=== PATIENT | male | born 1950 | race Two or more races ===

== ENCOUNTER 2020-08-06 19:21 | Inpatient (IN) | payer MEDICARE, OTHER ==
[~2020-08-06] VITALS: Ht 172.7 cm; Wt 81.6 kg
[2020-08-06] MEDS ORDERED: Acetaminophen 500mg (ES) tab ORAL ONE (19:30)
[2020-08-06 20:00] VITALS: BP 170/86
--- NOTE | 2020-08-06 20:14 | Emergency Room Report ---
History of Present Illness General Chief Complaint: Fever Source: Patient Present Illness HPI Disclaimer: Please note that this report is being documented using [employer] technology. This can lead to erroneous entry secondary to incorrect interpretation by the dictating instrument. HPI: 69-year-old male history of ESRD on hemodialysis TRS, CAD status post CABG 2019, hypertension, hyperlipidemia and diabetes presents for evaluation of fever and cough. Symptoms present 1 week. Feeling fatigue, myalgias, nonproductive cough. Developed a fever several days ago. Has not been to dialysis because he was feeling badly and did not want to get other sick. No recent COVID-19 test. Was seen at urgent care found to be febrile and transferred to ER. Denies chest pain, palpitations, shortness of breath just reports persistent cough. Denies URI symptoms. Reports intermittent nausea and vomiting but denies abdominal pain or dysuria. Continues to make urine. PMH: Hypertension, hyperlipidemia, ESRD, CAD, diabetes PSH: AV fistula, CABG Allergies: Reviewed Social Hx: Denied smoking Allergies: Coded Allergies: No Known Allergies (Unverified , 08/06/20) COVID-19 Screening Contact w/high risk pt: Yes Experienced COVID-19 symptoms?: Yes COVID-19 Testing performed TOWN MANAGER: No - unk COVID-19 Screening: Negative COVID-19 Nursing Documentation-PMH Hx Diabetes: Yes - DM2 Review of Systems All Other Systems: negative except mentioned in HPI Physical Exam Vital Signs Date Time Temp Pulse Resp B/P (MAP) Pulse Ox O2 Delivery O2 Flow Rate FiO2 08/06/20 19:15 101.3 70 18 144/68 (93) 97 Room Air General: Awake and alert, no acute distress, febrile HEENT: NC/AT. EOMI. Cardiovascular: Regular rate and rhythm. Palpable fistula left upper extremity Resp: Normal work of breathing. No cough, wheezing or crackles appreciated Abdomen: Abdomen is soft, nondistended. Nontender Skin: I surgical scars clean dry and intact MSK: Normal tone and bulk. Moving all extremities. No obvious deformity. Neuro: Awake and alert. Mentating appropriately. Medical Decision Making Diagnostic Impression: Primary Impression: Fever Additional Impressions: Elevated troponin ESRD (end stage renal disease) on dialysis Pancreatitis ER Course Is a 69-year-old male history of ESRD presents for evaluation of fever. Missed dialysis for the last 3 sessions. He arrives febrile but vital signs otherwise within normal limits. EKG shows anterior Q waves consistent with prior CAD but no signs of acute ischemia. Potassium returned within normal limits. Troponin elevated 0.090. Peptide elevated greater than 10,000. Vascular congestion but no effusion noted on chest x-ray no obvious consolidation. Lipase elevated nearly 700. Patient's labs may be secondary to his ESRD is creatinine is significantly elevated but there are no prior for comparison and therefore will admit the patient for trending of troponin ACS rule out given the patient's multiple risk factors including three-vessel CABG last year. admitted to Dr. Lamont falcon per his health plan Laboratory Tests Test 08/06/20 20:00 White Blood Count 6.3 K/UL (4.8-10.8) Red Blood Count 4.18 M/UL (4.70-6.10) L Hemoglobin 12.3 G/DL (14.2-18.0) L Hematocrit 36.1 % (42.0-52.0) L Mean Corpuscular Volume 86 FL (80-99) Mean Corpuscular Hemoglobin 29.5 PG (27.0-31.0) Mean Corpuscular Hemoglobin Concent 34.1 G/DL (32.0-36.0) Red Cell Distribution Width 16.9 % (11.6-14.8) H Platelet Count 136 K/UL (150-450) L Mean Platelet Volume 8.4 FL (6.5-10.1) Neutrophils (%) (Auto) 80.9 % (45.0-75.0) H Lymphocytes (%) (Auto) 11.5 % (20.0-45.0) L Monocytes (%) (Auto) 6.6 % (1.0-10.0) Eosinophils (%) (Auto) 0.6 % (0.0-3.0) Basophils (%) (Auto) 0.4 % (0.0-2.0) Prothrombin Time 11.3 SEC (9.30-11.50) Prothrombin Time INR 1.0 (0.9-1.1) Activated Partial Thromboplast Time 28 SEC (23-33) D-Dimer 0.47 mg/L FEU (0.00-0.49) Urine Color Pale yellow Urine Appearance Slightly cloudy Urine pH 7 (4.5-8.0) Urine Specific [place] 1.010 (1.005-1.035) Urine Protein 4+ (NEGATIVE) H Urine Glucose (UA) 4+ (NEGATIVE) H Urine Ketones Negative (NEGATIVE) Urine Blood 4+ (NEGATIVE) H Urine Nitrite Negative (NEGATIVE) Urine Bilirubin Negative (NEGATIVE) Urine Urobilinogen Normal MG/DL (0.0-1.0) Urine Leukocyte Esterase Negative (NEGATIVE) Urine RBC 30-40 /HPF (0 - 0) H Urine WBC 0-2 /HPF (0 - 0) Urine Squamous Epithelial Cells Occasional /LPF Urine Bacteria Few /HPF (NONE) Sodium Level 134 MMOL/L (136-145) L Potassium Level 4.8 MMOL/L (3.5-5.1) Chloride Level 99 MMOL/L (98-107) Carbon Dioxide Level 25 MMOL/L (21-32) Anion Gap 10 mmol/L (5-15) Blood Urea Nitrogen 68 mg/dL (7-18) H Creatinine 8.2 MG/DL (0.55-1.30) H Estimated Glomerular Filtration Rate 6.6 mL/min (>60) Glucose Level 257 MG/DL (74-106) H Lactic Acid Level 0.90 mmol/L (0.4-2.0) Calcium Level 7.9 MG/DL (8.5-10.1) L Phosphorus Level 3.4 MG/DL (2.5-4.9) Magnesium Level 2.2 MG/DL (1.8-2.4) Ferritin 1143 NG/ML (8-388) H Total Bilirubin 0.4 MG/DL (0.2-1.0) Aspartate Amino Transferase (AST) 26 U/L (15-37) Alanine Aminotransferase (ALT) 43 U/L (12-78) Alkaline Phosphatase 108 U/L (46-116) Lactate Dehydrogenase 230 U/L (81-234) Total Creatine Kinase 83 U/L (26-308) Creatine Kinase MB 3.3 NG/ML (0.0-3.6) Creatine Kinase MB Relative Index 3.9 Troponin I 0.090 ng/mL (0.000-0.056) C-Reactive Protein, Quantitative 2.9 mg/dL (0.00-0.90) H Pro-B-Type Natriuretic Peptide 35911 pg/mL (0-125) H Total Protein 7.1 G/DL (6.4-8.2) Albumin 3.1 G/DL (3.4-5.0) L Globulin 4.0 g/dL Albumin/Globulin Ratio 0.8 (1.0-2.7) L Lipase 697 U/L (73-393) H EKG Diagnostic Results Troponin ordered: Yes When was troponin ordered?: Aug 06, 2020 EKG Time: 20:34 Rate: normal Rhythm: NSR ST Segments: no acute changes Other Impression Sinus rhythm, normal axis, normal intervals, QTC 461 ms, no hyperacute T waves, no obvious ST segment changes. Anterior Q waves Rhythm Strip Diag. Results Rhythm Strip Time: 20:34 EP Interpretation: yes Rate: 70s Rhythm: NSR, no PVC's, no ectopy Chest X-Ray Diagnostic Results Chest X-Ray Diagnostic Results : Chest X-Ray Ordered: Yes # of Views/Limited/Complete: 1 View Indication: Other - Fever EP Interpretation: Yes Interpretation: no consolidation, no effusion, no pneumothorax, other - Vascular prominences Impression: No acute disease Electronically Signed by: Electronically signed by Dr. Anil Salomon MD Last Vital Signs Date Time Temp Pulse Resp B/P (MAP) Pulse Ox O2 Delivery O2 Flow Rate FiO2 08/06/20 19:15 101.3 70 18 144/68 (93) 97 Room Air Disposition: ADMITTED INPATIENT Condition: Serious Anil Salomon MD Aug 06, 2020 20:14
[2020-08-06 20:32] VITALS: BP 156/60
[2020-08-06 20:53] LABS: BASOPHILS % (AUTO) 0.4 % (0.0-2.0); EOSINOPHILS % (AUTO) 0.6 % (0.0-3.0); HEMATOCRIT 36.1 % (42.0-52.0); HEMOGLOBIN 12.3 G/DL (14.2-18.0); LYMPHOCYTES % (AUTO) 11.5 % (20.0-45.0); MEAN CORPUSCULAR VOLUME 86 FL (80-99); MONOCYTES % (AUTO) 6.6 % (1.0-10.0); NEUTROPHILS % (AUTO) 80.9 % (45.0-75.0); PLATELET COUNT 136 K/UL (150-450); RED BLOOD COUNT 4.18 M/UL (4.70-6.10); RED CELL DISTRIBUTION WIDTH 16.9 % (11.6-14.8); WHITE BLOOD COUNT 6.3 K/UL (4.8-10.8)
[2020-08-06 21:07] LABS: APPEARANCE,URINE SLIGHTLY CLOUDY; BILIRUBIN, URINE NEGATIVE (NEGATIVE); COLOR,URINE PALE YELLOW; GLUCOSE, URINE (UA) 4+ (NEGATIVE); KETONES,URINE NEGATIVE (NEGATIVE); LEUKOCYTE ESTERASE ,URINE NEGATIVE (NEGATIVE); NITRITE,URINE NEGATIVE (NEGATIVE); PH,URINE 7 (4.5-8.0); PROTEIN,URINE 4+ (NEGATIVE); UROBILINOGEN,URINE NORMAL MG/DL (0.0-1.0)
[2020-08-06 21:13] LABS: CALCIUM 7.9 MG/DL (8.5-10.1); CREATININE 8.2 MG/DL (0.55-1.30); POTASSIUM 4.8 MMOL/L (3.5-5.1)
--- NOTE | 2020-08-06 21:21 | Diagnostic Imaging Report ---
EXAM: XR Chest, 1 View CLINICAL HISTORY: PAIN TECHNIQUE: Frontal view of the chest. COMPARISON: No relevant prior studies available. FINDINGS: Lungs: Low lung volumes with bronchovascular crowding. No consolidation, pleural effusion, or pneumothorax. Pleural space: See above. Heart: Cardiomegaly. Mediastinum: Unremarkable. Bones/joints: Sternotomy with mediastinal operative findings. Other findings: Radiopaque linear structure superimposed over the left neck of uncertain significance, correlate with patient presentation and history. IMPRESSION: 1. Radiopaque linear structure superimposed over the left neck of uncertain significance, correlate with patient presentation and history. 2. Low lung volumes with bronchovascular crowding. 3. Cardiomegaly. 4. Otherwise no acute cardiopulmonary disease. 5. If there is continued concern, consider frontal and lateral chest radiographs or CT.
[2020-08-06 21:29] LABS: ALBUMIN 3.1 G/DL (3.4-5.0); ALBUMIN/GLOBULIN RATIO 0.8 (1.0-2.7); BILIRUBIN,TOTAL 0.4 MG/DL (0.2-1.0); CKMB 3.3 NG/ML (0.0-3.6); PHOSPHORUS 3.4 MG/DL (2.5-4.9)
[2020-08-06 21:35] VITALS: BP 125/76
[2020-08-06] MEDS ORDERED: Albuterol 90mcg Inhaler 8gm INH PRN (22:45)
[2020-08-06] MEDS ORDERED: Ipratropium Bromide Inhaler INH PRN (22:45)
[2020-08-06] MEDS ORDERED: Bumetanide 2.5mg/10ml Inj IVP ONE (22:45)
[2020-08-06] MEDS ORDERED: Lidocaine HCl 2% Jelly 6ml Tube TOPIC ONE (23:21)
[2020-08-07] VITALS (13 sets, daily range): BP systolic 127–152; BP diastolic 52–89
[2020-08-07 04:20] LABS: BASOPHILS % (AUTO) 0.5 % (0.0-2.0); HEMATOCRIT 34.8 % (42.0-52.0); HEMOGLOBIN 11.9 G/DL (14.2-18.0); LYMPHOCYTES % (AUTO) 18.9 % (20.0-45.0); MEAN CORPUSCULAR VOLUME 87 FL (80-99); MONOCYTES % (AUTO) 8.5 % (1.0-10.0); NEUTROPHILS % (AUTO) 71.2 % (45.0-75.0); PLATELET COUNT 115 K/UL (150-450); RED BLOOD COUNT 4.01 M/UL (4.70-6.10); RED CELL DISTRIBUTION WIDTH 16.8 % (11.6-14.8); WHITE BLOOD COUNT 5.4 K/UL (4.8-10.8)
[2020-08-07 04:33] LABS: CALCIUM 7.5 MG/DL (8.5-10.1); CREATININE 8.3 MG/DL (0.55-1.30); POTASSIUM 4.4 MMOL/L (3.5-5.1)
[2020-08-07] MEDS: GlipiZIDE 5mg tab ORAL SCH ×2 (06:11→18:52)
[2020-08-07] MEDS: NovoLOG Insulin Flexpen SUBQ SCH ×4 (08:06→21:00)
[2020-08-07] MEDS: dexAMETHasone 10mg/ml Inj IV SCH (09:15)
[2020-08-07] MEDS: Enoxaparin 30mg Inj SUBQ SCH (09:16)
[2020-08-07] MEDS: Sertraline 50mg tab ORAL SCH (09:19)
[2020-08-07] MEDS: Amiodarone 200mg tab ORAL SCH (09:19)
--- NOTE | 2020-08-07 11:43 | Consultation ---
History of Present Illness General Date patient seen: Aug 07, 2020 Time patient seen: 11:39 Chief Complaint: Fever Referring physician: PCP Reason for Consultation: COVID+ Present Illness HPI 69yo M with ESRD on HD who p/w fever and fatigue, COVID+, for which ID is consulted. Pt reports he has been feeling poorly, so much so that he was unable to go to HD last week so is overdue for HD. Had fevers/chills, fatigue. No pain. Breathing stable. Makes urine, no dysuria. Here has Tmax 101.3, satting 98% on RA. No allergies to abx PMH: ESRD on HD CAD s/p CABG 2018 HTN HLD DM2 LUE AVF Allergies: Coded Allergies: No Known Allergies (Unverified , 08/06/20) Patient History Healthcare decision maker Resuscitation status Advanced Directive on File Review of Systems ROS Narrative 10-point ROS neg except as noted in HPI Physical Exam Physical Exam Narrative Gen: NAD HEENT: NCAT Pulm: BL chest rise on RA Abd: Soft, NTND Ext: No c/c/e. LUE AVF Neuro: Awake, interactive Last 24 Hour Vital Signs Date Time Temp Pulse Resp B/P (MAP) Pulse Ox O2 Delivery O2 Flow Rate FiO2 08/07/20 10:54 98.4 85 16 152/89 100 Room Air 08/07/20 09:17 79 145/86 08/07/20 09:00 98.9 79 18 145/86 99 Room Air 08/07/20 06:59 99.0 82 20 151/81 100 Room Air 08/07/20 05:52 97.5 81 20 138/76 97 Room Air 08/07/20 04:15 97.3 76 20 142/73 100 Room Air 08/07/20 02:23 98.7 62 16 131/72 100 Room Air 08/07/20 01:14 99.0 61 16 127/78 98 Room Air 08/07/20 00:16 99.0 64 16 133/81 97 Room Air 08/06/20 21:35 99.4 69 18 125/76 100 Room Air 08/06/20 20:56 100.8 08/06/20 20:32 156/60 08/06/20 20:00 101.3 76 18 170/86 100 Room Air 08/06/20 20:00 76 18 08/06/20 19:15 101.3 70 18 144/68 (93) 97 Room Air Laboratory Tests Test 08/06/20 20:00 08/06/20 23:22 08/07/20 04:14 08/07/20 07:31 White Blood Count 6.3 K/UL (4.8-10.8) 5.4 K/UL (4.8-10.8) Red Blood Count 4.18 M/UL (4.70-6.10) L 4.01 M/UL (4.70-6.10) L Hemoglobin 12.3 G/DL (14.2-18.0) L 11.9 G/DL (14.2-18.0) L Hematocrit 36.1 % (42.0-52.0) L 34.8 % (42.0-52.0) L Mean Corpuscular Volume 86 FL (80-99) 87 FL (80-99) Mean Corpuscular Hemoglobin 29.5 PG (27.0-31.0) 29.7 PG (27.0-31.0) Mean Corpuscular Hemoglobin Concent 34.1 G/DL (32.0-36.0) 34.2 G/DL (32.0-36.0) Red Cell Distribution Width 16.9 % (11.6-14.8) H 16.8 % (11.6-14.8) H Platelet Count 136 K/UL (150-450) L 115 K/UL (150-450) L Mean Platelet Volume 8.4 FL (6.5-10.1) 7.9 FL (6.5-10.1) Neutrophils (%) (Auto) 80.9 % (45.0-75.0) H 71.2 % (45.0-75.0) Lymphocytes (%) (Auto) 11.5 % (20.0-45.0) L 18.9 % (20.0-45.0) L Monocytes (%) (Auto) 6.6 % (1.0-10.0) 8.5 % (1.0-10.0) Eosinophils (%) (Auto) 0.6 % (0.0-3.0) 1.0 % (0.0-3.0) Basophils (%) (Auto) 0.4 % (0.0-2.0) 0.5 % (0.0-2.0) Prothrombin Time 11.3 SEC (9.30-11.50) Prothromb Time International Ratio 1.0 (0.9-1.1) Activated Partial Thromboplast Time 28 SEC (23-33) D-Dimer 0.47 mg/L FEU (0.00-0.49) Urine Color Pale yellow Urine Appearance Slightly cloudy Urine pH 7 (4.5-8.0) Urine Specific [place] 1.010 (1.005-1.035) Urine Protein 4+ (NEGATIVE) H Urine Glucose (UA) 4+ (NEGATIVE) H Urine Ketones Negative (NEGATIVE) Urine Blood 4+ (NEGATIVE) H Urine Nitrite Negative (NEGATIVE) Urine Bilirubin Negative (NEGATIVE) Urine Urobilinogen Normal MG/DL (0.0-1.0) Urine Leukocyte Esterase Negative (NEGATIVE) Urine RBC 30-40 /HPF (0 - 0) H Urine WBC 0-2 /HPF (0 - 0) Urine Squamous Epithelial Cells Occasional /LPF Urine Bacteria Few /HPF (NONE) Sodium Level 134 MMOL/L (136-145) L 137 MMOL/L (136-145) Potassium Level 4.8 MMOL/L (3.5-5.1) 4.4 MMOL/L (3.5-5.1) Chloride Level 99 MMOL/L (98-107) 102 MMOL/L (98-107) Carbon Dioxide Level 25 MMOL/L (21-32) 22 MMOL/L (21-32) Anion Gap 10 mmol/L (5-15) 13 mmol/L (5-15) Blood Urea Nitrogen 68 mg/dL (7-18) H 75 mg/dL (7-18) H Creatinine 8.2 MG/DL (0.55-1.30) H 8.3 MG/DL (0.55-1.30) H Estimat Glomerular Filtration Rate 6.6 mL/min (>60) 6.5 mL/min (>60) Glucose Level 257 MG/DL (74-106) H 166 MG/DL (74-106) H Lactic Acid Level 0.90 mmol/L (0.4-2.0) Calcium Level 7.9 MG/DL (8.5-10.1) L 7.5 MG/DL (8.5-10.1) L Phosphorus Level 3.4 MG/DL (2.5-4.9) Magnesium Level 2.2 MG/DL (1.8-2.4) Ferritin 1143 NG/ML (8-388) H Total Bilirubin 0.4 MG/DL (0.2-1.0) Aspartate Amino Transf (AST/SGOT) 26 U/L (15-37) Alanine Aminotransferase (ALT/SGPT) 43 U/L (12-78) Alkaline Phosphatase 108 U/L (46-116) Lactate Dehydrogenase 230 U/L (81-234) Total Creatine Kinase 83 U/L (26-308) Creatine Kinase MB 3.3 NG/ML (0.0-3.6) Creatine Kinase MB Relative Index 3.9 Troponin I 0.090 ng/mL (0.000-0.056) 0.098 ng/mL (0.000-0.056) C-Reactive Protein, Quantitative 2.9 mg/dL (0.00-0.90) H 3.1 mg/dL (0.00-0.90) H Pro-B-Type Natriuretic Peptide 71912 pg/mL (0-125) H Total Protein 7.1 G/DL (6.4-8.2) Albumin 3.1 G/DL (3.4-5.0) L Globulin 4.0 g/dL Albumin/Globulin Ratio 0.8 (1.0-2.7) L Lipase 697 U/L (73-393) H 942 U/L (73-393) H Arterial Blood pH 7.484 (7.350-7.450) Arterial Blood Partial Pressure CO2 24.2 mmHg (35.0-45.0) *L Arterial Blood Partial Pressure O2 142.7 mmHg (75.0-100.0) H Arterial Blood HCO3 17.8 mmol/L (22.0-26.0) *L Arterial Blood Oxygen Saturation 97.2 % (95-100) Arterial Blood Base Excess -4.3 (-2-2) L Alireza Test Positive Erythrocyte Sedimentation Rate 46 MM/HR (0-20) H Hemoglobin A1c 12.5 % (4.3-6.0) H Interleukin 6 (IL-6) Pending POC Whole Blood Glucose 192 MG/DL (74-106) H Microbiology Date/Time Source Procedure Growth Status 08/07/20 07:00 Rectum Received 08/06/20 20:00 Nasopharynx SARS-CoV-2 RdRp Gene Assay - Final Complete Height (Feet): 5 Height (Inches): 8.00 Weight (Pounds): 180 Medications Current Medications Medications (Trade) Dose Ordered Sig/Miri Route PRN Reason Start Time Stop Time Status Last Admin Dose Admin Albuterol Sulfate (Proventil MDI) 2 puff Q4H PRN INH Shortness of Breath 08/06/20 22:45 11/04/20 22:44 Amiodarone HCl (Cordarone) 200 mg DAILY ORAL 08/07/20 09:00 11/05/20 08:59 08/07/20 09:19 Atorvastatin Calcium (Lipitor) 80 mg BEDTIME ORAL 08/07/20 21:00 11/05/20 20:59 Clopidogrel Bisulfate (Plavix) 75 mg DAILY ORAL 08/07/20 09:00 09/06/20 08:59 08/07/20 09:17 Dexamethasone Sodium Phosphate (Decadron 10mg/ ml Inj) 6 mg DAILY IV 08/07/20 09:00 08/16/20 08:59 08/07/20 09:15 Dextrose (Dextrose 50%) 25 ml Q30M PRN IV Hypoglycemia 08/06/20 22:45 11/04/20 22:44 Dextrose (Dextrose 50%) 50 ml Q30M PRN IV Hypoglycemia 08/06/20 22:45 11/04/20 22:44 Enoxaparin Sodium (Lovenox) 30 mg DAILY SUBQ 08/07/20 09:00 11/05/20 08:59 08/07/20 09:16 Glipizide (Glucotrol) 5 mg BIAC ORAL 08/07/20 06:30 09/06/20 06:29 08/07/20 06:11 Hydralazine HCl (Apresoline) 10 mg Q4H PRN IV SBP >160 08/06/20 22:45 11/04/20 22:44 Insulin Aspart (NovoLOG) BEFORE MEALS AND HS SUBQ 08/07/20 06:30 11/05/20 06:29 08/07/20 08:06 Ipratropium [place] (Atrovent Inh) 2 puffs Q4H PRN INH SOB wheezing 08/06/20 22:45 09/05/20 22:44 Metoprolol Tartrate (Lopressor) 25 mg Q12HR ORAL 08/07/20 09:00 11/05/20 08:59 08/07/20 09:17 Sertraline HCl (Zoloft) 25 mg DAILY ORAL 08/07/20 09:00 09/06/20 08:59 08/07/20 09:19 Assessment/Plan Assessment/Plan: 69yo M with: COVID pneumonia Febrile to 101.3 Normal WBC Lymphopenia 08/06 BCx p COVID rapid test positive UA neg CXR: No acute process Elevated lipase, no abd pain PMH: ESRD on HD CAD s/p CABG 2018 HTN HLD DM2 LUE AVF Plan: Cont dexamethasone 6mg daily #1 for now, if remains on RA will stop Cont to monitor off abx given normal WBC and COVID+ which is not treated with abx Not candidate for RDV given ESRD on HD This institution does not have access to convalescent plasma, and as pt doing well on RA unlikely to benefit from it at this point Monitor CBC/CMP Monitor resp status Monitor temp curve, hemodynamics D/w RN Thank you for this consult. [facility] will continue to follow. Luiza Barton M.D. Aug 07, 2020 11:43
--- NOTE | 2020-08-07 13:22 | General Progress Note ---
Subjective ROS Limited/Unobtainable: Yes Allergies: Coded Allergies: No Known Allergies (Unverified , 08/06/20) Objective Last 24 Hour Vital Signs Date Time Temp Pulse Resp B/P (MAP) Pulse Ox O2 Delivery O2 Flow Rate FiO2 08/07/20 10:54 98.4 85 16 152/89 100 Room Air 08/07/20 09:17 79 145/86 08/07/20 09:00 98.9 79 18 145/86 99 Room Air 08/07/20 06:59 99.0 82 20 151/81 100 Room Air 08/07/20 05:52 97.5 81 20 138/76 97 Room Air 08/07/20 04:15 97.3 76 20 142/73 100 Room Air 08/07/20 02:23 98.7 62 16 131/72 100 Room Air 08/07/20 01:14 99.0 61 16 127/78 98 Room Air 08/07/20 00:16 99.0 64 16 133/81 97 Room Air 08/06/20 21:35 99.4 69 18 125/76 100 Room Air 08/06/20 20:56 100.8 08/06/20 20:32 156/60 08/06/20 20:00 101.3 76 18 170/86 100 Room Air 08/06/20 20:00 76 18 08/06/20 19:15 101.3 70 18 144/68 (93) 97 Room Air Laboratory Tests 08/06/20 20:00: White Blood Count 6.3, Red Blood Count 4.18L, Hemoglobin 12.3L, Hematocrit 36.1L , Mean Corpuscular Volume 86, Mean Corpuscular Hemoglobin 29.5, Mean Corpuscular Hemoglobin Concent 34.1, Red Cell Distribution Width 16.9H, Platelet Count 136L, Mean Platelet Volume 8.4, Neutrophils (%) (Auto) 80.9H, Lymphocytes (%) (Auto) 11.5L, Monocytes (%) (Auto) 6.6, Eosinophils (%) (Auto) 0.6, Basophils (%) (Auto) 0.4, Prothrombin Time 11.3, Prothromb Time International Ratio 1.0, Activated Partial Thromboplast Time 28, D-Dimer 0.47, Urine Color Pale yellow, Urine Appearance Slightly cloudy, Urine pH 7, Urine Specific [place] 1.010, Urine Protein 4+H, Urine Glucose (UA) 4+H, Urine Ketones Negative, Urine Blood 4+H, Urine Nitrite Negative, Urine Bilirubin Negative, Urine Urobilinogen Normal, Urine Leukocyte Esterase Negative, Urine RBC 30-40H, Urine WBC 0-2, Urine Squamous Epithelial Cells Occasional, Urine Bacteria Few, Sodium Level 134L, Potassium Level 4.8, Chloride Level 99, Carbon Dioxide Level 25, Anion Gap 10, Blood Urea Nitrogen 68H, Creatinine 8.2H, Estimat Glomerular Filtration Rate 6.6, Glucose Level 257H, Lactic Acid Level 0.90, Calcium Level 7.9L, Phosphorus Level 3.4, Magnesium Level 2.2, Ferritin 1143H, Total Bilirubin 0.4, Aspartate Amino Transf (AST/SGOT) 26, Alanine Aminotransferase (ALT/SGPT) 43, Alkaline Phosphatase 108, Lactate Dehydrogenase 230, Total Creatine Kinase 83, Creatine Kinase MB 3.3, Creatine Kinase MB Relative Index 3.9, Troponin I 0.090H, C-[place] ctive Protein, Quantitative 2.9H, Pro-B-Type Natriuretic Peptide 38859Z, Total Protein 7.1, Albumin 3.1L, Globulin 4.0, Albumin/Globulin Ratio 0.8L, Lipase 697H 08/06/20 23:22: Arterial Blood pH 7.484H, Arterial Blood Partial Pressure CO2 24.2*L, Arterial B lood Partial Pressure O2 142.7H, Arterial Blood HCO3 17.8*L, Arterial Blood Oxygen Saturation 97.2, Arterial Blood Base Excess -4.3L, Alireza Test Positive 08/07/20 04:14: White Blood Count 5.4, Red Blood Count 4.01L, Hemoglobin 11.9L, Hematocrit 34.8L , Mean Corpuscular Volume 87, Mean Corpuscular Hemoglobin 29.7, Mean Corpuscular Hemoglobin Concent 34.2, Red Cell Distribution Width 16.8H, Platelet Count 115L, Mean Platelet Volume 7.9, Neutrophils (%) (Auto) 71.2, Lymphocytes (%) (Auto) 18.9L, Monocytes (%) (Auto) 8.5, Eosinophils (%) (Auto) 1.0, Basophils (%) (Au to) 0.5, Sodium Level 137, Potassium Level 4.4, Chloride Level 102, Carbon Dioxide Level 22, Anion Gap 13, Blood Urea Nitrogen 75H, Creatinine 8.3H, Estimat Glomerular Filtration Rate 6.5, Glucose Level 166H, Calcium Level 7.5L, Troponin I 0.098H, C-Reactive Protein, Quantitative 3.1H, Lipase 942H, Erythrocyte Sedimentation Rate 46H, Hemoglobin A1c 12.5H, Interleukin 6 (IL-6) [Pending] 08/07/20 07:31: POC Whole Blood Glucose 192H 08/07/20 11:34: POC Whole Blood Glucose [Pending] Height (Feet): 5 Height (Inches): 8.00 Weight (Pounds): 180 General Appearance: no apparent distress EENT: normal ENT inspection Neck: supple Cardiovascular: tachycardia Respiratory/Chest: decreased breath sounds Abdomen: hypoactive bowel sounds Extremities: non-tender Assessment/Plan Assessment/Plan: COVID anemia anisha failure CAD/PR DM elevated lipase check amylase and lipase lipid panel fu ID, Renal and cardiology abd us if needed anemia work up Rd Cruz MD Aug 07, 2020 13:22
--- NOTE | 2020-08-07 13:57 | Consultation ---
Consult Note Consult Note Patient seen in the ER, discussed with RN I am asked to evaluate for dialysis management HPI: 69-year-old male history of ESRD on hemodialysis TRS, CAD status post CABG 2019, hypertension, hyperlipidemia and diabetes presents for evaluation of fever and cough. Symptoms present 1 week. Feeling fatigue, myalgias, nonproductive cough. Developed a fever several days ago. Has not been to dialysis because he was feeling badly and did not want to get other sick. No recent COVID-19 test. Was seen at urgent care found to be febrile and transferred to ER. Denies chest pain, palpitations, shortness of breath just reports persistent cough. Denies URI symptoms. Reports intermittent nausea and vomiting but denies abdominal pain or dysuria. Continues to make urine. 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 - unk COVID-19 Screening: Negative COVID-19 Hx Diabetes: Yes - DM2 Vital Signs Date Time Temp Pulse Resp B/P (MAP) Pulse Ox O2 Delivery O2 Flow Rate FiO2 08/06/20 19:15 101.3 70 18 144/68 (93) 97 Room Air General Appearance: WD/WN, no apparent distress, alert Lines, tubes and drains: peripheral HEENT: normocephalic, atraumatic, anicteric, mucous membranes moist, PERRL Neck: non-tender, supple Respiratory/Chest: chest wall non-tender, lungs clear - with moderate air exchange , no respiratory distress, no accessory muscle use Cardiovascular/Chest: normal peripheral pulses, normal rate, regular rhythm, other - + 1-2 edema BLE Abdomen: normal bowel sounds, non tender, soft Extremities: normal range of motion, non-tender, no calf tenderness, normal ca pillary refill, other - LUE + bruit/thrill Skin Exam: warm/dry Neurologic: no motor/sensory deficits, alert, oriented x 3, responsive Musculoskeletal: normal muscle bulk . Assessment/Plan End-stage renal disease on hemodialysis COVID-19 pneumonia Coronary artery disease, [place] Diabetes mellitus Anemia Elevated lipase Plan: Monitor renal parameters Hemodialysis as soon as the patient arrives to medical floor Monitor lipase, renal parameters, hemoglobin and hematocrit Per orders Jon Crews MD Aug 07, 2020 13:57
--- NOTE | 2020-08-07 17:04 | History and Physical ---
Luis APark LEGAL RECOVERY SPECIALIST 08/07/20 1704: History of Present Illness General Date patient seen: Aug 07, 2020 Time patient seen: 15:30 Reason for Hospitalization: Fever, COVID PNA Present Illness HPI 69 years old male with PMH of diabetes mellitus, end-stage renal disease, on hemodialysis, hypertension, hyperlipidemia, coronary artery disease, status post CABG, presented due to fever and cough. Symptoms present for 1 week. Patient felt fatigued and reported nonproductive cough. He also reported myalgia. Patient missed dialysis for one week since he did not feel good. He denied recent Covid testing. Patient was seen in urgent care, was febrile and was sent to ER for further management. He denied chest pain, palpitations, shortness of breath, just reported persistent dry cough and fatigue. Upon evaluation in ED he was febrile 101.3, pulse oximetry was stable on room air. Rapid COVID-19 was positive. BUN 68, creatinine 8.2, consistent with known history of end-stage renal disease. Glucose 257. Sodium 134. Lactic acid 0.9. Ferritin 1143, CRP 2.9, LDH 230 and D-dimer 0.47. Urinalysis revealed +4 protein , +4 glucose , no evidence of UTI. Chest x-ray revealed low lung volumes with bronchovascular crowding. Cardiomegaly. Otherwise no acute cardiopulmonary disease. Troponin 0.09 ,EKG revealed sinus rhythm, no acute ischemic changes , proBNP 80072. Allergies: Coded Allergies: No Known Allergies (Unverified , 08/06/20) COVID-19 Screening Contact w/high risk pt: Yes Experienced COVID-19 symptoms?: Yes Coronavirus symptoms experienc: Fever (T>100.4F or >38C) Medication History Unable to Obtain Active Prescriptions or Reported Meds Patient History Healthcare decision maker Resuscitation status Advanced Directive on File Review of Systems Constitutional: Reports: fever, weakness, other - fatigue Eye: Reports: no symptoms ENT: Reports: no symptoms Respiratory: Reports: cough - dry persistent cough Cardiovascular: Reports: other - CAD, OR, HTN, s/p CABG Gastrointestinal: Reports: no symptoms Genitourinary: Reports: other - on HD, missed 1 week, still producing urine Musculoskeletal: Reports: other - myalgia Skin: Reports: no symptoms Psychiatric: Reports: no symptoms Neurological: Reports: no symptoms Endocrine: Reports: other - DM Hematologic/Lymphatic: Reports: anemia Physical Exam General Appearance: WD/WN, no apparent distress, alert Lines, tubes and drains: peripheral HEENT: normocephalic, atraumatic, anicteric, mucous membranes moist, PERRL Neck: non-tender, supple Respiratory/Chest: chest wall non-tender, lungs clear - with moderate air exchange , no respiratory distress, no accessory muscle use Cardiovascular/Chest: normal peripheral pulses, normal rate, regular rhythm, other - + 1-2 edema BLE Abdomen: normal bowel sounds, non tender, soft Extremities: normal range of motion, non-tender, no calf tenderness, normal capillary refill, other - LUE + bruit/thrill Skin Exam: warm/dry Neurologic: no motor/sensory deficits, alert, oriented x 3, responsive Musculoskeletal: normal muscle bulk Last 24 Hour Vital Signs Date Time Temp Pulse Resp B/P (MAP) Pulse Ox O2 Delivery O2 Flow Rate FiO2 08/07/20 15:00 98.2 68 19 145/67 96 Room Air 08/07/20 13:00 98.7 68 19 152/52 95 Room Air 08/07/20 10:54 98.4 85 16 152/89 100 Room Air 08/07/20 09:17 79 145/86 08/07/20 09:00 98.9 79 18 145/86 99 Room Air 08/07/20 06:59 99.0 82 20 151/81 100 Room Air 08/07/20 05:52 97.5 81 20 138/76 97 Room Air 08/07/20 04:15 97.3 76 20 142/73 100 Room Air 08/07/20 02:23 98.7 62 16 131/72 100 Room Air 08/07/20 01:14 99.0 61 16 127/78 98 Room Air 08/07/20 00:16 99.0 64 16 133/81 97 Room Air 08/06/20 21:35 99.4 69 18 125/76 100 Room Air 08/06/20 20:56 100.8 08/06/20 20:32 156/60 08/06/20 20:00 101.3 76 18 170/86 100 Room Air 08/06/20 20:00 76 18 08/06/20 19:15 101.3 70 18 144/68 (93) 97 Room Air Laboratory Tests Test 08/06/20 20:00 08/06/20 23:22 08/07/20 04:14 08/07/20 07:31 White Blood Count 6.3 K/UL (4.8-10.8) 5.4 K/UL (4.8-10.8) Red Blood Count 4.18 M/UL (4.70-6.10) L 4.01 M/UL (4.70-6.10) L Hemoglobin 12.3 G/DL (14.2-18.0) L 11.9 G/DL (14.2-18.0) L Hematocrit 36.1 % (42.0-52.0) L 34.8 % (42.0-52.0) L Mean Corpuscular Volume 86 FL (80-99) 87 FL (80-99) Mean Corpuscular Hemoglobin 29.5 PG (27.0-31.0) 29.7 PG (27.0-31.0) Mean Corpuscular Hemoglobin Concent 34.1 G/DL (32.0-36.0) 34.2 G/DL (32.0-36.0) Red Cell Distribution Width 16.9 % (11.6-14.8) H 16.8 % (11.6-14.8) H Platelet Count 136 K/UL (150-450) L 115 K/UL (150-450) L Mean Platelet Volume 8.4 FL (6.5-10.1) 7.9 FL (6.5-10.1) Neutrophils (%) (Auto) 80.9 % (45.0-75.0) H 71.2 % (45.0-75.0) Lymphocytes (%) (Auto) 11.5 % (20.0-45.0) L 18.9 % (20.0-45.0) L Monocytes (%) (Auto) 6.6 % (1.0-10.0) 8.5 % (1.0-10.0) Eosinophils (%) (Auto) 0.6 % (0.0-3.0) 1.0 % (0.0-3.0) Basophils (%) (Auto) 0.4 % (0.0-2.0) 0.5 % (0.0-2.0) Prothrombin Time 11.3 SEC (9.30-11.50) Prothromb Time International Ratio 1.0 (0.9-1.1) Activated Partial Thromboplast Time 28 SEC (23-33) D-Dimer 0.47 mg/L FEU (0.00-0.49) Urine Color Pale yellow Urine Appearance Slightly cloudy Urine pH 7 (4.5-8.0) Urine Specific [place] 1.010 (1.005-1.035) Urine Protein 4+ (NEGATIVE) H Urine Glucose (UA) 4+ (NEGATIVE) H Urine Ketones Negative (NEGATIVE) Urine Blood 4+ (NEGATIVE) H Urine Nitrite Negative (NEGATIVE) Urine Bilirubin Negative (NEGATIVE) Urine Urobilinogen Normal MG/DL (0.0-1.0) Urine Leukocyte Esterase Negative (NEGATIVE) Urine RBC 30-40 /HPF (0 - 0) H Urine WBC 0-2 /HPF (0 - 0) Urine Squamous Epithelial Cells Occasional /LPF Urine Bacteria Few /HPF (NONE) Sodium Level 134 MMOL/L (136-145) L 137 MMOL/L (136-145) Potassium Level 4.8 MMOL/L (3.5-5.1) 4.4 MMOL/L (3.5-5.1) Chloride Level 99 MMOL/L (98-107) 102 MMOL/L (98-107) Carbon Dioxide Level 25 MMOL/L (21-32) 22 MMOL/L (21-32) Anion Gap 10 mmol/L (5-15) 13 mmol/L (5-15) Blood Urea Nitrogen 68 mg/dL (7-18) H 75 mg/dL (7-18) H Creatinine 8.2 MG/DL (0.55-1.30) H 8.3 MG/DL (0.55-1.30) H Estimat Glomerular Filtration Rate 6.6 mL/min (>60) 6.5 mL/min (>60) Glucose Level 257 MG/DL (74-106) H 166 MG/DL (74-106) H Lactic Acid Level 0.90 mmol/L (0.4-2.0) Calcium Level 7.9 MG/DL (8.5-10.1) L 7.5 MG/DL (8.5-10.1) L Phosphorus Level 3.4 MG/DL (2.5-4.9) Magnesium Level 2.2 MG/DL (1.8-2.4) Ferritin 1143 NG/ML (8-388) H Total Bilirubin 0.4 MG/DL (0.2-1.0) Aspartate Amino Transf (AST/SGOT) 26 U/L (15-37) Alanine Aminotransferase (ALT/SGPT) 43 U/L (12-78) Alkaline Phosphatase 108 U/L (46-116) Lactate Dehydrogenase 230 U/L (81-234) Total Creatine Kinase 83 U/L (26-308) Creatine Kinase MB 3.3 NG/ML (0.0-3.6) Creatine Kinase MB Relative Index 3.9 Troponin I 0.090 ng/mL (0.000-0.056) 0.098 ng/mL (0.000-0.056) C-Reactive Protein, Quantitative 2.9 mg/dL (0.00-0.90) H 3.1 mg/dL (0.00-0.90) H Pro-B-Type Natriuretic Peptide 87761 pg/mL (0-125) H Total Protein 7.1 G/DL (6.4-8.2) Albumin 3.1 G/DL (3.4-5.0) L Globulin 4.0 g/dL Albumin/Globulin Ratio 0.8 (1.0-2.7) L Lipase 697 U/L (73-393) H 942 U/L (73-393) H Arterial Blood pH 7.484 (7.350-7.450) Arterial Blood Partial Pressure CO2 24.2 mmHg (35.0-45.0) *L Arterial Blood Partial Pressure O2 142.7 mmHg (75.0-100.0) H Arterial Blood HCO3 17.8 mmol/L (22.0-26.0) *L Arterial Blood Oxygen Saturation 97.2 % (95-100) Arterial Blood Base Excess -4.3 (-2-2) L Alireza Test Positive Erythrocyte Sedimentation Rate 46 MM/HR (0-20) H Hemoglobin A1c 12.5 % (4.3-6.0) H Interleukin 6 (IL-6) Pending POC Whole Blood Glucose 192 MG/DL (74-106) H Test 08/07/20 11:34 POC Whole Blood Glucose Pending Microbiology Date/Time Source Procedure Growth Status 08/07/20 07:00 Rectum Received 08/06/20 20:00 Nasopharynx SARS-CoV-2 RdRp Gene Assay - Final Complete Height (Feet): 5 Height (Inches): 8.00 Weight (Pounds): 180 Medications Current Medications Medications (Trade) Dose Ordered Sig/Miri Route PRN Reason Start Time Stop Time Status Last Admin Dose Admin Albuterol Sulfate (Proventil MDI) 2 puff Q4H PRN INH Shortness of Breath 08/06/20 22:45 11/04/20 22:44 Amiodarone HCl (Cordarone) 200 mg DAILY ORAL 08/07/20 09:00 11/05/20 08:59 08/07/20 09:19 Atorvastatin Calcium (Lipitor) 80 mg BEDTIME ORAL 08/07/20 21:00 11/05/20 20:59 Clopidogrel Bisulfate (Plavix) 75 mg DAILY ORAL 08/07/20 09:00 09/06/20 08:59 08/07/20 09:17 Dexamethasone Sodium Phosphate (Decadron 10mg/ ml Inj) 6 mg DAILY IV 08/07/20 09:00 08/16/20 08:59 08/07/20 09:15 Dextrose (Dextrose 50%) 25 ml Q30M PRN IV Hypoglycemia 08/06/20 22:45 11/04/20 22:44 Dextrose (Dextrose 50%) 50 ml Q30M PRN IV Hypoglycemia 08/06/20 22:45 11/04/20 22:44 Enoxaparin Sodium (Lovenox) 30 mg DAILY SUBQ 08/07/20 09:00 11/05/20 08:59 08/07/20 09:16 Glipizide (Glucotrol) 5 mg BIAC ORAL 08/07/20 06:30 09/06/20 06:29 08/07/20 06:11 Hydralazine HCl (Apresoline) 10 mg Q4H PRN IV SBP >160 08/06/20 22:45 11/04/20 22:44 Insulin Aspart (NovoLOG) BEFORE MEALS AND HS SUBQ 08/07/20 06:30 11/05/20 06:29 08/07/20 08:06 Ipratropium [place] (Atrovent Inh) 2 puffs Q4H PRN INH SOB wheezing 08/06/20 22:45 1/27/21 22:44 Metoprolol Tartrate (Lopressor) 25 mg Q12HR ORAL 08/07/20 09:00 11/05/20 08:59 08/07/20 09:17 Sertraline HCl (Zoloft) 25 mg DAILY ORAL 08/07/20 09:00 09/06/20 08:59 08/07/20 09:19 Assessment/Plan Assessment/Plan: ASSESSMENT COVID-19 Elevated troponin, likely troponin leak ESRD, on HD ( missed dialysis for 1 week ) Coronary artery disease with history of OR and CABG DM OOC - [id number] HTN Elevated lipase Anemia PLAN OF CARE isolation started on Dexamethasone Day 1 no Remdesivivr, given ESRD a/coagulation PPX dose with Lovenox O2 titrate to keep sat > 92% Albuterol MDI prn fup with imaging fup with inflammatory markers a/tussive prn ID eval appreciated HD as per nephro recs monitor volumes and renal parameters., unable to do HD while in ED, since ED not equipped with connections needed for HD on [facility] for now continue a/PLT therapy woth p+Plavix and beta blockage elevated troponin x 2 with minimal elevation, same range, likely troponin leak, ECG non-ischemic, no c/o CP BS management with Glipizide and SSI, HgA1c- 12.5 clearly not at goal will need more aggressive treatment of BS while on steroids anemia w/up monitor HH with goal to keep Hgb >7 GI eval appreciated lipase trending up, but no c/o abd pain supprotive care case discussed and evaluated by supervising physician Gavino Doll MD 08/07/202: History of Present Illness General Reason for Hospitalization: Fever, COVID PNA Present Illness Allergies: Coded Allergies: No Known Allergies (Unverified , 08/06/20) Medication History Unable to Obtain Active Prescriptions or Reported Meds Assessment/Plan Assessment/Plan: Patient case d/w LEGAL RECOVERY SPECIALIST and I agree with the assessment and plan. COVID-19 ESRD on HD, missed HD -monitor on room air -no covid directed therapies for now -trend inflammatory markers -HD per renal -DVT ppx [place] Gunn NP Aug 07, 2020 17:04 Gavino Doll MD Aug 07, 2020 21:52
[2020-08-07] MEDS ORDERED: Atorvastatin 80mg tab ORAL SCH (21:00)
--- NOTE | 2020-08-07 21:36 | Consultation ---
History of Present Illness General Chief Complaint: Fever Referring physician: Dr. Becerra Reason for Consultation: COVID+ Present Illness HPI 69 yo male admitted through the ER c/o fever and cough x 1 week, COVID-19 positive rapid nasal swab with fever to 101. PMHx CAD s/p CABG and MN, HTN, HPLD, DMII, ESRD on HD with missed dialysis sessions this week. Troponin 0.09, CXR shows decreased lung volume, BNP severely elevated. Denies chest pain. We are asked to see the pt for ACS rule out, management of HF and other cardiac issues. Allergies: Coded Allergies: No Known Allergies (Unverified , 08/06/20) Patient History Limited by: medical condition History Provided By: Patient, Medical Record Healthcare decision maker Resuscitation status Advanced Directive on File Review of Systems Constitutional: Reports: fever, weakness Eye: Reports: no symptoms Respiratory: Reports: cough, shortness of breath Cardiovascular: Reports: no symptoms All Other Systems: negative except mentioned in HPI Physical Exam General Appearance: no apparent distress HEENT: normocephalic, PERRL Neck: supple, normal inspection Respiratory/Chest: no respiratory distress, no accessory muscle use Cardiovascular/Chest: regular rhythm, tachycardia Abdomen: soft Extremities: trace edema Neurologic: jumpbasting armhole baster II-XII grossly normal Last 24 Hour Vital Signs Date Time Temp Pulse Resp B/P (MAP) Pulse Ox O2 Delivery O2 Flow Rate FiO2 08/07/20 19:14 98.9 71 20 148/77 99 Room Air 08/07/20 17:00 97.9 76 20 129/74 100 Room Air 08/07/20 15:00 98.2 68 19 145/67 96 Room Air 08/07/20 13:00 98.7 68 19 152/52 95 Room Air 08/07/20 10:54 98.4 85 16 152/89 100 Room Air 08/07/20 09:17 79 145/86 08/07/20 09:00 98.9 79 18 145/86 99 Room Air 08/07/20 06:59 99.0 82 20 151/81 100 Room Air 08/07/20 05:52 97.5 81 20 138/76 97 Room Air 08/07/20 04:15 97.3 76 20 142/73 100 Room Air 08/07/20 02:23 98.7 62 16 131/72 100 Room Air 08/07/20 01:14 99.0 61 16 127/78 98 Room Air 08/07/20 00:16 99.0 64 16 133/81 97 Room Air 08/06/20 21:35 99.4 69 18 125/76 100 Room Air Laboratory Tests Test 08/06/20 23:22 08/07/20 04:14 08/07/20 07:31 08/07/20 11:34 Arterial Blood pH 7.484 (7.350-7.450) Arterial Blood Partial Pressure CO2 24.2 mmHg (35.0-45.0) *L Arterial Blood Partial Pressure O2 142.7 mmHg (75.0-100.0) H Arterial Blood HCO3 17.8 mmol/L (22.0-26.0) *L Arterial Blood Oxygen Saturation 97.2 % (95-100) Arterial Blood Base Excess -4.3 (-2-2) L Alireza Test Positive White Blood Count 5.4 K/UL (4.8-10.8) Red Blood Count 4.01 M/UL (4.70-6.10) L Hemoglobin 11.9 G/DL (14.2-18.0) L Hematocrit 34.8 % (42.0-52.0) L Mean Corpuscular Volume 87 FL (80-99) Mean Corpuscular Hemoglobin 29.7 PG (27.0-31.0) Mean Corpuscular Hemoglobin Concent 34.2 G/DL (32.0-36.0) Red Cell Distribution Width 16.8 % (11.6-14.8) H Platelet Count 115 K/UL (150-450) L Mean Platelet Volume 7.9 FL (6.5-10.1) Neutrophils (%) (Auto) 71.2 % (45.0-75.0) Lymphocytes (%) (Auto) 18.9 % (20.0-45.0) L Monocytes (%) (Auto) 8.5 % (1.0-10.0) Eosinophils (%) (Auto) 1.0 % (0.0-3.0) Basophils (%) (Auto) 0.5 % (0.0-2.0) Erythrocyte Sedimentation Rate 46 MM/HR (0-20) H Sodium Level 137 MMOL/L (136-145) Potassium Level 4.4 MMOL/L (3.5-5.1) Chloride Level 102 MMOL/L (98-107) Carbon Dioxide Level 22 MMOL/L (21-32) Anion Gap 13 mmol/L (5-15) Blood Urea Nitrogen 75 mg/dL (7-18) H Creatinine 8.3 MG/DL (0.55-1.30) H Estimat Glomerular Filtration Rate 6.5 mL/min (>60) Glucose Level 166 MG/DL (74-106) H Hemoglobin A1c 12.5 % (4.3-6.0) H Calcium Level 7.5 MG/DL (8.5-10.1) L Troponin I 0.098 ng/mL (0.000-0.056) C-Reactive Protein, Quantitative 3.1 mg/dL (0.00-0.90) H Lipase 942 U/L (73-393) H Interleukin 6 (IL-6) Pending POC Whole Blood Glucose 192 MG/DL (74-106) H Pending Test 08/07/20 18:50 POC Whole Blood Glucose 125 MG/DL (74-106) H Microbiology Date/Time Source Procedure Growth Status 08/07/20 07:00 Rectum Received Height (Feet): 5 Height (Inches): 8.00 Weight (Pounds): 180 Medications Current Medications Medications (Trade) Dose Ordered Sig/Miri Route PRN Reason Start Time Stop Time Status Last Admin Dose Admin Albuterol Sulfate (Proventil MDI) 2 puff Q4H PRN INH Shortness of Breath 08/06/20 22:45 11/04/20 22:44 Amiodarone HCl (Cordarone) 200 mg DAILY ORAL 08/07/20 09:00 11/05/20 08:59 08/07/20 09:19 Atorvastatin Calcium (Lipitor) 80 mg BEDTIME ORAL 08/07/20 21:00 11/05/20 20:59 Clopidogrel Bisulfate (Plavix) 75 mg DAILY ORAL 08/07/20 09:00 09/06/20 08:59 08/07/20 09:17 Dexamethasone Sodium Phosphate (Decadron 10mg/ ml Inj) 6 mg DAILY IV 08/07/20 09:00 08/16/20 08:59 08/07/20 09:15 Dextrose (Dextrose 50%) 25 ml Q30M PRN IV Hypoglycemia 08/06/20 22:45 11/04/20 22:44 Dextrose (Dextrose 50%) 50 ml Q30M PRN IV Hypoglycemia 08/06/20 22:45 11/04/20 22:44 Enoxaparin Sodium (Lovenox) 30 mg DAILY SUBQ 08/07/20 09:00 11/05/20 08:59 08/07/20 09:16 Glipizide (Glucotrol) 5 mg BIAC ORAL 08/07/20 06:30 09/06/20 06:29 08/07/20 18:52 Guaifenesin/ Dextromethorphan (Robitussin DM Syrup) 10 ml Q4H PRN ORAL For Cough 08/07/20 17:30 11/05/20 17:29 Hydralazine HCl (Apresoline) 10 mg Q4H PRN IV SBP >160 08/06/20 22:45 11/04/20 22:44 Insulin Aspart (NovoLOG) BEFORE MEALS AND HS SUBQ 08/07/20 06:30 11/05/20 06:29 08/07/20 08:06 Ipratropium [place] (Atrovent Inh) 2 puffs Q4H PRN INH SOB wheezing 08/06/20 22:45 09/05/20 22:44 Metoprolol Tartrate (Lopressor) 25 mg Q12HR ORAL 08/07/20 09:00 11/05/20 08:59 08/07/20 09:17 Sertraline HCl (Zoloft) 25 mg DAILY ORAL 08/07/20 09:00 09/06/20 08:59 08/07/20 09:19 Assessment/Plan Assessment/Plan: 1. COVID-19 viral PNA 2. CHF acute on chronic with severely elevated BNP Echo pending CXR shows decreased volume 3. CAD s/p CABG and MN 4. Troponin leak 0.09 denies chest pain trend troponin 5. ESRD on HD 6. HTN 7. HPLD 8. DMII Echo pending to assess LV function, will trend troponin. HD will be done, rec microfiltration to help alleviate fluid overload. SBP and HR improved today, hemodynamically stable. Further recs to follow. Radha Collins PA-C Aug 07, 2020 21:36
[2020-08-08] VITALS: BP 126/69
[2020-08-08 04:00] VITALS: BP 138/59
[2020-08-08] MEDS: GlipiZIDE 5mg tab ORAL SCH ×2 (05:32→16:27)
[2020-08-08] MEDS: NovoLOG Insulin Flexpen SUBQ SCH ×4 (05:33→21:06)
--- NOTE | 2020-08-08 07:04 | General Progress Note ---
Subjective ROS Limited/Unobtainable: Yes Allergies: Coded Allergies: No Known Allergies (Unverified , 08/06/20) Objective Last 24 Hour Vital Signs Date Time Temp Pulse Resp B/P (MAP) Pulse Ox O2 Delivery O2 Flow Rate FiO2 08/08/20 04:00 97.8 81 18 138/59 (85) 100 08/08/20 03:03 83 08/08/20 00:05 82 08/08/20 00:00 96.4 80 18 126/69 (88) 98 08/07/20 22:11 74 08/07/20 21:54 97.6 75 18 149/72 (97) 98 08/07/20 21:48 Room Air 08/07/20 21:20 98.9 69 20 140/78 100 Room Air 08/07/20 21:00 75 149/72 08/07/20 19:14 98.9 71 20 148/77 99 Room Air 08/07/20 17:00 97.9 76 20 129/74 100 Room Air 08/07/20 15:00 98.2 68 19 145/67 96 Room Air 08/07/20 13:00 98.7 68 19 152/52 95 Room Air 08/07/20 10:54 98.4 85 16 152/89 100 Room Air 08/07/20 09:17 79 145/86 08/07/20 09:00 98.9 79 18 145/86 99 Room Air Intake and Output 08/07/20 08/08/20 19:00 07:00 Output Total 2125 ml Balance -2125 ml Output Urine Total 125 ml Hemodialysis UF 2000 ml # Voids 2 # Bowel Movements 1 Laboratory Tests 08/07/20 07:31: POC Whole Blood Glucose 192H 08/07/20 11:34: POC Whole Blood Glucose [Pending] 08/07/20 18:50: POC Whole Blood Glucose 125H 08/07/20 21:30: Troponin I 0.124H 08/07/20 21:35: POC Whole Blood Glucose [Pending] 08/08/20 04:52: POC Whole Blood Glucose [Pending] Height (Feet): 5 Height (Inches): 8.00 Weight (Pounds): 180 General Appearance: no apparent distress EENT: normal ENT inspection Neck: normal alignment Cardiovascular: normal rate Respiratory/Chest: decreased breath sounds Abdomen: normal bowel sounds, non tender, soft Extremities: non-tender Assessment/Plan Assessment/Plan: COVID anemia anisha failure CAD/[place] DM elevated lipase elevated trop check amylase and lipase lipid panel fu ID, Renal and cardiology abd us if needed anemia work up Rd Cruz MD Aug 08, 2020 07:04
[2020-08-08 07:39] LABS: BASOPHILS % (AUTO) 0.2 % (0.0-2.0); HEMATOCRIT 34.9 % (42.0-52.0); HEMOGLOBIN 11.4 G/DL (14.2-18.0); LYMPHOCYTES % (AUTO) 10.4 % (20.0-45.0); MEAN CORPUSCULAR VOLUME 89 FL (80-99); MONOCYTES % (AUTO) 6.3 % (1.0-10.0); NEUTROPHILS % (AUTO) 83.1 % (45.0-75.0); PLATELET COUNT 121 K/UL (150-450); RED CELL DISTRIBUTION WIDTH 16.8 % (11.6-14.8); WHITE BLOOD COUNT 4.8 K/UL (4.8-10.8)
[2020-08-08 08:00] VITALS: BP 161/61
[2020-08-08 08:24] LABS: ALANINE AMINOTRANSFERASE 49 U/L (12-78); ALBUMIN 2.9 G/DL (3.4-5.0); ALBUMIN/GLOBULIN RATIO 0.7 (1.0-2.7); ALKALINE PHOSPHATASE 92 U/L (46-116); ANION GAP 11 mmol/L (5-15); ASPARTATE AMINO TRANSFERASE 43 U/L (15-37); BILIRUBIN,TOTAL 0.5 MG/DL (0.2-1.0); BLOOD UREA NITROGEN 50 mg/dL (7-18); CALCIUM 8.1 MG/DL (8.5-10.1); CARBON DIOXIDE 30 MMOL/L (21-32); CHLORIDE 97 MMOL/L (98-107); CHOLESTEROL 116 MG/DL (< 200); CREATININE 6.5 MG/DL (0.55-1.30); HDL CHOLESTEROL 30 MG/DL (40-60); POTASSIUM 3.3 MMOL/L (3.5-5.1); SODIUM 137 MMOL/L (136-145); TRIGLYCERIDES 162 MG/DL (30-150)
[2020-08-08 08:26] LABS: % IRON SATURATION 16 % (15-50); IRON 24 ug/dL (50-175); TOTAL IRON BINDING CAPACITY 152 ug/dL (250-450)
[2020-08-08 08:37] LABS: PHOSPHORUS 4.3 MG/DL (2.5-4.9)
--- NOTE | 2020-08-08 08:40 | Infectious Diseases Prog Note ---
Assessment/Plan 69yo M with: COVID pneumonia Febrile to 101.3 Normal WBC Lymphopenia 08/06 BCx p COVID rapid test positive UA neg CXR: No acute process Elevated lipase, no abd pain PMH: ESRD on HD CAD s/p CABG 2018 HTN HLD DM2 LUE AVF Plan: Stop dexamethasone 6mg daily #2 given doing well on RA Cont to monitor off abx given normal WBC and COVID+ which is not treated with abx Not candidate for RDV given ESRD on HD This institution does not have access to convalescent plasma, and as pt doing well on RA unlikely to benefit from it at this point Monitor CBC/CMP Monitor resp status Monitor temp curve, hemodynamics D/w RN Thank you for this consult. [facility] will continue to follow. Subjective Allergies: Coded Allergies: No Known Allergies (Unverified , 08/06/20) AF Remains on RA WBC 4.8 NAD Breathing is fine he says Objective Last 24 Hour Vital Signs Date Time Temp Pulse Resp B/P (MAP) Pulse Ox O2 Delivery O2 Flow Rate FiO2 08/08/20 04:00 97.8 81 18 138/59 (85) 100 08/08/20 03:03 83 08/08/20 00:05 82 08/08/20 00:00 96.4 80 18 126/69 (88) 98 08/07/20 22:11 74 08/07/20 21:54 97.6 75 18 149/72 (97) 98 08/07/20 21:48 Room Air 08/07/20 21:20 98.9 69 20 140/78 100 Room Air 08/07/20 21:00 75 149/72 08/07/20 19:14 98.9 71 20 148/77 99 Room Air 08/07/20 17:00 97.9 76 20 129/74 100 Room Air 08/07/20 15:00 98.2 68 19 145/67 96 Room Air 08/07/20 13:00 98.7 68 19 152/52 95 Room Air 08/07/20 10:54 98.4 85 16 152/89 100 Room Air 08/07/20 09:17 79 145/86 08/07/20 09:00 98.9 79 18 145/86 99 Room Air Height (Feet): 5 Height (Inches): 8.00 Weight (Pounds): 180 Gen: NAD HEENT: NCAT Pulm: BL chest rise Abd: Non-distended Ext: No c/c/e Skin: No visible rashes Neuro: Awake Microbiology Date/Time Source Procedure Growth Status 08/07/20 07:00 Rectum Received 08/06/20 20:00 Nasopharynx SARS-CoV-2 RdRp Gene Assay - Final Complete Laboratory Tests Test 08/07/20 11:34 08/07/20 18:50 08/07/20 21:30 08/07/20 21:35 POC Whole Blood Glucose Pending 125 MG/DL (74-106) H Pending Troponin I 0.124 ng/mL (0.000-0.056) Test 08/08/20 04:52 08/08/20 05:59 POC Whole Blood Glucose Pending White Blood Count 4.8 K/UL (4.8-10.8) Red Blood Count 3.90 M/UL (4.70-6.10) L Hemoglobin 11.4 G/DL (14.2-18.0) L Hematocrit 34.9 % (42.0-52.0) L Mean Corpuscular Volume 89 FL (80-99) Mean Corpuscular Hemoglobin 29.1 PG (27.0-31.0) Mean Corpuscular Hemoglobin Concent 32.5 G/DL (32.0-36.0) Red Cell Distribution Width 16.8 % (11.6-14.8) H Platelet Count 121 K/UL (150-450) L Mean Platelet Volume 7.7 FL (6.5-10.1) Neutrophils (%) (Auto) 83.1 % (45.0-75.0) H Lymphocytes (%) (Auto) 10.4 % (20.0-45.0) L Monocytes (%) (Auto) 6.3 % (1.0-10.0) Eosinophils (%) (Auto) 0.0 % (0.0-3.0) Basophils (%) (Auto) 0.2 % (0.0-2.0) Sodium Level 137 MMOL/L (136-145) Potassium Level 3.3 MMOL/L (3.5-5.1) L Chloride Level 97 MMOL/L (98-107) L Carbon Dioxide Level 30 MMOL/L (21-32) Anion Gap 11 mmol/L (5-15) Blood Urea Nitrogen 50 mg/dL (7-18) H Creatinine 6.5 MG/DL (0.55-1.30) H Estimat Glomerular Filtration Rate 8.6 mL/min (>60) Glucose Level 190 MG/DL (74-106) H Uric Acid Pending Calcium Level 8.1 MG/DL (8.5-10.1) L Phosphorus Level Pending Magnesium Level Pending Iron Level Pending Unsaturated Iron Binding Pending Ferritin Pending Total Bilirubin 0.5 MG/DL (0.2-1.0) Gamma Glutamyl Transpeptidase Pending Aspartate Amino Transf (AST/SGOT) 43 U/L (15-37) H Alanine Aminotransferase (ALT/SGPT) 49 U/L (12-78) Alkaline Phosphatase 92 U/L (46-116) C-Reactive Protein, Quantitative Pending Pro-B-Type Natriuretic Peptide Pending Total Protein 6.8 G/DL (6.4-8.2) Albumin 2.9 G/DL (3.4-5.0) L Globulin 3.9 g/dL Albumin/Globulin Ratio 0.7 (1.0-2.7) L Triglycerides Level 162 MG/DL (30-150) H Cholesterol Level 116 MG/DL (< 200) LDL Cholesterol 55 mg/dL (<100) HDL Cholesterol 30 MG/DL (40-60) L Cholesterol/HDL Ratio 3.9 (3.3-4.4) Amylase Level Pending Lipase Pending CA 19-9 Antigen Pending Vitamin B12 Level Pending Folate Pending Thyroid Stimulating Hormone (TSH) Pending Hepatitis B Surface Antigen Pending Current Medications Medications (Trade) Dose Ordered Sig/Miri Route PRN Reason Start Time Stop Time Status Last Admin Dose Admin Albuterol Sulfate (Proventil MDI) 2 puff Q4H PRN INH Shortness of Breath 08/06/20 22:45 11/04/20 22:44 Amiodarone HCl (Cordarone) 200 mg DAILY ORAL 08/07/20 09:00 11/05/20 08:59 08/07/20 09:19 Atorvastatin Calcium (Lipitor) 80 mg BEDTIME ORAL 08/08/20 21:00 11/06/20 20:59 Bumetanide (Bumex) 1 mg DAILY IVP 08/08/20 09:00 09/07/20 08:59 Clopidogrel Bisulfate (Plavix) 75 mg DAILY ORAL 08/07/20 09:00 09/06/20 08:59 08/07/20 09:17 Dexamethasone Sodium Phosphate (Decadron 10mg/ ml Inj) 6 mg DAILY IV 08/07/20 09:00 08/16/20 08:59 08/07/20 09:15 Dextrose (Dextrose 50%) 25 ml Q30M PRN IV Hypoglycemia 08/06/20 22:45 11/04/20 22:44 Dextrose (Dextrose 50%) 50 ml Q30M PRN IV Hypoglycemia 08/06/20 22:45 11/04/20 22:44 Enoxaparin Sodium (Lovenox) 30 mg DAILY SUBQ 08/07/20 09:00 11/05/20 08:59 08/07/20 09:16 Glipizide (Glucotrol) 5 mg BIAC ORAL 08/07/20 06:30 09/06/20 06:29 08/08/20 05:32 Guaifenesin/ Dextromethorphan (Robitussin DM Syrup) 10 ml Q4H PRN ORAL For Cough 08/07/20 17:30 11/05/20 17:29 Hydralazine HCl (Apresoline) 10 mg Q4H PRN IV SBP >160 08/06/20 22:45 11/04/20 22:44 Insulin Aspart (NovoLOG) BEFORE MEALS AND HS SUBQ 08/07/20 06:30 11/05/20 06:29 08/08/20 05:33 Ipratropium [place] (Atrovent Inh) 2 puffs Q4H PRN INH SOB wheezing 08/06/20 22:45 09/05/20 22:44 Isosorbide Mononitrate (Imdur) 30 mg DAILY ORAL 08/08/20 09:00 09/07/20 08:59 Metoprolol Tartrate (Lopressor) 25 mg Q12HR ORAL 08/07/20 09:00 11/05/20 08:59 08/07/20 09:17 Sertraline HCl (Zoloft) 25 mg DAILY ORAL 08/07/20 09:00 09/06/20 08:59 08/07/20 09:19 Luiza Barton M.D. Aug 08, 2020 08:40
[2020-08-08 08:43] LABS: AMYLASE 90 U/L (25-115); FERRITIN 1537 NG/ML (8-388)
[2020-08-08] MEDS: Imdur 30mg tab ORAL SCH (08:47)
[2020-08-08] MEDS: dexAMETHasone 10mg/ml Inj IV SCH (08:47)
[2020-08-08] MEDS: Amiodarone 200mg tab ORAL SCH (08:47)
[2020-08-08] MEDS: Sertraline 50mg tab ORAL SCH (08:47)
[2020-08-08] MEDS: Enoxaparin 30mg Inj SUBQ SCH (08:49)
[2020-08-08] MEDS ORDERED: Bumetanide 2.5mg/10ml Inj IVP SCH (09:00)
--- NOTE | 2020-08-08 10:15 | Cardiology Progress Note ---
Assessment/Plan Status: unchanged Assessment/Plan 1. COVID-19 viral PNA 2. CHF acute on chronic with severely elevated BNP, decompensated Echo pending CXR shows decreased volume 3. CAD s/p CABG and CO 4. Troponin leak 0.09 to 0.1 denies chest pain continue to trend troponin 5. ESRD on HD 6. HTN 7. HPLD 8. DMII Denies chest pain, SBP elevated today, antihypertensives adjusted. Troponin leak 0.1, likely 2/2 CHF exacerbation and demand ischemia, will monitor. Echo pending. Subjective ROS Limited/Unobtainable: No Cardiovascular: Reports: no symptoms Respiratory: Reports: shortness of breath Gastrointestinal/Abdominal: Reports: poor appetite Genitourinary: Reports: no symptoms Subjective Denies chest pain, resting comfortably Objective Last 24 Hour Vital Signs Date Time Temp Pulse Resp B/P (MAP) Pulse Ox O2 Delivery O2 Flow Rate FiO2 08/08/20 09:00 Room Air 08/08/20 08:47 161/61 08/08/20 08:46 93 161/61 08/08/20 08:00 98.7 93 24 161/61 (94) 92 08/08/20 04:00 97.8 81 18 138/59 (85) 100 08/08/20 03:03 83 08/08/20 00:05 82 08/08/20 00:00 96.4 80 18 126/69 (88) 98 08/07/20 22:11 74 08/07/20 21:54 97.6 75 18 149/72 (97) 98 08/07/20 21:48 Room Air 08/07/20 21:20 98.9 69 20 140/78 100 Room Air 08/07/20 21:00 75 149/72 08/07/20 19:14 98.9 71 20 148/77 99 Room Air 08/07/20 17:00 97.9 76 20 129/74 100 Room Air 08/07/20 15:00 98.2 68 19 145/67 96 Room Air 08/07/20 13:00 98.7 68 19 152/52 95 Room Air 08/07/20 10:54 98.4 85 16 152/89 100 Room Air General Appearance: no apparent distress EENT: PERRL/EOMI Neck: supple, no JVD Rhythm: NSR Cardiovascular: normal rate Respiratory/Chest: respiratory distress, decreased breath sounds Abdomen: soft Intake and Output 08/07/20 08/08/20 19:00 07:00 Output Total 2125 ml Balance -2125 ml Output Urine Total 125 ml Hemodialysis UF 2000 ml # Voids 2 # Bowel Movements 1 Laboratory Tests Test 08/07/20 11:34 08/07/20 18:50 08/07/20 21:30 08/07/20 21:35 POC Whole Blood Glucose Pending 125 MG/DL (74-106) H Pending Troponin I 0.124 ng/mL (0.000-0.056) Test 08/08/20 04:52 08/08/20 05:59 POC Whole Blood Glucose Pending White Blood Count 4.8 K/UL (4.8-10.8) Red Blood Count 3.90 M/UL (4.70-6.10) L Hemoglobin 11.4 G/DL (14.2-18.0) L Hematocrit 34.9 % (42.0-52.0) L Mean Corpuscular Volume 89 FL (80-99) Mean Corpuscular Hemoglobin 29.1 PG (27.0-31.0) Mean Corpuscular Hemoglobin Concent 32.5 G/DL (32.0-36.0) Red Cell Distribution Width 16.8 % (11.6-14.8) H Platelet Count 121 K/UL (150-450) L Mean Platelet Volume 7.7 FL (6.5-10.1) Neutrophils (%) (Auto) 83.1 % (45.0-75.0) H Lymphocytes (%) (Auto) 10.4 % (20.0-45.0) L Monocytes (%) (Auto) 6.3 % (1.0-10.0) Eosinophils (%) (Auto) 0.0 % (0.0-3.0) Basophils (%) (Auto) 0.2 % (0.0-2.0) Sodium Level 137 MMOL/L (136-145) Potassium Level 3.3 MMOL/L (3.5-5.1) L Chloride Level 97 MMOL/L (98-107) L Carbon Dioxide Level 30 MMOL/L (21-32) Anion Gap 11 mmol/L (5-15) Blood Urea Nitrogen 50 mg/dL (7-18) H Creatinine 6.5 MG/DL (0.55-1.30) H Estimat Glomerular Filtration Rate 8.6 mL/min (>60) Glucose Level 190 MG/DL (74-106) H Uric Acid 4.8 MG/DL (2.6-7.2) Calcium Level 8.1 MG/DL (8.5-10.1) L Phosphorus Level 4.3 MG/DL (2.5-4.9) Magnesium Level 2.0 MG/DL (1.8-2.4) Iron Level 24 ug/dL (50-175) L Total Iron Binding Capacity 152 ug/dL (250-450) L Percent Iron Saturation 16 % (15-50) Unsaturated Iron Binding 128 ug/dL (112-346) Ferritin 1537 NG/ML (8-388) H Total Bilirubin 0.5 MG/DL (0.2-1.0) Gamma Glutamyl Transpeptidase 46 U/L (5-85) Aspartate Amino Transf (AST/SGOT) 43 U/L (15-37) H Alanine Aminotransferase (ALT/SGPT) 49 U/L (12-78) Alkaline Phosphatase 92 U/L (46-116) C-Reactive Protein, Quantitative 6.5 mg/dL (0.00-0.90) H Pro-B-Type Natriuretic Peptide 23268 pg/mL (0-125) H Total Protein 6.8 G/DL (6.4-8.2) Albumin 2.9 G/DL (3.4-5.0) L Globulin 3.9 g/dL Albumin/Globulin Ratio 0.7 (1.0-2.7) L Triglycerides Level 162 MG/DL (30-150) H Cholesterol Level 116 MG/DL (< 200) LDL Cholesterol 55 mg/dL (<100) HDL Cholesterol 30 MG/DL (40-60) L Cholesterol/HDL Ratio 3.9 (3.3-4.4) Amylase Level 90 U/L (25-115) Lipase 539 U/L (73-393) H CA 19-9 Antigen Pending Vitamin B12 Level 1360 PG/ML (193-986) H Folate 12.3 NG/ML (8.6-58.9) Thyroid Stimulating Hormone (TSH) 0.389 uiU/mL (0.358-3.740) Hepatitis B Surface Antigen Pending Microbiology Date/Time Source Procedure Growth Status 08/07/20 07:00 Rectum Received 08/06/20 20:00 Nasopharynx SARS-CoV-2 RdRp Gene Assay - Final Complete Radha Collins PA-C Aug 08, 2020 10:15
--- NOTE | 2020-08-08 10:34 | Pulmonology Progress Note ---
Subjective ROS Limited/Unobtainable: No Allergies: Coded Allergies: No Known Allergies (Unverified , 08/06/20) Subjective had HD last night on RA no fevers pulse ox stable on RA BP elevated 1 episode of non bloody nonbilious vomiting this am Objective Last 24 Hour Vital Signs Date Time Temp Pulse Resp B/P (MAP) Pulse Ox O2 Delivery O2 Flow Rate FiO2 08/08/20 09:00 Room Air 08/08/20 08:47 161/61 08/08/20 08:46 93 161/61 08/08/20 08:00 98.7 93 24 161/61 (94) 92 08/08/20 08:00 75 08/08/20 04:00 97.8 81 18 138/59 (85) 100 08/08/20 03:03 83 08/08/20 00:05 82 08/08/20 00:00 96.4 80 18 126/69 (88) 98 08/07/20 22:11 74 08/07/20 21:54 97.6 75 18 149/72 (97) 98 08/07/20 21:48 Room Air 08/07/20 21:20 98.9 69 20 140/78 100 Room Air 08/07/20 21:00 75 149/72 08/07/20 19:14 98.9 71 20 148/77 99 Room Air 08/07/20 17:00 97.9 76 20 129/74 100 Room Air 08/07/20 15:00 98.2 68 19 145/67 96 Room Air 08/07/20 13:00 98.7 68 19 152/52 95 Room Air 08/07/20 10:54 98.4 85 16 152/89 100 Room Air Intake and Output 08/07/20 08/08/20 19:00 07:00 Output Total 2125 ml Balance -2125 ml Output Urine Total 125 ml Hemodialysis UF 2000 ml # Voids 2 # Bowel Movements 1 Objective General Appearance: WD/WN, no apparent distress, alert Lines, tubes and drains: peripheral HEENT: normocephalic, atraumatic, anicteric, mucous membranes moist, PERRL Neck: non-tender, supple Respiratory/Chest: chest wall non-tender, lungs clear with moderate air exchange , no respiratory distress, no accessory muscle use Cardiovascular/Chest: normal peripheral pulses, normal rate, regular rhythm, + 1-2 edema BLE Abdomen: normal bowel sounds, non tender, soft Extremities: normal range of motion, non-tender, no calf tenderness, normal capillary refill, LUE AV shunt + bruit/thrill Skin Exam: warm/dry Neurologic: no motor/sensory deficits, alert, oriented x 3, responsive Musculoskeletal: normal muscle bulk Microbiology Date/Time Source Procedure Growth Status 08/07/20 07:00 Rectum Received 08/06/20 20:00 Nasopharynx SARS-CoV-2 RdRp Gene Assay - Final Complete Laboratory Tests 08/07/20 11:34: POC Whole Blood Glucose [Pending] 08/07/20 18:50: POC Whole Blood Glucose 125H 08/07/20 21:30: Troponin I 0.124H 08/07/20 21:35: POC Whole Blood Glucose [Pending] 08/08/20 04:52: POC Whole Blood Glucose [Pending] 08/08/20 05:59: White Blood Count 4.8, Red Blood Count 3.90L, Hemoglobin 11.4L, Hematocrit 34.9L , Mean Corpuscular Volume 89, Mean Corpuscular Hemoglobin 29.1, Mean Corpuscular Hemoglobin Concent 32.5, Red Cell Distribution Width 16.8H, Platelet Count 121L , Mean Platelet Volume 7.7, Neutrophils (%) (Auto) 83.1H, Lymphocytes (%) (Auto) 10.4L, Monocytes (%) (Auto) 6.3, Eosinophils (%) (Auto) 0.0, Basophils (%) (Auto) 0.2, Sodium Level 137, Potassium Level 3.3L, Chloride Level 97L, Carbon Dioxide Level 30, Anion Gap 11, Blood Urea Nitrogen 50H, Creatinine 6.5H, Estimat Glomerular Filtration Rate 8.6, Glucose Level 190H, Uric Acid 4.8, Calcium Level 8.1L, Phosphorus Level 4.3, Magnesium Level 2.0, Iron Level 24L, Total Iron Binding Capacity 152L, Percent Iron Saturation 16, Unsaturated Iron Binding 128, Ferritin 1537H, Total Bilirubin 0.5, Gamma Glutamyl Transpeptidase 46, Aspartate Amino Transf (AST/SGOT) 43H, Alanine Aminotransferase (ALT/SGPT) 49, Alkaline Phosphatase 92, C-Reactive Protein, Quantitative 6.5H, Pro-B-Type Natriuretic Peptide 75787H, Total Protein 6.8, Albumin 2.9L, Globulin 3.9, Albumin/Globulin Ratio 0.7L, Triglycerides Level 162H, Cholesterol Level 116, LDL Cholesterol 55, HDL Cholesterol 30L, Cholesterol/HDL Ratio 3.9, Amylase Level 90, Lipase 539H, CA 19-9 Antigen [Pending], Vitamin B12 Level 1360H, Folate 12.3, Thyroid Stimulating Hormone (TSH) 0.389, Hepatitis B Surface Antigen [Pending] Current Medications Medications (Trade) Dose Ordered Sig/Miri Route PRN Reason Start Time Stop Time Status Last Admin Dose Admin Albuterol Sulfate (Proventil MDI) 2 puff Q4H PRN INH Shortness of Breath 08/06/20 22:45 11/04/20 22:44 Amiodarone HCl (Cordarone) 200 mg DAILY ORAL 08/07/20 09:00 11/05/20 08:59 08/08/20 08:47 Atorvastatin Calcium (Lipitor) 80 mg BEDTIME ORAL 08/08/20 21:00 11/06/20 20:59 Bumetanide (Bumex) 1 mg DAILY IVP 08/08/20 09:00 09/07/20 08:59 08/08/20 08:47 Clopidogrel Bisulfate (Plavix) 75 mg DAILY ORAL 08/07/20 09:00 09/06/20 08:59 08/08/20 08:46 Dexamethasone Sodium Phosphate (Decadron 10mg/ ml Inj) 6 mg DAILY IV 08/07/20 09:00 08/16/20 08:59 08/08/20 08:47 Dextrose (Dextrose 50%) 25 ml Q30M PRN IV Hypoglycemia 08/06/20 22:45 11/04/20 22:44 Dextrose (Dextrose 50%) 50 ml Q30M PRN IV Hypoglycemia 08/06/20 22:45 11/04/20 22:44 Enoxaparin Sodium (Lovenox) 30 mg DAILY SUBQ 08/07/20 09:00 11/05/20 08:59 08/08/20 08:49 Glipizide (Glucotrol) 5 mg BIAC ORAL 08/07/20 06:30 09/06/20 06:29 08/08/20 05:32 Guaifenesin/ Dextromethorphan (Robitussin DM Syrup) 10 ml Q4H PRN ORAL For Cough 08/07/20 17:30 11/05/20 17:29 Hydralazine HCl (Apresoline) 10 mg Q4H PRN IV SBP >160 08/06/20 22:45 11/04/20 22:44 Hydralazine HCl (Apresoline) 50 mg Q8HR ORAL 08/08/20 14:00 11/06/20 13:59 Insulin Aspart (NovoLOG) BEFORE MEALS AND HS SUBQ 08/07/20 06:30 11/05/20 06:29 08/08/20 05:33 Ipratropium [place] (Atrovent Inh) 2 puffs Q4H PRN INH SOB wheezing 08/06/20 22:45 09/05/20 22:44 Isosorbide Mononitrate (Imdur) 30 mg DAILY ORAL 08/08/20 09:00 09/07/20 08:59 08/08/20 08:47 Metoprolol Tartrate (Lopressor) 25 mg Q12HR ORAL 08/07/20 09:00 11/05/20 08:59 08/08/20 08:46 Ondansetron HCl (Zofran) 4 mg Q6H PRN IVP Nausea & Vomiting 08/08/20 10:15 09/07/20 10:14 Sertraline HCl (Zoloft) 25 mg DAILY ORAL 08/07/20 09:00 09/06/20 08:59 08/08/20 08:47 Assessment/Plan Assessment/Plan ASSESSMENT COVID-19 infection CHF acute oin chronic ( due to missed HD) Elevated troponin, likely troponin leak ESRD, on HD ( missed dialysis for 1 week ) Coronary artery disease with history of NM and CABG DM OOC - [id number] HTN Elevated lipase Anemia of chronic diseas4 PLAN OF CARE tele isolation on Dexamethasone Day 2 no Remdesivivr, given ESRD a/coagulation PPX dose with Lovenox O2 titrate to keep sat > 92% pulse ox remains stable on RA Albuterol MDI prn fup with imaging fup with inflammatory markers CRP 6.5 a/tussive prn ID follows HD as per nephro recs, done last night 08/07 feeling better monitor volumes and renal parameters., further HD as per nephro recs continue a/PLT therapy with Plavix and beta blockage elevated troponin x 2 with minimal elevation, same range, likely troponin leak, ECG non-ischemic, no c/o CP cardio recs appreciated BP management with BB and Hydralazine ( added by cardio) ECHO pending BS management with Glipizide and SSI, HgA1c- 12.5 clearly not at goal will need more aggressive treatment of BS while on steroids anemia w/up c/w anemia of chronic diseasem,m ferritin 1537 monitor HH with goal to keep Hgb >7 , remains at baseline consider EPO if dropin Hgb GI follows lipase now trending down, amylase WNL episode of non bloody nonbilious earlier vomiting this am added a/emetic prn no c/o abd pain supportive care case discussed and evaluated by supervising physician Park Gunn NP Aug 08, 2020 10:33
--- NOTE | 2020-08-08 11:42 | Nephrology Progress Note ---
Assessment/Plan Problem List: (1) ESRD (end stage renal disease) on dialysis (2) Elevated troponin (3) Pancreatitis (4) 2019 novel coronavirus disease (COVID-19) (5) Anemia in chronic kidney disease (CKD) (6) DMII (diabetes mellitus, type 2) Assessment End-stage renal disease on hemodialysis COVID-19 pneumonia Coronary artery disease, [place] Diabetes mellitus Anemia Elevated lipase Plan August 08: Patient was dialyzed yesterday. Due for dialysis tomorrow. Blood pressure medication adjusted. Diet changed to renal medium carbs. Continue per consultants. 2D echo pending. Previously: Monitor renal parameters Hemodialysis as soon as the patient arrives to medical floor Monitor lipase, renal parameters, hemoglobin and hematocrit Per orders Subjective ROS Limited/Unobtainable: No Constitutional: Reports: weakness Objective Objective Last 24 Hour Vital Signs Date Time Temp Pulse Resp B/P (MAP) Pulse Ox O2 Delivery O2 Flow Rate FiO2 08/08/20 09:00 Room Air 08/08/20 08:47 161/61 08/08/20 08:46 93 161/61 08/08/20 08:00 98.7 93 24 161/61 (94) 92 08/08/20 08:00 75 08/08/20 04:00 97.8 81 18 138/59 (85) 100 08/08/20 03:03 83 08/08/20 00:05 82 08/08/20 00:00 96.4 80 18 126/69 (88) 98 08/07/20 22:11 74 08/07/20 21:54 97.6 75 18 149/72 (97) 98 08/07/20 21:48 Room Air 08/07/20 21:20 98.9 69 20 140/78 100 Room Air 08/07/20 21:00 75 149/72 08/07/20 19:14 98.9 71 20 148/77 99 Room Air 08/07/20 17:00 97.9 76 20 129/74 100 Room Air 08/07/20 15:00 98.2 68 19 145/67 96 Room Air 08/07/20 13:00 98.7 68 19 152/52 95 Room Air Intake and Output 08/07/20 08/08/20 19:00 07:00 Output Total 2125 ml Balance -2125 ml Output Urine Total 125 ml Hemodialysis UF 2000 ml # Voids 2 # Bowel Movements 1 Current Medications Medications (Trade) Dose Ordered Sig/Miri Route PRN Reason Start Time Stop Time Status Last Admin Dose Admin Albuterol Sulfate (Proventil MDI) 2 puff Q4H PRN INH Shortness of Breath 08/06/20 22:45 11/04/20 22:44 Amiodarone HCl (Cordarone) 200 mg DAILY ORAL 08/07/20 09:00 11/05/20 08:59 08/08/20 08:47 Atorvastatin Calcium (Lipitor) 80 mg BEDTIME ORAL 08/08/20 21:00 11/06/20 20:59 Clopidogrel Bisulfate (Plavix) 75 mg DAILY ORAL 08/07/20 09:00 09/06/20 08:59 08/08/20 08:46 Dextrose (Dextrose 50%) 25 ml Q30M PRN IV Hypoglycemia 08/06/20 22:45 11/04/20 22:44 Dextrose (Dextrose 50%) 50 ml Q30M PRN IV Hypoglycemia 08/06/20 22:45 11/04/20 22:44 Enoxaparin Sodium (Lovenox) 30 mg DAILY SUBQ 08/07/20 09:00 11/05/20 08:59 08/08/20 08:49 Glipizide (Glucotrol) 5 mg BIAC ORAL 08/07/20 06:30 09/06/20 06:29 08/08/20 05:32 Guaifenesin/ Dextromethorphan (Robitussin DM Syrup) 10 ml Q4H PRN ORAL For Cough 08/07/20 17:30 11/05/20 17:29 Hydralazine HCl (Apresoline) 10 mg Q4H PRN IV SBP >160 08/06/20 22:45 11/04/20 22:44 Hydralazine HCl (Apresoline) 50 mg Q8HR ORAL 08/08/20 14:00 11/06/20 13:59 Insulin Aspart (NovoLOG) BEFORE MEALS AND HS SUBQ 08/07/20 06:30 11/05/20 06:29 08/08/20 05:33 Ipratropium [place] (Atrovent Inh) 2 puffs Q4H PRN INH SOB wheezing 08/06/20 22:45 09/05/20 22:44 Isosorbide Mononitrate (Imdur) 30 mg DAILY ORAL 08/08/20 09:00 09/07/20 08:59 08/08/20 08:47 Metoprolol Tartrate (Lopressor) 25 mg Q12HR ORAL 08/07/20 09:00 11/05/20 08:59 08/08/20 08:46 Ondansetron HCl (Zofran) 4 mg Q6H PRN IVP Nausea & Vomiting 08/08/20 10:15 09/07/20 10:14 Pantoprazole (Protonix) 40 mg EVERY 12 HOURS ORAL 08/08/20 21:00 09/07/20 20:59 UNV Sertraline HCl (Zoloft) 25 mg DAILY ORAL 08/07/20 09:00 09/06/20 08:59 08/08/20 08:47 Laboratory Tests 08/07/20 18:50: POC Whole Blood Glucose 125H 08/07/20 21:30: Troponin I 0.124H 08/07/20 21:35: POC Whole Blood Glucose [Pending] 08/08/20 04:52: POC Whole Blood Glucose [Pending] 08/08/20 05:59: White Blood Count 4.8, Red Blood Count 3.90L, Hemoglobin 11.4L, Hematocrit 34.9L , Mean Corpuscular Volume 89, Mean Corpuscular Hemoglobin 29.1, Mean Corpuscular Hemoglobin Concent 32.5, Red Cell Distribution Width 16.8H, Platelet Count 121L , Mean Platelet Volume 7.7, Neutrophils (%) (Auto) 83.1H, Lymphocytes (%) (Auto) 10.4L, Monocytes (%) (Auto) 6.3, Eosinophils (%) (Auto) 0.0, Basophils (%) (Auto) 0.2, Sodium Level 137, Potassium Level 3.3L, Chloride Level 97L, Carbon Dioxide Level 30, Anion Gap 11, Blood Urea Nitrogen 50H, Creatinine 6.5H, Estimat Glomerular Filtration Rate 8.6, Glucose Level 190H, Uric Acid 4.8, Calcium Level 8.1L, Phosphorus Level 4.3, Magnesium Level 2.0, Iron Level 24L, Total Iron Binding Capacity 152L, Percent Iron Saturation 16, Unsaturated Iron Binding 128, Ferritin 1537H, Total Bilirubin 0.5, Gamma Glutamyl Transpeptidase 46, Aspartate Amino Transf (AST/SGOT) 43H, Alanine Aminotransferase (ALT/SGPT) 49, Alkaline Phosphatase 92, C-Reactive Protein, Quantitative 6.5H, Pro-B-Type Natriuretic Peptide 71180G, Total Protein 6.8, Albumin 2.9L, Globulin 3.9, Albumin/Globulin Ratio 0.7L, Triglycerides Level 162H, Cholesterol Level 116, LDL Cholesterol 55, HDL Cholesterol 30L, Cholesterol/HDL Ratio 3.9, Amylase Level 90, Lipase 539H, CA 19-9 Antigen [Pending], Vitamin B12 Level 1360H, Folate 12.3, Thyroid Stimulating Hormone (TSH) 0.389, Hepatitis B Surface Antigen [Pending] Height (Feet): 5 Height (Inches): 8.00 Weight (Pounds): 180 General Appearance: no apparent distress, lethargic Cardiovascular: normal rate Respiratory/Chest: decreased breath sounds Abdomen: distended Jon Crews MD Aug 08, 2020 11:42
[2020-08-08 12:00] VITALS: BP 159/73
[2020-08-08] MEDS: HydrALAZINE 50mg tab ORAL SCH ×2 (13:38→22:12)
[2020-08-08 16:00] VITALS: BP 155/81
--- NOTE | 2020-08-08 18:09 | Consultation ---
History of Present Illness General Date patient seen: Aug 08, 2020 Reason for Hospitalization: Fever Present Illness HPI This is a pleasant 69-year-old male with history of ESRD on hemodialysis, CAD status post CABG 2019, hypertension, hyperlipidemia and diabetes who presents for evaluation of fever and cough for 1 week. states feeling fatigue, myalgias, nonproductive cough. Developed a fever several days ago. Has not been to dialysis because he was feeling badly and did not want to get other sick. No recent COVID-19 test. Was seen at urgent care found to be febrile and transferred to ER. Denies chest pain, palpitations, shortness of breath just reports persistent cough. Denies URI symptoms. Reports intermittent nausea and vomiting but denies abdominal pain or dysuria. Continues to make urine. Admitted for care and management. noted to have pancreatitis with abdominal discomfort. surgery called to evaluate and assist with care. abd discomfort cramping no sharp. intermittent. Allergies: Coded Allergies: No Known Allergies (Unverified , 08/06/20) COVID-19 Screening Contact w/high risk pt: Yes Experienced COVID-19 symptoms?: Yes Coronavirus symptoms experienc: Fatigue Medication History Unable to Obtain Active Prescriptions or Reported Meds Patient History Limited by: medical condition History Provided By: Patient, Medical Record, PMD Healthcare decision maker Resuscitation status Advanced Directive on File Past Medical/Surgical History Past Medical/Surgical History: (1) Pancreatitis (2) Fever (3) Elevated troponin (4) ESRD (end stage renal disease) on dialysis (5) Anemia in chronic kidney disease (CKD) (6) DMII (diabetes mellitus, type 2) (7) 2019 novel coronavirus disease (COVID-19) Review of Systems Review of Symptoms General ROS: no weight loss or fever Psychological ROS: no depression or mood changes, no memory loss Ophthalmic ROS: no visual changes or eye irritation ENT ROS: no nasal congestion, hearing loss, dizziness Allergy and Immunology ROS: no allergic symptoms or urticaria Hematological and Lymphatic ROS: no swollen glands, unusual bleeding or bruising Endocrine ROS: no polyuria, polydipsia, weight changes, temperature intolerance Respiratory ROS: no cough, shortness of breath, or wheezing Cardiovascular ROS: no chest pain or dyspnea on exertion Gastrointestinal ROS: denies abdominal pain, bright red blood in stool. Musculoskeletal ROS: no myalgias or arthralgias Neurological ROS: no TIA or stroke symptoms Dermatological ROS: no new or changing skin lesions, rashes or pruritis Physical Exam Physical Exam General appearance: alert, cooperative, no distress, appears stated age Head: Normocephalic, without obvious abnormality, atraumatic Eyes: conjunctivae/corneas clear. PERRL, EOM's intact. Fundi benign Throat: Lips, mucosa, and tongue normal. Teeth and gums normal Neck: supple, symmetrical, trachea midline, no adenopathy, thyroid: not enlarged, symmetric, no tenderness/mass/nodules, no carotid bruit and no JVD Lungs: clear to auscultation bilaterally Heart: regular rate and rhythm, S1, S2 normal, no murmur, click, rub or gallop Abdomen: soft, non-tender. Bowel sounds normal. No masses, no organomegaly Extremities: extremities normal, atraumatic, no cyanosis or edema Pulses: 2+ and symmetric Skin: Skin color, texture, turgor normal. No rashes or lesions Neurologic: Grossly normal Last 24 Hour Vital Signs Date Time Temp Pulse Resp B/P (MAP) Pulse Ox O2 Delivery O2 Flow Rate FiO2 08/08/20 16:00 96.7 88 23 155/81 (105) 94 08/08/20 16:00 63 08/08/20 13:38 159/73 08/08/20 12:00 69 08/08/20 12:00 98.6 94 23 159/73 (101) 93 08/08/20 09:00 Room Air 08/08/20 08:47 161/61 08/08/20 08:46 93 161/61 08/08/20 08:00 98.7 93 24 161/61 (94) 92 08/08/20 08:00 75 08/08/20 04:00 97.8 81 18 138/59 (85) 100 08/08/20 03:03 83 08/08/20 00:05 82 08/08/20 00:00 96.4 80 18 126/69 (88) 98 08/07/20 22:11 74 08/07/20 21:54 97.6 75 18 149/72 (97) 98 08/07/20 21:48 Room Air 08/07/20 21:20 98.9 69 20 140/78 100 Room Air 08/07/20 21:00 75 149/72 08/07/20 19:14 98.9 71 20 148/77 99 Room Air Intake and Output 08/07/20 08/08/20 19:00 07:00 Output Total 2125 ml Balance -2125 ml Output Urine Total 125 ml Hemodialysis UF 2000 ml # Voids 2 # Bowel Movements 1 Laboratory Tests Test 08/07/20 18:50 08/07/20 21:30 08/07/20 21:35 08/08/20 04:52 POC Whole Blood Glucose 125 MG/DL (74-106) H Pending Pending Troponin I 0.124 ng/mL (0.000-0.056) Test 08/08/20 05:59 White Blood Count 4.8 K/UL (4.8-10.8) Red Blood Count 3.90 M/UL (4.70-6.10) L Hemoglobin 11.4 G/DL (14.2-18.0) L Hematocrit 34.9 % (42.0-52.0) L Mean Corpuscular Volume 89 FL (80-99) Mean Corpuscular Hemoglobin 29.1 PG (27.0-31.0) Mean Corpuscular Hemoglobin Concent 32.5 G/DL (32.0-36.0) Red Cell Distribution Width 16.8 % (11.6-14.8) H Platelet Count 121 K/UL (150-450) L Mean Platelet Volume 7.7 FL (6.5-10.1) Neutrophils (%) (Auto) 83.1 % (45.0-75.0) H Lymphocytes (%) (Auto) 10.4 % (20.0-45.0) L Monocytes (%) (Auto) 6.3 % (1.0-10.0) Eosinophils (%) (Auto) 0.0 % (0.0-3.0) Basophils (%) (Auto) 0.2 % (0.0-2.0) Sodium Level 137 MMOL/L (136-145) Potassium Level 3.3 MMOL/L (3.5-5.1) L Chloride Level 97 MMOL/L (98-107) L Carbon Dioxide Level 30 MMOL/L (21-32) Anion Gap 11 mmol/L (5-15) Blood Urea Nitrogen 50 mg/dL (7-18) H Creatinine 6.5 MG/DL (0.55-1.30) H Estimat Glomerular Filtration Rate 8.6 mL/min (>60) Glucose Level 190 MG/DL (74-106) H Uric Acid 4.8 MG/DL (2.6-7.2) Calcium Level 8.1 MG/DL (8.5-10.1) L Phosphorus Level 4.3 MG/DL (2.5-4.9) Magnesium Level 2.0 MG/DL (1.8-2.4) Iron Level 24 ug/dL (50-175) L Total Iron Binding Capacity 152 ug/dL (250-450) L Percent Iron Saturation 16 % (15-50) Unsaturated Iron Binding 128 ug/dL (112-346) Ferritin 1537 NG/ML (8-388) H Total Bilirubin 0.5 MG/DL (0.2-1.0) Gamma Glutamyl Transpeptidase 46 U/L (5-85) Aspartate Amino Transf (AST/SGOT) 43 U/L (15-37) H Alanine Aminotransferase (ALT/SGPT) 49 U/L (12-78) Alkaline Phosphatase 92 U/L (46-116) C-Reactive Protein, Quantitative 6.5 mg/dL (0.00-0.90) H Pro-B-Type Natriuretic Peptide 38920 pg/mL (0-125) H Total Protein 6.8 G/DL (6.4-8.2) Albumin 2.9 G/DL (3.4-5.0) L Globulin 3.9 g/dL Albumin/Globulin Ratio 0.7 (1.0-2.7) L Triglycerides Level 162 MG/DL (30-150) H Cholesterol Level 116 MG/DL (< 200) LDL Cholesterol 55 mg/dL (<100) HDL Cholesterol 30 MG/DL (40-60) L Cholesterol/HDL Ratio 3.9 (3.3-4.4) Amylase Level 90 U/L (25-115) Lipase 539 U/L (73-393) H CA 19-9 Antigen Pending Vitamin B12 Level 1360 PG/ML (193-986) H Folate 12.3 NG/ML (8.6-58.9) Thyroid Stimulating Hormone (TSH) 0.389 uiU/mL (0.358-3.740) Hepatitis B Surface Antigen Pending Height (Feet): 5 Height (Inches): 8.00 Weight (Pounds): 180 Medications Current Medications Medications (Trade) Dose Ordered Sig/Miri Route PRN Reason Start Time Stop Time Status Last Admin Dose Admin Albuterol Sulfate (Proventil MDI) 2 puff Q4H PRN INH Shortness of Breath 08/06/20 22:45 11/04/20 22:44 Amiodarone HCl (Cordarone) 200 mg DAILY ORAL 08/07/20 09:00 11/05/20 08:59 08/08/20 08:47 Atorvastatin Calcium (Lipitor) 80 mg BEDTIME ORAL 08/08/20 21:00 11/06/20 20:59 Clopidogrel Bisulfate (Plavix) 75 mg DAILY ORAL 08/07/20 09:00 09/06/20 08:59 08/08/20 08:46 Dextrose (Dextrose 50%) 25 ml Q30M PRN IV Hypoglycemia 08/06/20 22:45 11/04/20 22:44 Dextrose (Dextrose 50%) 50 ml Q30M PRN IV Hypoglycemia 08/06/20 22:45 11/04/20 22:44 Enoxaparin Sodium (Lovenox) 30 mg DAILY SUBQ 08/07/20 09:00 11/05/20 08:59 08/08/20 08:49 Glipizide (Glucotrol) 5 mg BIAC ORAL 08/07/20 06:30 09/06/20 06:29 08/08/20 16:27 Guaifenesin/ Dextromethorphan (Robitussin DM Syrup) 10 ml Q4H PRN ORAL For Cough 08/07/20 17:30 11/05/20 17:29 Hydralazine HCl (Apresoline) 10 mg Q4H PRN IV SBP >160 08/06/20 22:45 11/04/20 22:44 Hydralazine HCl (Apresoline) 50 mg Q8HR ORAL 08/08/20 14:00 11/06/20 13:59 08/08/20 13:38 Insulin Aspart (NovoLOG) BEFORE MEALS AND HS SUBQ 08/07/20 06:30 11/05/20 06:29 08/08/20 11:53 Ipratropium [place] (Atrovent Inh) 2 puffs Q4H PRN INH SOB wheezing 08/06/20 22:45 09/05/20 22:44 Isosorbide Mononitrate (Imdur) 30 mg DAILY ORAL 08/08/20 09:00 09/07/20 08:59 08/08/20 08:47 Metoprolol Tartrate (Lopressor) 25 mg Q12HR ORAL 08/07/20 09:00 11/05/20 08:59 08/08/20 08:46 Ondansetron HCl (Zofran) 4 mg Q6H PRN IVP Nausea & Vomiting 08/08/20 10:15 09/07/20 10:14 Pantoprazole (Protonix) 40 mg EVERY 12 HOURS ORAL 08/08/20 21:00 09/07/20 20:59 Sertraline HCl (Zoloft) 25 mg DAILY ORAL 08/07/20 09:00 09/06/20 08:59 08/08/20 08:47 Assessment/Plan Problem List: (1) Pancreatitis Assessment & Plan: febrile covid + lft's wnl lip elevated esr / crp elevated abd exam benign US abd ordered ca pending no acute surgical intervention will follow with exam and recs thank you ICD Codes: K85.90 - Acute pancreatitis without necrosis or infection, unspecified SNOMED: 69176707 (2) Fever ICD Codes: R50.9 - Fever, unspecified SNOMED: 209088412 (3) Elevated troponin ICD Codes: R77.8 - Other specified abnormalities of plasma proteins SNOMED: 336480294, 413521181, 948849466 (4) ESRD (end stage renal disease) on dialysis ICD Codes: N18.6 - End stage renal disease; Z99.2 - Dependence on renal dialysis SNOMED: 585605171, 754705298, 083195692 (5) Anemia in chronic kidney disease (CKD) ICD Codes: N18.9 - Chronic kidney disease, unspecified; D63.1 - Anemia in chronic kidney disease SNOMED: 846234534 (6) DMII (diabetes mellitus, type 2) ICD Codes: E11.9 - Type 2 diabetes mellitus without complications SNOMED: 54233459 (7) 2019 novel coronavirus disease (COVID-19) Assessment & Plan: ++ id input on abx pulm noted Lungs: Low lung volumes with bronchovascular crowding. No consolidation, pleural effusion, or pneumothorax. Pleural space: See above. Heart: Cardiomegaly. Mediastinum: Unremarkable. Bones/joints: Sternotomy with mediastinal operative findings. Other findings: Radiopaque linear structure superimposed over the left neck of uncertain significance, correlate with patient presentation and history. IMPRESSION: 1. Radiopaque linear structure superimposed over the left neck of uncertain significance, correlate with patient presentation and history. 2. Low lung volumes with bronchovascular crowding. 3. Cardiomegaly. 4. Otherwise no acute cardiopulmonary disease. 5. If there is continued concern, consider frontal and lateral chest radiographs or CT. ICD Codes: U07.1 - COVID-19 SNOMED: 499588315 [place] Aug 08, 2020 18:09
[2020-08-08 20:00] VITALS: BP 121/61
[2020-08-08] MEDS: Atorvastatin 80mg tab ORAL SCH (20:57)
[2020-08-09] VITALS: BP 114/55
[2020-08-09 04:00] VITALS: BP 138/71
[2020-08-09 04:56] LABS: BASOPHILS % (AUTO) 0.4 % (0.0-2.0); HEMATOCRIT 34.4 % (42.0-52.0); HEMOGLOBIN 11.5 G/DL (14.2-18.0); LYMPHOCYTES % (AUTO) 8.2 % (20.0-45.0); MEAN CORPUSCULAR VOLUME 89 FL (80-99); NEUTROPHILS % (AUTO) 83.4 % (45.0-75.0); PLATELET COUNT 121 K/UL (150-450); RED BLOOD COUNT 3.84 M/UL (4.70-6.10); RED CELL DISTRIBUTION WIDTH 16.7 % (11.6-14.8)
[2020-08-09 05:14] LABS: CALCIUM 7.8 MG/DL (8.5-10.1); POTASSIUM 3.9 MMOL/L (3.5-5.1)
[2020-08-09 05:19] LABS: ALBUMIN 2.7 G/DL (3.4-5.0); ALBUMIN/GLOBULIN RATIO 0.8 (1.0-2.7); BILIRUBIN,TOTAL 0.5 MG/DL (0.2-1.0)
[2020-08-09 05:35] LABS: AMYLASE 88 U/L (25-115)
[2020-08-09] MEDS: NovoLOG Insulin Flexpen SUBQ SCH ×4 (06:30→21:00)
[2020-08-09] MEDS: HydrALAZINE 50mg tab ORAL SCH ×3 (06:39→22:35)
[2020-08-09] MEDS: GlipiZIDE 5mg tab ORAL SCH ×2 (06:39→16:47)
[2020-08-09 08:00] VITALS: BP 125/66
--- NOTE | 2020-08-09 08:37 | Infectious Diseases Prog Note ---
Assessment/Plan 69yo M with: COVID pneumonia Febrile to 101.3 Normal WBC Lymphopenia 08/06 BCx NTD COVID rapid test positive UA neg CXR: No acute process MRSA nares neg Elevated lipase, no abd pain PMH: ESRD on HD CAD s/p CABG 2019 HTN HLD DM2 LUE AVF Plan: Cont to monitor off abx given normal WBC and COVID+ which is not treated with abx OK to d/c home from ID standpoint given doing well on RA Needs COVID home isolation for 10 days from date of diagnosis, 08/06 - 08/15 08/08 SP Dex #2, stopped given on RA Not candidate for RDV given ESRD on HD This institution does not have access to convalescent plasma, and as pt doing well on RA unlikely to benefit from it at this point Monitor CBC/CMP Monitor resp status Monitor temp curve, hemodynamics D/w RN Thank you for this consult. [facility] will continue to follow. Subjective Allergies: Coded Allergies: No Known Allergies (Unverified , 08/06/20) AF Remains on RA WBC 7.0 NAD Breathing fine Reports if very sick at home Demands to be bathed Objective Last 24 Hour Vital Signs Date Time Temp Pulse Resp B/P (MAP) Pulse Ox O2 Delivery O2 Flow Rate FiO2 08/09/20 06:39 138/71 08/09/20 04:00 53 08/09/20 04:00 97.2 53 20 138/71 (93) 97 08/09/20 00:00 53 08/09/20 00:00 98.1 53 20 114/55 (74) 98 08/08/20 22:12 147/75 08/08/20 21:00 Room Air 08/08/20 20:59 61 147/75 08/08/20 20:00 59 08/08/20 20:00 99.1 91 22 121/61 (81) 94 08/08/20 16:00 96.7 88 23 155/81 (105) 94 08/08/20 16:00 63 08/08/20 13:38 159/73 08/08/20 12:00 69 08/08/20 12:00 98.6 94 23 159/73 (101) 93 08/08/20 09:00 Room Air 08/08/20 08:47 161/61 08/08/20 08:46 93 161/61 Height (Feet): 5 Height (Inches): 8.00 Weight (Pounds): 180 Gen: NAD HEENT: NCAT Pulm: BL chest rise Abd: Non-distended Ext: No c/c/e Skin: No visible rashes Neuro: Awake Microbiology Date/Time Source Procedure Growth Status 08/07/20 07:00 Rectum Received 08/07/20 07:00 Nasal Nares MRSA Culture - Final NO METHICILLIN RESISTANT STAPH AUREUS... Complete 08/06/20 20:00 Nasopharynx SARS-CoV-2 RdRp Gene Assay - Final Complete 08/06/20 20:00 Blood Blood Culture - Preliminary NO GROWTH AFTER 24 HOURS Resulted 08/06/20 19:45 Blood Blood Culture - Preliminary NO GROWTH AFTER 24 HOURS Resulted Laboratory Tests Test 08/09/20 04:16 08/09/20 06:23 White Blood Count 7.0 K/UL (4.8-10.8) Red Blood Count 3.84 M/UL (4.70-6.10) L Hemoglobin 11.5 G/DL (14.2-18.0) L Hematocrit 34.4 % (42.0-52.0) L Mean Corpuscular Volume 89 FL (80-99) Mean Corpuscular Hemoglobin 29.8 PG (27.0-31.0) Mean Corpuscular Hemoglobin Concent 33.4 G/DL (32.0-36.0) Red Cell Distribution Width 16.7 % (11.6-14.8) H Platelet Count 121 K/UL (150-450) L Mean Platelet Volume 8.1 FL (6.5-10.1) Neutrophils (%) (Auto) 83.4 % (45.0-75.0) H Lymphocytes (%) (Auto) 8.2 % (20.0-45.0) L Monocytes (%) (Auto) 8.0 % (1.0-10.0) Eosinophils (%) (Auto) 0.0 % (0.0-3.0) Basophils (%) (Auto) 0.4 % (0.0-2.0) Sodium Level 136 MMOL/L (136-145) Potassium Level 3.9 MMOL/L (3.5-5.1) Chloride Level 99 MMOL/L (98-107) Carbon Dioxide Level 28 MMOL/L (21-32) Anion Gap 9 mmol/L (5-15) Blood Urea Nitrogen 75 mg/dL (7-18) H Creatinine 8.0 MG/DL (0.55-1.30) H Estimat Glomerular Filtration Rate 6.7 mL/min (>60) Glucose Level 125 MG/DL (74-106) H Calcium Level 7.8 MG/DL (8.5-10.1) L Total Bilirubin 0.5 MG/DL (0.2-1.0) Aspartate Amino Transf (AST/SGOT) 34 U/L (15-37) Alanine Aminotransferase (ALT/SGPT) 40 U/L (12-78) Alkaline Phosphatase 79 U/L (46-116) Total Protein 6.3 G/DL (6.4-8.2) L Albumin 2.7 G/DL (3.4-5.0) L Globulin 3.6 g/dL Albumin/Globulin Ratio 0.8 (1.0-2.7) L Amylase Level 88 U/L (25-115) Lipase 439 U/L (73-393) H POC Whole Blood Glucose 112 MG/DL (74-106) H Current Medications Medications (Trade) Dose Ordered Sig/Miri Route PRN Reason Start Time Stop Time Status Last Admin Dose Admin Albuterol Sulfate (Proventil MDI) 2 puff Q4H PRN INH Shortness of Breath 08/06/20 22:45 11/04/20 22:44 Amiodarone HCl (Cordarone) 200 mg DAILY ORAL 08/07/20 09:00 11/05/20 08:59 08/08/20 08:47 Atorvastatin Calcium (Lipitor) 80 mg BEDTIME ORAL 08/08/20 21:00 11/06/20 20:59 08/08/20 20:57 Clopidogrel Bisulfate (Plavix) 75 mg DAILY ORAL 08/07/20 09:00 09/06/20 08:59 08/08/20 08:46 Dextrose (Dextrose 50%) 25 ml Q30M PRN IV Hypoglycemia 08/06/20 22:45 11/04/20 22:44 Dextrose (Dextrose 50%) 50 ml Q30M PRN IV Hypoglycemia 08/06/20 22:45 11/04/20 22:44 Enoxaparin Sodium (Lovenox) 30 mg DAILY SUBQ 08/07/20 09:00 11/05/20 08:59 08/08/20 08:49 Glipizide (Glucotrol) 5 mg BIAC ORAL 08/07/20 06:30 09/06/20 06:29 08/09/20 06:39 Guaifenesin/ Dextromethorphan (Robitussin DM Syrup) 10 ml Q4H PRN ORAL For Cough 08/07/20 17:30 11/05/20 17:29 Hydralazine HCl (Apresoline) 10 mg Q4H PRN IV SBP >160 08/06/20 22:45 11/04/20 22:44 Hydralazine HCl (Apresoline) 50 mg Q8HR ORAL 08/08/20 14:00 11/06/20 13:59 08/09/20 06:39 Insulin Aspart (NovoLOG) BEFORE MEALS AND HS SUBQ 08/07/20 06:30 11/05/20 06:29 08/08/20 21:06 Ipratropium [place] (Atrovent Inh) 2 puffs Q4H PRN INH SOB wheezing 08/06/20 22:45 09/05/20 22:44 Isosorbide Mononitrate (Imdur) 30 mg DAILY ORAL 08/08/20 09:00 09/07/20 08:59 08/08/20 08:47 Metoprolol Tartrate (Lopressor) 25 mg Q12HR ORAL 08/07/20 09:00 11/05/20 08:59 08/08/20 20:59 Ondansetron HCl (Zofran) 4 mg Q6H PRN IVP Nausea & Vomiting 08/08/20 10:15 09/07/20 10:14 Pantoprazole (Protonix) 40 mg EVERY 12 HOURS ORAL 08/08/20 21:00 09/07/20 20:59 08/08/20 20:55 Sertraline HCl (Zoloft) 25 mg DAILY ORAL 08/07/20 09:00 09/06/20 08:59 08/08/20 08:47 Luiza Barton M.D. Aug 09, 2020 08:37
[2020-08-09] MEDS: Sertraline 50mg tab ORAL SCH (08:41)
[2020-08-09] MEDS: Imdur 30mg tab ORAL SCH (08:42)
[2020-08-09] MEDS: Amiodarone 200mg tab ORAL SCH (08:42)
[2020-08-09] MEDS: Enoxaparin 30mg Inj SUBQ SCH (08:49)
--- NOTE | 2020-08-09 09:19 | Cardiology Progress Note ---
Assessment/Plan Assessment/Plan 1. COVID-19 viral PNA 2. CHF acute on chronic with severely elevated BNP, decompensated Echo pending CXR shows decreased volume 3. CAD s/p CABG and [place] 4. Troponin leak 0.09 to 0.1 denies chest pain continue to trend troponin 5. ESRD on HD 6. HTN 7. HPLD 8. DMII Denies chest pain, SBP elevated today, antihypertensives adjusted. Troponin leak 0.1, likely 2/2 CHF exacerbation and demand ischemia, will monitor. Echo pending. Subjective Subjective Denies chest pain, resting comfortably Objective Last 24 Hour Vital Signs Date Time Temp Pulse Resp B/P (MAP) Pulse Ox O2 Delivery O2 Flow Rate FiO2 08/09/20 09:00 55 125/66 08/09/20 08:42 125/66 08/09/20 08:00 97.7 55 18 125/66 (85) 95 08/09/20 06:39 138/71 08/09/20 04:00 53 08/09/20 04:00 97.2 53 20 138/71 (93) 97 08/09/20 00:00 53 08/09/20 00:00 98.1 53 20 114/55 (74) 98 08/08/20 22:12 147/75 08/08/20 21:00 Room Air 08/08/20 20:59 61 147/75 08/08/20 20:00 59 08/08/20 20:00 99.1 91 22 121/61 (81) 94 08/08/20 16:00 96.7 88 23 155/81 (105) 94 08/08/20 16:00 63 08/08/20 13:38 159/73 08/08/20 12:00 69 08/08/20 12:00 98.6 94 23 159/73 (101) 93 Intake and Output 08/08/20 08/09/20 19:00 07:00 Intake Total 210 ml Output Total 125 ml Balance 85 ml Intake Oral 210 ml Output Urine Total 125 ml # Bowel Movements 1 1 Laboratory Tests Test 08/09/20 04:16 08/09/20 06:23 White Blood Count 7.0 K/UL (4.8-10.8) Red Blood Count 3.84 M/UL (4.70-6.10) L Hemoglobin 11.5 G/DL (14.2-18.0) L Hematocrit 34.4 % (42.0-52.0) L Mean Corpuscular Volume 89 FL (80-99) Mean Corpuscular Hemoglobin 29.8 PG (27.0-31.0) Mean Corpuscular Hemoglobin Concent 33.4 G/DL (32.0-36.0) Red Cell Distribution Width 16.7 % (11.6-14.8) H Platelet Count 121 K/UL (150-450) L Mean Platelet Volume 8.1 FL (6.5-10.1) Neutrophils (%) (Auto) 83.4 % (45.0-75.0) H Lymphocytes (%) (Auto) 8.2 % (20.0-45.0) L Monocytes (%) (Auto) 8.0 % (1.0-10.0) Eosinophils (%) (Auto) 0.0 % (0.0-3.0) Basophils (%) (Auto) 0.4 % (0.0-2.0) Sodium Level 136 MMOL/L (136-145) Potassium Level 3.9 MMOL/L (3.5-5.1) Chloride Level 99 MMOL/L (98-107) Carbon Dioxide Level 28 MMOL/L (21-32) Anion Gap 9 mmol/L (5-15) Blood Urea Nitrogen 75 mg/dL (7-18) H Creatinine 8.0 MG/DL (0.55-1.30) H Estimat Glomerular Filtration Rate 6.7 mL/min (>60) Glucose Level 125 MG/DL (74-106) H Calcium Level 7.8 MG/DL (8.5-10.1) L Total Bilirubin 0.5 MG/DL (0.2-1.0) Aspartate Amino Transf (AST/SGOT) 34 U/L (15-37) Alanine Aminotransferase (ALT/SGPT) 40 U/L (12-78) Alkaline Phosphatase 79 U/L (46-116) Total Protein 6.3 G/DL (6.4-8.2) L Albumin 2.7 G/DL (3.4-5.0) L Globulin 3.6 g/dL Albumin/Globulin Ratio 0.8 (1.0-2.7) L Amylase Level 88 U/L (25-115) Lipase 439 U/L (73-393) H POC Whole Blood Glucose 112 MG/DL (74-106) H Microbiology Date/Time Source Procedure Growth Status 08/07/20 07:00 Rectum VRE Culture - Final NO VANCOMYCIN RESISTANT ENTEROCOCCUS ... Complete 08/07/20 07:00 Rectum Received 08/07/20 07:00 Nasal Nares MRSA Culture - Final NO METHICILLIN RESISTANT STAPH AUREUS... Complete 08/06/20 20:00 Nasopharynx SARS-CoV-2 RdRp Gene Assay - Final Complete 08/06/20 20:00 Blood Blood Culture - Preliminary NO GROWTH AFTER 24 HOURS Resulted 08/06/20 19:45 Blood Blood Culture - Preliminary NO GROWTH AFTER 24 HOURS Resulted Radha Collins PA-C Aug 09, 2020 09:19
--- NOTE | 2020-08-09 09:44 | General Progress Note ---
Subjective ROS Limited/Unobtainable: Yes Allergies: Coded Allergies: No Known Allergies (Unverified , 08/06/20) Objective Last 24 Hour Vital Signs Date Time Temp Pulse Resp B/P (MAP) Pulse Ox O2 Delivery O2 Flow Rate FiO2 08/09/20 09:00 55 125/66 08/09/20 08:42 125/66 08/09/20 08:00 97.7 55 18 125/66 (85) 95 08/09/20 06:39 138/71 08/09/20 04:00 53 08/09/20 04:00 97.2 53 20 138/71 (93) 97 08/09/20 00:00 53 08/09/20 00:00 98.1 53 20 114/55 (74) 98 08/08/20 22:12 147/75 08/08/20 21:00 Room Air 08/08/20 20:59 61 147/75 08/08/20 20:00 59 08/08/20 20:00 99.1 91 22 121/61 (81) 94 08/08/20 16:00 96.7 88 23 155/81 (105) 94 08/08/20 16:00 63 08/08/20 13:38 159/73 08/08/20 12:00 69 08/08/20 12:00 98.6 94 23 159/73 (101) 93 Intake and Output 08/08/20 08/09/20 19:00 07:00 Intake Total 210 ml Output Total 125 ml Balance 85 ml Intake Oral 210 ml Output Urine Total 125 ml # Bowel Movements 1 1 Laboratory Tests 08/09/20 04:11: Troponin I [Pending] 08/09/20 04:16: White Blood Count 7.0, Red Blood Count 3.84L, Hemoglobin 11.5L, Hematocrit 34.4L , Mean Corpuscular Volume 89, Mean Corpuscular Hemoglobin 29.8, Mean Corpuscular Hemoglobin Concent 33.4, Red Cell Distribution Width 16.7H, Platelet Count 121L , Mean Platelet Volume 8.1, Neutrophils (%) (Auto) 83.4H, Lymphocytes (%) (Auto) 8.2L, Monocytes (%) (Auto) 8.0, Eosinophils (%) (Auto) 0.0, Basophils (%) (Auto) 0.4, Sodium Level 136, Potassium Level 3.9, Chloride Level 99, Carbon Dioxide Level 28, Anion Gap 9, Blood Urea Nitrogen 75H, Creatinine 8.0H, Estimat Glomerular Filtration Rate 6.7, Glucose Level 125H, Calcium Level 7.8L, Total Bilirubin 0.5, Aspartate Amino Transf (AST/SGOT) 34, Alanine Aminotransferase (ALT/SGPT) 40, Alkaline Phosphatase 79, Total Protein 6.3L, Albumin 2.7L, Globulin 3.6, Albumin/Globulin Ratio 0.8L, Amylase Level 88, Lipase 439H 08/09/20 06:23: POC Whole Blood Glucose 112H Height (Feet): 5 Height (Inches): 8.00 Weight (Pounds): 180 General Appearance: no apparent distress EENT: PERRL/EOMI Neck: supple Cardiovascular: normal rate Respiratory/Chest: decreased breath sounds Abdomen: hypoactive bowel sounds Extremities: non-tender Assessment/Plan Status: unchanged Assessment/Plan: COVID anemia anisha failure CAD/LA DM elevated lipase elevated trop check amylase and lipase>>improving on renal diet fu ID, Renal and cardiology abd us if needed anemia work up Rd Cruz MD Aug 09, 2020 09:44
--- NOTE | 2020-08-09 10:17 | Pulmonology Progress Note ---
Subjective ROS Limited/Unobtainable: Yes Allergies: Coded Allergies: No Known Allergies (Unverified , 08/06/20) Subjective no resp distress pulse ox stable on RA no fevers BP better Objective Last 24 Hour Vital Signs Date Time Temp Pulse Resp B/P (MAP) Pulse Ox O2 Delivery O2 Flow Rate FiO2 08/09/20 09:00 55 125/66 08/09/20 09:00 Room Air 08/09/20 08:42 125/66 08/09/20 08:00 55 08/09/20 08:00 97.7 55 18 125/66 (85) 95 08/09/20 06:39 138/71 08/09/20 04:00 53 08/09/20 04:00 97.2 53 20 138/71 (93) 97 08/09/20 00:00 53 08/09/20 00:00 98.1 53 20 114/55 (74) 98 08/08/20 22:12 147/75 08/08/20 21:00 Room Air 08/08/20 20:59 61 147/75 08/08/20 20:00 59 08/08/20 20:00 99.1 91 22 121/61 (81) 94 08/08/20 16:00 96.7 88 23 155/81 (105) 94 08/08/20 16:00 63 08/08/20 13:38 159/73 08/08/20 12:00 69 08/08/20 12:00 98.6 94 23 159/73 (101) 93 Intake and Output 08/08/20 08/09/20 19:00 07:00 Intake Total 210 ml Output Total 125 ml Balance 85 ml Intake Oral 210 ml Output Urine Total 125 ml # Bowel Movements 1 1 Objective General Appearance: WD/WN, no apparent distress, alert Lines, tubes and drains: peripheral HEENT: normocephalic, atraumatic, anicteric, mucous membranes moist, PERRL Neck: non-tender, supple Respiratory/Chest: chest wall non-tender, lungs clear with moderate air exchange , no respiratory distress, no accessory muscle use Cardiovascular/Chest: normal peripheral pulses, normal rate, regular rhythm, + 1- edema BLE Abdomen: normal bowel sounds, non tender, soft Extremities: normal range of motion, non-tender, no calf tenderness, normal capillary refill, LUE AV shunt + bruit/thrill Skin Exam: warm/dry Neurologic: no motor/sensory deficits, alert, oriented x 3, responsive Musculoskeletal: normal muscle bulk Microbiology Date/Time Source Procedure Growth Status 08/07/20 07:00 Rectum VRE Culture - Final NO VANCOMYCIN RESISTANT ENTEROCOCCUS ... Complete 08/07/20 07:00 Rectum Received 08/07/20 07:00 Nasal Nares MRSA Culture - Final NO METHICILLIN RESISTANT STAPH AUREUS... Complete 08/06/20 20:00 Nasopharynx SARS-CoV-2 RdRp Gene Assay - Final Complete 08/06/20 20:00 Blood Blood Culture - Preliminary NO GROWTH AFTER 24 HOURS Resulted 08/06/20 19:45 Blood Blood Culture - Preliminary NO GROWTH AFTER 24 HOURS Resulted Laboratory Tests 08/09/20 04:11: Troponin I [Pending] 08/09/20 04:16: White Blood Count 7.0, Red Blood Count 3.84L, Hemoglobin 11.5L, Hematocrit 34.4L , Mean Corpuscular Volume 89, Mean Corpuscular Hemoglobin 29.8, Mean Corpuscular Hemoglobin Concent 33.4, Red Cell Distribution Width 16.7H, Platelet Count 121L , Mean Platelet Volume 8.1, Neutrophils (%) (Auto) 83.4H, Lymphocytes (%) (Auto) 8.2L, Monocytes (%) (Auto) 8.0, Eosinophils (%) (Auto) 0.0, Basophils (%) (Auto) 0.4, Sodium Level 136, Potassium Level 3.9, Chloride Level 99, Carbon Dioxide Level 28, Anion Gap 9, Blood Urea Nitrogen 75H, Creatinine 8.0H, Estimat Glomerular Filtration Rate 6.7, Glucose Level 125H, Calcium Level 7.8L, Total Bilirubin 0.5, Aspartate Amino Transf (AST/SGOT) 34, Alanine Aminotransferase (ALT/SGPT) 40, Alkaline Phosphatase 79, Total Protein 6.3L, Albumin 2.7L, Globulin 3.6, Albumin/Globulin Ratio 0.8L, Amylase Level 88, Lipase 439H 08/09/20 06:23: POC Whole Blood Glucose 112H Current Medications Medications (Trade) Dose Ordered Sig/Miri Route PRN Reason Start Time Stop Time Status Last Admin Dose Admin Albuterol Sulfate (Proventil MDI) 2 puff Q4H PRN INH Shortness of Breath 08/06/20 22:45 11/04/20 22:44 Amiodarone HCl (Cordarone) 200 mg DAILY ORAL 08/07/20 09:00 11/05/20 08:59 08/09/20 08:42 Atorvastatin Calcium (Lipitor) 80 mg BEDTIME ORAL 08/08/20 21:00 11/06/20 20:59 08/08/20 20:57 Clopidogrel Bisulfate (Plavix) 75 mg DAILY ORAL 08/07/20 09:00 09/06/20 08:59 08/09/20 08:42 Dextrose (Dextrose 50%) 25 ml Q30M PRN IV Hypoglycemia 08/06/20 22:45 11/04/20 22:44 Dextrose (Dextrose 50%) 50 ml Q30M PRN IV Hypoglycemia 08/06/20 22:45 11/04/20 22:44 Enoxaparin Sodium (Lovenox) 30 mg DAILY SUBQ 08/07/20 09:00 11/05/20 08:59 08/09/20 08:49 Glipizide (Glucotrol) 5 mg BIAC ORAL 08/07/20 06:30 09/06/20 06:29 08/09/20 06:39 Guaifenesin/ Dextromethorphan (Robitussin DM Syrup) 10 ml Q4H PRN ORAL For Cough 08/07/20 17:30 11/05/20 17:29 Hydralazine HCl (Apresoline) 10 mg Q4H PRN IV SBP >160 08/06/20 22:45 11/04/20 22:44 Hydralazine HCl (Apresoline) 50 mg Q8HR ORAL 08/08/20 14:00 11/06/20 13:59 08/09/20 06:39 Insulin Aspart (NovoLOG) BEFORE MEALS AND HS SUBQ 08/07/20 06:30 11/05/20 06:29 08/08/20 21:06 Ipratropium [place] (Atrovent Inh) 2 puffs Q4H PRN INH SOB wheezing 08/06/20 22:45 09/05/20 22:44 Isosorbide Mononitrate (Imdur) 30 mg DAILY ORAL 08/08/20 09:00 09/07/20 08:59 08/09/20 08:42 Metoprolol Tartrate (Lopressor) 25 mg Q12HR ORAL 08/07/20 09:00 11/05/20 08:59 08/08/20 20:59 Ondansetron HCl (Zofran) 4 mg Q6H PRN IVP Nausea & Vomiting 08/08/20 10:15 09/07/20 10:14 Pantoprazole (Protonix) 40 mg EVERY 12 HOURS ORAL 08/08/20 21:00 09/07/20 20:59 08/09/20 08:41 Sertraline HCl (Zoloft) 25 mg DAILY ORAL 08/07/20 09:00 09/06/20 08:59 08/09/20 08:41 Assessment/Plan Assessment/Plan ASSESSMENT COVID-19 infection CHF acute on chronic ( due to missed HD) Elevated troponin, likely troponin leak ESRD, on HD ( missed dialysis for 1 week ) Coronary artery disease with history of HI and CABG DM OOC - VnK1d-40.5 HTN Elevated lipase Anemia of chronic diseas4 PLAN OF CARE tele isolation off Dexamethasone since 08/08 since not hypoxic no Remdesivivr, given ESRD a/coagulation PPX dose with Lovenox O2 titrate to keep sat > 92% pulse ox remains stable on RA Albuterol MDI prn CXR for today pending fup with inflammatory markers CRP 6.5 a/tussive prn ID follows HD as per nephro recs, done last night 08/07 feeling better monitor volumes and renal parameters., further HD as per nephro recs continue a/PLT therapy with Plavix and beta blockage elevated troponin x 3 with minimal elevation, same range, likely troponin leak, ECG non-ischemic, no c/o CP cardio recs appreciated BP management with BB and Hydralazine ( added by cardio) ECHO with pEF 65% BS management with Glipizide and SSI, HgA1c- 12.5 clearly not at goal will need more aggressive treatment of BS while on steroids anemia w/up c/w anemia of chronic disease , ferritin 1537 monitor HH with goal to keep Hgb >7 , remains at baseline consider EPO if drop in Hgb GI follows lipase trending down, amylase WNL a/emetic prn no c/o abd pain supportive care case discussed and evaluated by supervising physician Park Gunn NP Aug 09, 2020 10:17
--- NOTE | 2020-08-09 10:48 | Nephrology Progress Note ---
Assessment/Plan Problem List: (1) ESRD (end stage renal disease) on dialysis (2) Elevated troponin (3) Pancreatitis (4) 2019 novel coronavirus disease (COVID-19) (5) Anemia in chronic kidney disease (CKD) (6) DMII (diabetes mellitus, type 2) Assessment End-stage renal disease on hemodialysis COVID-19 pneumonia Coronary artery disease, [place] Diabetes mellitus Anemia Elevated lipase Plan August 09: Patient due for dialysis today. Labs reviewed. Medication list reviewed. Continue per consultants. August 08: Patient was dialyzed yesterday. Due for dialysis tomorrow. Blood pressure medication adjusted. Diet changed to renal medium carbs. Continue per consultants. 2D echo pending. Previously: Monitor renal parameters Hemodialysis as soon as the patient arrives to medical floor Monitor lipase, renal parameters, hemoglobin and hematocrit Per orders Subjective ROS Limited/Unobtainable: No Constitutional: Reports: malaise Objective Objective Last 24 Hour Vital Signs Date Time Temp Pulse Resp B/P (MAP) Pulse Ox O2 Delivery O2 Flow Rate FiO2 08/09/20 09:00 55 125/66 08/09/20 09:00 Room Air 08/09/20 08:42 125/66 08/09/20 08:00 55 08/09/20 08:00 97.7 55 18 125/66 (85) 95 08/09/20 06:39 138/71 08/09/20 04:00 53 08/09/20 04:00 97.2 53 20 138/71 (93) 97 08/09/20 00:00 53 08/09/20 00:00 98.1 53 20 114/55 (74) 98 08/08/20 22:12 147/75 08/08/20 21:00 Room Air 08/08/20 20:59 61 147/75 08/08/20 20:00 59 08/08/20 20:00 99.1 91 22 121/61 (81) 94 08/08/20 16:00 96.7 88 23 155/81 (105) 94 08/08/20 16:00 63 08/08/20 13:38 159/73 08/08/20 12:00 69 08/08/20 12:00 98.6 94 23 159/73 (101) 93 Intake and Output 08/08/20 08/09/20 19:00 07:00 Intake Total 210 ml Output Total 125 ml Balance 85 ml Intake Oral 210 ml Output Urine Total 125 ml # Bowel Movements 1 1 Current Medications Medications (Trade) Dose Ordered Sig/Miri Route PRN Reason Start Time Stop Time Status Last Admin Dose Admin Albuterol Sulfate (Proventil MDI) 2 puff Q4H PRN INH Shortness of Breath 08/06/20 22:45 11/04/20 22:44 Amiodarone HCl (Cordarone) 200 mg DAILY ORAL 08/07/20 09:00 11/05/20 08:59 08/09/20 08:42 Atorvastatin Calcium (Lipitor) 80 mg BEDTIME ORAL 08/08/20 21:00 11/06/20 20:59 08/08/20 20:57 Clopidogrel Bisulfate (Plavix) 75 mg DAILY ORAL 08/07/20 09:00 09/06/20 08:59 08/09/20 08:42 Dextrose (Dextrose 50%) 25 ml Q30M PRN IV Hypoglycemia 08/06/20 22:45 11/04/20 22:44 Dextrose (Dextrose 50%) 50 ml Q30M PRN IV Hypoglycemia 08/06/20 22:45 11/04/20 22:44 Enoxaparin Sodium (Lovenox) 30 mg DAILY SUBQ 08/07/20 09:00 11/05/20 08:59 08/09/20 08:49 Glipizide (Glucotrol) 5 mg BIAC ORAL 08/07/20 06:30 09/06/20 06:29 08/09/20 06:39 Guaifenesin/ Dextromethorphan (Robitussin DM Syrup) 10 ml Q4H PRN ORAL For Cough 08/07/20 17:30 11/05/20 17:29 Hydralazine HCl (Apresoline) 10 mg Q4H PRN IV SBP >160 08/06/20 22:45 11/04/20 22:44 Hydralazine HCl (Apresoline) 50 mg Q8HR ORAL 08/08/20 14:00 11/06/20 13:59 08/09/20 06:39 Insulin Aspart (NovoLOG) BEFORE MEALS AND HS SUBQ 08/07/20 06:30 11/05/20 06:29 08/08/20 21:06 Ipratropium [place] (Atrovent Inh) 2 puffs Q4H PRN INH SOB wheezing 08/06/20 22:45 09/05/20 22:44 Isosorbide Mononitrate (Imdur) 30 mg DAILY ORAL 08/08/20 09:00 09/07/20 08:59 08/09/20 08:42 Metoprolol Tartrate (Lopressor) 25 mg Q12HR ORAL 08/07/20 09:00 11/05/20 08:59 08/08/20 20:59 Ondansetron HCl (Zofran) 4 mg Q6H PRN IVP Nausea & Vomiting 08/08/20 10:15 09/07/20 10:14 Pantoprazole (Protonix) 40 mg EVERY 12 HOURS ORAL 08/08/20 21:00 09/07/20 20:59 08/09/20 08:41 Sertraline HCl (Zoloft) 25 mg DAILY ORAL 08/07/20 09:00 09/06/20 08:59 08/09/20 08:41 Laboratory Tests 08/09/20 04:11: Troponin I 0.110H 08/09/20 04:16: White Blood Count 7.0, Red Blood Count 3.84L, Hemoglobin 11.5L, Hematocrit 34.4L , Mean Corpuscular Volume 89, Mean Corpuscular Hemoglobin 29.8, Mean Corpuscular Hemoglobin Concent 33.4, Red Cell Distribution Width 16.7H, Platelet Count 121L, Mean Platelet Volume 8.1, Neutrophils (%) (Auto) 83.4H, Lymphocytes (%) (Auto) 8.2L, Monocytes (%) (Auto) 8.0, Eosinophils (%) (Auto) 0.0, Basophils (%) (Auto) 0.4, Sodium Level 136, Potassium Level 3.9, Chloride Level 99, Carbon Dioxide Level 28, Anion Gap 9, Blood Urea Nitrogen 75H, Creatinine 8.0H, Estimat Glomerular Filtration Rate 6.7, Glucose Level 125H, Calcium Level 7.8L, Total Bilirubin 0.5, Aspartate Amino Transf (AST/SGOT) 34, Alanine Aminotransferase (ALT/SGPT) 40, Alkaline Phosphatase 79, Total Protein 6.3L, Albumin 2.7L, Globulin 3.6, Albumin/Globulin Ratio 0.8L, Amylase Level 88, Lipase 439H 08/09/20 06:23: POC Whole Blood Glucose 112H Height (Feet): 5 Height (Inches): 8.00 Weight (Pounds): 180 General Appearance: no apparent distress, lethargic Cardiovascular: bradycardia Respiratory/Chest: decreased breath sounds Abdomen: distended Jno Crews MD Aug 09, 2020 10:48
[2020-08-09 12:00] VITALS: BP 141/72
--- NOTE | 2020-08-09 13:45 | Surgery Progress Note ---
Surgery Progress Note Subjective Symptoms: improved, tolerating diet, passing flatus, BM Additional Comments labs improved Objective Last 24 Hour Vital Signs Date Time Temp Pulse Resp B/P (MAP) Pulse Ox O2 Delivery O2 Flow Rate FiO2 08/09/20 09:00 55 125/66 08/09/20 09:00 Room Air 08/09/20 08:42 125/66 08/09/20 08:00 55 08/09/20 08:00 97.7 55 18 125/66 (85) 95 08/09/20 06:39 138/71 08/09/20 04:00 53 08/09/20 04:00 97.2 53 20 138/71 (93) 97 08/09/20 00:00 53 08/09/20 00:00 98.1 53 20 114/55 (74) 98 08/08/20 22:12 147/75 08/08/20 21:00 Room Air 08/08/20 20:59 61 147/75 08/08/20 20:00 59 08/08/20 20:00 99.1 91 22 121/61 (81) 94 08/08/20 16:00 96.7 88 23 155/81 (105) 94 08/08/20 16:00 63 I&O Intake and Output 08/08/20 08/09/20 19:00 07:00 Intake Total 210 ml Output Total 125 ml Balance 85 ml Intake Oral 210 ml Output Urine Total 125 ml # Bowel Movements 1 1 Dressing: dry Cardiovascular: RSR Respiratory: clear, decreased breath sounds Abdomen: soft, non-tender, present bowel sounds, non-distended Extremities: no edema, no tenderness, no cyanosis Laboratory Tests Test 08/09/20 04:11 08/09/20 04:16 08/09/20 06:23 Troponin I 0.110 ng/mL (0.000-0.056) White Blood Count 7.0 K/UL (4.8-10.8) Red Blood Count 3.84 M/UL (4.70-6.10) L Hemoglobin 11.5 G/DL (14.2-18.0) L Hematocrit 34.4 % (42.0-52.0) L Mean Corpuscular Volume 89 FL (80-99) Mean Corpuscular Hemoglobin 29.8 PG (27.0-31.0) Mean Corpuscular Hemoglobin Concent 33.4 G/DL (32.0-36.0) Red Cell Distribution Width 16.7 % (11.6-14.8) H Platelet Count 121 K/UL (150-450) L Mean Platelet Volume 8.1 FL (6.5-10.1) Neutrophils (%) (Auto) 83.4 % (45.0-75.0) H Lymphocytes (%) (Auto) 8.2 % (20.0-45.0) L Monocytes (%) (Auto) 8.0 % (1.0-10.0) Eosinophils (%) (Auto) 0.0 % (0.0-3.0) Basophils (%) (Auto) 0.4 % (0.0-2.0) Sodium Level 136 MMOL/L (136-145) Potassium Level 3.9 MMOL/L (3.5-5.1) Chloride Level 99 MMOL/L (98-107) Carbon Dioxide Level 28 MMOL/L (21-32) Anion Gap 9 mmol/L (5-15) Blood Urea Nitrogen 75 mg/dL (7-18) H Creatinine 8.0 MG/DL (0.55-1.30) H Estimat Glomerular Filtration Rate 6.7 mL/min (>60) Glucose Level 125 MG/DL (74-106) H Calcium Level 7.8 MG/DL (8.5-10.1) L Total Bilirubin 0.5 MG/DL (0.2-1.0) Aspartate Amino Transf (AST/SGOT) 34 U/L (15-37) Alanine Aminotransferase (ALT/SGPT) 40 U/L (12-78) Alkaline Phosphatase 79 U/L (46-116) Total Protein 6.3 G/DL (6.4-8.2) L Albumin 2.7 G/DL (3.4-5.0) L Globulin 3.6 g/dL Albumin/Globulin Ratio 0.8 (1.0-2.7) L Amylase Level 88 U/L (25-115) Lipase 439 U/L (73-393) H POC Whole Blood Glucose 112 MG/DL (74-106) H Plan Problems: (1) Pancreatitis Assessment & Plan: febrile covid + lft's wnl lip elevated esr / crp elevated abd exam benign US abd ordered ca pending no acute surgical intervention will follow with exam and recs thank you trending down (2) Fever (3) Elevated troponin (4) ESRD (end stage renal disease) on dialysis (5) Anemia in chronic kidney disease (CKD) (6) DMII (diabetes mellitus, type 2) (7) 2019 novel coronavirus disease (COVID-19) Assessment & Plan: ++ id input on abx pulm noted Lungs: Low lung volumes with bronchovascular crowding. No consolidation, pleural effusion, or pneumothorax. Pleural space: See above. Heart: Cardiomegaly. Mediastinum: Unremarkable. Bones/joints: Sternotomy with mediastinal operative findings. Other findings: Radiopaque linear structure superimposed over the left neck of uncertain significance, correlate with patient presentation and history. IMPRESSION: 1. Radiopaque linear structure superimposed over the left neck of uncertain significance, correlate with patient presentation and history. 2. Low lung volumes with bronchovascular crowding. 3. Cardiomegaly. 4. Otherwise no acute cardiopulmonary disease. 5. If there is continued concern, consider frontal and lateral chest radiographs or CT. P[place] Aug 09, 2020 13:44
--- NOTE | 2020-08-09 14:45 | Diagnostic Imaging Report ---
Indication: Cough Technique: One view of the chest Comparison: 08/06/2020 Findings: The heart is borderline enlarged. There is evidence of prior CABG. No definite infiltrates, effusions, or congestion. No significant change Impression: Borderline cardiomegaly. No acute process
[2020-08-09 16:00] VITALS: BP 132/68
[2020-08-09 20:00] VITALS: BP 131/51
[2020-08-09] MEDS: Atorvastatin 80mg tab ORAL SCH (20:29)
[2020-08-10] VITALS (7 sets, daily range): BP systolic 91–123; BP diastolic 49–63
[2020-08-10] MEDS: HydrALAZINE 50mg tab ORAL SCH ×2 (05:37→14:00)
[2020-08-10] MEDS: GlipiZIDE 5mg tab ORAL SCH ×2 (05:46→16:30)
[2020-08-10] MEDS: NovoLOG Insulin Flexpen SUBQ SCH ×4 (05:48→20:39)
[2020-08-10 07:10] LABS: HEMOGLOBIN 10.5 G/DL (14.2-18.0); MEAN CORPUSCULAR VOLUME 92 FL (80-99); PLATELET COUNT 143 K/UL (150-450); RED BLOOD COUNT 3.57 M/UL (4.70-6.10); RED CELL DISTRIBUTION WIDTH 16.3 % (11.6-14.8); WHITE BLOOD COUNT 7.4 K/UL (4.8-10.8)
[2020-08-10 07:58] LABS: PHOSPHORUS 5.4 MG/DL (2.5-4.9)
[2020-08-10 08:33] LABS: ALBUMIN 2.7 G/DL (3.4-5.0); ALBUMIN/GLOBULIN RATIO 0.9 (1.0-2.7); BILIRUBIN,TOTAL 0.4 MG/DL (0.2-1.0); CALCIUM 7.1 MG/DL (8.5-10.1); CREATININE 6.9 MG/DL (0.55-1.30); POTASSIUM 4.2 MMOL/L (3.5-5.1)
--- NOTE | 2020-08-10 08:53 | Infectious Diseases Prog Note ---
Assessment/Plan 69yo M with: COVID pneumonia Febrile to 101.3 Normal WBC Lymphopenia 08/06 BCx NTD COVID rapid test positive UA neg CXR: No acute process MRSA nares neg 08/09 BCx ordered CXR: Borderline cardiomegaly. No acute process Elevated lipase, no abd pain PMH: ESRD on HD CAD s/p CABG 2018 HTN HLD DM2 LUE AVF Plan: Cont to monitor off abx given normal WBC and COVID+ which is not treated with abx OK to d/c home from ID standpoint given doing well on RA Needs COVID home isolation for 10 days from date of diagnosis, 08/06 - 08/15 F/u BCx 08/09 Trend temp curve 08/08 SP Dex #2, stopped given on RA Not candidate for RDV given ESRD on HD This institution does not have access to convalescent plasma, and as pt doing well on RA unlikely to benefit from it at this point Monitor CBC/CMP Monitor resp status Monitor temp curve, hemodynamics D/w RN Thank you for this consult. [facility] will continue to follow. Subjective Allergies: Coded Allergies: No Known Allergies (Unverified , 08/06/20) Tamx 103 Remains on RA satting 94-97% WBC stable at 7 NAD Breathing fine Reports dizziness when getting up to walk today Objective Last 24 Hour Vital Signs Date Time Temp Pulse Resp B/P (MAP) Pulse Ox O2 Delivery O2 Flow Rate FiO2 08/10/20 05:37 107/59 08/10/20 04:00 70 08/10/20 04:00 98.7 68 20 107/59 (75) 97 08/10/20 00:00 69 08/10/20 00:00 99.3 67 20 123/57 (79) 94 08/09/20 22:35 131/51 08/09/20 21:21 93 131/51 08/09/20 21:00 99.1 08/09/20 21:00 Room Air 08/09/20 20:00 102.0 93 20 131/51 (77) 92 08/09/20 20:00 91 08/09/20 18:55 103.0 08/09/20 16:00 97.9 70 18 132/68 (89) 95 08/09/20 16:00 67 08/09/20 12:00 59 08/09/20 12:00 97.5 59 20 141/72 (95) 96 08/09/20 09:00 55 125/66 08/09/20 09:00 Room Air Height (Feet): 5 Height (Inches): 8.00 Weight (Pounds): 180 Gen: NAD HEENT: NCAT Pulm: BL chest rise Abd: Non-distended Ext: No c/c/e Skin: No visible rashes Neuro: Awake Laboratory Tests Test 08/10/20 04:30 08/10/20 05:45 White Blood Count 7.4 K/UL (4.8-10.8) Red Blood Count 3.57 M/UL (4.70-6.10) L Hemoglobin 10.5 G/DL (14.2-18.0) L Hematocrit 33.0 % (42.0-52.0) L Mean Corpuscular Volume 92 FL (80-99) Mean Corpuscular Hemoglobin 29.5 PG (27.0-31.0) Mean Corpuscular Hemoglobin Concent 31.9 G/DL (32.0-36.0) L Red Cell Distribution Width 16.3 % (11.6-14.8) H Platelet Count 143 K/UL (150-450) L Mean Platelet Volume 9.5 FL (6.5-10.1) Neutrophils (%) (Auto) % (45.0-75.0) Lymphocytes (%) (Auto) % (20.0-45.0) Monocytes (%) (Auto) % (1.0-10.0) Eosinophils (%) (Auto) % (0.0-3.0) Basophils (%) (Auto) % (0.0-2.0) Neutrophils % (Manual) Pending Lymphocytes % (Manual) Pending Platelet Estimate Pending Platelet Morphology Pending Sodium Level 137 MMOL/L (136-145) Potassium Level 4.2 MMOL/L (3.5-5.1) Chloride Level 98 MMOL/L (98-107) Carbon Dioxide Level 28 MMOL/L (21-32) Anion Gap 11 mmol/L (5-15) Blood Urea Nitrogen 62 mg/dL (7-18) H Creatinine 6.9 MG/DL (0.55-1.30) H Estimat Glomerular Filtration Rate 8.0 mL/min (>60) Glucose Level 191 MG/DL (74-106) H Calcium Level 7.1 MG/DL (8.5-10.1) L Phosphorus Level 5.4 MG/DL (2.5-4.9) H Magnesium Level 2.3 MG/DL (1.8-2.4) Total Bilirubin 0.4 MG/DL (0.2-1.0) Aspartate Amino Transf (AST/SGOT) 48 U/L (15-37) H Alanine Aminotransferase (ALT/SGPT) 54 U/L (12-78) Alkaline Phosphatase 84 U/L (46-116) C-Reactive Protein, Quantitative 7.4 mg/dL (0.00-0.90) H Total Protein 5.7 G/DL (6.4-8.2) L Albumin 2.7 G/DL (3.4-5.0) L Globulin 3.0 g/dL Albumin/Globulin Ratio 0.9 (1.0-2.7) L Amylase Level 97 U/L (25-115) Lipase 615 U/L (73-393) H POC Whole Blood Glucose 159 MG/DL (74-106) H Current Medications Medications (Trade) Dose Ordered Sig/Miri Route PRN Reason Start Time Stop Time Status Last Admin Dose Admin Acetaminophen (Tylenol) 650 mg Q4H PRN ORAL Temp >100.5 08/09/20 19:00 09/08/20 18:59 08/09/20 20:30 Albuterol Sulfate (Proventil MDI) 2 puff Q4H PRN INH Shortness of Breath 08/06/20 22:45 11/04/20 22:44 Amiodarone HCl (Cordarone) 200 mg DAILY ORAL 08/07/20 09:00 11/05/20 08:59 08/09/20 08:42 Atorvastatin Calcium (Lipitor) 80 mg BEDTIME ORAL 08/08/20 21:00 11/06/20 20:59 08/09/20 20:29 Clopidogrel Bisulfate (Plavix) 75 mg DAILY ORAL 08/07/20 09:00 09/06/20 08:59 08/09/20 08:42 Dextrose (Dextrose 50%) 25 ml Q30M PRN IV Hypoglycemia 08/06/20 22:45 11/04/20 22:44 Dextrose (Dextrose 50%) 50 ml Q30M PRN IV Hypoglycemia 08/06/20 22:45 11/04/20 22:44 Enoxaparin Sodium (Lovenox) 30 mg DAILY SUBQ 08/07/20 09:00 11/05/20 08:59 08/09/20 08:49 Glipizide (Glucotrol) 5 mg BIAC ORAL 08/07/20 06:30 09/06/20 06:29 08/10/20 05:46 Guaifenesin/ Dextromethorphan (Robitussin DM Syrup) 10 ml Q4H PRN ORAL For Cough 08/07/20 17:30 11/05/20 17:29 Hydralazine HCl (Apresoline) 10 mg Q4H PRN IV SBP >160 08/06/20 22:45 11/04/20 22:44 Hydralazine HCl (Apresoline) 50 mg Q8HR ORAL 08/08/20 14:00 11/06/20 13:59 08/09/20 22:35 Insulin Aspart (NovoLOG) BEFORE MEALS AND HS SUBQ 08/07/20 06:30 11/05/20 06:29 08/10/20 05:48 Ipratropium [place] (Atrovent Inh) 2 puffs Q4H PRN INH SOB wheezing 08/06/20 22:45 09/05/20 22:44 Isosorbide Mononitrate (Imdur) 30 mg DAILY ORAL 08/08/20 09:00 09/07/20 08:59 08/09/20 08:42 Metoprolol Tartrate (Lopressor) 25 mg Q12HR ORAL 08/07/20 09:00 11/05/20 08:59 08/09/20 21:21 Ondansetron HCl (Zofran) 4 mg Q6H PRN IVP Nausea & Vomiting 08/08/20 10:15 09/07/20 10:14 08/09/20 20:31 Pantoprazole (Protonix) 40 mg EVERY 12 HOURS ORAL 08/08/20 21:00 09/07/20 20:59 08/09/20 20:29 Sertraline HCl (Zoloft) 25 mg DAILY ORAL 08/07/20 09:00 09/06/20 08:59 08/09/20 08:41 Luiza Barton M.D. Aug 10, 2020 08:53
[2020-08-10] MEDS: Enoxaparin 30mg Inj SUBQ SCH (09:00)
[2020-08-10] MEDS: Amiodarone 200mg tab ORAL SCH (09:24)
[2020-08-10] MEDS: Sertraline 50mg tab ORAL SCH (09:24)
[2020-08-10] MEDS: Imdur 30mg tab ORAL SCH (09:25)
--- NOTE | 2020-08-10 10:52 | Pulmonology Progress Note ---
Subjective ROS Limited/Unobtainable: No Allergies: Coded Allergies: No Known Allergies (Unverified , 08/06/20) Subjective no resp distress pulse ox stable on RA fever last night 103 Objective Last 24 Hour Vital Signs Date Time Temp Pulse Resp B/P (MAP) Pulse Ox O2 Delivery O2 Flow Rate FiO2 08/10/20 09:25 115/50 08/10/20 09:24 85 115/50 08/10/20 08:00 74 08/10/20 08:00 97.9 85 18 115/50 (71) 92 08/10/20 05:37 107/59 08/10/20 04:00 70 08/10/20 04:00 98.7 68 20 107/59 (75) 97 08/10/20 00:00 69 08/10/20 00:00 99.3 67 20 123/57 (79) 94 08/09/20 22:35 131/51 08/09/20 21:21 93 131/51 08/09/20 21:00 99.1 08/09/20 21:00 Room Air 08/09/20 20:00 102.0 93 20 131/51 (77) 92 08/09/20 20:00 91 08/09/20 18:55 103.0 08/09/20 16:00 97.9 70 18 132/68 (89) 95 08/09/20 16:00 67 08/09/20 12:00 59 08/09/20 12:00 97.5 59 20 141/72 (95) 96 Intake and Output 08/09/20 08/10/20 19:00 07:00 Intake Total 240 ml Output Total 1500 ml Balance -1260 ml Intake Oral 240 ml Hemodialysis UF 1500 ml # Voids 1 Objective General Appearance: WD/WN, no apparent distress, alert Lines, tubes and drains: peripheral HEENT: normocephalic, atraumatic, anicteric, mucous membranes moist, PERRL Neck: non-tender, supple Respiratory/Chest: chest wall non-tender, lungs clear with moderate air exchange , no respiratory distress, no accessory muscle use Cardiovascular/Chest: normal peripheral pulses, normal rate, regular rhythm, + 1- edema BLE Abdomen: normal bowel sounds, non tender, soft Extremities: normal range of motion, non-tender, no calf tenderness, normal capillary refill, LUE AV shunt + bruit/thrill Skin Exam: warm/dry Neurologic: no motor/sensory deficits, alert, oriented x 3, responsive Musculoskeletal: normal muscle bulk Laboratory Tests 08/10/20 04:30: White Blood Count 7.4, Red Blood Count 3.57L, Hemoglobin 10.5L, Hematocrit 33.0L , Mean Corpuscular Volume 92, Mean Corpuscular Hemoglobin 29.5, Mean Corpuscular Hemoglobin Concent 31.9L, Red Cell Distribution Width 16.3H, Platelet Count 143L , Mean Platelet Volume 9.5, Neutrophils (%) (Auto) , Lymphocytes (%) (Auto) , Monocytes (%) (Auto) , Eosinophils (%) (Auto) , Basophils (%) (Auto) , Neutrophils % (Manual) [Pending], Lymphocytes % (Manual) [Pending], Platelet Estimate [Pending], Platelet Morphology [Pending], Sodium Level 137, Potassium Level 4.2, Chloride Level 98, Carbon Dioxide Level 28, Anion Gap 11, Blood Urea Nitrogen 62H, Creatinine 6.9H, Estimat Glomerular Filtration Rate 8.0, Glucose Level 191H, Calcium Level 7.1L, Phosphorus Level 5.4H, Magnesium Level 2.3, Total Bilirubin 0.4, Aspartate Amino Transf (AST/SGOT) 48H, Alanine Aminotransferase (ALT/SGPT) 54, Alkaline Phosphatase 84, C-Reactive Protein, Quantitative 7.4H, Total Protein 5.7L, Albumin 2.7L, Globulin 3.0, Albumin/Globulin Ratio 0.9L, Amylase Level 97, Lipase 615H 08/10/20 05:45: POC Whole Blood Glucose 159H Current Medications Medications (Trade) Dose Ordered Sig/Miir Route PRN Reason Start Time Stop Time Status Last Admin Dose Admin Acetaminophen (Tylenol) 650 mg Q4H PRN ORAL Temp >100.5 08/09/20 19:00 09/08/20 18:59 08/09/20 20:30 Albuterol Sulfate (Proventil MDI) 2 puff Q4H PRN INH Shortness of Breath 08/06/20 22:45 11/04/20 22:44 Amiodarone HCl (Cordarone) 200 mg DAILY ORAL 08/07/20 09:00 11/05/20 08:59 08/10/20 09:24 Atorvastatin Calcium (Lipitor) 80 mg BEDTIME ORAL 08/08/20 21:00 11/06/20 20:59 08/09/20 20:29 Clopidogrel Bisulfate (Plavix) 75 mg DAILY ORAL 08/07/20 09:00 09/06/20 08:59 08/10/20 09:24 Dextrose (Dextrose 50%) 25 ml Q30M PRN IV Hypoglycemia 08/06/20 22:45 11/04/20 22:44 Dextrose (Dextrose 50%) 50 ml Q30M PRN IV Hypoglycemia 08/06/20 22:45 11/04/20 22:44 Enoxaparin Sodium (Lovenox) 30 mg DAILY SUBQ 08/07/20 09:00 11/05/20 08:59 08/09/20 08:49 Glipizide (Glucotrol) 5 mg BIAC ORAL 08/07/20 06:30 09/06/20 06:29 08/10/20 05:46 Guaifenesin/ Dextromethorphan (Robitussin DM Syrup) 10 ml Q4H PRN ORAL For Cough 08/07/20 17:30 11/05/20 17:29 Hydralazine HCl (Apresoline) 10 mg Q4H PRN IV SBP >160 08/06/20 22:45 11/04/20 22:44 Hydralazine HCl (Apresoline) 50 mg Q8HR ORAL 08/08/20 14:00 11/06/20 13:59 08/09/20 22:35 Insulin Aspart (NovoLOG) BEFORE MEALS AND HS SUBQ 08/07/20 06:30 11/05/20 06:29 08/10/20 05:48 Ipratropium [place] (Atrovent Inh) 2 puffs Q4H PRN INH SOB wheezing 08/06/20 22:45 09/05/20 22:44 Isosorbide Mononitrate (Imdur) 30 mg DAILY ORAL 08/08/20 09:00 09/07/20 08:59 08/10/20 09:25 Metoprolol Tartrate (Lopressor) 25 mg Q12HR ORAL 08/07/20 09:00 11/05/20 08:59 08/10/20 09:24 Ondansetron HCl (Zofran) 4 mg Q6H PRN IVP Nausea & Vomiting 08/08/20 10:15 09/07/20 10:14 08/09/20 20:31 Pantoprazole (Protonix) 40 mg EVERY 12 HOURS ORAL 08/08/20 21:00 09/07/20 20:59 08/10/20 09:24 Sertraline HCl (Zoloft) 25 mg DAILY ORAL 08/07/20 09:00 09/06/20 08:59 08/10/20 09:24 Assessment/Plan Assessment/Plan ASSESSMENT COVID-19 infection CHF acute on chronic ( due to missed HD) Elevated troponin, likely troponin leak ESRD, on HD ( missed dialysis for 1 week ) Coronary artery disease with history of AR and CABG DM OOC - [id number] HTN Elevated lipase Anemia of chronic diseas4 Fever PLAN OF CARE tele isolation off Dexamethasone since 08/08 since not hypoxic no Remdesivivr, given ESRD a/coagulation PPX dose with Lovenox O2 titrate to keep sat > 92% pulse ox remains stable on RA Albuterol MDI prn CXR 08/09 no acute disease fup with inflammatory markers CRP 7.4 this am a/tussive prn fever 08/09 at night pancx ID recommends to keep off abx likely COVID related, fevers resolved fup with cx HD as per nephro recs, done last night 08/07 feeling better monitor volumes and renal parameters., further HD as per nephro recs continue a/PLT therapy with Plavix and beta blockage elevated troponin x 3 with minimal elevation, same range, likely troponin leak, ECG non-ischemic, no c/o CP cardio recs appreciated BP management with BB and Hydralazine ( added by cardio) ECHO with pEF 65% BS management with Glipizide and SSI, HgA1c- 12.5 clearly not at goal may need more aggressive treatment of BS while on steroids anemia w/up c/w anemia of chronic disease , ferritin 1537 monitor HH with goal to keep Hgb >7 , remains at baseline consider EPO if drop in Hgb GI follows lipase trending down, amylase WNL a/emetic prn no c/o abd pain supportive care case discussed and evaluated by supervising physician Park Gunn NP Aug 10, 2020 10:52 Merrill Becerra MD Aug 10, 2020 19:46
--- NOTE | 2020-08-10 13:07 | Surgery Progress Note ---
Surgery Progress Note Subjective Additional Comments improving no n/v states eating well but still no bm abd discomfort improved lip remains elevated Objective Last 24 Hour Vital Signs Date Time Temp Pulse Resp B/P (MAP) Pulse Ox O2 Delivery O2 Flow Rate FiO2 08/10/20 09:25 115/50 08/10/20 09:24 85 115/50 08/10/20 09:00 Room Air 08/10/20 08:00 74 08/10/20 08:00 97.9 85 18 115/50 (71) 92 08/10/20 05:37 107/59 08/10/20 04:00 70 08/10/20 04:00 98.7 68 20 107/59 (75) 97 08/10/20 00:00 69 08/10/20 00:00 99.3 67 20 123/57 (79) 94 08/09/20 22:35 131/51 08/09/20 21:21 93 131/51 08/09/20 21:00 99.1 08/09/20 21:00 Room Air 08/09/20 20:00 102.0 93 20 131/51 (77) 92 08/09/20 20:00 91 08/09/20 18:55 103.0 08/09/20 16:00 97.9 70 18 132/68 (89) 95 08/09/20 16:00 67 I&O Intake and Output 08/09/20 08/10/20 19:00 07:00 Intake Total 240 ml Output Total 1500 ml Balance -1260 ml Intake Oral 240 ml Hemodialysis UF 1500 ml # Voids 1 Cardiovascular: RSR Respiratory: clear, decreased breath sounds Abdomen: soft, flat, non-tender, present bowel sounds, non-distended Extremities: no edema, no tenderness, no cyanosis Laboratory Tests Test 08/10/20 04:30 08/10/20 05:45 08/10/20 12:58 White Blood Count 7.4 K/UL (4.8-10.8) Red Blood Count 3.57 M/UL (4.70-6.10) L Hemoglobin 10.5 G/DL (14.2-18.0) L Hematocrit 33.0 % (42.0-52.0) L Mean Corpuscular Volume 92 FL (80-99) Mean Corpuscular Hemoglobin 29.5 PG (27.0-31.0) Mean Corpuscular Hemoglobin Concent 31.9 G/DL (32.0-36.0) L Red Cell Distribution Width 16.3 % (11.6-14.8) H Platelet Count 143 K/UL (150-450) L Mean Platelet Volume 9.5 FL (6.5-10.1) Neutrophils (%) (Auto) % (45.0-75.0) Lymphocytes (%) (Auto) % (20.0-45.0) Monocytes (%) (Auto) % (1.0-10.0) Eosinophils (%) (Auto) % (0.0-3.0) Basophils (%) (Auto) % (0.0-2.0) Differential Total Cells Counted 100 Neutrophils % (Manual) 90 % (45-75) H Lymphocytes % (Manual) 6 % (20-45) L Monocytes % (Manual) 4 % (1-10) Eosinophils % (Manual) 0 % (0-3) Basophils % (Manual) 0 % (0-2) Band Neutrophils 0 % (0-8) Platelet Estimate Decreased L Platelet Morphology Normal Anisocytosis 1+ Sodium Level 137 MMOL/L (136-145) Potassium Level 4.2 MMOL/L (3.5-5.1) Chloride Level 98 MMOL/L (98-107) Carbon Dioxide Level 28 MMOL/L (21-32) Anion Gap 11 mmol/L (5-15) Blood Urea Nitrogen 62 mg/dL (7-18) H Creatinine 6.9 MG/DL (0.55-1.30) H Estimat Glomerular Filtration Rate 8.0 mL/min (>60) Glucose Level 191 MG/DL (74-106) H Calcium Level 7.1 MG/DL (8.5-10.1) L Phosphorus Level 5.4 MG/DL (2.5-4.9) H Magnesium Level 2.3 MG/DL (1.8-2.4) Total Bilirubin 0.4 MG/DL (0.2-1.0) Aspartate Amino Transf (AST/SGOT) 48 U/L (15-37) H Alanine Aminotransferase (ALT/SGPT) 54 U/L (12-78) Alkaline Phosphatase 84 U/L (46-116) C-Reactive Protein, Quantitative 7.4 mg/dL (0.00-0.90) H Total Protein 5.7 G/DL (6.4-8.2) L Albumin 2.7 G/DL (3.4-5.0) L Globulin 3.0 g/dL Albumin/Globulin Ratio 0.9 (1.0-2.7) L Amylase Level 97 U/L (25-115) Lipase 615 U/L (73-393) H POC Whole Blood Glucose 159 MG/DL (74-106) H Pending Plan Problems: (1) Pancreatitis Assessment & Plan: febrile covid + lft's wnl lip elevated esr / crp elevated abd exam benign US abd ordered ca pending no acute surgical intervention will follow with exam and recs thank you trending down lip fluctuating clinically without pain tolerating diet monitor (2) Fever (3) Elevated troponin (4) ESRD (end stage renal disease) on dialysis (5) Anemia in chronic kidney disease (CKD) (6) DMII (diabetes mellitus, type 2) (7) 2019 novel coronavirus disease (COVID-19) Assessment & Plan: ++ id input on abx pulm noted Lungs: Low lung volumes with bronchovascular crowding. No consolidation, pleural effusion, or pneumothorax. Pleural space: See above. Heart: Cardiomegaly. Mediastinum: Unremarkable. Bones/joints: Sternotomy with mediastinal operative findings. Other findings: Radiopaque linear structure superimposed over the left neck of uncertain significance, correlate with patient presentation and history. IMPRESSION: 1. Radiopaque linear structure superimposed over the left neck of uncertain significance, correlate with patient presentation and history. 2. Low lung volumes with bronchovascular crowding. 3. Cardiomegaly. 4. Otherwise no acute cardiopulmonary disease. 5. If there is continued concern, consider frontal and lateral chest radiographs or CT. Pacheco [place] Aug 10, 2020 13:07
--- NOTE | 2020-08-10 17:12 | Nephrology Progress Note ---
Assessment/Plan Problem List: (1) ESRD (end stage renal disease) on dialysis (2) Elevated troponin (3) Pancreatitis (4) 2019 novel coronavirus disease (COVID-19) (5) Anemia in chronic kidney disease (CKD) (6) DMII (diabetes mellitus, type 2) Assessment End-stage renal disease on hemodialysis COVID-19 pneumonia Coronary artery disease, [place] Diabetes mellitus Anemia Elevated lipase Plan August 10: Last dialyzed yesterday. Labs reviewed. Due for dialysis tomorrow. Continue per consultants. August 09: Patient due for dialysis today. Labs reviewed. Medication list reviewed. Continue per consultants. August 08: Patient was dialyzed yesterday. Due for dialysis tomorrow. Blood pressure medication adjusted. Diet changed to renal medium carbs. Continue per consultants. 2D echo pending. Previously: Monitor renal parameters Hemodialysis as soon as the patient arrives to medical floor Monitor lipase, renal parameters, hemoglobin and hematocrit Per orders Subjective ROS Limited/Unobtainable: No Constitutional: Reports: malaise, weakness Objective Objective Last 24 Hour Vital Signs Date Time Temp Pulse Resp B/P (MAP) Pulse Ox O2 Delivery O2 Flow Rate FiO2 08/10/20 14:00 104/53 08/10/20 14:00 76 104/53 (70) 08/10/20 12:00 64 08/10/20 12:00 97.2 80 18 112/58 (76) 93 08/10/20 09:25 115/50 08/10/20 09:24 85 115/50 08/10/20 09:00 Room Air 08/10/20 08:00 74 08/10/20 08:00 97.9 85 18 115/50 (71) 92 08/10/20 05:37 107/59 08/10/20 04:00 70 08/10/20 04:00 98.7 68 20 107/59 (75) 97 08/10/20 00:00 69 08/10/20 00:00 99.3 67 20 123/57 (79) 94 08/09/20 22:35 131/51 08/09/20 21:21 93 131/51 08/09/20 21:00 99.1 08/09/20 21:00 Room Air 08/09/20 20:00 102.0 93 20 131/51 (77) 92 08/09/20 20:00 91 08/09/20 18:55 103.0 Intake and Output 08/09/20 08/10/20 19:00 07:00 Intake Total 240 ml Output Total 1500 ml Balance -1260 ml Intake Oral 240 ml Hemodialysis UF 1500 ml # Voids 1 Laboratory Tests 08/10/20 04:30: White Blood Count 7.4, Red Blood Count 3.57L, Hemoglobin 10.5L, Hematocrit 33.0L , Mean Corpuscular Volume 92, Mean Corpuscular Hemoglobin 29.5, Mean Corpuscular Hemoglobin Concent 31.9L, Red Cell Distribution Width 16.3H, Platelet Count 143L , Mean Platelet Volume 9.5, Neutrophils (%) (Auto) , Lymphocytes (%) (Auto) , Monocytes (%) (Auto) , Eosinophils (%) (Auto) , Basophils (%) (Auto) , Differential Total Cells Counted 100, Neutrophils % (Manual) 90H, Lymphocytes % (Manual) 6L, Monocytes % (Manual) 4, Eosinophils % (Manual) 0, Basophils % (Manual) 0, Band Neutrophils 0, Platelet Estimate DecreasedL, Platelet Morphology Normal, Anisocytosis 1+, Sodium Level 137, Potassium Level 4.2, Chloride Level 98, Carbon Dioxide Level 28, Anion Gap 11, Blood Urea Nitrogen 62H, Creatinine 6.9H, Estimat Glomerular Filtration Rate 8.0, Glucose Level 191H , Calcium Level 7.1L, Phosphorus Level 5.4H, Magnesium Level 2.3, Total B ilirubin 0.4, Aspartate Amino Transf (AST/SGOT) 48H, Alanine Aminotransferase (ALT/SGPT) 54, Alkaline Phosphatase 84, C-Reactive Protein, Quantitative 7.4H, Total Protein 5.7L, Albumin 2.7L, Globulin 3.0, Albumin/Globulin Ratio 0.9L, Amylase Level 97, Lipase 615H 08/10/20 05:45: POC Whole Blood Glucose 159H 08/10/20 12:58: POC Whole Blood Glucose [Pending] Height (Feet): 5 Height (Inches): 8.00 Weight (Pounds): 180 General Appearance: no apparent distress Cardiovascular: normal rate Respiratory/Chest: decreased breath sounds Jon Crews MD Aug 10, 2020 17:12
[2020-08-10] MEDS: Docusate 100mg cap ORAL SCH (18:00)
[2020-08-10] MEDS: Atorvastatin 80mg tab ORAL SCH (20:29)
--- NOTE | 2020-08-10 21:10 | General Progress Note ---
Subjective Allergies: Coded Allergies: No Known Allergies (Unverified , 08/06/20) Subjective Above noted breathing comfortably no abdominal complaints Objective Last 24 Hour Vital Signs Date Time Temp Pulse Resp B/P (MAP) Pulse Ox O2 Delivery O2 Flow Rate FiO2 08/10/20 20:39 61 91/49 08/10/20 20:00 98.1 61 18 91/49 (63) 94 08/10/20 16:00 97.0 82 18 115/63 (80) 95 08/10/20 16:00 64 08/10/20 14:00 104/53 08/10/20 14:00 76 104/53 (70) 08/10/20 12:00 64 08/10/20 12:00 97.2 80 18 112/58 (76) 93 08/10/20 09:25 115/50 08/10/20 09:24 85 115/50 08/10/20 09:00 Room Air 08/10/20 08:00 74 08/10/20 08:00 97.9 85 18 115/50 (71) 92 08/10/20 05:37 107/59 08/10/20 04:00 70 08/10/20 04:00 98.7 68 20 107/59 (75) 97 08/10/20 00:00 69 08/10/20 00:00 99.3 67 20 123/57 (79) 94 08/09/20 22:35 131/51 08/09/20 21:21 93 131/51 Intake and Output 08/09/20 08/10/20 19:00 07:00 Intake Total 240 ml Output Total 1500 ml Balance -1260 ml Intake Oral 240 ml Hemodialysis UF 1500 ml # Voids 1 Laboratory Tests 08/10/20 04:30: White Blood Count 7.4, Red Blood Count 3.57L, Hemoglobin 10.5L, Hematocrit 33.0L , Mean Corpuscular Volume 92, Mean Corpuscular Hemoglobin 29.5, Mean Corpuscular Hemoglobin Concent 31.9L, Red Cell Distribution Width 16.3H, Platelet Count 143L , Mean Platelet Volume 9.5, Neutrophils (%) (Auto) , Lymphocytes (%) (Auto) , Monocytes (%) (Auto) , Eosinophils (%) (Auto) , Basophils (%) (Auto) , Differential Total Cells Counted 100, Neutrophils % (Manual) 90H, Lymphocytes % (Manual) 6L, Monocytes % (Manual) 4, Eosinophils % (Manual) 0, Basophils % (Manual) 0, Band Neutrophils 0, Platelet Estimate DecreasedL, Platelet Morphology Normal, Anisocytosis 1+, Sodium Level 137, Potassium Level 4.2, Chloride Level 98, Carbon Dioxide Level 28, Anion Gap 11, Blood Urea Nitrogen 62H, Creatinine 6.9H, Estimat Glomerular Filtration Rate 8.0, Glucose Level 191H , Calcium Level 7.1L, Phosphorus Level 5.4H, Magnesium Level 2.3, Total Bilirubin 0.4, Aspartate Amino Transf (AST/SGOT) 48H, Alanine Aminotransferase (ALT/SGPT) 54, Alkaline Phosphatase 84, C-Reactive Protein, Quantitative 7.4H, Total Protein 5.7L, Albumin 2.7L, Globulin 3.0, Albumin/Globulin Ratio 0.9L, Amylase Level 97, Lipase 615H 08/10/20 05:45: POC Whole Blood Glucose 159H 08/10/20 12:58: POC Whole Blood Glucose [Pending] 08/10/20 18:01: POC Whole Blood Glucose 166H 08/10/20 20:18: POC Whole Blood Glucose [Pending] Height (Feet): 5 Height (Inches): 8.00 Weight (Pounds): 180 Objective WDWN man resting comfortably NCAT CTA RR abd soft ND NT no edema Assessment/Plan Status: unchanged Assessment/Plan: Assessment - COVID infection - Abnormal LFT - Elevated Lipase - ESRD Recommendations - po as tolerated - follow labs and exam - supportive care Joel Johnson MD Aug 10, 2020 21:10
--- NOTE | 2020-08-10 21:11 | Cardiology Progress Note ---
Assessment/Plan Status: stable Assessment/Plan 1. COVID-19 viral PNA 2. CHF acute on chronic with severely elevated BNP, decompensated Echo pending CXR shows decreased volume 3. CAD s/p CABG and IA 4. Troponin leak 0.09 to 0.1 denies chest pain continue to trend troponin 5. ESRD on HD 6. HTN 7. HPLD 8. DMII Denies chest pain. Troponin leak 0.1, likely 2/2 CHF exacerbation and demand ischemia, will monitor. Echo pending. Subjective ROS Limited/Unobtainable: No Cardiovascular: Reports: no symptoms Respiratory: Reports: shortness of breath Gastrointestinal/Abdominal: Reports: poor appetite Genitourinary: Reports: no symptoms Subjective Denies chest pain, resting comfortably Objective Last 24 Hour Vital Signs Date Time Temp Pulse Resp B/P (MAP) Pulse Ox O2 Delivery O2 Flow Rate FiO2 08/10/20 20:39 61 91/49 08/10/20 20:00 98.1 61 18 91/49 (63) 94 08/10/20 16:00 97.0 82 18 115/63 (80) 95 08/10/20 16:00 64 08/10/20 14:00 104/53 08/10/20 14:00 76 104/53 (70) 08/10/20 12:00 64 08/10/20 12:00 97.2 80 18 112/58 (76) 93 08/10/20 09:25 115/50 08/10/20 09:24 85 115/50 08/10/20 09:00 Room Air 08/10/20 08:00 74 08/10/20 08:00 97.9 85 18 115/50 (71) 92 08/10/20 05:37 107/59 08/10/20 04:00 70 08/10/20 04:00 98.7 68 20 107/59 (75) 97 08/10/20 00:00 69 08/10/20 00:00 99.3 67 20 123/57 (79) 94 08/09/20 22:35 131/51 08/09/20 21:21 93 131/51 General Appearance: no apparent distress EENT: PERRL/EOMI Neck: no JVD Rhythm: NSR Cardiovascular: normal rate Respiratory/Chest: no respiratory distress, no accessory muscle use Abdomen: soft Intake and Output 08/09/20 08/10/20 19:00 07:00 Intake Total 240 ml Output Total 1500 ml Balance -1260 ml Intake Oral 240 ml Hemodialysis UF 1500 ml # Voids 1 Laboratory Tests Test 08/10/20 04:30 08/10/20 05:45 08/10/20 12:58 08/10/20 18:01 White Blood Count 7.4 K/UL (4.8-10.8) Red Blood Count 3.57 M/UL (4.70-6.10) L Hemoglobin 10.5 G/DL (14.2-18.0) L Hematocrit 33.0 % (42.0-52.0) L Mean Corpuscular Volume 92 FL (80-99) Mean Corpuscular Hemoglobin 29.5 PG (27.0-31.0) Mean Corpuscular Hemoglobin Concent 31.9 G/DL (32.0-36.0) L Red Cell Distribution Width 16.3 % (11.6-14.8) H Platelet Count 143 K/UL (150-450) L Mean Platelet Volume 9.5 FL (6.5-10.1) Neutrophils (%) (Auto) % (45.0-75.0) Lymphocytes (%) (Auto) % (20.0-45.0) Monocytes (%) (Auto) % (1.0-10.0) Eosinophils (%) (Auto) % (0.0-3.0) Basophils (%) (Auto) % (0.0-2.0) Differential Total Cells Counted 100 Neutrophils % (Manual) 90 % (45-75) H Lymphocytes % (Manual) 6 % (20-45) L Monocytes % (Manual) 4 % (1-10) Eosinophils % (Manual) 0 % (0-3) Basophils % (Manual) 0 % (0-2) Band Neutrophils 0 % (0-8) Platelet Estimate Decreased L Platelet Morphology Normal Anisocytosis 1+ Sodium Level 137 MMOL/L (136-145) Potassium Level 4.2 MMOL/L (3.5-5.1) Chloride Level 98 MMOL/L (98-107) Carbon Dioxide Level 28 MMOL/L (21-32) Anion Gap 11 mmol/L (5-15) Blood Urea Nitrogen 62 mg/dL (7-18) H Creatinine 6.9 MG/DL (0.55-1.30) H Estimat Glomerular Filtration Rate 8.0 mL/min (>60) Glucose Level 191 MG/DL (74-106) H Calcium Level 7.1 MG/DL (8.5-10.1) L Phosphorus Level 5.4 MG/DL (2.5-4.9) H Magnesium Level 2.3 MG/DL (1.8-2.4) Total Bilirubin 0.4 MG/DL (0.2-1.0) Aspartate Amino Transf (AST/SGOT) 48 U/L (15-37) H Alanine Aminotransferase (ALT/SGPT) 54 U/L (12-78) Alkaline Phosphatase 84 U/L (46-116) C-Reactive Protein, Quantitative 7.4 mg/dL (0.00-0.90) H Total Protein 5.7 G/DL (6.4-8.2) L Albumin 2.7 G/DL (3.4-5.0) L Globulin 3.0 g/dL Albumin/Globulin Ratio 0.9 (1.0-2.7) L Amylase Level 97 U/L (25-115) Lipase 615 U/L (73-393) H POC Whole Blood Glucose 159 MG/DL (74-106) H Pending 166 MG/DL (74-106) H Test 08/10/20 20:18 POC Whole Blood Glucose Pending Radha Collins PA-C Aug 10, 2020 21:11
[2020-08-10] MEDS: guaiFENesin /DM 10ml syrup ORAL PRN (21:58)
[2020-08-11] VITALS: BP 122/50
[2020-08-11 04:00] VITALS: BP 135/58
[2020-08-11] MEDS: NovoLOG Insulin Flexpen SUBQ SCH ×4 (05:53→20:43)
[2020-08-11] MEDS: GlipiZIDE 5mg tab ORAL SCH ×2 (05:53→17:29)
[2020-08-11 07:01] LABS: BASOPHILS % (AUTO) 0.6 % (0.0-2.0); EOSINOPHILS % (AUTO) 0.1 % (0.0-3.0); HEMATOCRIT 29.5 % (42.0-52.0); HEMOGLOBIN 9.9 G/DL (14.2-18.0); LYMPHOCYTES % (AUTO) 11.1 % (20.0-45.0); MEAN CORPUSCULAR VOLUME 90 FL (80-99); NEUTROPHILS % (AUTO) 78.2 % (45.0-75.0); PLATELET COUNT 115 K/UL (150-450); RED BLOOD COUNT 3.29 M/UL (4.70-6.10); RED CELL DISTRIBUTION WIDTH 16.3 % (11.6-14.8); WHITE BLOOD COUNT 5.9 K/UL (4.8-10.8)
[2020-08-11 07:30] LABS: ALBUMIN 2.4 G/DL (3.4-5.0); ALBUMIN/GLOBULIN RATIO 0.7 (1.0-2.7); BILIRUBIN,TOTAL 0.5 MG/DL (0.2-1.0); CALCIUM 7.1 MG/DL (8.5-10.1); CREATININE 7.8 MG/DL (0.55-1.30); POTASSIUM 3.3 MMOL/L (3.5-5.1)
[2020-08-11 08:00] VITALS: BP 137/64
[2020-08-11 08:09] LABS: AMYLASE 103 U/L (25-115)
--- NOTE | 2020-08-11 08:49 | Diagnostic Imaging Report ---
EXAM: XR Chest, 1 View CLINICAL HISTORY: F/U TECHNIQUE: Frontal view of the chest. COMPARISON: 08/09/20 FINDINGS: Lungs: There is been slight interval worsening of mild to moderate diffuse right lung infiltrate with unchanged patchy mild left lung infiltrates. Pleural space: Unremarkable. No pneumothorax. Heart: Unremarkable. No cardiomegaly. Mediastinum: Unremarkable. Bones/joints: Unremarkable. IMPRESSION: There is been slight interval worsening of mild to moderate diffuse right lung infiltrate with unchanged patchy mild left lung infiltrates.
[2020-08-11] MEDS: Docusate 100mg cap ORAL SCH ×2 (08:50→17:29)
[2020-08-11] MEDS: Sertraline 50mg tab ORAL SCH (08:50)
[2020-08-11] MEDS: Amiodarone 200mg tab ORAL SCH (08:50)
[2020-08-11] MEDS: Imdur 30mg tab ORAL SCH (08:56)
[2020-08-11] MEDS: Enoxaparin 30mg Inj SUBQ SCH (09:00)
--- NOTE | 2020-08-11 10:03 | Pulmonology Progress Note ---
Subjective ROS Limited/Unobtainable: No Allergies: Coded Allergies: No Known Allergies (Unverified , 08/06/20) Subjective no resp distress pulse ox stable on RA no further fevers denies CP, SOB HD pending for today Objective Last 24 Hour Vital Signs Date Time Temp Pulse Resp B/P (MAP) Pulse Ox O2 Delivery O2 Flow Rate FiO2 08/11/20 08:56 144/64 08/11/20 04:00 97.7 56 20 135/58 (83) 95 08/11/20 04:00 56 08/11/20 00:00 63 08/11/20 00:00 98.1 62 20 122/50 (74) 94 08/10/20 21:00 Room Air 08/10/20 20:39 61 91/49 08/10/20 20:00 98.1 61 18 91/49 (63) 94 08/10/20 20:00 64 08/10/20 16:00 97.0 82 18 115/63 (80) 95 08/10/20 16:00 64 08/10/20 14:00 104/53 08/10/20 14:00 76 104/53 (70) 08/10/20 12:00 64 08/10/20 12:00 97.2 80 18 112/58 (76) 93 Intake and Output 08/10/20 08/11/20 19:00 07:00 Intake Total 360 ml 200 ml Balance 360 ml 200 ml Intake Oral 360 ml 200 ml # Voids 1 Objective General Appearance: WD/WN, no apparent distress, alert Lines, tubes and drains: peripheral HEENT: normocephalic, atraumatic, anicteric, mucous membranes moist, PERRL Neck: non-tender, supple Respiratory/Chest: chest wall non-tender, lungs clear with moderate air exchange , no respiratory distress, no accessory muscle use Cardiovascular/Chest: normal peripheral pulses, normal rate, regular rhythm, + 1- edema BLE Abdomen: normal bowel sounds, non tender, soft Extremities: normal range of motion, non-tender, no calf tenderness, normal capillary refill, LUE AV shunt + bruit/thrill Skin Exam: warm/dry Neurologic: no motor/sensory deficits, alert, oriented x 3, responsive Musculoskeletal: normal muscle bulk Microbiology Date/Time Source Procedure Growth Status 08/09/20 16:30 Blood Blood Culture - Preliminary NO GROWTH AFTER 24 HOURS Resulted Laboratory Tests 08/10/20 12:58: POC Whole Blood Glucose [Pending] 08/10/20 18:01: POC Whole Blood Glucose 166H 08/10/20 20:18: POC Whole Blood Glucose [Pending] 08/11/20 05:43: POC Whole Blood Glucose 72L 08/11/20 05:45: White Blood Count 5.9, Red Blood Count 3.29L, Hemoglobin 9.9L, Hematocrit 29.5L, Mean Corpuscular Volume 90, Mean Corpuscular Hemoglobin 29.9, Mean Corpuscular Hemoglobin Concent 33.4, Red Cell Distribution Width 16.3H, Platelet Count 115L, Mean Platelet Volume 6.7, Neutrophils (%) (Auto) 78.2H, Lymphocytes (%) (Auto) 11.1L, Monocytes (%) (Auto) 10.0, Eosinophils (%) (Auto) 0.1, Basophils (%) (Auto) 0.6, Sodium Level 132L, Potassium Level 3.3L, Chloride Level 95L, Carbon Dioxide Level 26, Anion Gap 11, Blood Urea Nitrogen 69H, Creatinine 7.8H, Estimat Glomerular Filtration Rate 6.9, Glucose Level 71#L, Calcium Level 7.1L, Total Bilirubin 0.5, Aspartate Amino Transf (AST/SGOT) 34, Alanine Aminotransferase (ALT/SGPT) 40, Alkaline Phosphatase 68, C-Reactive Protein, Quantitative 7.8H, Total Protein 6.0L, Albumin 2.4L, Globulin 3.6, Album in/Globulin Ratio 0.7L, Amylase Level 103, Lipase 539H Current Medications Medications (Trade) Dose Ordered Sig/Miri Route PRN Reason Start Time Stop Time Status Last Admin Dose Admin Acetaminophen (Tylenol) 650 mg Q4H PRN ORAL Temp >100.5 08/09/20 19:00 09/08/20 18:59 08/09/20 20:30 Albuterol Sulfate (Proventil MDI) 2 puff Q4H PRN INH Shortness of Breath 08/06/20 22:45 11/04/20 22:44 Amiodarone HCl (Cordarone) 200 mg DAILY ORAL 08/07/20 09:00 11/05/20 08:59 08/11/20 08:50 Atorvastatin Calcium (Lipitor) 80 mg BEDTIME ORAL 08/08/20 21:00 11/06/20 20:59 08/10/20 20:29 Clopidogrel Bisulfate (Plavix) 75 mg DAILY ORAL 08/07/20 09:00 09/06/20 08:59 08/11/20 08:50 Dextrose (Dextrose 50%) 25 ml Q30M PRN IV Hypoglycemia 08/06/20 22:45 11/04/20 22:44 Dextrose (Dextrose 50%) 50 ml Q30M PRN IV Hypoglycemia 08/06/20 22:45 11/04/20 22:44 Docusate Sodium (Colace) 100 mg TWICE A DAY ORAL 08/10/20 18:00 09/09/20 17:59 08/11/20 08:50 Enoxaparin Sodium (Lovenox) 30 mg DAILY SUBQ 08/07/20 09:00 11/05/20 08:59 08/09/20 08:49 Glipizide (Glucotrol) 5 mg BIAC ORAL 08/07/20 06:30 09/06/20 06:29 08/11/20 05:53 Guaifenesin/ Dextromethorphan (Robitussin DM Syrup) 10 ml Q4H PRN ORAL For Cough 08/07/20 17:30 11/05/20 17:29 08/10/20 21:58 Hydralazine HCl (Apresoline) 10 mg Q4H PRN IV SBP >160 08/06/20 22:45 11/04/20 22:44 Insulin Aspart (NovoLOG) BEFORE MEALS AND HS SUBQ 08/07/20 06:30 11/05/20 06:29 08/10/20 20:39 Ipratropium [place] (Atrovent Inh) 2 puffs Q4H PRN INH SOB wheezing 08/06/20 22:45 09/05/20 22:44 Isosorbide Mononitrate (Imdur) 30 mg DAILY ORAL 08/08/20 09:00 09/07/20 08:59 08/11/20 08:56 Metoprolol Tartrate (Lopressor) 25 mg Q12HR ORAL 08/07/20 09:00 11/05/20 08:59 08/10/20 09:24 Ondansetron HCl (Zofran) 4 mg Q6H PRN IVP Nausea & Vomiting 08/08/20 10:15 09/07/20 10:14 08/09/20 20:31 Pantoprazole (Protonix) 40 mg EVERY 12 HOURS ORAL 08/08/20 21:00 09/07/20 20:59 08/11/20 08:50 Sertraline HCl (Zoloft) 25 mg DAILY ORAL 08/07/20 09:00 09/06/20 08:59 08/11/20 08:50 Assessment/Plan Assessment/Plan ASSESSMENT COVID-19 infection CHF acute on chronic ( due to missed HD) Elevated troponin, likely troponin leak ESRD, on HD ( missed dialysis for 1 week ) Coronary artery disease with history of NE and CABG DM OOC - [id number] HTN Elevated lipase Anemia of chronic diseas4 Fever PLAN OF CARE tele isolation Date of sx onset: 1 week on admission Positive test: 08/06 rapid COVID 19 + O2 -on RA HFA Dex-> off Dexamethasone since 08/08 ( s/p 2 days) since not hypoxic REM - -> not a candidate given ESRD DVT PPX: Lovenox D dimer -0.47 Trend CRP-> last 7.8 no abx as per ID recs ; BCX 08/09 NGTD, no further fevers CXR 07/30- no acute disease Monitor volumes and renal function, HD as per nephro Fup with consultants recs FC continue a/PLT therapy with Plavix and beta blockage elevated troponin x 3 with minimal elevation, same range, likely troponin leak, ECG non-ischemic, no c/o CP cardio recs appreciated BP management with BB and Hydralazine ( added by cardio) ECHO with pEF 65% BS management with Glipizide and SSI, HgA1c- 12.5 clearly not at goal may need more aggressive treatment of BS while on steroids anemia w/up c/w anemia of chronic disease , ferritin 1537 monitor HH with goal to keep Hgb >7 , remains at baseline consider EPO if drop in Hgb GI follows lipase trending down, amylase WNL a/emetic prn no c/o abd pain supportive care case discussed and evaluated by supervising physician Park Gunn NP Aug 11, 2020 10:03 Merrill Becerra MD Aug 11, 2020 19:32
[2020-08-11 12:00] VITALS: BP 126/55
[2020-08-11 16:00] VITALS: BP 91/58
--- NOTE | 2020-08-11 16:08 | Surgery Progress Note ---
Surgery Progress Note Subjective Symptoms: improved, pain absent, tolerating diet, passing flatus, BM Objective Last 24 Hour Vital Signs Date Time Temp Pulse Resp B/P (MAP) Pulse Ox O2 Delivery O2 Flow Rate FiO2 08/11/20 12:00 97.7 60 20 126/55 (78) 96 08/11/20 12:00 59 08/11/20 09:00 Room Air 08/11/20 08:56 144/64 08/11/20 08:00 57 08/11/20 08:00 97.2 67 14 137/64 (88) 98 08/11/20 04:00 97.7 56 20 135/58 (83) 95 08/11/20 04:00 56 08/11/20 00:00 63 08/11/20 00:00 98.1 62 20 122/50 (74) 94 08/10/20 21:00 Room Air 08/10/20 20:39 61 91/49 08/10/20 20:00 98.1 61 18 91/49 (63) 94 08/10/20 20:00 64 I&O Intake and Output 08/10/20 08/11/20 19:00 07:00 Intake Total 360 ml 200 ml Balance 360 ml 200 ml Intake Oral 360 ml 200 ml # Voids 1 Dressing: dry Wound: clean Cardiovascular: RSR Respiratory: clear Abdomen: soft, flat, non-tender, present bowel sounds, non-distended Extremities: no tenderness, no cyanosis Laboratory Tests Test 08/10/20 18:01 08/10/20 20:18 08/11/20 05:43 08/11/20 05:45 POC Whole Blood Glucose 166 MG/DL (74-106) H Pending 72 MG/DL (74-106) L White Blood Count 5.9 K/UL (4.8-10.8) Red Blood Count 3.29 M/UL (4.70-6.10) L Hemoglobin 9.9 G/DL (14.2-18.0) L Hematocrit 29.5 % (42.0-52.0) L Mean Corpuscular Volume 90 FL (80-99) Mean Corpuscular Hemoglobin 29.9 PG (27.0-31.0) Mean Corpuscular Hemoglobin Concent 33.4 G/DL (32.0-36.0) Red Cell Distribution Width 16.3 % (11.6-14.8) H Platelet Count 115 K/UL (150-450) L Mean Platelet Volume 6.7 FL (6.5-10.1) Neutrophils (%) (Auto) 78.2 % (45.0-75.0) H Lymphocytes (%) (Auto) 11.1 % (20.0-45.0) L Monocytes (%) (Auto) 10.0 % (1.0-10.0) Eosinophils (%) (Auto) 0.1 % (0.0-3.0) Basophils (%) (Auto) 0.6 % (0.0-2.0) Sodium Level 132 MMOL/L (136-145) L Potassium Level 3.3 MMOL/L (3.5-5.1) L Chloride Level 95 MMOL/L (98-107) L Carbon Dioxide Level 26 MMOL/L (21-32) Anion Gap 11 mmol/L (5-15) Blood Urea Nitrogen 69 mg/dL (7-18) H Creatinine 7.8 MG/DL (0.55-1.30) H Estimat Glomerular Filtration Rate 6.9 mL/min (>60) Glucose Level 71 MG/DL (74-106) #L Calcium Level 7.1 MG/DL (8.5-10.1) L Total Bilirubin 0.5 MG/DL (0.2-1.0) Aspartate Amino Transf (AST/SGOT) 34 U/L (15-37) Alanine Aminotransferase (ALT/SGPT) 40 U/L (12-78) Alkaline Phosphatase 68 U/L (46-116) C-Reactive Protein, Quantitative 7.8 mg/dL (0.00-0.90) H Total Protein 6.0 G/DL (6.4-8.2) L Albumin 2.4 G/DL (3.4-5.0) L Globulin 3.6 g/dL Albumin/Globulin Ratio 0.7 (1.0-2.7) L Amylase Level 103 U/L (25-115) Lipase 539 U/L (73-393) H Plan Problems: (1) Pancreatitis Assessment & Plan: febrile covid + lft's wnl lip elevated esr / crp elevated abd exam benign US abd ordered ca pending no acute surgical intervention will follow with exam and recs thank you trending down lip fluctuating clinically without pain tolerating diet monitor (2) Fever (3) Elevated troponin (4) ESRD (end stage renal disease) on dialysis (5) Anemia in chronic kidney disease (CKD) (6) DMII (diabetes mellitus, type 2) (7) 2019 novel coronavirus disease (COVID-19) Assessment & Plan: ++ id input on abx pulm noted Lungs: Low lung volumes with bronchovascular crowding. No consolidation, pleural effusion, or pneumothorax. Pleural space: See above. Heart: Cardiomegaly. Mediastinum: Unremarkable. Bones/joints: Sternotomy with mediastinal operative findings. Other findings: Radiopaque linear structure superimposed over the left neck of uncertain significance, correlate with patient presentation and history. IMPRESSION: 1. Radiopaque linear structure superimposed over the left neck of uncertain significance, correlate with patient presentation and history. 2. Low lung volumes with bronchovascular crowding. 3. Cardiomegaly. 4. Otherwise no acute cardiopulmonary disease. 5. If there is continued concern, consider frontal and lateral chest radiographs or CT. Pacheco [place] Aug 11, 2020 16:08
--- NOTE | 2020-08-11 16:16 | Nephrology Progress Note ---
Assessment/Plan Problem List: (1) ESRD (end stage renal disease) on dialysis (2) Elevated troponin (3) Pancreatitis (4) 2019 novel coronavirus disease (COVID-19) (5) Anemia in chronic kidney disease (CKD) (6) DMII (diabetes mellitus, type 2) Assessment End-stage renal disease on hemodialysis COVID-19 pneumonia Coronary artery disease, [place] Diabetes mellitus Anemia Elevated lipase Plan August 11: Due for dialysis today. Continue per consultants. Check labs tomorrow. August 10: Last dialyzed yesterday. Labs reviewed. Due for dialysis tomorrow. Continue per consultants. August 09: Patient due for dialysis today. Labs reviewed. Medication list reviewed. Continue per consultants. August 08: Patient was dialyzed yesterday. Due for dialysis tomorrow. Blood pressure medication adjusted. Diet changed to renal medium carbs. Continue per consultants. 2D echo pending. Previously: Monitor renal parameters Hemodialysis as soon as the patient arrives to medical floor Monitor lipase, renal parameters, hemoglobin and hematocrit Per orders Subjective ROS Limited/Unobtainable: No Constitutional: Reports: malaise, weakness Objective Objective Last 24 Hour Vital Signs Date Time Temp Pulse Resp B/P (MAP) Pulse Ox O2 Delivery O2 Flow Rate FiO2 08/11/20 12:00 97.7 60 20 126/55 (78) 96 08/11/20 12:00 59 08/11/20 09:00 Room Air 08/11/20 08:56 144/64 08/11/20 08:00 57 08/11/20 08:00 97.2 67 14 137/64 (88) 98 08/11/20 04:00 97.7 56 20 135/58 (83) 95 08/11/20 04:00 56 08/11/20 00:00 63 08/11/20 00:00 98.1 62 20 122/50 (74) 94 08/10/20 21:00 Room Air 08/10/20 20:39 61 91/49 08/10/20 20:00 98.1 61 18 91/49 (63) 94 08/10/20 20:00 64 Intake and Output 08/10/20 08/11/20 19:00 07:00 Intake Total 360 ml 200 ml Balance 360 ml 200 ml Intake Oral 360 ml 200 ml # Voids 1 Laboratory Tests 1/1/21 18:01: POC Whole Blood Glucose 166H 08/10/20 20:18: POC Whole Blood Glucose [Pending] 08/11/20 05:43: POC Whole Blood Glucose 72L 08/11/20 05:45: White Blood Count 5.9, Red Blood Count 3.29L, Hemoglobin 9.9L, Hematocrit 29.5L, Mean Corpuscular Volume 90, Mean Corpuscular Hemoglobin 29.9, Mean Corpuscular Hemoglobin Concent 33.4, Red Cell Distribution Width 16.3H, Platelet Count 115L, Mean Platelet Volume 6.7, Neutrophils (%) (Auto) 78.2H, Lymphocytes (%) (Auto) 11.1L, Monocytes (%) (Auto) 10.0, Eosinophils (%) (Auto) 0.1, Basophils (%) (Auto) 0.6, Sodium Level 132L, Potassium Level 3.3L, Chloride Level 95L, Carbon Dioxide Level 26, Anion Gap 11, Blood Urea Nitrogen 69H, Creatinine 7.8H, Estimat Glomerular Filtration Rate 6.9, Glucose Level 71#L, Calcium Level 7.1L, Total Bilirubin 0.5, Aspartate Amino Transf (AST/SGOT) 34, Alanine Aminotransferase (ALT/SGPT) 40, Alkaline Phosphatase 68, C-Reactive Protein, Quantitative 7.8H, Total Protein 6.0L, Albumin 2.4L, Globulin 3.6, Albumin/Globulin Ratio 0.7L, Amylase Level 103, Lipase 539H Height (Feet): 5 Height (Inches): 8.00 Weight (Pounds): 180 General Appearance: no apparent distress Cardiovascular: normal rate Respiratory/Chest: decreased breath sounds Objective No change Jon Crews MD Aug 11, 2020 16:16
--- NOTE | 2020-08-11 17:14 | General Progress Note ---
Subjective Allergies: Coded Allergies: No Known Allergies (Unverified , 08/06/20) Subjective Above noted d/w staff nurse icu resource team no abdominal complaints breathing better Objective Last 24 Hour Vital Signs Date Time Temp Pulse Resp B/P (MAP) Pulse Ox O2 Delivery O2 Flow Rate FiO2 08/11/20 16:00 98.7 61 18 91/58 (69) 97 08/11/20 12:00 97.7 60 20 126/55 (78) 96 08/11/20 12:00 59 08/11/20 09:00 Room Air 08/11/20 08:56 144/64 08/11/20 08:00 57 08/11/20 08:00 97.2 67 14 137/64 (88) 98 08/11/20 04:00 97.7 56 20 135/58 (83) 95 08/11/20 04:00 56 08/11/20 00:00 63 08/11/20 00:00 98.1 62 20 122/50 (74) 94 08/10/20 21:00 Room Air 08/10/20 20:39 61 91/49 08/10/20 20:00 98.1 61 18 91/49 (63) 94 08/10/20 20:00 64 Intake and Output 08/10/20 08/11/20 19:00 07:00 Intake Total 360 ml 200 ml Balance 360 ml 200 ml Intake Oral 360 ml 200 ml # Voids 1 Laboratory Tests 08/10/20 18:01: POC Whole Blood Glucose 166H 08/10/20 20:18: POC Whole Blood Glucose [Pending] 08/11/20 05:43: POC Whole Blood Glucose 72L 08/11/20 05:45: White Blood Count 5.9, Red Blood Count 3.29L, Hemoglobin 9.9L, Hematocrit 29.5L, Mean Corpuscular Volume 90, Mean Corpuscular Hemoglobin 29.9, Mean Corpuscular Hemoglobin Concent 33.4, Red Cell Distribution Width 16.3H, Platelet Count 115L, Mean Platelet Volume 6.7, Neutrophils (%) (Auto) 78.2H, Lymphocytes (%) (Auto) 11.1L, Monocytes (%) (Auto) 10.0, Eosinophils (%) (Auto) 0.1, Basophils (%) (Auto) 0.6, Sodium Level 132L, Potassium Level 3.3L, Chloride Level 95L, Carbon Dioxide Level 26, Anion Gap 11, Blood Urea Nitrogen 69H, Creatinine 7.8H, Estimat Glomerular Filtration Rate 6.9, Glucose Level 71#L, Calcium Level 7.1L, Total Bilirubin 0.5, Aspartate Amino Transf (AST/SGOT) 34, Alanine Aminotransferase (ALT/SGPT) 40, Alkaline Phosphatase 68, C-Reactive Protein, Quantitative 7.8H, Total Protein 6.0L, Albumin 2.4L, Globulin 3.6, Albumin/Globulin Ratio 0.7L, Amylase Level 103, Lipase 539H 08/11/20 16:33: POC Whole Blood Glucose 259H Height (Feet): 5 Height (Inches): 8.00 Weight (Pounds): 180 Objective Exam limited due to COVID isolation Assessment/Plan Status: stable Assessment/Plan: Assessment - COVID infection - Abnormal LFT - possibly due to COVID - Elevated Lipase - possibly due to COVID - ESRD - anemia Recommendations - po as tolerated - follow labs and exam - supportive care Joel Johnson MD Aug 11, 2020 17:14
[2020-08-11 20:00] VITALS: BP 125/51
[2020-08-11] MEDS: Atorvastatin 80mg tab ORAL SCH (20:35)
[2020-08-12 04:00] VITALS: BP 120/73
[2020-08-12] MEDS: GlipiZIDE 5mg tab ORAL SCH ×2 (06:30→17:07)
[2020-08-12] MEDS: NovoLOG Insulin Flexpen SUBQ SCH ×4 (06:30→21:00)
[2020-08-12 08:00] VITALS: BP 133/46
[2020-08-12] MEDS: Enoxaparin 30mg Inj SUBQ SCH (08:26)
[2020-08-12] MEDS: Imdur 30mg tab ORAL SCH (08:26)
[2020-08-12] MEDS: Sertraline 50mg tab ORAL SCH (08:26)
[2020-08-12] MEDS: Docusate 100mg cap ORAL SCH ×3 (08:26→17:07)
[2020-08-12] MEDS: Amiodarone 200mg tab ORAL SCH (08:26)
[2020-08-12 08:59] LABS: BASOPHILS % (AUTO) 0.3 % (0.0-2.0); EOSINOPHILS % (AUTO) 0.4 % (0.0-3.0); HEMATOCRIT 36.3 % (42.0-52.0); HEMOGLOBIN 11.8 G/DL (14.2-18.0); LYMPHOCYTES % (AUTO) 7.9 % (20.0-45.0); MEAN CORPUSCULAR VOLUME 91 FL (80-99); MONOCYTES % (AUTO) 7.2 % (1.0-10.0); NEUTROPHILS % (AUTO) 84.2 % (45.0-75.0); PLATELET COUNT 151 K/UL (150-450); RED BLOOD COUNT 4.01 M/UL (4.70-6.10); RED CELL DISTRIBUTION WIDTH 15.9 % (11.6-14.8); WHITE BLOOD COUNT 7.3 K/UL (4.8-10.8)
[2020-08-12 09:20] LABS: ALBUMIN/GLOBULIN RATIO 0.7 (1.0-2.7); BILIRUBIN,TOTAL 0.8 MG/DL (0.2-1.0); CALCIUM 7.6 MG/DL (8.5-10.1); CREATININE 5.8 MG/DL (0.55-1.30); POTASSIUM 3.5 MMOL/L (3.5-5.1)
[2020-08-12] MEDS ORDERED: Docusate 100mg cap ORAL SCH (09:30)
[2020-08-12 09:45] LABS: PHOSPHORUS 3.4 MG/DL (2.5-4.9)
[2020-08-12] MEDS: Miralax 17gm pkt ORAL PRN (09:47)
--- NOTE | 2020-08-12 10:31 | Infectious Diseases Prog Note ---
Assessment/Plan 69yo M with: COVID pneumonia Febrile to 101.3 Normal WBC Lymphopenia 08/06 BCx NTD COVID rapid test positive UA neg CXR: No acute process MRSA nares neg 08/09 BCx NTD CXR: Borderline cardiomegaly. No acute process /2 CXR: There is been slight interval worsening of mild to moderate diffuse right lung infiltrate with unchanged patchy mild left lung infiltrates. Elevated lipase, no abd pain PMH: ESRD on HD CAD s/p CABG 2019 HTN HLD DM2 LUE AVF Plan: Cont to monitor off abx given normal WBC and COVID+ which is not treated with abx OK to d/c home from ID standpoint given doing well on RA Needs COVID home isolation for 10 days from date of diagnosis, 08/06 - 08/15 08/08 SP Dex #2, stopped given on RA Not candidate for RDV given ESRD on HD This institution does not have access to convalescent plasma, and as pt doing well on RA unlikely to benefit from it at this point Monitor CBC/CMP Monitor resp status Monitor temp curve, hemodynamics D/w RN Thank you for this consult. [facility] will continue to follow. Subjective Allergies: Coded Allergies: No Known Allergies (Unverified , 08/06/20) AF Doing well on RA WBC 7s NAD Objective Last 24 Hour Vital Signs Date Time Temp Pulse Resp B/P (MAP) Pulse Ox O2 Delivery O2 Flow Rate FiO2 08/12/20 08:26 133/46 08/12/20 08:26 67 133/46 08/12/20 08:00 97.5 67 18 133/46 (75) 97 08/12/20 04:00 98.3 67 18 120/73 (89) 97 08/11/20 21:00 Room Air 08/11/20 20:48 69 125/51 08/11/20 20:00 98.0 69 16 125/51 (75) 95 08/11/20 16:00 98.7 61 18 91/58 (69) 97 08/11/20 12:00 97.7 60 20 126/55 (78) 96 08/11/20 12:00 59 Height (Feet): 5 Height (Inches): 8.00 Weight (Pounds): 180 Gen: NAD HEENT: NCAT Pulm: BL chest rise Abd: Non-distended Ext: No c/c/e Skin: No visible rashes Neuro: Awake Microbiology Date/Time Source Procedure Growth Status 08/09/20 16:30 Blood Blood Culture - Preliminary NO GROWTH AFTER 48 HOURS Resulted Laboratory Tests Test 08/11/20 16:33 08/11/20 20:38 08/12/20 06:45 POC Whole Blood Glucose 259 MG/DL (74-106) H 178 MG/DL (74-106) H White Blood Count 7.3 K/UL (4.8-10.8) Red Blood Count 4.01 M/UL (4.70-6.10) L Hemoglobin 11.8 G/DL (14.2-18.0) L Hematocrit 36.3 % (42.0-52.0) L Mean Corpuscular Volume 91 FL (80-99) Mean Corpuscular Hemoglobin 29.5 PG (27.0-31.0) Mean Corpuscular Hemoglobin Concent 32.5 G/DL (32.0-36.0) Red Cell Distribution Width 15.9 % (11.6-14.8) H Platelet Count 151 K/UL (150-450) Mean Platelet Volume 7.5 FL (6.5-10.1) Neutrophils (%) (Auto) 84.2 % (45.0-75.0) H Lymphocytes (%) (Auto) 7.9 % (20.0-45.0) L Monocytes (%) (Auto) 7.2 % (1.0-10.0) Eosinophils (%) (Auto) 0.4 % (0.0-3.0) Basophils (%) (Auto) 0.3 % (0.0-2.0) Sodium Level 134 MMOL/L (136-145) L Potassium Level 3.5 MMOL/L (3.5-5.1) Chloride Level 94 MMOL/L (98-107) L Carbon Dioxide Level 32 MMOL/L (21-32) Anion Gap 8 mmol/L (5-15) Blood Urea Nitrogen 40 mg/dL (7-18) H Creatinine 5.8 MG/DL (0.55-1.30) H Estimat Glomerular Filtration Rate 9.8 mL/min (>60) Glucose Level 236 MG/DL (74-106) #H Calcium Level 7.6 MG/DL (8.5-10.1) L Phosphorus Level 3.4 MG/DL (2.5-4.9) Magnesium Level 2.3 MG/DL (1.8-2.4) Total Bilirubin 0.8 MG/DL (0.2-1.0) Aspartate Amino Transf (AST/SGOT) 30 U/L (15-37) Alanine Aminotransferase (ALT/SGPT) 43 U/L (12-78) Alkaline Phosphatase 90 U/L (46-116) C-Reactive Protein, Quantitative 9.7 mg/dL (0.00-0.90) H Pro-B-Type Natriuretic Peptide 4607 pg/mL (0-125) H Total Protein 7.5 G/DL (6.4-8.2) Albumin 3.0 G/DL (3.4-5.0) L Globulin 4.5 g/dL Albumin/Globulin Ratio 0.7 (1.0-2.7) L Current Medications Medications (Trade) Dose Ordered Sig/Miri Route PRN Reason Start Time Stop Time Status Last Admin Dose Admin Acetaminophen (Tylenol) 650 mg Q4H PRN ORAL Mild Pain (Pain Scale 1-3) 08/11/20 22:30 09/10/20 22:29 08/11/20 22:41 Acetaminophen (Tylenol) 650 mg Q4H PRN ORAL Temp >100.5 08/09/20 19:00 09/08/20 18:59 08/09/20 20:30 Albuterol Sulfate (Proventil MDI) 2 puff Q4H PRN INH Shortness of Breath 08/06/20 22:45 11/04/20 22:44 Amiodarone HCl (Cordarone) 200 mg DAILY ORAL 08/07/20 09:00 11/05/20 08:59 08/12/20 08:26 Atorvastatin Calcium (Lipitor) 80 mg BEDTIME ORAL 08/08/20 21:00 11/06/20 20:59 08/11/20 20:35 Clopidogrel Bisulfate (Plavix) 75 mg DAILY ORAL 08/07/20 09:00 09/06/20 08:59 08/12/20 08:26 Dextrose (Dextrose 50%) 25 ml Q30M PRN IV Hypoglycemia 08/06/20 22:45 11/04/20 22:44 Dextrose (Dextrose 50%) 50 ml Q30M PRN IV Hypoglycemia 08/06/20 22:45 11/04/20 22:44 Docusate Sodium (Colace) 100 mg TWICE A DAY ORAL 08/10/20 18:00 09/09/20 17:59 08/12/20 08:26 Enoxaparin Sodium (Lovenox) 30 mg DAILY SUBQ 08/07/20 09:00 11/05/20 08:59 08/09/20 08:49 Glipizide (Glucotrol) 5 mg BIAC ORAL 08/07/20 06:30 09/06/20 06:29 08/11/20 17:29 Guaifenesin/ Dextromethorphan (Robitussin DM Syrup) 10 ml Q4H PRN ORAL For Cough 08/07/20 17:30 11/05/20 17:29 08/10/20 21:58 Insulin Aspart (NovoLOG) BEFORE MEALS AND HS SUBQ 08/07/20 06:30 11/05/20 06:29 08/11/20 20:43 Ipratropium [place] (Atrovent Inh) 2 puffs Q4H PRN INH SOB wheezing 08/06/20 22:45 09/05/20 22:44 Isosorbide Mononitrate (Imdur) 30 mg DAILY ORAL 08/08/20 09:00 09/07/20 08:59 08/12/20 08:26 Metoprolol Tartrate (Lopressor) 25 mg Q12HR ORAL 08/07/20 09:00 11/05/20 08:59 08/12/20 08:26 Ondansetron HCl (Zofran) 4 mg Q6H PRN IVP Nausea & Vomiting 08/08/20 10:15 09/07/20 10:14 08/09/20 20:31 Pantoprazole (Protonix) 40 mg EVERY 12 HOURS ORAL 08/08/20 21:00 09/07/20 20:59 08/12/20 08:26 Polyethylene Glycol (Miralax) 17 gm DAILY PRN ORAL Constipation 08/12/20 09:30 09/11/20 09:29 08/12/20 09:47 Sertraline HCl (Zoloft) 25 mg DAILY ORAL 08/07/20 09:00 09/06/20 08:59 08/12/20 08:26 Luiza Barton M.D. Aug 12, 2020 10:31
[2020-08-12 12:00] VITALS: BP 136/57
--- NOTE | 2020-08-12 12:16 | Pulmonology Progress Note ---
Subjective ROS Limited/Unobtainable: No Allergies: Coded Allergies: No Known Allergies (Unverified , 08/06/20) Subjective no resp distress pulse ox stable on RA no further fevers denies CP, SOB HD 08/11 done reports no BM x few days Objective Last 24 Hour Vital Signs Date Time Temp Pulse Resp B/P (MAP) Pulse Ox O2 Delivery O2 Flow Rate FiO2 08/12/20 09:00 Room Air 08/12/20 08:26 133/46 08/12/20 08:26 67 133/46 08/12/20 08:00 97.5 67 18 133/46 (75) 97 08/12/20 04:00 98.3 67 18 120/73 (89) 97 08/11/20 21:00 Room Air 08/11/20 20:48 69 125/51 08/11/20 20:00 98.0 69 16 125/51 (75) 95 08/11/20 16:00 98.7 61 18 91/58 (69) 97 Intake and Output 08/11/20 08/12/20 19:00 07:00 Intake Total 100 ml Output Total 2000 ml Balance -1900 ml Intake Oral 100 ml Hemodialysis UF 2000 ml Objective General Appearance: WD/WN, no apparent distress, alert Lines, tubes and drains: peripheral HEENT: normocephalic, atraumatic, anicteric, mucous membranes moist, PERRL Neck: non-tender, supple Respiratory/Chest: chest wall non-tender, lungs clear with moderate air exchange , no respiratory distress, no accessory muscle use Cardiovascular/Chest: normal peripheral pulses, normal rate, regular rhythm, + 1- edema BLE Abdomen: normal bowel sounds, non tender, soft Extremities: normal range of motion, non-tender, no calf tenderness, normal capillary refill, LUE AV shunt + bruit/thrill Skin Exam: warm/dry Neurologic: no motor/sensory deficits, alert, oriented x 3, responsive Musculoskeletal: normal muscle bulk Microbiology Date/Time Source Procedure Growth Status 08/09/20 16:30 Blood Blood Culture - Preliminary NO GROWTH AFTER 48 HOURS Resulted Laboratory Tests 08/11/20 16:33: POC Whole Blood Glucose 259H 08/11/20 20:38: POC Whole Blood Glucose 178H 08/12/20 06:45: White Blood Count 7.3, Red Blood Count 4.01L, Hemoglobin 11.8L, Hematocrit 36.3L , Mean Corpuscular Volume 91, Mean Corpuscular Hemoglobin 29.5, Mean Corpuscular Hemoglobin Concent 32.5, Red Cell Distribution Width 15.9H, Platelet Count 151, Mean Platelet Volume 7.5, Neutrophils (%) (Auto) 84.2H, Lymphocytes (%) (Auto) 7.9L, Monocytes (%) (Auto) 7.2, Eosinophils (%) (Auto) 0.4, Basophils (%) (Auto) 0.3, Sodium Level 134L, Potassium Level 3.5, Chloride Level 94L, Carbon Dioxide Level 32, Anion Gap 8, Blood Urea Nitrogen 40H, Creatinine 5.8H, Estimat Glomerular Filtration Rate 9.8, Glucose Level 236#H, Calcium Level 7.6L, Phosphorus Level 3.4, Magnesium Level 2.3, Total Bilirubin 0.8, Aspartate Amino Transf (AST/SGOT) 30, Alanine Aminotransferase (ALT/SGPT) 43, Alkaline Phosphatase 90, C-Reactive Protein, Quantitative 9.7H, Pro-B-Type Natriuretic Peptide 4607H, Total Protein 7.5, Albumin 3.0L, Globulin 4.5, Albumin/Globulin Ratio 0.7L Current Medications Medications (Trade) Dose Ordered Sig/Miri Route PRN Reason Start Time Stop Time Status Last Admin Dose Admin Acetaminophen (Tylenol) 650 mg Q4H PRN ORAL Mild Pain (Pain Scale 1-3) 08/11/20 22:30 09/10/20 22:29 08/11/20 22:41 Acetaminophen (Tylenol) 650 mg Q4H PRN ORAL Temp >100.5 08/09/20 19:00 09/08/20 18:59 08/09/20 20:30 Albuterol Sulfate (Proventil MDI) 2 puff Q4H PRN INH Shortness of Breath 08/06/20 22:45 11/04/20 22:44 Amiodarone HCl (Cordarone) 200 mg DAILY ORAL 08/07/20 09:00 11/05/20 08:59 08/12/20 08:26 Atorvastatin Calcium (Lipitor) 80 mg BEDTIME ORAL 08/08/20 21:00 11/06/20 20:59 08/11/20 20:35 Clopidogrel Bisulfate (Plavix) 75 mg DAILY ORAL 08/07/20 09:00 09/06/20 08:59 08/12/20 08:26 Dextrose (Dextrose 50%) 25 ml Q30M PRN IV Hypoglycemia 08/06/20 22:45 11/04/20 22:44 Dextrose (Dextrose 50%) 50 ml Q30M PRN IV Hypoglycemia 08/06/20 22:45 11/04/20 22:44 Docusate Sodium (Colace) 100 mg TWICE A DAY ORAL 08/10/20 18:00 09/09/20 17:59 08/12/20 08:26 Enoxaparin Sodium (Lovenox) 30 mg DAILY SUBQ 08/07/20 09:00 11/05/20 08:59 08/09/20 08:49 Glipizide (Glucotrol) 5 mg BIAC ORAL 08/07/20 06:30 09/06/20 06:29 08/11/20 17:29 Guaifenesin/ Dextromethorphan (Robitussin DM Syrup) 10 ml Q4H PRN ORAL For Cough 08/07/20 17:30 11/05/20 17:29 08/10/20 21:58 Insulin Aspart (NovoLOG) BEFORE MEALS AND HS SUBQ 08/07/20 06:30 11/05/20 06:29 08/11/20 20:43 Ipratropium [place] (Atrovent Inh) 2 puffs Q4H PRN INH SOB wheezing 08/06/20 22:45 09/05/20 22:44 Isosorbide Mononitrate (Imdur) 30 mg DAILY ORAL 08/08/20 09:00 09/07/20 08:59 08/12/20 08:26 Metoprolol Tartrate (Lopressor) 25 mg Q12HR ORAL 08/07/20 09:00 11/05/20 08:59 08/12/20 08:26 Ondansetron HCl (Zofran) 4 mg Q6H PRN IVP Nausea & Vomiting 08/08/20 10:15 09/07/20 10:14 08/09/20 20:31 Pantoprazole (Protonix) 40 mg EVERY 12 HOURS ORAL 08/08/20 21:00 09/07/20 20:59 08/12/20 08:26 Polyethylene Glycol (Miralax) 17 gm DAILY PRN ORAL Constipation 08/12/20 09:30 09/11/20 09:29 08/12/20 09:47 Sertraline HCl (Zoloft) 25 mg DAILY ORAL 08/07/20 09:00 09/06/20 08:59 08/12/20 08:26 Assessment/Plan Assessment/Plan ASSESSMENT COVID-19 infection CHF acute on chronic ( due to missed HD) Elevated troponin, likely troponin leak ESRD, on HD ( missed dialysis for 1 week ) Coronary artery disease with history of OK and CABG DM OOC - [id number] HTN Elevated lipase Anemia of chronic diseas4 Fever -resolved Constipation PLAN OF CARE tele isolation Date of sx onset: 1 week on admission Positive test: 08/06 rapid COVID 19 + O2 -on RA HFA Dex-> off Dexamethasone since 08/08 ( s/p 2 days) since not hypoxic REM - -> not a candidate given ESRD DVT PPX: Lovenox D dimer -0.47 Trend CRP-> 2.9-> 7.8-> 9.7 no abx as per ID recs ; BCX 08/09 NGTD, no further fevers CXR 07/30- no acute disease CXR 08/11 -slight interval worsening of mild to moderate diffuse right lung infiltrate with unchanged patchy mild left lung infiltrates. Monitor volumes and renal function, HD as per nephro Fup with consultants recs FC continue a/PLT therapy with Plavix and beta blockage elevated troponin x 3 with minimal elevation, same range, likely troponin leak, ECG non-ischemic, no c/o CP cardio recs appreciated BP management with BB and Hydralazine ( added by cardio) ECHO with pEF 65% BS management with Glipizide and SSI, HgA1c- 12.5 clearly not at goal may need more aggressive treatment of BS while on steroids anemia w/up c/w anemia of chronic disease , ferritin 1537 monitor HH with goal to keep Hgb >7 , remains at baseline consider EPO if drop in Hgb GI follows lipase trending down, amylase WNL a/emetic prn no c/o abd pain bowel regimen supportive care case discussed and evaluated by supervising physician Park Gunn NP Aug 12, 2020 12:16 Merrill Becerra MD Aug 12, 2020 20:51
--- NOTE | 2020-08-12 12:21 | Surgery Progress Note ---
Surgery Progress Note Subjective Additional Comments doing well tolerating diet no n/v labs noted micro reviewed Objective Last 24 Hour Vital Signs Date Time Temp Pulse Resp B/P (MAP) Pulse Ox O2 Delivery O2 Flow Rate FiO2 08/12/20 09:00 Room Air 08/12/20 08:26 133/46 08/12/20 08:26 67 133/46 08/12/20 08:00 97.5 67 18 133/46 (75) 97 08/12/20 04:00 98.3 67 18 120/73 (89) 97 08/11/20 21:00 Room Air 08/11/20 20:48 69 125/51 08/11/20 20:00 98.0 69 16 125/51 (75) 95 08/11/20 16:00 98.7 61 18 91/58 (69) 97 I&O Intake and Output 08/11/20 08/12/20 19:00 07:00 Intake Total 100 ml Output Total 2000 ml Balance -1900 ml Intake Oral 100 ml Hemodialysis UF 2000 ml Dressing: saturated Cardiovascular: RSR Respiratory: decreased breath sounds Abdomen: soft, non-tender, present bowel sounds Extremities: no tenderness, no cyanosis Laboratory Tests Test 08/11/20 16:33 08/11/20 20:38 08/12/20 06:45 POC Whole Blood Glucose 259 MG/DL (74-106) H 178 MG/DL (74-106) H White Blood Count 7.3 K/UL (4.8-10.8) Red Blood Count 4.01 M/UL (4.70-6.10) L Hemoglobin 11.8 G/DL (14.2-18.0) L Hematocrit 36.3 % (42.0-52.0) L Mean Corpuscular Volume 91 FL (80-99) Mean Corpuscular Hemoglobin 29.5 PG (27.0-31.0) Mean Corpuscular Hemoglobin Concent 32.5 G/DL (32.0-36.0) Red Cell Distribution Width 15.9 % (11.6-14.8) H Platelet Count 151 K/UL (150-450) Mean Platelet Volume 7.5 FL (6.5-10.1) Neutrophils (%) (Auto) 84.2 % (45.0-75.0) H Lymphocytes (%) (Auto) 7.9 % (20.0-45.0) L Monocytes (%) (Auto) 7.2 % (1.0-10.0) Eosinophils (%) (Auto) 0.4 % (0.0-3.0) Basophils (%) (Auto) 0.3 % (0.0-2.0) Sodium Level 134 MMOL/L (136-145) L Potassium Level 3.5 MMOL/L (3.5-5.1) Chloride Level 94 MMOL/L (98-107) L Carbon Dioxide Level 32 MMOL/L (21-32) Anion Gap 8 mmol/L (5-15) Blood Urea Nitrogen 40 mg/dL (7-18) H Creatinine 5.8 MG/DL (0.55-1.30) H Estimat Glomerular Filtration Rate 9.8 mL/min (>60) Glucose Level 236 MG/DL (74-106) #H Calcium Level 7.6 MG/DL (8.5-10.1) L Phosphorus Level 3.4 MG/DL (2.5-4.9) Magnesium Level 2.3 MG/DL (1.8-2.4) Total Bilirubin 0.8 MG/DL (0.2-1.0) Aspartate Amino Transf (AST/SGOT) 30 U/L (15-37) Alanine Aminotransferase (ALT/SGPT) 43 U/L (12-78) Alkaline Phosphatase 90 U/L (46-116) C-Reactive Protein, Quantitative 9.7 mg/dL (0.00-0.90) H Pro-B-Type Natriuretic Peptide 4607 pg/mL (0-125) H Total Protein 7.5 G/DL (6.4-8.2) Albumin 3.0 G/DL (3.4-5.0) L Globulin 4.5 g/dL Albumin/Globulin Ratio 0.7 (1.0-2.7) L Plan Problems: (1) Pancreatitis Assessment & Plan: febrile covid + lft's wnl lip elevated esr / crp elevated abd exam benign US abd ordered ca pending no acute surgical intervention will follow with exam and recs thank you trending down lip fluctuating clinically without pain tolerating diet monitor (2) Fever (3) Elevated troponin (4) ESRD (end stage renal disease) on dialysis (5) Anemia in chronic kidney disease (CKD) (6) DMII (diabetes mellitus, type 2) (7) 2019 novel coronavirus disease (COVID-19) Assessment & Plan: ++ id input on abx pulm noted Lungs: Low lung volumes with bronchovascular crowding. No consolidation, pleural effusion, or pneumothorax. Pleural space: See above. Heart: Cardiomegaly. Mediastinum: Unremarkable. Bones/joints: Sternotomy with mediastinal operative findings. Other findings: Radiopaque linear structure superimposed over the left neck of uncertain significance, correlate with patient presentation and history. IMPRESSION: 1. Radiopaque linear structure superimposed over the left neck of uncertain significance, correlate with patient presentation and history. 2. Low lung volumes with bronchovascular crowding. 3. Cardiomegaly. 4. Otherwise no acute cardiopulmonary disease. 5. If there is continued concern, consider frontal and lateral chest radiographs or CT. P[place] Aug 12, 2020 12:21
--- NOTE | 2020-08-12 12:31 | Nephrology Progress Note ---
Assessment/Plan Problem List: (1) ESRD (end stage renal disease) on dialysis (2) Elevated troponin (3) Pancreatitis (4) 2019 novel coronavirus disease (COVID-19) (5) Anemia in chronic kidney disease (CKD) (6) DMII (diabetes mellitus, type 2) Assessment End-stage renal disease on hemodialysis COVID-19 pneumonia Coronary artery disease, [place] Diabetes mellitus Anemia Elevated lipase Plan August 12: Dialyzed yesterday. Due for dialysis tomorrow. Medication list reviewed. Labs are reviewed. Continue per consultants. August 11: Due for dialysis today. Continue per consultants. Check labs tomorrow. August 10: Last dialyzed yesterday. Labs reviewed. Due for dialysis tomorrow. Continue per consultants. August 09: Patient due for dialysis today. Labs reviewed. Medication list reviewed. Continue per consultants. August 08: Patient was dialyzed yesterday. Due for dialysis tomorrow. Blood pressure medication adjusted. Diet changed to renal medium carbs. Continue per consultants. 2D echo pending. Previously: Monitor renal parameters Hemodialysis as soon as the patient arrives to medical floor Monitor lipase, renal parameters, hemoglobin and hematocrit Per orders Subjective ROS Limited/Unobtainable: No Constitutional: Reports: malaise, weakness, other - Constipated Objective Objective Last 24 Hour Vital Signs Date Time Temp Pulse Resp B/P (MAP) Pulse Ox O2 Delivery O2 Flow Rate FiO2 08/12/20 09:00 Room Air 08/12/20 08:26 133/46 08/12/20 08:26 67 133/46 08/12/20 08:00 97.5 67 18 133/46 (75) 97 08/12/20 04:00 98.3 67 18 120/73 (89) 97 08/11/20 21:00 Room Air 08/11/20 20:48 69 125/51 08/11/20 20:00 98.0 69 16 125/51 (75) 95 08/11/20 16:00 98.7 61 18 91/58 (69) 97 Intake and Output 08/11/20 08/12/20 19:00 07:00 Intake Total 100 ml Output Total 2000 ml Balance -1900 ml Intake Oral 100 ml Hemodialysis UF 2000 ml Laboratory Tests 08/11/20 16:33: POC Whole Blood Glucose 259H 08/11/20 20:38: POC Whole Blood Glucose 178H 08/12/20 06:45: White Blood Count 7.3, Red Blood Count 4.01L, Hemoglobin 11.8L, Hematocrit 36.3L , Mean Corpuscular Volume 91, Mean Corpuscular Hemoglobin 29.5, Mean Corpuscular Hemoglobin Concent 32.5, Red Cell Distribution Width 15.9H, Platelet Count 151, Mean Platelet Volume 7.5, Neutrophils (%) (Auto) 84.2H, Lymphocytes (%) (Auto) 7.9L, Monocytes (%) (Auto) 7.2, Eosinophils (%) (Auto) 0.4, Basophils (%) (Auto) 0.3, Sodium Level 134L, Potassium Level 3.5, Chloride Level 94L, Carbon Dioxide Level 32, Anion Gap 8, Blood Urea Nitrogen 40H, Creatinine 5.8H, Estimat Glomerular Filtration Rate 9.8, Glucose Level 236#H, Calcium Level 7.6L, Phosphorus Level 3.4, Magnesium Level 2.3, Total Bilirubin 0.8, Aspartate Amino Transf (AST/SGOT) 30, Alanine Aminotransferase (ALT/SGPT) 43, Alkaline Phosphatase 90, C-Reactive Protein, Quantitative 9.7H, Pro-B-Type Natriuretic Peptide 4607H, Total Protein 7.5, Albumin 3.0L, Globulin 4.5, Albumin/Globulin Ratio 0.7L Height (Feet): 5 Height (Inches): 8.00 Weight (Pounds): 180 General Appearance: no apparent distress Cardiovascular: normal rate Respiratory/Chest: decreased breath sounds Abdomen: soft Objective No change Jon Crews MD Aug 12, 2020 12:31
[2020-08-12 16:00] VITALS: BP 130/79
[2020-08-12] MEDS: guaiFENesin /DM 10ml syrup ORAL PRN (19:56)
[2020-08-12] MEDS: Atorvastatin 80mg tab ORAL SCH (19:57)
[2020-08-12 20:00] VITALS: BP 118/51
--- NOTE | 2020-08-12 20:12 | General Progress Note ---
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 no abdominal complaints wants to drink Coke Objective Last 24 Hour Vital Signs Date Time Temp Pulse Resp B/P (MAP) Pulse Ox O2 Delivery O2 Flow Rate FiO2 08/12/20 19:57 67 118/51 08/12/20 16:00 98.3 67 19 130/79 (96) 98 08/12/20 12:00 97.7 69 18 136/57 (83) 97 08/12/20 09:00 Room Air 08/12/20 08:26 133/46 08/12/20 08:26 67 133/46 08/12/20 08:00 97.5 67 18 133/46 (75) 97 08/12/20 04:00 98.3 67 18 120/73 (89) 97 08/11/20 21:00 Room Air 08/11/20 20:48 69 125/51 Intake and Output 08/11/20 08/12/20 19:00 07:00 Intake Total 100 ml Output Total 2000 ml Balance -1900 ml Intake Oral 100 ml Hemodialysis UF 2000 ml Laboratory Tests 08/11/20 20:38: POC Whole Blood Glucose 178H 08/12/20 06:45: White Blood Count 7.3, Red Blood Count 4.01L, Hemoglobin 11.8L, Hematocrit 36.3L , Mean Corpuscular Volume 91, Mean Corpuscular Hemoglobin 29.5, Mean Corpuscular Hemoglobin Concent 32.5, Red Cell Distribution Width 15.9H, Platelet Count 151, Mean Platelet Volume 7.5, Neutrophils (%) (Auto) 84.2H, Lymphocytes (%) (Auto) 7.9L, Monocytes (%) (Auto) 7.2, Eosinophils (%) (Auto) 0.4, Basophils (%) (Auto) 0.3, Sodium Level 134L, Potassium Level 3.5, Chloride Level 94L, Carbon Dioxide Level 32, Anion Gap 8, Blood Urea Nitrogen 40H, Creatinine 5.8H, Estimat Glomerular Filtration Rate 9.8, Glucose Level 236#H, Calcium Level 7.6L, Phosphorus Level 3.4, Magnesium Level 2.3, Total Bilirubin 0.8, Aspartate Amino Transf (AST/SGOT) 30, Alanine Aminotransferase (ALT/SGPT) 43, Alkaline Phosphatase 90, C-Reactive Protein, Quantitative 9.7H, Pro-B-Type Natriuretic Peptide 4607H, Total Protein 7.5, Albumin 3.0L, Globulin 4.5, Albumin/Globulin Ratio 0.7L 08/12/20 12:27: POC Whole Blood Glucose [Pending] 08/12/20 17:41: POC Whole Blood Glucose [Pending] 08/12/20 20:00: POC Whole Blood Glucose 105 Height (Feet): 5 Height (Inches): 8.00 Weight (Pounds): 180 Objective Exam limited due to COVID isolation Assessment/Plan Status: stable Assessment/Plan: Assessment - COVID infection - Abnormal LFT - possibly due to COVID - Elevated Lipase - possibly due to COVID - ESRD - anemia Recommendations - po as tolerated - follow labs and exam - supportive care Joel Johnson MD Aug 12, 2020 20:12
[2020-08-13] MEDS: NovoLOG Insulin Flexpen SUBQ SCH ×4 (06:30→20:47)
[2020-08-13] MEDS: GlipiZIDE 5mg tab ORAL SCH ×2 (06:30→16:36)
[2020-08-13 07:25] LABS: HEMATOCRIT 33.4 % (42.0-52.0); MEAN CORPUSCULAR VOLUME 90 FL (80-99); PLATELET COUNT 153 K/UL (150-450); RED BLOOD COUNT 3.69 M/UL (4.70-6.10); RED CELL DISTRIBUTION WIDTH 15.6 % (11.6-14.8); WHITE BLOOD COUNT 12.8 K/UL (4.8-10.8)
[2020-08-13 07:58] LABS: CALCIUM 7.4 MG/DL (8.5-10.1); CREATININE 6.6 MG/DL (0.55-1.30); POTASSIUM 3.6 MMOL/L (3.5-5.1)
[2020-08-13 08:00] VITALS: BP 124/76
[2020-08-13] MEDS: Imdur 30mg tab ORAL SCH (08:45)
[2020-08-13] MEDS: Amiodarone 200mg tab ORAL SCH (08:45)
[2020-08-13] MEDS: Docusate 100mg cap ORAL SCH ×3 (08:46→17:28)
[2020-08-13] MEDS: Sertraline 50mg tab ORAL SCH (08:46)
[2020-08-13] MEDS: Enoxaparin 30mg Inj SUBQ SCH (08:47)
[2020-08-13 08:52] LABS: ALANINE AMINOTRANSFERASE 32 U/L (12-78); ALBUMIN 2.7 G/DL (3.4-5.0); ALKALINE PHOSPHATASE 87 U/L (46-116); ASPARTATE AMINO TRANSFERASE 22 U/L (15-37); BILIRUBIN,DIRECT 0.2 MG/DL (0.0-0.3); BILIRUBIN,TOTAL 0.8 MG/DL (0.2-1.0); PHOSPHORUS 3.1 MG/DL (2.5-4.9)
--- NOTE | 2020-08-13 09:19 | Infectious Diseases Prog Note ---
Assessment/Plan 69yo M with: COVID pneumonia Febrile to 101.3 Normal WBC Lymphopenia 08/06 BCx NTD COVID rapid test positive UA neg CXR: No acute process MRSA nares neg 08/09 BCx NTD CXR: Borderline cardiomegaly. No acute process 1/2 CXR: There is been slight interval worsening of mild to moderate diffuse right lung infiltrate with unchanged patchy mild left lung infiltrates. Elevated lipase, no abd pain PMH: ESRD on HD CAD s/p CABG 2019 HTN HLD DM2 LUE AVF Plan: Cont to monitor off abx OK to d/c home from ID standpoint given doing well on RA Needs COVID home isolation for 10 days from date of diagnosis, 08/06 - 08/15 Trend WBC if remains in house 08/08 SP Dex #2, stopped given on RA Not candidate for RDV given ESRD on HD This institution does not have access to convalescent plasma, and as pt doing well on RA unlikely to benefit from it at this point Monitor CBC/CMP Monitor resp status Monitor temp curve, hemodynamics D/w RN Thank you for this consult. [facility] will continue to follow. Subjective Allergies: Coded Allergies: No Known Allergies (Unverified , 08/06/20) AF Doing well on RA WBC up to 12 NAD Denies any fevers, chills, NVD, abd pain, SOB, cough, issues w/ PIVs Objective Last 24 Hour Vital Signs Date Time Temp Pulse Resp B/P (MAP) Pulse Ox O2 Delivery O2 Flow Rate FiO2 08/13/20 08:46 101 124/96 08/13/20 08:45 124/96 08/12/20 21:00 Room Air 08/12/20 20:00 97.3 67 19 118/51 (73) 98 08/12/20 19:57 67 118/51 08/12/20 16:00 98.3 67 19 130/79 (96) 98 08/12/20 12:00 97.7 69 18 136/57 (83) 97 Height (Feet): 5 Height (Inches): 8.00 Weight (Pounds): 180 Gen: NAD HEENT: NCAT Pulm: BL chest rise Abd: Non-distended Ext: No c/c/e Skin: No visible rashes Neuro: Awake Laboratory Tests Test 08/12/20 12:27 08/12/20 17:41 08/12/20 20:00 08/13/20 05:00 POC Whole Blood Glucose Pending Pending 105 MG/DL (74-106) White Blood Count 12.8 K/UL (4.8-10.8) #H Red Blood Count 3.69 M/UL (4.70-6.10) L Hemoglobin 11.0 G/DL (14.2-18.0) L Hematocrit 33.4 % (42.0-52.0) L Mean Corpuscular Volume 90 FL (80-99) Mean Corpuscular Hemoglobin 29.9 PG (27.0-31.0) Mean Corpuscular Hemoglobin Concent 33.0 G/DL (32.0-36.0) Red Cell Distribution Width 15.6 % (11.6-14.8) H Platelet Count 153 K/UL (150-450) Mean Platelet Volume 7.2 FL (6.5-10.1) Neutrophils (%) (Auto) % (45.0-75.0) Lymphocytes (%) (Auto) % (20.0-45.0) Monocytes (%) (Auto) % (1.0-10.0) Eosinophils (%) (Auto) % (0.0-3.0) Basophils (%) (Auto) % (0.0-2.0) Neutrophils % (Manual) Pending Lymphocytes % (Manual) Pending Platelet Estimate Pending Platelet Morphology Pending Sodium Level 134 MMOL/L (136-145) L Potassium Level 3.6 MMOL/L (3.5-5.1) Chloride Level 95 MMOL/L (98-107) L Carbon Dioxide Level 28 MMOL/L (21-32) Anion Gap 11 mmol/L (5-15) Blood Urea Nitrogen 49 mg/dL (7-18) H Creatinine 6.6 MG/DL (0.55-1.30) H Estimat Glomerular Filtration Rate 8.4 mL/min (>60) Glucose Level 74 MG/DL (74-106) # Calcium Level 7.4 MG/DL (8.5-10.1) L Phosphorus Level 3.1 MG/DL (2.5-4.9) Magnesium Level 2.1 MG/DL (1.8-2.4) Total Bilirubin 0.8 MG/DL (0.2-1.0) Direct Bilirubin 0.2 MG/DL (0.0-0.3) Aspartate Amino Transf (AST/SGOT) 22 U/L (15-37) Alanine Aminotransferase (ALT/SGPT) 32 U/L (12-78) Alkaline Phosphatase 87 U/L (46-116) Total Protein 7.0 G/DL (6.4-8.2) Albumin 2.7 G/DL (3.4-5.0) L Test 08/13/20 06:39 POC Whole Blood Glucose 68 MG/DL (74-106) L Current Medications Medications (Trade) Dose Ordered Sig/Miri Route PRN Reason Start Time Stop Time Status Last Admin Dose Admin Acetaminophen (Tylenol) 650 mg Q4H PRN ORAL Mild Pain (Pain Scale 1-3) 08/11/20 22:30 09/10/20 22:29 08/11/20 22:41 Acetaminophen (Tylenol) 650 mg Q4H PRN ORAL Temp >100.5 08/09/20 19:00 09/08/20 18:59 08/09/20 20:30 Albuterol Sulfate (Proventil MDI) 2 puff Q4H PRN INH Shortness of Breath 08/06/20 22:45 11/04/20 22:44 Amiodarone HCl (Cordarone) 200 mg DAILY ORAL 08/07/20 09:00 11/05/20 08:59 08/13/20 08:45 Atorvastatin Calcium (Lipitor) 80 mg BEDTIME ORAL 08/08/20 21:00 11/06/20 20:59 08/12/20 19:57 Clopidogrel Bisulfate (Plavix) 75 mg DAILY ORAL 08/07/20 09:00 09/06/20 08:59 08/13/20 08:46 Dextrose (Dextrose 50%) 25 ml Q30M PRN IV Hypoglycemia 08/06/20 22:45 11/04/20 22:44 Dextrose (Dextrose 50%) 50 ml Q30M PRN IV Hypoglycemia 08/06/20 22:45 11/04/20 22:44 Docusate Sodium (Colace) 100 mg TID ORAL 08/12/20 13:00 09/09/20 12:59 08/13/20 08:46 Enoxaparin Sodium (Lovenox) 30 mg DAILY SUBQ 08/07/20 09:00 11/05/20 08:59 08/13/20 08:47 Glipizide (Glucotrol) 5 mg BIAC ORAL 08/07/20 06:30 09/06/20 06:29 08/12/20 17:07 Guaifenesin/ Dextromethorphan (Robitussin DM Syrup) 10 ml Q4H PRN ORAL For Cough 08/07/20 17:30 11/05/20 17:29 08/12/20 19:56 Insulin Aspart (NovoLOG) BEFORE MEALS AND HS SUBQ 08/07/20 06:30 11/05/20 06:29 08/12/20 17:43 Ipratropium [place] (Atrovent Inh) 2 puffs Q4H PRN INH SOB wheezing 08/06/20 22:45 09/05/20 22:44 Isosorbide Mononitrate (Imdur) 30 mg DAILY ORAL 08/08/20 09:00 09/07/20 08:59 08/13/20 08:45 Metoprolol Tartrate (Lopressor) 25 mg Q12HR ORAL 08/07/20 09:00 11/05/20 08:59 08/13/20 08:46 Ondansetron HCl (Zofran) 4 mg Q6H PRN IVP Nausea & Vomiting 08/08/20 10:15 09/07/20 10:14 08/09/20 20:31 Pantoprazole (Protonix) 40 mg EVERY 12 HOURS ORAL 08/08/20 21:00 09/07/20 20:59 08/13/20 08:46 Polyethylene Glycol (Miralax) 17 gm DAILY PRN ORAL Constipation 08/12/20 09:30 09/11/20 09:29 08/12/20 09:47 Sertraline HCl (Zoloft) 25 mg DAILY ORAL 08/07/20 09:00 09/06/20 08:59 08/13/20 08:46 Luiza Barton M.D. Aug 13, 2020 09:19
--- NOTE | 2020-08-13 09:48 | Cardiology Progress Note ---
Radha Collins PA-C 08/13/20 0948: Assessment/Plan Assessment/Plan 1. COVID-19 viral PNA 2. CHF acute on chronic with severely elevated BNP, decompensated Echo pending CXR shows decreased volume 3. CAD s/p CABG and [place] 4. Troponin leak 0.09 to 0.1 denies chest pain continue to trend troponin 5. ESRD on HD 6. HTN 7. HPLD 8. DMII Denies chest pain. Troponin leak 0.1, likely 2/2 CHF exacerbation and demand ischemia, will monitor. Echo pending. Subjective Subjective Denies chest pain, resting comfortably Objective Last 24 Hour Vital Signs Date Time Temp Pulse Resp B/P (MAP) Pulse Ox O2 Delivery O2 Flow Rate FiO2 08/13/20 09:00 Room Air 08/13/20 08:46 101 124/96 08/13/20 08:45 124/96 08/13/20 08:00 98.0 89 19 124/76 (92) 97 08/12/20 21:00 Room Air 08/12/20 20:00 97.3 67 19 118/51 (73) 98 08/12/20 19:57 67 118/51 08/12/20 16:00 98.3 67 19 130/79 (96) 98 08/12/20 12:00 97.7 69 18 136/57 (83) 97 Intake and Output 08/12/20 08/13/20 19:00 07:00 # Voids 2 # Bowel Movements 1 Laboratory Tests Test 08/12/20 12:27 08/12/20 17:41 08/12/20 20:00 08/13/20 05:00 POC Whole Blood Glucose Pending Pending 105 MG/DL (74-106) White Blood Count 12.8 K/UL (4.8-10.8) #H Red Blood Count 3.69 M/UL (4.70-6.10) L Hemoglobin 11.0 G/DL (14.2-18.0) L Hematocrit 33.4 % (42.0-52.0) L Mean Corpuscular Volume 90 FL (80-99) Mean Corpuscular Hemoglobin 29.9 PG (27.0-31.0) Mean Corpuscular Hemoglobin Concent 33.0 G/DL (32.0-36.0) Red Cell Distribution Width 15.6 % (11.6-14.8) H Platelet Count 153 K/UL (150-450) Mean Platelet Volume 7.2 FL (6.5-10.1) Neutrophils (%) (Auto) % (45.0-75.0) Lymphocytes (%) (Auto) % (20.0-45.0) Monocytes (%) (Auto) % (1.0-10.0) Eosinophils (%) (Auto) % (0.0-3.0) Basophils (%) (Auto) % (0.0-2.0) Neutrophils % (Manual) Pending Lymphocytes % (Manual) Pending Platelet Estimate Pending Platelet Morphology Pending Sodium Level 134 MMOL/L (136-145) L Potassium Level 3.6 MMOL/L (3.5-5.1) Chloride Level 95 MMOL/L (98-107) L Carbon Dioxide Level 28 MMOL/L (21-32) Anion Gap 11 mmol/L (5-15) Blood Urea Nitrogen 49 mg/dL (7-18) H Creatinine 6.6 MG/DL (0.55-1.30) H Estimat Glomerular Filtration Rate 8.4 mL/min (>60) Glucose Level 74 MG/DL (74-106) # Calcium Level 7.4 MG/DL (8.5-10.1) L Phosphorus Level 3.1 MG/DL (2.5-4.9) Magnesium Level 2.1 MG/DL (1.8-2.4) Total Bilirubin 0.8 MG/DL (0.2-1.0) Direct Bilirubin 0.2 MG/DL (0.0-0.3) Aspartate Amino Transf (AST/SGOT) 22 U/L (15-37) Alanine Aminotransferase (ALT/SGPT) 32 U/L (12-78) Alkaline Phosphatase 87 U/L (46-116) Total Protein 7.0 G/DL (6.4-8.2) Albumin 2.7 G/DL (3.4-5.0) L Test 08/13/20 06:39 POC Whole Blood Glucose 68 MG/DL (74-106) L Merrill Becerra MD 08/13/205: Radha Collins PA-C Aug 13, 2020 09:48 Merrill Becerra MD Aug 13, 2020 21:35
--- NOTE | 2020-08-13 10:23 | Pulmonology Progress Note ---
Subjective ROS Limited/Unobtainable: No Allergies: Coded Allergies: No Known Allergies (Unverified , 08/06/20) Subjective no resp distress pulse ox stable on RA no further fevers; mild leuk this am denies CP, SOB HD 1/2 done had BM Objective Last 24 Hour Vital Signs Date Time Temp Pulse Resp B/P (MAP) Pulse Ox O2 Delivery O2 Flow Rate FiO2 08/13/20 09:00 Room Air 08/13/20 08:46 101 124/96 08/13/20 08:45 124/96 08/13/20 08:00 98.0 89 19 124/76 (92) 97 08/12/20 21:00 Room Air 08/12/20 20:00 97.3 67 19 118/51 (73) 98 08/12/20 19:57 67 118/51 08/12/20 16:00 98.3 67 19 130/79 (96) 98 08/12/20 12:00 97.7 69 18 136/57 (83) 97 Intake and Output 08/12/20 08/13/20 19:00 07:00 # Voids 2 # Bowel Movements 1 Objective General Appearance: WD/WN, no apparent distress, alert Lines, tubes and drains: peripheral HEENT: normocephalic, atraumatic, anicteric, mucous membranes moist, PERRL Neck: non-tender, supple Respiratory/Chest: chest wall non-tender, lungs clear with moderate air exchange , no respiratory distress, no accessory muscle use Cardiovascular/Chest: normal peripheral pulses, normal rate, regular rhythm, + 1- edema BLE Abdomen: normal bowel sounds, non tender, soft Extremities: normal range of motion, non-tender, no calf tenderness, normal capillary refill, LUE AV shunt + bruit/thrill Skin Exam: warm/dry Neurologic: no motor/sensory deficits, alert, oriented x 3, responsive Musculoskeletal: normal muscle bulk Laboratory Tests 08/12/20 12:27: POC Whole Blood Glucose [Pending] 08/12/20 17:41: POC Whole Blood Glucose [Pending] 08/12/20 20:00: POC Whole Blood Glucose 105 08/13/20 05:00: White Blood Count 12.8#H, Red Blood Count 3.69L, Hemoglobin 11.0L, Hematocrit 33.4L, Mean Corpuscular Volume 90, Mean Corpuscular Hemoglobin 29.9, Mean Corpuscular Hemoglobin Concent 33.0, Red Cell Distribution Width 15.6H, Platelet Count 153, Mean Platelet Volume 7.2, Neutrophils (%) (Auto) , Lymphocytes (%) (Auto) , Monocytes (%) (Auto) , Eosinophils (%) (Auto) , Basophils (%) (Auto) , Neutrophils % (Manual) [Pending], Lymphocytes % (Manual) [Pending], Platelet Estimate [Pending], Platelet Morphology [Pending], Sodium Level 134L, Potassium Level 3.6, Chloride Level 95L, Carbon Dioxide Level 28, Anion Gap 11, Blood Urea Nitrogen 49H, Creatinine 6.6H, Estimat Glomerular Filtration Rate 8.4, Glucose Level 74#, Calcium Level 7.4L, Phosphorus Level 3.1, Magnesium Level 2.1, Total Bilirubin 0.8, Direct Bilirubin 0.2, Aspartate Amino Transf (AST/SGOT) 22, Alanine Aminotransferase (ALT/SGPT) 32, Alkaline Phosphatase 87, Total Protein 7.0, Albumin 2.7L 08/13/20 06:39: POC Whole Blood Glucose 68L Current Medications Medications (Trade) Dose Ordered Sig/Miri Route PRN Reason Start Time Stop Time Status Last Admin Dose Admin Acetaminophen (Tylenol) 650 mg Q4H PRN ORAL Mild Pain (Pain Scale 1-3) 08/11/20 22:30 09/10/20 22:29 08/11/20 22:41 Acetaminophen (Tylenol) 650 mg Q4H PRN ORAL Temp >100.5 08/09/20 19:00 09/08/20 18:59 08/09/20 20:30 Albuterol Sulfate (Proventil MDI) 2 puff Q4H PRN INH Shortness of Breath 08/06/20 22:45 11/04/20 22:44 Amiodarone HCl (Cordarone) 200 mg DAILY ORAL 08/07/20 09:00 11/05/20 08:59 08/13/20 08:45 Atorvastatin Calcium (Lipitor) 80 mg BEDTIME ORAL 08/08/20 21:00 11/06/20 20:59 08/12/20 19:57 Clopidogrel Bisulfate (Plavix) 75 mg DAILY ORAL 08/07/20 09:00 09/06/20 08:59 08/13/20 08:46 Dextrose (Dextrose 50%) 25 ml Q30M PRN IV Hypoglycemia 08/06/20 22:45 11/04/20 22:44 Dextrose (Dextrose 50%) 50 ml Q30M PRN IV Hypoglycemia 08/06/20 22:45 11/04/20 22:44 Docusate Sodium (Colace) 100 mg TID ORAL 08/12/20 13:00 09/09/20 12:59 08/13/20 08:46 Enoxaparin Sodium (Lovenox) 30 mg DAILY SUBQ 08/07/20 09:00 11/05/20 08:59 08/13/20 08:47 Glipizide (Glucotrol) 5 mg BIAC ORAL 08/07/20 06:30 09/06/20 06:29 08/12/20 17:07 Guaifenesin/ Dextromethorphan (Robitussin DM Syrup) 10 ml Q4H PRN ORAL For Cough 08/07/20 17:30 11/05/20 17:29 08/12/20 19:56 Insulin Aspart (NovoLOG) BEFORE MEALS AND HS SUBQ 08/07/20 06:30 11/05/20 06:29 08/12/20 17:43 Ipratropium Brant (Atrovent Inh) 2 puffs Q4H PRN INH SOB wheezing 08/06/20 22:45 09/05/20 22:44 Isosorbide Mononitrate (Imdur) 30 mg DAILY ORAL 08/08/20 09:00 09/07/20 08:59 08/13/20 08:45 Metoprolol Tartrate (Lopressor) 25 mg Q12HR ORAL 08/07/20 09:00 11/05/20 08:59 08/13/20 08:46 Ondansetron HCl (Zofran) 4 mg Q6H PRN IVP Nausea & Vomiting 08/08/20 10:15 09/07/20 10:14 08/09/20 20:31 Pantoprazole (Protonix) 40 mg EVERY 12 HOURS ORAL 08/08/20 21:00 09/07/20 20:59 08/13/20 08:46 Polyethylene Glycol (Miralax) 17 gm DAILY PRN ORAL Constipation 08/12/20 09:30 09/11/20 09:29 08/12/20 09:47 Sertraline HCl (Zoloft) 25 mg DAILY ORAL 08/07/20 09:00 09/06/20 08:59 08/13/20 08:46 Assessment/Plan Assessment/Plan ASSESSMENT COVID-19 infection CHF acute on chronic ( due to missed HD) Elevated troponin, likely troponin leak ESRD, on HD ( missed dialysis for 1 week ) Coronary artery disease with history of MT and CABG DM OOC - [id number] HTN Elevated lipase Anemia of chronic diseas4 Fever -resolved Constipation PLAN OF CARE tele isolation Date of sx onset: 1 week on admission Positive test: 08/06 rapid COVID 19 + O2 -on RA HFA Dex-> off Dexamethasone since 08/08 ( s/p 2 days) since not hypoxic REM - -> not a candidate given ESRD DVT PPX: Lovenox D dimer -0.47 Trend CRP-> 2.9-> 7.8-> 9.7 no abx as per ID recs ; BCX 08/09 NGTD, no further fevers CXR 07/30- no acute disease CXR 08/11 -slight interval worsening of mild to moderate diffuse right lung infiltrate with unchanged patchy mild left lung infiltrates. Monitor volumes and renal function, HD as per nephro Fup with consultants recs FC continue a/PLT therapy with Plavix and beta blockage elevated troponin x 3 with minimal elevation, same range, likely troponin leak, ECG non-ischemic, no c/o CP cardio recs appreciated BP management with BB and Hydralazine ( added by cardio) ECHO with pEF 65% BS management with Glipizide and SSI, HgA1c- 12.5 clearly not at goal may need more aggressive treatment of BS while on steroids anemia w/up c/w anemia of chronic disease , ferritin 1537 monitor HH with goal to keep Hgb >7 , remains at baseline consider EPO if drop in Hgb GI follows lipase trending down, amylase WNL a/emetic prn no c/o abd pain bowel regimen supportive care dc plan home , ID cleared for dc; need self isolation till 08/15 fup with OP HD ( HD due tomorrow) - will discuss with nephro case discussed and evaluated by supervising physician Park Gunn NP Aug 13, 2020 10:23 eMrrill Becerra MD Aug 13, 2020 21:35
--- NOTE | 2020-08-13 11:43 | General Progress Note ---
Subjective ROS Limited/Unobtainable: No Allergies: Coded Allergies: No Known Allergies (Unverified , 08/06/20) Objective Last 24 Hour Vital Signs Date Time Temp Pulse Resp B/P (MAP) Pulse Ox O2 Delivery O2 Flow Rate FiO2 08/13/20 09:00 Room Air 08/13/20 08:46 101 124/96 08/13/20 08:45 124/96 08/13/20 08:00 98.0 89 19 124/76 (92) 97 08/12/20 21:00 Room Air 08/12/20 20:00 97.3 67 19 118/51 (73) 98 08/12/20 19:57 67 118/51 08/12/20 16:00 98.3 67 19 130/79 (96) 98 08/12/20 12:00 97.7 69 18 136/57 (83) 97 Intake and Output 08/12/20 08/13/20 19:00 07:00 # Voids 2 # Bowel Movements 1 Laboratory Tests 08/12/20 12:27: POC Whole Blood Glucose [Pending] 08/12/20 17:41: POC Whole Blood Glucose [Pending] 08/12/20 20:00: POC Whole Blood Glucose 105 08/13/20 05:00: White Blood Count 12.8#H, Red Blood Count 3.69L, Hemoglobin 11.0L, Hematocrit 33.4L, Mean Corpuscular Volume 90, Mean Corpuscular Hemoglobin 29.9, Mean Corpuscular Hemoglobin Concent 33.0, Red Cell Distribution Width 15.6H, Platelet Count 153, Mean Platelet Volume 7.2, Neutrophils (%) (Auto) , Lymphocytes (%) (Auto) , Monocytes (%) (Auto) , Eosinophils (%) (Auto) , Basophils (%) (Auto) , Differential Total Cells Counted 100, Neutrophils % (Manual) 89H, Lymphocytes % (Manual) 7L, Monocytes % (Manual) 3, Eosinophils % (Manual) 1, Basophils % (Manual) 0, Band Neutrophils 0, Platelet Estimate Adequate, Platelet Morphology Normal, Anisocytosis 1+, Sodium Level 134L, Potassium Level 3.6, Chloride Level 95L, Carbon Dioxide Level 28, Anion Gap 11, Blood Urea Nitrogen 49H, Creatinine 6.6H, Estimat Glomerular Filtration Rate 8.4, Glucose Level 74#, Calcium Level 7.4L, Phosphorus Level 3.1, Magnesium Level 2.1, Total Bilirubin 0.8, Direct Bilirubin 0.2, Aspartate Amino Transf (AST/SGOT) 22, Alanine Aminotransferase (ALT/SGPT) 32, Alkaline Phosphatase 87, Total Protein 7.0, Albumin 2.7L 08/13/20 06:39: POC Whole Blood Glucose 68L 08/13/20 11:33: POC Whole Blood Glucose 143H Height (Feet): 5 Height (Inches): 8.00 Weight (Pounds): 180 General Appearance: no apparent distress EENT: normal ENT inspection Neck: supple Cardiovascular: normal rate Respiratory/Chest: decreased breath sounds Abdomen: normal bowel sounds, non tender, soft Extremities: non-tender Assessment/Plan Status: stable Assessment/Plan: COVID anemia anisha failure CAD/MD DM elevated lipase elevated trop check amylase and lipase>>improving on renal diet fu ID, Renal and cardiology had BM Rd Cruz MD Aug 13, 2020 11:43
[2020-08-13 12:00] VITALS: BP 129/89
--- NOTE | 2020-08-13 12:38 | Nephrology Progress Note ---
Assessment/Plan Problem List: (1) ESRD (end stage renal disease) on dialysis (2) Elevated troponin (3) Pancreatitis (4) 2019 novel coronavirus disease (COVID-19) (5) Anemia in chronic kidney disease (CKD) (6) DMII (diabetes mellitus, type 2) Assessment End-stage renal disease on hemodialysis COVID-19 pneumonia Coronary artery disease, [place] Diabetes mellitus Anemia Elevated lipase Plan August 13: Due for dialysis today. Labs reviewed. Medication list reviewed. Continue per consultants. August 12: Dialyzed yesterday. Due for dialysis tomorrow. Medication list reviewed. Labs are reviewed. Continue per consultants. August 11: Due for dialysis today. Continue per consultants. Check labs tomorrow. August 10: Last dialyzed yesterday. Labs reviewed. Due for dialysis tomorrow. Continue per consultants. August 09: Patient due for dialysis today. Labs reviewed. Medication list reviewed. Continue per consultants. August 08: Patient was dialyzed yesterday. Due for dialysis tomorrow. Blood pressure medication adjusted. Diet changed to renal medium carbs. Continue per consultants. 2D echo pending. Previously: Monitor renal parameters Hemodialysis as soon as the patient arrives to medical floor Monitor lipase, renal parameters, hemoglobin and hematocrit Per orders Subjective ROS Limited/Unobtainable: No Constitutional: Reports: malaise, weakness Objective Objective Last 24 Hour Vital Signs Date Time Temp Pulse Resp B/P (MAP) Pulse Ox O2 Delivery O2 Flow Rate FiO2 08/13/20 12:00 98.0 90 20 129/89 (102) 98 08/13/20 09:00 Room Air 08/13/20 08:46 101 124/96 08/13/20 08:45 124/96 08/13/20 08:00 98.0 89 19 124/76 (92) 97 08/12/20 21:00 Room Air 08/12/20 20:00 97.3 67 19 118/51 (73) 98 08/12/20 19:57 67 118/51 08/12/20 16:00 98.3 67 19 130/79 (96) 98 Intake and Output 08/12/20 08/13/20 19:00 07:00 # Voids 2 # Bowel Movements 1 Laboratory Tests 08/12/20 17:41: POC Whole Blood Glucose [Pending] 08/12/20 20:00: POC Whole Blood Glucose 105 1/4/21 05:00: White Blood Count 12.8#H, Red Blood Count 3.69L, Hemoglobin 11.0L, Hematocrit 33.4L, Mean Corpuscular Volume 90, Mean Corpuscular Hemoglobin 29.9, Mean Corpuscular Hemoglobin Concent 33.0, Red Cell Distribution Width 15.6H, Platelet Count 153, Mean Platelet Volume 7.2, Neutrophils (%) (Auto) , Lymphocytes (%) (Auto) , Monocytes (%) (Auto) , Eosinophils (%) (Auto) , Basophils (%) (Auto) , Differential Total Cells Counted 100, Neutrophils % (Manual) 89H, Lymphocytes % (Manual) 7L, Monocytes % (Manual) 3, Eosinophils % (Manual) 1, Basophils % (Manual) 0, Band Neutrophils 0, Platelet Estimate Adequate, Platelet Morphology Normal, Anisocytosis 1+, Sodium Level 134L, Potassium Level 3.6, Chloride Level 95L, Carbon Dioxide Level 28, Anion Gap 11, Blood Urea Nitrogen 49H, Creatinine 6.6H, Estimat Glomerular Filtration Rate 8.4, Glucose Level 74#, Calcium Level 7.4L, Phosphorus Level 3.1, Magnesium Level 2.1, Total Bilirubin 0.8, Direct Bilirubin 0.2, Aspartate Amino Transf (AST/SGOT) 22, Alanine Aminotransferase (ALT/SGPT) 32, Alkaline Phosphatase 87, Total Protein 7.0, Albumin 2.7L 08/13/20 06:39: POC Whole Blood Glucose 68L 08/13/20 11:33: POC Whole Blood Glucose 143H Height (Feet): 5 Height (Inches): 8.00 Weight (Pounds): 180 General Appearance: no apparent distress, lethargic Cardiovascular: tachycardia Respiratory/Chest: decreased breath sounds Abdomen: distended Objective No change Jon Crews MD Aug 13, 2020 12:38
--- NOTE | 2020-08-13 14:01 | Surgery Progress Note ---
Surgery Progress Note Subjective Additional Comments no acute events comfortable stable HD planned Objective Last 24 Hour Vital Signs Date Time Temp Pulse Resp B/P (MAP) Pulse Ox O2 Delivery O2 Flow Rate FiO2 08/13/20 12:00 98.0 90 20 129/89 (102) 98 08/13/20 09:00 Room Air 08/13/20 08:46 101 124/96 08/13/20 08:45 124/96 08/13/20 08:00 98.0 89 19 124/76 (92) 97 08/12/20 21:00 Room Air 08/12/20 20:00 97.3 67 19 118/51 (73) 98 08/12/20 19:57 67 118/51 08/12/20 16:00 98.3 67 19 130/79 (96) 98 I&O Intake and Output 08/12/20 08/13/20 19:00 07:00 # Voids 2 # Bowel Movements 1 Dressing: other Wound: other Cardiovascular: RSR Respiratory: decreased breath sounds Abdomen: soft, non-tender, present bowel sounds, non-distended Extremities: no tenderness, no cyanosis, other Laboratory Tests Test 08/12/20 17:41 08/12/20 20:00 08/13/20 05:00 08/13/20 06:39 POC Whole Blood Glucose Pending 105 MG/DL (74-106) 68 MG/DL (74-106) L White Blood Count 12.8 K/UL (4.8-10.8) #H Red Blood Count 3.69 M/UL (4.70-6.10) L Hemoglobin 11.0 G/DL (14.2-18.0) L Hematocrit 33.4 % (42.0-52.0) L Mean Corpuscular Volume 90 FL (80-99) Mean Corpuscular Hemoglobin 29.9 PG (27.0-31.0) Mean Corpuscular Hemoglobin Concent 33.0 G/DL (32.0-36.0) Red Cell Distribution Width 15.6 % (11.6-14.8) H Platelet Count 153 K/UL (150-450) Mean Platelet Volume 7.2 FL (6.5-10.1) Neutrophils (%) (Auto) % (45.0-75.0) Lymphocytes (%) (Auto) % (20.0-45.0) Monocytes (%) (Auto) % (1.0-10.0) Eosinophils (%) (Auto) % (0.0-3.0) Basophils (%) (Auto) % (0.0-2.0) Differential Total Cells Counted 100 Neutrophils % (Manual) 89 % (45-75) H Lymphocytes % (Manual) 7 % (20-45) L Monocytes % (Manual) 3 % (1-10) Eosinophils % (Manual) 1 % (0-3) Basophils % (Manual) 0 % (0-2) Band Neutrophils 0 % (0-8) Platelet Estimate Adequate Platelet Morphology Normal Anisocytosis 1+ Sodium Level 134 MMOL/L (136-145) L Potassium Level 3.6 MMOL/L (3.5-5.1) Chloride Level 95 MMOL/L (98-107) L Carbon Dioxide Level 28 MMOL/L (21-32) Anion Gap 11 mmol/L (5-15) Blood Urea Nitrogen 49 mg/dL (7-18) H Creatinine 6.6 MG/DL (0.55-1.30) H Estimat Glomerular Filtration Rate 8.4 mL/min (>60) Glucose Level 74 MG/DL (74-106) # Calcium Level 7.4 MG/DL (8.5-10.1) L Phosphorus Level 3.1 MG/DL (2.5-4.9) Magnesium Level 2.1 MG/DL (1.8-2.4) Total Bilirubin 0.8 MG/DL (0.2-1.0) Direct Bilirubin 0.2 MG/DL (0.0-0.3) Aspartate Amino Transf (AST/SGOT) 22 U/L (15-37) Alanine Aminotransferase (ALT/SGPT) 32 U/L (12-78) Alkaline Phosphatase 87 U/L (46-116) Total Protein 7.0 G/DL (6.4-8.2) Albumin 2.7 G/DL (3.4-5.0) L Test 08/13/20 11:33 POC Whole Blood Glucose 143 MG/DL (74-106) H Plan Problems: (1) Pancreatitis Assessment & Plan: febrile covid + lft's wnl lip elevated esr / crp elevated abd exam benign US abd ordered ca pending no acute surgical intervention will follow with exam and recs thank you trending down lip fluctuating clinically without pain tolerating diet monitor (2) Fever (3) Elevated troponin (4) ESRD (end stage renal disease) on dialysis (5) Anemia in chronic kidney disease (CKD) (6) DMII (diabetes mellitus, type 2) (7) 2019 novel coronavirus disease (COVID-19) Assessment & Plan: ++ id input on abx pulm noted Lungs: Low lung volumes with bronchovascular crowding. No consolidation, pleural effusion, or pneumothorax. Pleural space: See above. Heart: Cardiomegaly. Mediastinum: Unremarkable. Bones/joints: Sternotomy with mediastinal operative findings. Other findings: Radiopaque linear structure superimposed over the left neck of uncertain significance, correlate with patient presentation and history. IMPRESSION: 1. Radiopaque linear structure superimposed over the left neck of uncertain significance, correlate with patient presentation and history. 2. Low lung volumes with bronchovascular crowding. 3. Cardiomegaly. 4. Otherwise no acute cardiopulmonary disease. 5. If there is continued concern, consider frontal and lateral chest radiographs or CT. Pacheco [place] Aug 13, 2020 14:01
[2020-08-13 16:00] VITALS: BP 136/67
[2020-08-13 20:00] VITALS: BP 110/65
[2020-08-13] MEDS: Atorvastatin 80mg tab ORAL SCH (20:28)
[2020-08-14] VITALS: BP 137/74
[2020-08-14 04:00] VITALS: BP 137/74
[2020-08-14] MEDS: GlipiZIDE 5mg tab ORAL SCH ×2 (06:10→16:51)
[2020-08-14] MEDS: NovoLOG Insulin Flexpen SUBQ SCH ×4 (06:10→21:00)
[2020-08-14 07:27] LABS: HEMATOCRIT 29.9 % (42.0-52.0); HEMOGLOBIN 10.5 G/DL (14.2-18.0); MEAN CORPUSCULAR VOLUME 88 FL (80-99); PLATELET COUNT 168 K/UL (150-450); RED BLOOD COUNT 3.39 M/UL (4.70-6.10); RED CELL DISTRIBUTION WIDTH 17.2 % (11.6-14.8); WHITE BLOOD COUNT 11.9 K/UL (4.8-10.8)
[2020-08-14 07:51] LABS: ALBUMIN 2.5 G/DL (3.4-5.0); ALBUMIN/GLOBULIN RATIO 0.6 (1.0-2.7); CALCIUM 7.6 MG/DL (8.5-10.1); CREATININE 5.4 MG/DL (0.55-1.30); POTASSIUM 3.4 MMOL/L (3.5-5.1)
[2020-08-14 08:00] VITALS: BP 150/68
[2020-08-14 08:04] LABS: BILIRUBIN,TOTAL 0.7 MG/DL (0.2-1.0)
[2020-08-14] MEDS: Enoxaparin 30mg Inj SUBQ SCH (08:46)
[2020-08-14] MEDS: Docusate 100mg cap ORAL SCH ×3 (08:46→16:51)
[2020-08-14] MEDS: Sertraline 50mg tab ORAL SCH (08:47)
[2020-08-14] MEDS: Amiodarone 200mg tab ORAL SCH (08:48)
--- NOTE | 2020-08-14 08:50 | Infectious Diseases Prog Note ---
Assessment/Plan 69yo M with: COVID pneumonia Febrile to 101.3 Normal WBC Lymphopenia 08/06 BCx NTD COVID rapid test positive UA neg CXR: No acute process MRSA nares neg 08/09 BCx NTD CXR: Borderline cardiomegaly. No acute process 1/2 CXR: There is been slight interval worsening of mild to moderate diffuse right lung infiltrate with unchanged patchy mild left lung infiltrates. Elevated lipase, no abd pain PMH: ESRD on HD CAD s/p CABG 2019 HTN HLD DM2 LUE AVF Plan: Cont to monitor off abx OK to d/c home from ID standpoint given doing well on RA Needs COVID home isolation for 10 days from date of diagnosis, 08/06 - 08/15 08/08 SP Dex #2, stopped given on RA Not candidate for RDV given ESRD on HD This institution does not have access to convalescent plasma, and as pt doing well on RA unlikely to benefit from it at this point Monitor CBC/CMP Monitor resp status Monitor temp curve, hemodynamics Thank you for this consult. [facility] will continue to follow. Subjective Allergies: Coded Allergies: No Known Allergies (Unverified , 08/06/20) AF Doing well on RA WBC improving to 11 off abx NAD Objective Last 24 Hour Vital Signs Date Time Temp Pulse Resp B/P (MAP) Pulse Ox O2 Delivery O2 Flow Rate FiO2 08/14/20 04:00 97.4 79 18 137/74 (95) 94 08/14/20 00:00 98.6 74 18 137/74 (95) 94 08/13/20 21:07 Room Air 08/13/20 20:28 74 110/65 08/13/20 20:00 98.7 74 18 110/65 (80) 94 08/13/20 16:00 97.6 80 20 136/67 (90) 98 08/13/20 12:00 98.0 90 20 129/89 (102) 98 08/13/20 09:00 Room Air Height (Feet): 5 Height (Inches): 8.00 Weight (Pounds): 180 Gen: NAD HEENT: NCAT Pulm: BL chest rise Abd: Non-distended Ext: No c/c/e Skin: No visible rashes Neuro: Awake Laboratory Tests Test 08/13/20 11:33 08/13/20 16:11 08/14/20 06:32 POC Whole Blood Glucose 143 MG/DL (74-106) H 178 MG/DL (74-106) H White Blood Count 11.9 K/UL (4.8-10.8) H Red Blood Count 3.39 M/UL (4.70-6.10) L Hemoglobin 10.5 G/DL (14.2-18.0) L Hematocrit 29.9 % (42.0-52.0) L Mean Corpuscular Volume 88 FL (80-99) Mean Corpuscular Hemoglobin 30.8 PG (27.0-31.0) Mean Corpuscular Hemoglobin Concent 34.9 G/DL (32.0-36.0) Red Cell Distribution Width 17.2 % (11.6-14.8) H Platelet Count 168 K/UL (150-450) Mean Platelet Volume 6.7 FL (6.5-10.1) Neutrophils (%) (Auto) % (45.0-75.0) Lymphocytes (%) (Auto) % (20.0-45.0) Monocytes (%) (Auto) % (1.0-10.0) Eosinophils (%) (Auto) % (0.0-3.0) Basophils (%) (Auto) % (0.0-2.0) Neutrophils % (Manual) Pending Lymphocytes % (Manual) Pending Platelet Estimate Pending Platelet Morphology Pending Sodium Level 135 MMOL/L (136-145) L Potassium Level 3.4 MMOL/L (3.5-5.1) L Chloride Level 96 MMOL/L (98-107) L Carbon Dioxide Level 33 MMOL/L (21-32) H Anion Gap 6 mmol/L (5-15) Blood Urea Nitrogen 34 mg/dL (7-18) H Creatinine 5.4 MG/DL (0.55-1.30) H Estimat Glomerular Filtration Rate 10.6 mL/min (>60) Glucose Level 155 MG/DL (74-106) H Calcium Level 7.6 MG/DL (8.5-10.1) L Total Bilirubin 0.7 MG/DL (0.2-1.0) Aspartate Amino Transf (AST/SGOT) 18 U/L (15-37) Alanine Aminotransferase (ALT/SGPT) 25 U/L (12-78) Alkaline Phosphatase 89 U/L (46-116) Total Protein 6.7 G/DL (6.4-8.2) Albumin 2.5 G/DL (3.4-5.0) L Globulin 4.2 g/dL Albumin/Globulin Ratio 0.6 (1.0-2.7) L Amylase Level 74 U/L (25-115) Lipase 399 U/L (73-393) H Current Medications Medications (Trade) Dose Ordered Sig/Miri Route PRN Reason Start Time Stop Time Status Last Admin Dose Admin Acetaminophen (Tylenol) 650 mg Q4H PRN ORAL Mild Pain (Pain Scale 1-3) 08/11/20 22:30 09/10/20 22:29 08/11/20 22:41 Acetaminophen (Tylenol) 650 mg Q4H PRN ORAL Temp >100.5 08/09/20 19:00 09/08/20 18:59 08/09/20 20:30 Albuterol Sulfate (Proventil MDI) 2 puff Q4H PRN INH Shortness of Breath 08/06/20 22:45 11/04/20 22:44 Amiodarone HCl (Cordarone) 200 mg DAILY ORAL 08/07/20 09:00 11/05/20 08:59 08/13/20 08:45 Atorvastatin Calcium (Lipitor) 80 mg BEDTIME ORAL 08/08/20 21:00 11/06/20 20:59 08/13/20 20:28 Clopidogrel Bisulfate (Plavix) 75 mg DAILY ORAL 08/07/20 09:00 09/06/20 08:59 08/13/20 08:46 Dextrose (Dextrose 50%) 25 ml Q30M PRN IV Hypoglycemia 08/06/20 22:45 11/04/20 22:44 Dextrose (Dextrose 50%) 50 ml Q30M PRN IV Hypoglycemia 08/06/20 22:45 11/04/20 22:44 Docusate Sodium (Colace) 100 mg TID ORAL 08/12/20 13:00 09/09/20 12:59 08/13/20 08:46 Enoxaparin Sodium (Lovenox) 30 mg DAILY SUBQ 08/07/20 09:00 11/05/20 08:59 08/13/20 08:47 Glipizide (Glucotrol) 5 mg BIAC ORAL 08/07/20 06:30 09/06/20 06:29 08/13/20 16:36 Guaifenesin/ Dextromethorphan (Robitussin DM Syrup) 10 ml Q4H PRN ORAL For Cough 08/07/20 17:30 11/05/20 17:29 08/12/20 19:56 Insulin Aspart (NovoLOG) BEFORE MEALS AND HS SUBQ 08/07/20 06:30 11/05/20 06:29 08/13/20 20:47 Ipratropium [place] (Atrovent Inh) 2 puffs Q4H PRN INH SOB wheezing 08/06/20 22:45 09/05/20 22:44 Isosorbide Mononitrate (Imdur) 30 mg DAILY ORAL 08/08/20 09:00 09/07/20 08:59 08/13/20 08:45 Metoprolol Tartrate (Lopressor) 25 mg Q12HR ORAL 08/07/20 09:00 11/05/20 08:59 08/13/20 20:28 Ondansetron HCl (Zofran) 4 mg Q6H PRN IVP Nausea & Vomiting 08/08/20 10:15 09/07/20 10:14 08/09/20 20:31 Pantoprazole (Protonix) 40 mg EVERY 12 HOURS ORAL 08/08/20 21:00 09/07/20 20:59 08/13/20 20:28 Polyethylene Glycol (Miralax) 17 gm DAILY PRN ORAL Constipation 08/12/20 09:30 09/11/20 09:29 08/12/20 09:47 Sertraline HCl (Zoloft) 25 mg DAILY ORAL 08/07/20 09:00 09/06/20 08:59 08/13/20 08:46 Luiza Barton M.D. Aug 14, 2020 08:50
[2020-08-14] MEDS: Imdur 30mg tab ORAL SCH (08:56)
--- NOTE | 2020-08-14 09:41 | General Progress Note ---
Subjective ROS Limited/Unobtainable: Yes Allergies: Coded Allergies: No Known Allergies (Unverified , 08/06/20) Objective Last 24 Hour Vital Signs Date Time Temp Pulse Resp B/P (MAP) Pulse Ox O2 Delivery O2 Flow Rate FiO2 08/14/20 08:56 150/68 08/14/20 08:56 72 150/68 08/14/20 08:00 97.0 72 18 150/68 (95) 95 08/14/20 04:00 97.4 79 18 137/74 (95) 94 08/14/20 00:00 98.6 74 18 137/74 (95) 94 08/13/20 21:07 Room Air 08/13/20 20:28 74 110/65 08/13/20 20:00 98.7 74 18 110/65 (80) 94 08/13/20 16:00 97.6 80 20 136/67 (90) 98 08/13/20 12:00 98.0 90 20 129/89 (102) 98 Intake and Output 08/13/20 08/14/20 19:00 07:00 Output Total 2000 ml Balance -2000 ml Hemodialysis UF 2000 ml Laboratory Tests 08/13/20 11:33: POC Whole Blood Glucose 143H 08/13/20 16:11: POC Whole Blood Glucose 178H 08/14/20 06:32: White Blood Count 11.9H, Red Blood Count 3.39L, Hemoglobin 10.5L, Hematocrit 29.9L, Mean Corpuscular Volume 88, Mean Corpuscular Hemoglobin 30.8, Mean Corpuscular Hemoglobin Concent 34.9, Red Cell Distribution Width 17.2H, Platelet Count 168, Mean Platelet Volume 6.7, Neutrophils (%) (Auto) , Lymphocytes (%) (Auto) , Monocytes (%) (Auto) , Eosinophils (%) (Auto) , Basophils (%) (Auto) , Neutrophils % (Manual) [Pending], Lymphocytes % (Manual) [Pending], Platelet Estimate [Pending], Platelet Morphology [Pending], Sodium Level 135L, Potassium Level 3.4L, Chloride Level 96L, Carbon Dioxide Level 33H, Anion Gap 6, Blood Urea Nitrogen 34H, Creatinine 5.4H, Estimat Glomerular Filtration Rate 10.6, Glucose Level 155H, Calcium Level 7.6L, Total Bilirubin 0.7, Aspartate Amino Transf (AST/SGOT) 18, Alanine Aminotransferase (ALT/SGPT) 25, Alkaline Phosphatase 89, Total Protein 6.7, Albumin 2.5L, Globulin 4.2, Albumin/Globulin Ratio 0.6L, Amylase Level 74, Lipase 399H Height (Feet): 5 Height (Inches): 8.00 Weight (Pounds): 180 General Appearance: no apparent distress EENT: normal ENT inspection Neck: supple Cardiovascular: normal rate Respiratory/Chest: decreased breath sounds Abdomen: hypoactive bowel sounds Extremities: non-tender Assessment/Plan Status: stable Assessment/Plan: COVID anemia renal failure CAD/PR DM elevated lipase elevated trop check amylase and lipase>>improving on renal diet on HD fu ID, Renal and cardiology monitor for BM Rd Cruz MD Aug 14, 2020 09:41
--- NOTE | 2020-08-14 09:59 | Pulmonology Progress Note ---
Subjective ROS Limited/Unobtainable: Yes Allergies: Coded Allergies: No Known Allergies (Unverified , 08/06/20) Subjective no resp distress pulse ox stable on RA no further fevers; mild leuk this am denies CP, SOB last HD 08/13 Objective Last 24 Hour Vital Signs Date Time Temp Pulse Resp B/P (MAP) Pulse Ox O2 Delivery O2 Flow Rate FiO2 08/14/20 08:56 150/68 08/14/20 08:56 72 150/68 08/14/20 08:00 97.0 72 18 150/68 (95) 95 08/14/20 04:00 97.4 79 18 137/74 (95) 94 08/14/20 00:00 98.6 74 18 137/74 (95) 94 08/13/20 21:07 Room Air 08/13/20 20:28 74 110/65 08/13/20 20:00 98.7 74 18 110/65 (80) 94 08/13/20 16:00 97.6 80 20 136/67 (90) 98 08/13/20 12:00 98.0 90 20 129/89 (102) 98 Intake and Output 08/13/20 08/14/20 19:00 07:00 Output Total 2000 ml Balance -2000 ml Hemodialysis UF 2000 ml Objective General Appearance: WD/WN, no apparent distress, alert Lines, tubes and drains: peripheral HEENT: normocephalic, atraumatic, anicteric, mucous membranes moist, PERRL Neck: non-tender, supple Respiratory/Chest: chest wall non-tender, lungs clear with moderate air exchange , no respiratory distress, no accessory muscle use Cardiovascular/Chest: normal peripheral pulses, normal rate, regular rhythm, + 1- edema BLE Abdomen: normal bowel sounds, non tender, soft Extremities: normal range of motion, non-tender, no calf tenderness, normal capillary refill, LUE AV shunt + bruit/thrill Skin Exam: warm/dry Neurologic: no motor/sensory deficits, alert, oriented x 3, responsive Musculoskeletal: normal muscle bulk Laboratory Tests 08/13/20 11:33: POC Whole Blood Glucose 143H 08/13/20 16:11: POC Whole Blood Glucose 178H 08/14/20 06:32: White Blood Count 11.9H, Red Blood Count 3.39L, Hemoglobin 10.5L, Hematocrit 29.9L, Mean Corpuscular Volume 88, Mean Corpuscular Hemoglobin 30.8, Mean Corpuscular Hemoglobin Concent 34.9, Red Cell Distribution Width 17.2H, Platelet Count 168, Mean Platelet Volume 6.7, Neutrophils (%) (Auto) , Lymphocytes (%) (Auto) , Monocytes (%) (Auto) , Eosinophils (%) (Auto) , Basophils (%) (Auto) , Neutrophils % (Manual) [Pending], Lymphocytes % (Manual) [Pending], Platelet Estimate [Pending], Platelet Morphology [Pending], Sodium Level 135L, Potassium Level 3.4L, Chloride Level 96L, Carbon Dioxide Level 33H, Anion Gap 6, Blood Urea Nitrogen 34H, Creatinine 5.4H, Estimat Glomerular Filtration Rate 10.6, Glucose Level 155H, Calcium Level 7.6L, Total Bilirubin 0.7, Aspartate Amino Transf (AST/SGOT) 18, Alanine Aminotransferase (ALT/SGPT) 25, Alkaline Phosphatase 89, Total Protein 6.7, Albumin 2.5L, Globulin 4.2, Albumin/Globulin Ratio 0.6L, Amylase Level 74, Lipase 399H Current Medications Medications (Trade) Dose Ordered Sig/Miri Route PRN Reason Start Time Stop Time Status Last Admin Dose Admin Acetaminophen (Tylenol) 650 mg Q4H PRN ORAL Mild Pain (Pain Scale 1-3) 08/11/20 22:30 09/10/20 22:29 08/11/20 22:41 Acetaminophen (Tylenol) 650 mg Q4H PRN ORAL Temp >100.5 08/09/20 19:00 09/08/20 18:59 08/09/20 20:30 Albuterol Sulfate (Proventil MDI) 2 puff Q4H PRN INH Shortness of Breath 08/06/20 22:45 11/04/20 22:44 Amiodarone HCl (Cordarone) 200 mg DAILY ORAL 08/07/20 09:00 11/05/20 08:59 08/14/20 08:48 Atorvastatin Calcium (Lipitor) 80 mg BEDTIME ORAL 08/08/20 21:00 11/06/20 20:59 08/13/20 20:28 Clopidogrel Bisulfate (Plavix) 75 mg DAILY ORAL 08/07/20 09:00 09/06/20 08:59 08/14/20 08:47 Dextrose (Dextrose 50%) 25 ml Q30M PRN IV Hypoglycemia 08/06/20 22:45 11/04/20 22:44 Dextrose (Dextrose 50%) 50 ml Q30M PRN IV Hypoglycemia 08/06/20 22:45 11/04/20 22:44 Docusate Sodium (Colace) 100 mg TID ORAL 08/12/20 13:00 09/09/20 12:59 08/14/20 08:46 Enoxaparin Sodium (Lovenox) 30 mg DAILY SUBQ 08/07/20 09:00 11/05/20 08:59 08/14/20 08:46 Glipizide (Glucotrol) 5 mg BIAC ORAL 08/07/20 06:30 09/06/20 06:29 08/13/20 16:36 Guaifenesin/ Dextromethorphan (Robitussin DM Syrup) 10 ml Q4H PRN ORAL For Cough 08/07/20 17:30 11/05/20 17:29 08/12/20 19:56 Insulin Aspart (NovoLOG) BEFORE MEALS AND HS SUBQ 08/07/20 06:30 11/05/20 06:29 08/13/20 20:47 Ipratropium [place] (Atrovent Inh) 2 puffs Q4H PRN INH SOB wheezing 08/06/20 22:45 09/05/20 22:44 Isosorbide Mononitrate (Imdur) 30 mg DAILY ORAL 08/08/20 09:00 09/07/20 08:59 08/14/20 08:56 Metoprolol Tartrate (Lopressor) 25 mg Q12HR ORAL 08/07/20 09:00 11/05/20 08:59 08/14/20 08:56 Ondansetron HCl (Zofran) 4 mg Q6H PRN IVP Nausea & Vomiting 08/08/20 10:15 09/07/20 10:14 08/09/20 20:31 Pantoprazole (Protonix) 40 mg EVERY 12 HOURS ORAL 08/08/20 21:00 09/07/20 20:59 08/14/20 08:47 Polyethylene Glycol (Miralax) 17 gm DAILY PRN ORAL Constipation 08/12/20 09:30 09/11/20 09:29 08/12/20 09:47 Sertraline HCl (Zoloft) 25 mg DAILY ORAL 08/07/20 09:00 09/06/20 08:59 08/14/20 08:47 Assessment/Plan Assessment/Plan ASSESSMENT COVID-19 infection CHF acute on chronic ( due to missed HD) Elevated troponin, likely troponin leak ESRD, on HD ( missed dialysis for 1 week ) Coronary artery disease with history of NC and CABG DM OOC - EzQ9a-26.5 HTN Elevated lipase Anemia of chronic diseas4 Fever -resolved Constipation PLAN OF CARE MS floor isolation Date of sx onset: 1 week prior to admission Positive test: 08/06 rapid COVID 19 + O2 -on RA HFA Dex-> off Dexamethasone since 08/08 ( s/p 2 days) since not hypoxic REM - -> not a candidate given ESRD DVT PPX: Lovenox D dimer -0.47 Trend CRP-> 2.9-> 7.8-> 9.7 no abx as per ID recs ; BCX 08/09 NGTD, no further fevers CXR 07/30- no acute disease CXR 08/11 -slight interval worsening of mild to moderate diffuse right lung infiltrate with unchanged patchy mild left lung infiltrates. Monitor volumes and renal function, HD as per nephro Fup with consultants recs FC continue a/PLT therapy with Plavix and beta blockage elevated troponin x 3 with minimal elevation, same range, likely troponin leak, ECG non-ischemic, no c/o CP cardio recs appreciated BP management with BB and Hydralazine ( added by cardio) ECHO with pEF 65% BS management with Glipizide and SSI, HgA1c- 12.5 clearly not at goal may need more aggressive treatment of BS while on steroids anemia w/up c/w anemia of chronic disease , ferritin 1537 monitor HH with goal to keep Hgb >7 , remains at baseline consider EPO if drop in Hgb GI follows lipase trending down, amylase WNL a/emetic prn no c/o abd pain bowel regimen supportive care dc plan home , ID cleared for dc; need self isolation till 08/15 fup with OP HD ( last HD 08/13) - will discuss with nephro dc plan case discussed and evaluated by supervising physician Park Gunn NP Aug 14, 2020 09:59
[2020-08-14 12:00] VITALS: BP 100/60
--- NOTE | 2020-08-14 14:59 | Nephrology Progress Note ---
Assessment/Plan Problem List: (1) ESRD (end stage renal disease) on dialysis (2) Elevated troponin (3) Pancreatitis (4) 2019 novel coronavirus disease (COVID-19) (5) Anemia in chronic kidney disease (CKD) (6) DMII (diabetes mellitus, type 2) Assessment End-stage renal disease on hemodialysis COVID-19 pneumonia Coronary artery disease, [place] Diabetes mellitus Anemia Elevated lipase Plan August 14: Dialyzed yesterday. Due for dialysis tomorrow. Labs reviewed. Medication list reviewed. Full code. Continue per consultants. August 13: Due for dialysis today. Labs reviewed. Medication list reviewed. Continue per consultants. August 12: Dialyzed yesterday. Due for dialysis tomorrow. Medication list reviewed. Labs are reviewed. Continue per consultants. August 11: Due for dialysis today. Continue per consultants. Check labs tomorrow. August 10: Last dialyzed yesterday. Labs reviewed. Due for dialysis tomorrow. Continue per consultants. August 09: Patient due for dialysis today. Labs reviewed. Medication list reviewed. Continue per consultants. August 08: Patient was dialyzed yesterday. Due for dialysis tomorrow. Blood pressure medication adjusted. Diet changed to renal medium carbs. Continue per consultants. 2D echo pending. Previously: Monitor renal parameters Hemodialysis as soon as the patient arrives to medical floor Monitor lipase, renal parameters, hemoglobin and hematocrit Per orders Subjective ROS Limited/Unobtainable: No Constitutional: Reports: malaise Objective Objective Last 24 Hour Vital Signs Date Time Temp Pulse Resp B/P (MAP) Pulse Ox O2 Delivery O2 Flow Rate FiO2 08/14/20 12:00 97.0 65 18 100/60 (73) 95 08/14/20 09:00 Room Air 08/14/20 08:56 150/68 08/14/20 08:56 72 150/68 08/14/20 08:00 97.0 72 18 150/68 (95) 95 08/14/20 04:00 97.4 79 18 137/74 (95) 94 08/14/20 00:00 98.6 74 18 137/74 (95) 94 08/13/20 21:07 Room Air 08/13/20 20:28 74 110/65 08/13/20 20:00 98.7 74 18 110/65 (80) 94 08/13/20 16:00 97.6 80 20 136/67 (90) 98 Intake and Output 08/13/20 08/14/20 19:00 07:00 Output Total 2000 ml Balance -2000 ml Hemodialysis UF 2000 ml Laboratory Tests 08/13/20 16:11: POC Whole Blood Glucose 178H 08/14/20 06:32: White Blood Count 11.9H, Red Blood Count 3.39L, Hemoglobin 10.5L, Hematocrit 29.9L, Mean Corpuscular Volume 88, Mean Corpuscular Hemoglobin 30.8, Mean Corpuscular Hemoglobin Concent 34.9, Red Cell Distribution Width 17.2H, Platelet Count 168, Mean Platelet Volume 6.7, Neutrophils (%) (Auto) , Lymphocytes (%) (Auto) , Monocytes (%) (Auto) , Eosinophils (%) (Auto) , Basophils (%) (Auto) , Differential Total Cells Counted 100, Neutrophils % (Manual) 86H, Lymphocytes % (Manual) 7L, Monocytes % (Manual) 6, Eosinophils % (Manual) 1, Basophils % (Manual) 0, Band Neutrophils 0, Platelet Estimate Adequate, Platelet Morphology Normal, Anisocytosis 1+, Sodium Level 135L, Potassium Level 3.4L, Chloride Level 96L, Carbon Dioxide Level 33H, Anion Gap 6, Blood Urea Nitrogen 34H, Creatinine 5.4H, Estimat Glomerular Filtration Rate 10.6, Glucose Level 155H, Calcium Level 7.6L, Total Bilirubin 0.7, Aspartate Amino Transf (AST/SGOT) 18, Alanine Aminotransferase (ALT/SGPT) 25, Alkaline Phosphatase 89, Total Protein 6.7, Albumin 2.5L, Globulin 4.2, Albumin/Globulin Ratio 0.6L, Amylase Level 74, Lipase 399H Height (Feet): 5 Height (Inches): 8.00 Weight (Pounds): 180 General Appearance: no apparent distress Cardiovascular: normal rate Respiratory/Chest: decreased breath sounds Abdomen: soft Objective No change Jon Crews MD Aug 14, 2020 14:59
--- NOTE | 2020-08-14 15:11 | Surgery Progress Note ---
Surgery Progress Note Subjective Additional Comments improved no n/v comfortable wants diet coke Objective Last 24 Hour Vital Signs Date Time Temp Pulse Resp B/P (MAP) Pulse Ox O2 Delivery O2 Flow Rate FiO2 08/14/20 12:00 97.0 65 18 100/60 (73) 95 08/14/20 09:00 Room Air 08/14/20 08:56 150/68 08/14/20 08:56 72 150/68 08/14/20 08:00 97.0 72 18 150/68 (95) 95 08/14/20 04:00 97.4 79 18 137/74 (95) 94 08/14/20 00:00 98.6 74 18 137/74 (95) 94 08/13/20 21:07 Room Air 08/13/20 20:28 74 110/65 08/13/20 20:00 98.7 74 18 110/65 (80) 94 08/13/20 16:00 97.6 80 20 136/67 (90) 98 I&O Intake and Output 08/13/20 08/14/20 19:00 07:00 Output Total 2000 ml Balance -2000 ml Hemodialysis UF 2000 ml Cardiovascular: RSR Respiratory: decreased breath sounds Abdomen: soft, non-tender, present bowel sounds, non-distended Extremities: no tenderness, no cyanosis Laboratory Tests Test 08/13/20 16:11 08/14/20 06:32 POC Whole Blood Glucose 178 MG/DL (74-106) H White Blood Count 11.9 K/UL (4.8-10.8) H Red Blood Count 3.39 M/UL (4.70-6.10) L Hemoglobin 10.5 G/DL (14.2-18.0) L Hematocrit 29.9 % (42.0-52.0) L Mean Corpuscular Volume 88 FL (80-99) Mean Corpuscular Hemoglobin 30.8 PG (27.0-31.0) Mean Corpuscular Hemoglobin Concent 34.9 G/DL (32.0-36.0) Red Cell Distribution Width 17.2 % (11.6-14.8) H Platelet Count 168 K/UL (150-450) Mean Platelet Volume 6.7 FL (6.5-10.1) Neutrophils (%) (Auto) % (45.0-75.0) Lymphocytes (%) (Auto) % (20.0-45.0) Monocytes (%) (Auto) % (1.0-10.0) Eosinophils (%) (Auto) % (0.0-3.0) Basophils (%) (Auto) % (0.0-2.0) Differential Total Cells Counted 100 Neutrophils % (Manual) 86 % (45-75) H Lymphocytes % (Manual) 7 % (20-45) L Monocytes % (Manual) 6 % (1-10) Eosinophils % (Manual) 1 % (0-3) Basophils % (Manual) 0 % (0-2) Band Neutrophils 0 % (0-8) Platelet Estimate Adequate Platelet Morphology Normal Anisocytosis 1+ Sodium Level 135 MMOL/L (136-145) L Potassium Level 3.4 MMOL/L (3.5-5.1) L Chloride Level 96 MMOL/L (98-107) L Carbon Dioxide Level 33 MMOL/L (21-32) H Anion Gap 6 mmol/L (5-15) Blood Urea Nitrogen 34 mg/dL (7-18) H Creatinine 5.4 MG/DL (0.55-1.30) H Estimat Glomerular Filtration Rate 10.6 mL/min (>60) Glucose Level 155 MG/DL (74-106) H Calcium Level 7.6 MG/DL (8.5-10.1) L Total Bilirubin 0.7 MG/DL (0.2-1.0) Aspartate Amino Transf (AST/SGOT) 18 U/L (15-37) Alanine Aminotransferase (ALT/SGPT) 25 U/L (12-78) Alkaline Phosphatase 89 U/L (46-116) Total Protein 6.7 G/DL (6.4-8.2) Albumin 2.5 G/DL (3.4-5.0) L Globulin 4.2 g/dL Albumin/Globulin Ratio 0.6 (1.0-2.7) L Amylase Level 74 U/L (25-115) Lipase 399 U/L (73-393) H Plan Problems: (1) Pancreatitis Assessment & Plan: febrile covid + lft's wnl lip elevated esr / crp elevated abd exam benign US abd ordered ca pending no acute surgical intervention will follow with exam and recs thank you trending down lip fluctuating clinically without pain tolerating diet monitor (2) Fever (3) Elevated troponin (4) ESRD (end stage renal disease) on dialysis (5) Anemia in chronic kidney disease (CKD) (6) DMII (diabetes mellitus, type 2) (7) 2019 novel coronavirus disease (COVID-19) Assessment & Plan: ++ id input on abx pulm noted Lungs: Low lung volumes with bronchovascular crowding. No consolidation, pleural effusion, or pneumothorax. Pleural space: See above. Heart: Cardiomegaly. Mediastinum: Unremarkable. Bones/joints: Sternotomy with mediastinal operative findings. Other findings: Radiopaque linear structure superimposed over the left neck of uncertain significance, correlate with patient presentation and history. IMPRESSION: 1. Radiopaque linear structure superimposed over the left neck of uncertain significance, correlate with patient presentation and history. 2. Low lung volumes with bronchovascular crowding. 3. Cardiomegaly. 4. Otherwise no acute cardiopulmonary disease. 5. If there is continued concern, consider frontal and lateral chest radiographs or CT. P[place] Aug 14, 2020 15:11
[2020-08-14 16:00] VITALS: BP 116/50
--- NOTE | 2020-08-14 16:00 | Cardiology Progress Note ---
Assessment/Plan Status: stable Assessment/Plan 1. COVID-19 viral PNA 2. CHF acute on chronic diastolic HF with elevated BNP, improved Echo EF 65% CXR negative for fluid overload 3. CAD s/p CABG and FL 4. Troponin leak 0.09 to 0.1 denies chest pain 5. ESRD on HD 6. HTN 7. HPLD 8. DMII Denies chest pain. Troponin leak 0.1, likely 2/2 CHF exacerbation and demand ischemia, will monitor. Echo shows well preserved LV function. Subjective Subjective WBCs still elevated, breathing easily on room air Objective Last 24 Hour Vital Signs Date Time Temp Pulse Resp B/P (MAP) Pulse Ox O2 Delivery O2 Flow Rate FiO2 08/14/20 12:00 97.0 65 18 100/60 (73) 95 08/14/20 09:00 Room Air 08/14/20 08:56 150/68 08/14/20 08:56 72 150/68 08/14/20 08:00 97.0 72 18 150/68 (95) 95 08/14/20 04:00 97.4 79 18 137/74 (95) 94 08/14/20 00:00 98.6 74 18 137/74 (95) 94 08/13/20 21:07 Room Air 08/13/20 20:28 74 110/65 08/13/20 20:00 98.7 74 18 110/65 (80) 94 Intake and Output 08/13/20 08/14/20 19:00 07:00 Output Total 2000 ml Balance -2000 ml Hemodialysis UF 2000 ml Laboratory Tests Test 08/13/20 16:11 08/14/20 06:32 POC Whole Blood Glucose 178 MG/DL (74-106) H White Blood Count 11.9 K/UL (4.8-10.8) H Red Blood Count 3.39 M/UL (4.70-6.10) L Hemoglobin 10.5 G/DL (14.2-18.0) L Hematocrit 29.9 % (42.0-52.0) L Mean Corpuscular Volume 88 FL (80-99) Mean Corpuscular Hemoglobin 30.8 PG (27.0-31.0) Mean Corpuscular Hemoglobin Concent 34.9 G/DL (32.0-36.0) Red Cell Distribution Width 17.2 % (11.6-14.8) H Platelet Count 168 K/UL (150-450) Mean Platelet Volume 6.7 FL (6.5-10.1) Neutrophils (%) (Auto) % (45.0-75.0) Lymphocytes (%) (Auto) % (20.0-45.0) Monocytes (%) (Auto) % (1.0-10.0) Eosinophils (%) (Auto) % (0.0-3.0) Basophils (%) (Auto) % (0.0-2.0) Differential Total Cells Counted 100 Neutrophils % (Manual) 86 % (45-75) H Lymphocytes % (Manual) 7 % (20-45) L Monocytes % (Manual) 6 % (1-10) Eosinophils % (Manual) 1 % (0-3) Basophils % (Manual) 0 % (0-2) Band Neutrophils 0 % (0-8) Platelet Estimate Adequate Platelet Morphology Normal Anisocytosis 1+ Sodium Level 135 MMOL/L (136-145) L Potassium Level 3.4 MMOL/L (3.5-5.1) L Chloride Level 96 MMOL/L (98-107) L Carbon Dioxide Level 33 MMOL/L (21-32) H Anion Gap 6 mmol/L (5-15) Blood Urea Nitrogen 34 mg/dL (7-18) H Creatinine 5.4 MG/DL (0.55-1.30) H Estimat Glomerular Filtration Rate 10.6 mL/min (>60) Glucose Level 155 MG/DL (74-106) H Calcium Level 7.6 MG/DL (8.5-10.1) L Total Bilirubin 0.7 MG/DL (0.2-1.0) Aspartate Amino Transf (AST/SGOT) 18 U/L (15-37) Alanine Aminotransferase (ALT/SGPT) 25 U/L (12-78) Alkaline Phosphatase 89 U/L (46-116) Total Protein 6.7 G/DL (6.4-8.2) Albumin 2.5 G/DL (3.4-5.0) L Globulin 4.2 g/dL Albumin/Globulin Ratio 0.6 (1.0-2.7) L Amylase Level 74 U/L (25-115) Lipase 399 U/L (73-393) H Radha Collins PA-C Aug 14, 2020 16:00
[2020-08-14 20:00] VITALS: BP 139/60
[2020-08-14] MEDS: Atorvastatin 80mg tab ORAL SCH (21:00)
--- NOTE | 2020-08-15 02:15 | Cardiology Report ---
APPROVED REPORT EXAM: Two-dimensional and M-mode echocardiogram with Doppler and color Doppler. INDICATION Congestive Heart Failure M-Mode DIMENSIONS IVSd1.2 (0.7-1.1cm)Left Atrium (MM)4.6 (1.6-4.0cm) LVDd5.3 (3.5-5.6cm)Aortic Root2.7 (2.0-3.7cm) PWd1.0 (0.7-1.1cm)Aortic Cusp Exc.1.5 (1.5-2.0cm) IVSs2.0 cmEPSS0.7 (>1.0cm) LVDs2.9 (2.5-4.0cm) PWs1.8 cm <Conclusion> Normal left ventricular chamber size, systolic function and wall motion. Left ventricular ejection fraction estimated to be 65 %. Mild left ventricular hypertrophy. No evidence of pericardial effusion. Mild left atrial enlargement. Right cardiac chamber sizes are within normal limits. Focal aortic valve sclerosis with adequate cusp excursion. Thickened mitral valve leaflets with normal excursion. Mitral annulus and aortic root calcification. Pulmonic valve not well visualized. Normal tricuspid valve structure. IVC is normal in size with physiological collapse. A color flow and spectral Doppler study was performed and revealed: No aortic regurgitation. Trace mitral regurgitation. Mitral diastolic velocities suggest mild left ventricular diastolic dysfunction (Grade I). Trace tricuspid regurgitation. Tricuspid systolic velocities suggests peak right ventricular systolic pressure of 33 mmHg. No pulmonic regurgitation present.
--- NOTE | 2020-08-15 02:28 | Cardiology Report ---
APPROVED REPORT EKG Measurement Heart [id number] <Conclusion> Normal sinus rhythm Possible Left atrial enlargement Septal infarct, age undetermined ST & T wave abnormality, consider lateral ischemia Abnormal ECG
[2020-08-15] MEDS: GlipiZIDE 5mg tab ORAL SCH ×2 (05:58→17:05)
[2020-08-15] MEDS: NovoLOG Insulin Flexpen SUBQ SCH ×4 (06:12→20:22)
[2020-08-15 07:44] LABS: HEMATOCRIT 27.5 % (42.0-52.0); HEMOGLOBIN 9.4 G/DL (14.2-18.0); MEAN CORPUSCULAR VOLUME 90 FL (80-99); PLATELET COUNT 176 K/UL (150-450); RED BLOOD COUNT 3.06 M/UL (4.70-6.10); RED CELL DISTRIBUTION WIDTH 16.4 % (11.6-14.8); WHITE BLOOD COUNT 10.8 K/UL (4.8-10.8)
[2020-08-15 08:00] VITALS: BP 122/82
[2020-08-15 08:09] LABS: ALBUMIN 2.2 G/DL (3.4-5.0); ALBUMIN/GLOBULIN RATIO 0.5 (1.0-2.7); BILIRUBIN,TOTAL 0.6 MG/DL (0.2-1.0); CALCIUM 7.5 MG/DL (8.5-10.1); CREATININE 6.4 MG/DL (0.55-1.30); POTASSIUM 3.5 MMOL/L (3.5-5.1)
[2020-08-15 08:10] LABS: PHOSPHORUS 3.4 MG/DL (2.5-4.9)
[2020-08-15] MEDS: Docusate 100mg cap ORAL SCH ×3 (08:12→17:05)
[2020-08-15] MEDS: Amiodarone 200mg tab ORAL SCH (08:13)
[2020-08-15] MEDS: Sertraline 50mg tab ORAL SCH (08:13)
[2020-08-15] MEDS: Enoxaparin 30mg Inj SUBQ SCH (08:14)
[2020-08-15] MEDS: Imdur 30mg tab ORAL SCH (08:14)
--- NOTE | 2020-08-15 09:15 | General Progress Note ---
Subjective ROS Limited/Unobtainable: Yes Allergies: Coded Allergies: No Known Allergies (Unverified , 08/06/20) Objective Last 24 Hour Vital Signs Date Time Temp Pulse Resp B/P (MAP) Pulse Ox O2 Delivery O2 Flow Rate FiO2 08/15/20 08:14 122/82 08/15/20 08:00 97.0 65 18 122/82 (95) 99 08/14/20 21:00 70 139/60 08/14/20 21:00 Room Air 08/14/20 20:00 97.8 70 18 139/60 (86) 93 08/14/20 16:00 97.0 61 18 116/50 (72) 94 08/14/20 12:00 97.0 65 18 100/60 (73) 95 Intake and Output 08/14/20 08/15/20 19:00 07:00 Intake Total 360 ml Balance 360 ml Other 360 ml # Voids 2 Laboratory Tests 08/15/20 06:00: White Blood Count 10.8, Red Blood Count 3.06L, Hemoglobin 9.4L, Hematocrit 27.5L , Mean Corpuscular Volume 90, Mean Corpuscular Hemoglobin 30.8, Mean Corpuscular Hemoglobin Concent 34.3, Red Cell Distribution Width 16.4H, Platelet Count 176, Mean Platelet Volume 6.9, Neutrophils (%) (Auto) , Lymphocytes (%) (Auto) , Monocytes (%) (Auto) , Eosinophils (%) (Auto) , Basophils (%) (Auto) , Neutrophils % (Manual) [Pending], Lymphocytes % (Manual) [Pending], Platelet Estimate [Pending], Platelet Morphology [Pending], Sodium Level 134L, Potassium Level 3.5, Chloride Level 97L, Carbon Dioxide Level 33H, Anion Gap 4L, Blood Urea Nitrogen 48H, Creatinine 6.4H, Estimat Glomerular Filtration Rate 8.7, Glucose Level 161H, Calcium Level 7.5L, Phosphorus Level 3.4, Magnesium Level 2.2, Total Bilirubin 0.6, Aspartate Amino Transf (AST/SGOT) 17, Alanine Farley otransferase (ALT/SGPT) 24, Alkaline Phosphatase 91, C-Reactive Protein, Quantitative [Pending], Total Protein 6.3L, Albumin 2.2L, Globulin 4.1, Albumin/Globulin Ratio 0.5L Height (Feet): 5 Height (Inches): 8.00 Weight (Pounds): 180 General Appearance: alert EENT: normal ENT inspection Neck: supple Cardiovascular: normal rate Respiratory/Chest: decreased breath sounds Abdomen: normal bowel sounds, non tender, soft Extremities: non-tender Assessment/Plan Status: stable Assessment/Plan: COVID anemia renal failure CAD/HI DM elevated lipase elevated trop check amylase and lipase>>improving on renal diet on HD fu ID, Renal and cardiology monitor for BM Rd Cruz MD Aug 15, 2020 09:15
--- NOTE | 2020-08-15 10:27 | Nephrology Progress Note ---
Assessment/Plan Problem List: (1) ESRD (end stage renal disease) on dialysis (2) Elevated troponin (3) Pancreatitis (4) 2019 novel coronavirus disease (COVID-19) (5) Anemia in chronic kidney disease (CKD) (6) DMII (diabetes mellitus, type 2) Assessment End-stage renal disease on hemodialysis COVID-19 pneumonia Coronary artery disease, [place] Diabetes mellitus Anemia Elevated lipase Plan August 15: Due for dialysis today. Labs reviewed. Blood pressure stable. Continue per consultants. August 14: Dialyzed yesterday. Due for dialysis tomorrow. Labs reviewed. Medication list reviewed. Full code. Continue per consultants. August 13: Due for dialysis today. Labs reviewed. Medication list reviewed. Continue per consultants. August 12: Dialyzed yesterday. Due for dialysis tomorrow. Medication list reviewed. Labs are reviewed. Continue per consultants. August 11: Due for dialysis today. Continue per consultants. Check labs saji . August 10: Last dialyzed yesterday. Labs reviewed. Due for dialysis tomorrow. Continue per consultants. August 09: Patient due for dialysis today. Labs reviewed. Medication list reviewed. Continue per consultants. August 08: Patient was dialyzed yesterday. Due for dialysis tomorrow. Blood pressure medication adjusted. Diet changed to renal medium carbs. Continue per consultants. 2D echo pending. Previously: Monitor renal parameters Hemodialysis as soon as the patient arrives to medical floor Monitor lipase, renal parameters, hemoglobin and hematocrit Per orders Subjective ROS Limited/Unobtainable: No Constitutional: Reports: malaise, weakness Objective Objective Last 24 Hour Vital Signs Date Time Temp Pulse Resp B/P (MAP) Pulse Ox O2 Delivery O2 Flow Rate FiO2 08/15/20 09:00 Room Air 08/15/20 08:14 122/82 08/15/20 08:00 97.0 65 18 122/82 (95) 99 08/14/20 21:00 70 139/60 08/14/20 21:00 Room Air 08/14/20 20:00 97.8 70 18 139/60 (86) 93 08/14/20 16:00 97.0 61 18 116/50 (72) 94 08/14/20 12:00 97.0 65 18 100/60 (73) 95 Intake and Output 08/14/20 08/15/20 19:00 07:00 Intake Total 360 ml Balance 360 ml Other 360 ml # Voids 2 Current Medications Medications (Trade) Dose Ordered Sig/Miri Route PRN Reason Start Time Stop Time Status Last Admin Dose Admin Acetaminophen (Tylenol) 650 mg Q4H PRN ORAL Mild Pain (Pain Scale 1-3) 08/11/20 22:30 09/10/20 22:29 08/15/20 06:09 Acetaminophen (Tylenol) 650 mg Q4H PRN ORAL Temp >100.5 08/09/20 19:00 09/08/20 18:59 08/09/20 20:30 Albuterol Sulfate (Proventil MDI) 2 puff Q4H PRN INH Shortness of Breath 08/06/20 22:45 11/04/20 22:44 Amiodarone HCl (Cordarone) 200 mg DAILY ORAL 08/07/20 09:00 11/05/20 08:59 08/15/20 08:13 Atorvastatin Calcium (Lipitor) 80 mg BEDTIME ORAL 08/08/20 21:00 11/06/20 20:59 08/13/20 20:28 Clopidogrel Bisulfate (Plavix) 75 mg DAILY ORAL 08/07/20 09:00 09/06/20 08:59 08/15/20 08:12 Dextrose (Dextrose 50%) 25 ml Q30M PRN IV Hypoglycemia 08/06/20 22:45 11/04/20 22:44 Dextrose (Dextrose 50%) 50 ml Q30M PRN IV Hypoglycemia 08/06/20 22:45 11/04/20 22:44 Docusate Sodium (Colace) 100 mg TID ORAL 08/12/20 13:00 09/09/20 12:59 08/15/20 08:12 Enoxaparin Sodium (Lovenox) 30 mg DAILY SUBQ 08/07/20 09:00 11/05/20 08:59 08/14/20 08:46 Glipizide (Glucotrol) 5 mg BIAC ORAL 08/07/20 06:30 09/06/20 06:29 08/15/20 05:58 Guaifenesin/ Dextromethorphan (Robitussin DM Syrup) 10 ml Q4H PRN ORAL For Cough 08/07/20 17:30 11/05/20 17:29 08/12/20 19:56 Insulin Aspart (NovoLOG) BEFORE MEALS AND HS SUBQ 08/07/20 06:30 11/05/20 06:29 08/14/20 16:49 Ipratropium [place] (Atrovent Inh) 2 puffs Q4H PRN INH SOB wheezing 08/06/20 22:45 09/05/20 22:44 Isosorbide Mononitrate (Imdur) 30 mg DAILY ORAL 08/08/20 09:00 09/07/20 08:59 08/15/20 08:14 Metoprolol Tartrate (Lopressor) 25 mg Q12HR ORAL 08/07/20 09:00 11/05/20 08:59 08/14/20 08:56 Ondansetron HCl (Zofran) 4 mg Q6H PRN IVP Nausea & Vomiting 08/08/20 10:15 09/07/20 10:14 08/09/20 20:31 Pantoprazole (Protonix) 40 mg EVERY 12 HOURS ORAL 08/08/20 21:00 09/07/20 20:59 08/15/20 08:13 Polyethylene Glycol (Miralax) 17 gm DAILY PRN ORAL Constipation 08/12/20 09:30 09/11/20 09:29 08/12/20 09:47 Sertraline HCl (Zoloft) 25 mg DAILY ORAL 08/07/20 09:00 09/06/20 08:59 08/15/20 08:13 Laboratory Tests 08/15/20 06:00: White Blood Count 10.8, Red Blood Count 3.06L, Hemoglobin 9.4L, Hematocrit 27.5L , Mean Corpuscular Volume 90, Mean Corpuscular Hemoglobin 30.8, Mean Corpuscular Hemoglobin Concent 34.3, Red Cell Distribution Width 16.4H, Platelet Count 176, Mean Platelet Volume 6.9, Neutrophils (%) (Auto) , Lymphocytes (%) (Auto) , Monocytes (%) (Auto) , Eosinophils (%) (Auto) , Basophils (%) (Auto) , Neutrophils % (Manual) [Pending], Lymphocytes % (Manual) [Pending], Platelet Estimate [Pending], Platelet Morphology [Pending], Sodium Level 134L, Potassium Level 3.5, Chloride Level 97L, Carbon Dioxide Level 33H, Anion Gap 4L, Blood Urea Nitrogen 48H, Creatinine 6.4H, Estimat Glomerular Filtration Rate 8.7, Glucose Level 161H, Calcium Level 7.5L, Phosphorus Level 3.4, Magnesium Level 2.2, Total Bilirubin 0.6, Aspartate Amino Transf (AST/SGOT) 17, Alanine Aminotransferase (ALT/SGPT) 24, Alkaline Phosphatase 91, C-Reactive Protein, Quantitative [Pending], Total Protein 6.3L, Albumin 2.2L, Globulin 4.1, Albumin/Globulin Ratio 0.5L Height (Feet): 5 Height (Inches): 8.00 Weight (Pounds): 180 General Appearance: no apparent distress Cardiovascular: normal rate Respiratory/Chest: decreased breath sounds Abdomen: soft Objective No change Jon Crews MD Aug 15, 2020 10:27
--- NOTE | 2020-08-15 11:37 | Pulmonology Progress Note ---
Subjective ROS Limited/Unobtainable: No Allergies: Coded Allergies: No Known Allergies (Unverified , 08/06/20) Subjective no resp distress pulse ox stable on RA no further fevers; no leukocytosis denies CP, SOB last HD 08/13 , HD plan for today Objective Last 24 Hour Vital Signs Date Time Temp Pulse Resp B/P (MAP) Pulse Ox O2 Delivery O2 Flow Rate FiO2 08/15/20 09:00 Room Air 08/15/20 08:14 122/82 08/15/20 08:00 97.0 65 18 122/82 (95) 99 08/14/20 21:00 70 139/60 08/14/20 21:00 Room Air 08/14/20 20:00 97.8 70 18 139/60 (86) 93 08/14/20 16:00 97.0 61 18 116/50 (72) 94 08/14/20 12:00 97.0 65 18 100/60 (73) 95 Intake and Output 08/14/20 08/15/20 19:00 07:00 Intake Total 360 ml Balance 360 ml Other 360 ml # Voids 2 Objective General Appearance: WD/WN, no apparent distress, alert Lines, tubes and drains: peripheral HEENT: normocephalic, atraumatic, anicteric, mucous membranes moist, PERRL Neck: non-tender, supple Respiratory/Chest: chest wall non-tender, lungs clear with moderate air exchange , no respiratory distress, no accessory muscle use Cardiovascular/Chest: normal peripheral pulses, normal rate, regular rhythm, + 1- edema BLE Abdomen: normal bowel sounds, non tender, soft Extremities: normal range of motion, non-tender, no calf tenderness, normal capillary refill, LUE AV shunt + bruit/thrill Skin Exam: warm/dry Neurologic: no motor/sensory deficits, alert, oriented x 3, responsive Musculoskeletal: normal muscle bulk Laboratory Tests 08/15/20 06:00: White Blood Count 10.8, Red Blood Count 3.06L, Hemoglobin 9.4L, Hematocrit 27.5L , Mean Corpuscular Volume 90, Mean Corpuscular Hemoglobin 30.8, Mean Corpuscular Hemoglobin Concent 34.3, Red Cell Distribution Width 16.4H, Platelet Count 176, Mean Platelet Volume 6.9, Neutrophils (%) (Auto) , Lymphocytes (%) (Auto) , Monocytes (%) (Auto) , Eosinophils (%) (Auto) , Basophils (%) (Auto) , Differential Total Cells Counted 100, Neutrophils % (Manual) 86H, Lymphocytes % (Manual) 8L, Monocytes % (Manual) 4, Eosinophils % (Manual) 2, Basophils % (Manual) 0, Band Neutrophils 0, Platelet Estimate Adequate, Platelet Morphology Normal, Hypochromasia 1+, Anisocytosis 1+, Sodium Level 134L, Potassium Level 3.5, Chloride Level 97L, Carbon Dioxide Level 33H, Anion Gap 4L, Blood Urea Nitrogen 48H, Creatinine 6.4H, Estimat Glomerular Filtration Rate 8.7, Glucose Level 161H, Calcium Level 7.5L, Phosphorus Level 3.4, Magnesium Level 2.2, Total Bilirubin 0.6, Aspartate Amino Transf (AST/SGOT) 17, Alanine Aminotransferase (ALT/SGPT) 24, Alkaline Phosphatase 91, C-Reactive Protein, Quantitative [Pending], Total Protein 6.3L, Albumin 2.2L, Globulin 4.1, Albumin/Globulin Ratio 0.5L Current Medications Medications (Trade) Dose Ordered Sig/Miri Route PRN Reason Start Time Stop Time Status Last Admin Dose Admin Acetaminophen (Tylenol) 650 mg Q4H PRN ORAL Mild Pain (Pain Scale 1-3) 08/11/20 22:30 09/10/20 22:29 08/15/20 06:09 Acetaminophen (Tylenol) 650 mg Q4H PRN ORAL Temp >100.5 08/09/20 19:00 09/08/20 18:59 08/09/20 20:30 Albuterol Sulfate (Proventil MDI) 2 puff Q4H PRN INH Shortness of Breath 08/06/20 22:45 11/04/20 22:44 Amiodarone HCl (Cordarone) 200 mg DAILY ORAL 08/07/20 09:00 11/05/20 08:59 08/15/20 08:13 Atorvastatin Calcium (Lipitor) 80 mg BEDTIME ORAL 08/08/20 21:00 11/06/20 20:59 08/13/20 20:28 Clopidogrel Bisulfate (Plavix) 75 mg DAILY ORAL 08/07/20 09:00 09/06/20 08:59 08/15/20 08:12 Dextrose (Dextrose 50%) 25 ml Q30M PRN IV Hypoglycemia 08/06/20 22:45 11/04/20 22:44 Dextrose (Dextrose 50%) 50 ml Q30M PRN IV Hypoglycemia 08/06/20 22:45 11/04/20 22:44 Docusate Sodium (Colace) 100 mg TID ORAL 08/12/20 13:00 09/09/20 12:59 08/15/20 08:12 Enoxaparin Sodium (Lovenox) 30 mg DAILY SUBQ 08/07/20 09:00 11/05/20 08:59 08/14/20 08:46 Glipizide (Glucotrol) 5 mg BIAC ORAL 08/07/20 06:30 09/06/20 06:29 08/15/20 05:58 Guaifenesin/ Dextromethorphan (Robitussin DM Syrup) 10 ml Q4H PRN ORAL For Cough 08/07/20 17:30 11/05/20 17:29 08/12/20 19:56 Insulin Aspart (NovoLOG) BEFORE MEALS AND HS SUBQ 08/07/20 06:30 11/05/20 06:29 08/14/20 16:49 Ipratropium [place] (Atrovent Inh) 2 puffs Q4H PRN INH SOB wheezing 08/06/20 22:45 09/05/20 22:44 Isosorbide Mononitrate (Imdur) 30 mg DAILY ORAL 08/08/20 09:00 09/07/20 08:59 08/15/20 08:14 Metoprolol Tartrate (Lopressor) 25 mg Q12HR ORAL 08/07/20 09:00 11/05/20 08:59 08/14/20 08:56 Ondansetron HCl (Zofran) 4 mg Q6H PRN IVP Nausea & Vomiting 08/08/20 10:15 09/07/20 10:14 08/09/20 20:31 Pantoprazole (Protonix) 40 mg EVERY 12 HOURS ORAL 08/08/20 21:00 09/07/20 20:59 08/15/20 08:13 Polyethylene Glycol (Miralax) 17 gm DAILY PRN ORAL Constipation 08/12/20 09:30 09/11/20 09:29 08/12/20 09:47 Sertraline HCl (Zoloft) 25 mg DAILY ORAL 08/07/20 09:00 09/06/20 08:59 08/15/20 08:13 Assessment/Plan Assessment/Plan ASSESSMENT COVID-19 infection CHF acute on chronic ( due to missed HD) Elevated troponin, likely troponin leak ESRD, on HD ( missed dialysis for 1 week ) Coronary artery disease with history of MD and CABG DM OOC - [id number] HTN Elevated lipase Anemia of chronic diseas4 Fever -resolved Constipation PLAN OF CARE MS floor isolation Date of sx onset: 1 week prior to admission Positive test: 08/06 rapid COVID 19 + O2 -on RA HFA Dex-> off Dexamethasone since 08/08 ( s/p 2 days) since not hypoxic REM - -> not a candidate given ESRD DVT PPX: Lovenox D dimer -0.47 Trend CRP-> 2.9-> 7.8-> 9.7-pending this am no abx as per ID recs ; BCX 08/09 NGTD, no further fevers CXR 07/30- no acute disease CXR 08/11 -slight interval worsening of mild to moderate diffuse right lung infiltrate with unchanged patchy mild left lung infiltrates. Monitor volumes and renal function, HD as per nephro Fup with consultants recs FC continue a/PLT therapy with Plavix and beta blockage elevated troponin x 3 with minimal elevation, same range, likely troponin leak, ECG non-ischemic, no c/o CP cardio recs appreciated BP management with BB and Hydralazine ( added by cardio) ECHO with pEF 65% BS management with Glipizide and SSI, HgA1c- 12.5 clearly not at goal may need more aggressive treatment of BS while on steroids anemia w/up c/w anemia of chronic disease , ferritin 1537 monitor HH with goal to keep Hgb >7 , remains at baseline consider EPO if drop in Hgb GI follows lipase trending down, amylase WNL a/emetic prn no c/o abd pain bowel regimen supportive care dc plan home , ID cleared for dc; need self isolation till 08/15 fup with OP HD ( last HD 08/13) - will discuss with nephro dc plan to SNF when place secured case discussed and evaluated by supervising physician Park Gunn NP Aug 15, 2020 11:37
[2020-08-15 12:00] VITALS: BP 114/50
--- NOTE | 2020-08-15 12:47 | Surgery Progress Note ---
Surgery Progress Note Subjective Additional Comments Patient seen and examined bedside. No acute events. Resting comfortably. Labs noted. Exam stable. No complaints at this time. Imaging reviewed micro revi ewed afebrile hemodynamic stable Objective Last 24 Hour Vital Signs Date Time Temp Pulse Resp B/P (MAP) Pulse Ox O2 Delivery O2 Flow Rate FiO2 08/15/20 12:00 96.4 57 18 114/50 (71) 98 08/15/20 09:00 Room Air 08/15/20 08:14 122/82 08/15/20 08:00 97.0 65 18 122/82 (95) 99 08/14/20 21:00 70 139/60 08/14/20 21:00 Room Air 08/14/20 20:00 97.8 70 18 139/60 (86) 93 08/14/20 16:00 97.0 61 18 116/50 (72) 94 I&O Intake and Output 08/14/20 08/15/20 19:00 07:00 Intake Total 360 ml Balance 360 ml Other 360 ml # Voids 2 Cardiovascular: RSR Respiratory: clear Abdomen: soft, non-tender, present bowel sounds Extremities: no edema, no tenderness, no cyanosis Laboratory Tests Test 08/15/20 06:00 08/15/20 06:01 08/15/20 11:24 White Blood Count 10.8 K/UL (4.8-10.8) Red Blood Count 3.06 M/UL (4.70-6.10) L Hemoglobin 9.4 G/DL (14.2-18.0) L Hematocrit 27.5 % (42.0-52.0) L Mean Corpuscular Volume 90 FL (80-99) Mean Corpuscular Hemoglobin 30.8 PG (27.0-31.0) Mean Corpuscular Hemoglobin Concent 34.3 G/DL (32.0-36.0) Red Cell Distribution Width 16.4 % (11.6-14.8) H Platelet Count 176 K/UL (150-450) Mean Platelet Volume 6.9 FL (6.5-10.1) Neutrophils (%) (Auto) % (45.0-75.0) Lymphocytes (%) (Auto) % (20.0-45.0) Monocytes (%) (Auto) % (1.0-10.0) Eosinophils (%) (Auto) % (0.0-3.0) Basophils (%) (Auto) % (0.0-2.0) Differential Total Cells Counted 100 Neutrophils % (Manual) 86 % (45-75) H Lymphocytes % (Manual) 8 % (20-45) L Monocytes % (Manual) 4 % (1-10) Eosinophils % (Manual) 2 % (0-3) Basophils % (Manual) 0 % (0-2) Band Neutrophils 0 % (0-8) Platelet Estimate Adequate Platelet Morphology Normal Hypochromasia 1+ Anisocytosis 1+ Sodium Level 134 MMOL/L (136-145) L Potassium Level 3.5 MMOL/L (3.5-5.1) Chloride Level 97 MMOL/L (98-107) L Carbon Dioxide Level 33 MMOL/L (21-32) H Anion Gap 4 mmol/L (5-15) L Blood Urea Nitrogen 48 mg/dL (7-18) H Creatinine 6.4 MG/DL (0.55-1.30) H Estimat Glomerular Filtration Rate 8.7 mL/min (>60) Glucose Level 161 MG/DL (74-106) H Calcium Level 7.5 MG/DL (8.5-10.1) L Phosphorus Level 3.4 MG/DL (2.5-4.9) Magnesium Level 2.2 MG/DL (1.8-2.4) Total Bilirubin 0.6 MG/DL (0.2-1.0) Aspartate Amino Transf (AST/SGOT) 17 U/L (15-37) Alanine Aminotransferase (ALT/SGPT) 24 U/L (12-78) Alkaline Phosphatase 91 U/L (46-116) C-Reactive Protein, Quantitative Pending Total Protein 6.3 G/DL (6.4-8.2) L Albumin 2.2 G/DL (3.4-5.0) L Globulin 4.1 g/dL Albumin/Globulin Ratio 0.5 (1.0-2.7) L POC Whole Blood Glucose 165 MG/DL (74-106) H 114 MG/DL (74-106) H Plan Problems: (1) Pancreatitis Assessment & Plan: febrile covid + lft's wnl lip elevated esr / crp elevated abd exam benign US abd ordered ca pending no acute surgical intervention will follow with exam and recs thank you trending down lip fluctuating clinically without pain tolerating diet monitor (2) Fever (3) Elevated troponin (4) ESRD (end stage renal disease) on dialysis (5) Anemia in chronic kidney disease (CKD) (6) DMII (diabetes mellitus, type 2) (7) 2019 novel coronavirus disease (COVID-19) Assessment & Plan: ++ id input on abx pulm noted Lungs: Low lung volumes with bronchovascular crowding. No consolidation, pleural effusion, or pneumothorax. Pleural space: See above. Heart: Cardiomegaly. Mediastinum: Unremarkable. Bones/joints: Sternotomy with mediastinal operative findings. Other findings: Radiopaque linear structure superimposed over the left neck of uncertain significance, correlate with patient presentation and history. IMPRESSION: 1. Radiopaque linear structure superimposed over the left neck of uncertain significance, correlate with patient presentation and history. 2. Low lung volumes with bronchovascular crowding. 3. Cardiomegaly. 4. Otherwise no acute cardiopulmonary disease. 5. If there is continued concern, consider frontal and lateral chest radiographs or CT. Pacheco [place] Aug 15, 2020 12:47
[2020-08-15 16:00] VITALS: BP 155/70
[2020-08-15 20:00] VITALS: BP 152/65
[2020-08-15] MEDS: Atorvastatin 80mg tab ORAL SCH (20:21)
[2020-08-16 06:16] LABS: BASOPHILS % (AUTO) 0.5 % (0.0-2.0); EOSINOPHILS % (AUTO) 0.7 % (0.0-3.0); HEMATOCRIT 30.9 % (42.0-52.0); LYMPHOCYTES % (AUTO) 10.7 % (20.0-45.0); MEAN CORPUSCULAR VOLUME 92 FL (80-99); MONOCYTES % (AUTO) 8.4 % (1.0-10.0); NEUTROPHILS % (AUTO) 79.7 % (45.0-75.0); PLATELET COUNT 201 K/UL (150-450); RED BLOOD COUNT 3.37 M/UL (4.70-6.10); RED CELL DISTRIBUTION WIDTH 16.4 % (11.6-14.8); WHITE BLOOD COUNT 9.9 K/UL (4.8-10.8)
[2020-08-16] MEDS: GlipiZIDE 5mg tab ORAL SCH ×2 (06:36→17:30)
[2020-08-16] MEDS: NovoLOG Insulin Flexpen SUBQ SCH ×4 (06:37→21:00)
[2020-08-16 06:42] LABS: PHOSPHORUS 3.9 MG/DL (2.5-4.9)
[2020-08-16 06:47] LABS: ALBUMIN 2.4 G/DL (3.4-5.0); ALBUMIN/GLOBULIN RATIO 0.5 (1.0-2.7); BILIRUBIN,TOTAL 0.6 MG/DL (0.2-1.0); CALCIUM 7.9 MG/DL (8.5-10.1); POTASSIUM 3.9 MMOL/L (3.5-5.1)
[2020-08-16 08:00] VITALS: BP 120/54
--- NOTE | 2020-08-16 08:45 | Cardiology Progress Note ---
Assessment/Plan Status: stable Assessment/Plan 1. COVID-19 viral PNA 2. CHF acute on chronic with elevated BNP, improved Echo EF 65% CXR positive for infiltates 3. CAD s/p CABG and NM 4. Troponin leak 0.09 to 0.1 denies chest pain 5. ESRD on HD 6. HTN 7. HPLD 8. DMII Denies chest pain. Troponin leak 0.1, likely 2/2 CHF exacerbation and demand ischemia, will monitor. Echo shows well preserved LV function, CXR shows increased infiltrative disease. Pt refusing vital signs today. Subjective ROS Limited/Unobtainable: Yes Cardiovascular: Reports: no symptoms Respiratory: Reports: no symptoms Genitourinary: Reports: no symptoms Subjective Denies chest pain, breathing easily on room air Objective Last 24 Hour Vital Signs Date Time Temp Pulse Resp B/P (MAP) Pulse Ox O2 Delivery O2 Flow Rate FiO2 08/15/20 21:00 Room Air 08/15/20 20:20 77 152/65 08/15/20 20:00 99.0 77 19 152/65 (94) 94 08/15/20 16:00 97.0 76 18 155/70 (98) 98 08/15/20 12:00 96.4 57 18 114/50 (71) 98 08/15/20 09:00 Room Air Intake and Output 08/15/20 08/16/20 19:00 07:00 Intake Total 360 ml Output Total 2000 ml Balance -2000 ml 360 ml Other 360 ml Hemodialysis UF 2000 ml Laboratory Tests Test 08/15/20 11:24 08/15/20 20:13 08/15/20 20:15 08/16/20 04:30 POC Whole Blood Glucose 114 MG/DL (74-106) H 324 MG/DL (74-106) H 339 MG/DL (74-106) H White Blood Count 9.9 K/UL (4.8-10.8) Red Blood Count 3.37 M/UL (4.70-6.10) L Hemoglobin 10.0 G/DL (14.2-18.0) L Hematocrit 30.9 % (42.0-52.0) L Mean Corpuscular Volume 92 FL (80-99) Mean Corpuscular Hemoglobin 29.7 PG (27.0-31.0) Mean Corpuscular Hemoglobin Concent 32.3 G/DL (32.0-36.0) Red Cell Distribution Width 16.4 % (11.6-14.8) H Platelet Count 201 K/UL (150-450) Mean Platelet Volume 6.8 FL (6.5-10.1) Neutrophils (%) (Auto) 79.7 % (45.0-75.0) H Lymphocytes (%) (Auto) 10.7 % (20.0-45.0) L Monocytes (%) (Auto) 8.4 % (1.0-10.0) Eosinophils (%) (Auto) 0.7 % (0.0-3.0) Basophils (%) (Auto) 0.5 % (0.0-2.0) Sodium Level 138 MMOL/L (136-145) Potassium Level 3.9 MMOL/L (3.5-5.1) Chloride Level 99 MMOL/L (98-107) Carbon Dioxide Level 36 MMOL/L (21-32) H Anion Gap 3 mmol/L (5-15) L Blood Urea Nitrogen 30 mg/dL (7-18) H Creatinine 5.0 MG/DL (0.55-1.30) H Estimat Glomerular Filtration Rate 11.6 mL/min (>60) Glucose Level 102 MG/DL (74-106) Calcium Level 7.9 MG/DL (8.5-10.1) L Phosphorus Level 3.9 MG/DL (2.5-4.9) Magnesium Level 2.1 MG/DL (1.8-2.4) Total Bilirubin 0.6 MG/DL (0.2-1.0) Aspartate Amino Transf (AST/SGOT) 21 U/L (15-37) Alanine Aminotransferase (ALT/SGPT) 31 U/L (12-78) Alkaline Phosphatase 109 U/L (46-116) C-Reactive Protein, Quantitative Pending Pro-B-Type Natriuretic Peptide 2942 pg/mL (0-125) H Total Protein 6.8 G/DL (6.4-8.2) Albumin 2.4 G/DL (3.4-5.0) L Globulin 4.4 g/dL Albumin/Globulin Ratio 0.5 (1.0-2.7) L Amylase Level 88 U/L (25-115) Lipase 567 U/L (73-393) H Test 1/7/21 06:32 POC Whole Blood Glucose 165 MG/DL (74-106) H Radha Collins PA-C Aug 16, 2020 08:45
--- NOTE | 2020-08-16 09:10 | Infectious Diseases Prog Note ---
Assessment/Plan 69yo M with: COVID pneumonia Febrile to 101.3 Normal WBC Lymphopenia 08/06 BCx NTD COVID rapid test positive UA neg CXR: No acute process MRSA nares neg 08/09 BCx NTD CXR: Borderline cardiomegaly. No acute process 1/2 CXR: There is been slight interval worsening of mild to moderate diffuse right lung infiltrate with unchanged patchy mild left lung infiltrates. Elevated lipase, no abd pain PMH: ESRD on HD CAD s/p CABG 2018 HTN HLD DM2 LUE AVF Plan: Cont to monitor off abx OK to d/c home from ID standpoint given doing well on RA OK to d/c off COVID isolation given pt now >10 days out from date of diagnosis and doing well on RA 08/08 SP Dex #2, stopped given on RA Not candidate for RDV given ESRD on HD This institution does not have access to convalescent plasma, and as pt doing well on RA unlikely to benefit from it at this point Monitor CBC/CMP Monitor resp status Monitor temp curve, hemodynamics Thank you for this consult. [facility] will continue to follow. Subjective Allergies: Coded Allergies: No Known Allergies (Unverified , 08/06/20) AF Doing well on RA WBC improving to 9 NAD Objective Last 24 Hour Vital Signs Date Time Temp Pulse Resp B/P (MAP) Pulse Ox O2 Delivery O2 Flow Rate FiO2 08/15/20 21:00 Room Air 08/15/20 20:20 77 152/65 08/15/20 20:00 99.0 77 19 152/65 (94) 94 08/15/20 16:00 97.0 76 18 155/70 (98) 98 08/15/20 12:00 96.4 57 18 114/50 (71) 98 Height (Feet): 5 Height (Inches): 8.00 Weight (Pounds): 180 Gen: NAD HEENT: NCAT Pulm: BL chest rise Abd: Non-distended Ext: No c/c/e Skin: No visible rashes Neuro: Awake Laboratory Tests Test 08/15/20 11:24 08/15/20 20:13 08/15/20 20:15 08/16/20 04:30 POC Whole Blood Glucose 114 MG/DL (74-106) H 324 MG/DL (74-106) H 339 MG/DL (74-106) H White Blood Count 9.9 K/UL (4.8-10.8) Red Blood Count 3.37 M/UL (4.70-6.10) L Hemoglobin 10.0 G/DL (14.2-18.0) L Hematocrit 30.9 % (42.0-52.0) L Mean Corpuscular Volume 92 FL (80-99) Mean Corpuscular Hemoglobin 29.7 PG (27.0-31.0) Mean Corpuscular Hemoglobin Concent 32.3 G/DL (32.0-36.0) Red Cell Distribution Width 16.4 % (11.6-14.8) H Platelet Count 201 K/UL (150-450) Mean Platelet Volume 6.8 FL (6.5-10.1) Neutrophils (%) (Auto) 79.7 % (45.0-75.0) H Lymphocytes (%) (Auto) 10.7 % (20.0-45.0) L Monocytes (%) (Auto) 8.4 % (1.0-10.0) Eosinophils (%) (Auto) 0.7 % (0.0-3.0) Basophils (%) (Auto) 0.5 % (0.0-2.0) Sodium Level 138 MMOL/L (136-145) Potassium Level 3.9 MMOL/L (3.5-5.1) Chloride Level 99 MMOL/L (98-107) Carbon Dioxide Level 36 MMOL/L (21-32) H Anion Gap 3 mmol/L (5-15) L Blood Urea Nitrogen 30 mg/dL (7-18) H Creatinine 5.0 MG/DL (0.55-1.30) H Estimat Glomerular Filtration Rate 11.6 mL/min (>60) Glucose Level 102 MG/DL (74-106) Calcium Level 7.9 MG/DL (8.5-10.1) L Phosphorus Level 3.9 MG/DL (2.5-4.9) Magnesium Level 2.1 MG/DL (1.8-2.4) Total Bilirubin 0.6 MG/DL (0.2-1.0) Aspartate Amino Transf (AST/SGOT) 21 U/L (15-37) Alanine Aminotransferase (ALT/SGPT) 31 U/L (12-78) Alkaline Phosphatase 109 U/L (46-116) C-Reactive Protein, Quantitative Pending Pro-B-Type Natriuretic Peptide 2942 pg/mL (0-125) H Total Protein 6.8 G/DL (6.4-8.2) Albumin 2.4 G/DL (3.4-5.0) L Globulin 4.4 g/dL Albumin/Globulin Ratio 0.5 (1.0-2.7) L Amylase Level 88 U/L (25-115) Lipase 567 U/L (73-393) H Test 08/16/20 06:32 POC Whole Blood Glucose 165 MG/DL (74-106) H Current Medications Medications (Trade) Dose Ordered Sig/Miri Route PRN Reason Start Time Stop Time Status Last Admin Dose Admin Acetaminophen (Tylenol) 650 mg Q4H PRN ORAL Mild Pain (Pain Scale 1-3) 08/11/20 22:30 09/10/20 22:29 08/15/20 22:07 Acetaminophen (Tylenol) 650 mg Q4H PRN ORAL Temp >100.5 08/09/20 19:00 09/08/20 18:59 08/09/20 20:30 Albuterol Sulfate (Proventil MDI) 2 puff Q4H PRN INH Shortness of Breath 08/06/20 22:45 11/04/20 22:44 Amiodarone HCl (Cordarone) 200 mg DAILY ORAL 08/07/20 09:00 11/05/20 08:59 08/15/20 08:13 Atorvastatin Calcium (Lipitor) 80 mg BEDTIME ORAL 08/08/20 21:00 11/06/20 20:59 08/15/20 20:21 Clopidogrel Bisulfate (Plavix) 75 mg DAILY ORAL 08/07/20 09:00 09/06/20 08:59 08/15/20 08:12 Dextrose (Dextrose 50%) 25 ml Q30M PRN IV Hypoglycemia 08/06/20 22:45 11/04/20 22:44 Dextrose (Dextrose 50%) 50 ml Q30M PRN IV Hypoglycemia 08/06/20 22:45 11/04/20 22:44 Docusate Sodium (Colace) 100 mg TID ORAL 08/12/20 13:00 09/09/20 12:59 08/15/20 17:05 Enoxaparin Sodium (Lovenox) 30 mg DAILY SUBQ 08/07/20 09:00 11/05/20 08:59 08/14/20 08:46 Glipizide (Glucotrol) 5 mg BIAC ORAL 08/07/20 06:30 09/06/20 06:29 08/16/20 06:36 Guaifenesin/ Dextromethorphan (Robitussin DM Syrup) 10 ml Q4H PRN ORAL For Cough 08/07/20 17:30 11/05/20 17:29 08/12/20 19:56 Hydralazine HCl (Apresoline) 25 mg Q6HR ORAL 08/16/20 12:00 11/14/20 11:59 UNV Insulin Aspart (NovoLOG) BEFORE MEALS AND HS SUBQ 08/07/20 06:30 11/05/20 06:29 08/16/20 06:37 Ipratropium [place] (Atrovent Inh) 2 puffs Q4H PRN INH SOB wheezing 08/06/20 22:45 09/05/20 22:44 Isosorbide Mononitrate (Imdur) 30 mg DAILY ORAL 08/08/20 09:00 09/07/20 08:59 08/15/20 08:14 Lidocaine HCl (Xylocaine 1% 30ml) 30 ml ONCE INJ 08/15/20 14:15 08/17/20 23:59 Metoprolol Tartrate (Lopressor) 25 mg Q12HR ORAL 08/07/20 09:00 11/05/20 08:59 08/15/20 20:20 Ondansetron HCl (Zofran) 4 mg Q6H PRN IVP Nausea & Vomiting 08/08/20 10:15 09/07/20 10:14 08/09/20 20:31 Pantoprazole (Protonix) 40 mg EVERY 12 HOURS ORAL 08/08/20 21:00 09/07/20 20:59 08/15/20 20:21 Polyethylene Glycol (Miralax) 17 gm DAILY PRN ORAL Constipation 08/12/20 09:30 09/11/20 09:29 08/12/20 09:47 Sertraline HCl (Zoloft) 25 mg DAILY ORAL 08/07/20 09:00 09/06/20 08:59 08/15/20 08:13 Luiza Barton M.D. Aug 16, 2020 09:10
[2020-08-16] MEDS: Enoxaparin 30mg Inj SUBQ SCH (09:25)
[2020-08-16] MEDS: Docusate 100mg cap ORAL SCH ×3 (09:26→17:30)
[2020-08-16] MEDS: Sertraline 50mg tab ORAL SCH (09:27)
[2020-08-16] MEDS: Amiodarone 200mg tab ORAL SCH (09:27)
[2020-08-16] MEDS: Imdur 30mg tab ORAL SCH (09:27)
--- NOTE | 2020-08-16 10:39 | Pulmonology Progress Note ---
Subjective ROS Limited/Unobtainable: Yes Allergies: Coded Allergies: No Known Allergies (Unverified , 08/06/20) Subjective no resp distress pulse ox stable on RA no further fevers; no leukocytosis denies CP, SOB last HD 08/15 , last CRP significantly elevated, CRP for this am pending Objective Last 24 Hour Vital Signs Date Time Temp Pulse Resp B/P (MAP) Pulse Ox O2 Delivery O2 Flow Rate FiO2 08/16/20 09:27 120/54 08/16/20 09:27 70 120/54 08/15/20 21:00 Room Air 08/15/20 20:20 77 152/65 08/15/20 20:00 99.0 77 19 152/65 (94) 94 08/15/20 16:00 97.0 76 18 155/70 (98) 98 08/15/20 12:00 96.4 57 18 114/50 (71) 98 Intake and Output 08/15/20 08/16/20 19:00 07:00 Intake Total 360 ml Output Total 2000 ml Balance -2000 ml 360 ml Other 360 ml Hemodialysis UF 2000 ml Objective General Appearance: WD/WN, no apparent distress, alert Lines, tubes and drains: peripheral HEENT: normocephalic, atraumatic, anicteric, mucous membranes moist, PERRL Neck: non-tender, supple Respiratory/Chest: chest wall non-tender, lungs clear with moderate air exchange , no respiratory distress, no accessory muscle use Cardiovascular/Chest: normal peripheral pulses, normal rate, regular rhythm, + 1- edema BLE Abdomen: normal bowel sounds, non tender, soft Extremities: normal range of motion, non-tender, no calf tenderness, normal capillary refill, LUE AV shunt + bruit/thrill Skin Exam: warm/dry Neurologic: no motor/sensory deficits, alert, oriented x 3, responsive Musculoskeletal: normal muscle bulk Laboratory Tests 08/15/20 11:24: POC Whole Blood Glucose 114H 08/15/20 20:13: POC Whole Blood Glucose 324H 08/15/20 20:15: POC Whole Blood Glucose 339H 08/16/20 04:30: White Blood Count 9.9, Red Blood Count 3.37L, Hemoglobin 10.0L, Hematocrit 30.9L , Mean Corpuscular Volume 92, Mean Corpuscular Hemoglobin 29.7, Mean Corpuscular Hemoglobin Concent 32.3, Red Cell Distribution Width 16.4H, Platelet Count 201, Mean Platelet Volume 6.8, Neutrophils (%) (Auto) 79.7H, Lymphocytes (%) (Auto) 10.7L, Monocytes (%) (Auto) 8.4, Eosinophils (%) (Auto) 0.7, Basophils (%) (Auto) 0.5, Sodium Level 138, Potassium Level 3.9, Chloride Level 99, Carbon Di oxide Level 36H, Anion Gap 3L, Blood Urea Nitrogen 30H, Creatinine 5.0H, Estimat Glomerular Filtration Rate 11.6, Glucose Level 102, Calcium Level 7.9L, Phosphorus Level 3.9, Magnesium Level 2.1, Total Bilirubin 0.6, Aspartate Amino Transf (AST/SGOT) 21, Alanine Aminotransferase (ALT/SGPT) 31, Alkaline Phosphatase 109, C-Reactive Protein, Quantitative [Pending], Pro-B-Type Natriuretic Peptide 2942H, Total Protein 6.8, Albumin 2.4L, Globulin 4.4, Albumin/Globulin Ratio 0.5L, Amylase Level 88, Lipase 567H 08/16/20 06:32: POC Whole Blood Glucose 165H Current Medications Medications (Trade) Dose Ordered Sig/Miri Route PRN Reason Start Time Stop Time Status Last Admin Dose Admin Acetaminophen (Tylenol) 650 mg Q4H PRN ORAL Mild Pain (Pain Scale 1-3) 08/11/20 22:30 09/10/20 22:29 08/15/20 22:07 Acetaminophen (Tylenol) 650 mg Q4H PRN ORAL Temp >100.5 08/09/20 19:00 09/08/20 18:59 08/09/20 20:30 Albuterol Sulfate (Proventil MDI) 2 puff Q4H PRN INH Shortness of Breath 08/06/20 22:45 11/04/20 22:44 Amiodarone HCl (Cordarone) 200 mg DAILY ORAL 08/07/20 09:00 11/05/20 08:59 08/16/20 09:27 Atorvastatin Calcium (Lipitor) 80 mg BEDTIME ORAL 08/08/20 21:00 11/06/20 20:59 08/15/20 20:21 Clopidogrel Bisulfate (Plavix) 75 mg DAILY ORAL 08/07/20 09:00 09/06/20 08:59 08/16/20 09:25 Dextrose (Dextrose 50%) 25 ml Q30M PRN IV Hypoglycemia 08/06/20 22:45 11/04/20 22:44 Dextrose (Dextrose 50%) 50 ml Q30M PRN IV Hypoglycemia 08/06/20 22:45 11/04/20 22:44 Docusate Sodium (Colace) 100 mg TID ORAL 08/12/20 13:00 09/09/20 12:59 08/16/20 09:26 Enoxaparin Sodium (Lovenox) 30 mg DAILY SUBQ 08/07/20 09:00 11/05/20 08:59 08/16/20 09:25 Glipizide (Glucotrol) 5 mg BIAC ORAL 08/07/20 06:30 09/06/20 06:29 08/16/20 06:36 Guaifenesin/ Dextromethorphan (Robitussin DM Syrup) 10 ml Q4H PRN ORAL For Cough 08/07/20 17:30 11/05/20 17:29 08/12/20 19:56 Hydralazine HCl (Apresoline) 25 mg Q6HR ORAL 08/16/20 12:00 11/14/20 11:59 Insulin Aspart (NovoLOG) BEFORE MEALS AND HS SUBQ 08/07/20 06:30 11/05/20 06:29 08/16/20 06:37 Ipratropium [place] (Atrovent Inh) 2 puffs Q4H PRN INH SOB wheezing 08/06/20 22:45 09/05/20 22:44 Isosorbide Mononitrate (Imdur) 30 mg DAILY ORAL 08/08/20 09:00 09/07/20 08:59 08/16/20 09:27 Lidocaine HCl (Xylocaine 1% 30ml) 30 ml ONCE INJ 08/15/20 14:15 08/17/20 23:59 Metoprolol Tartrate (Lopressor) 25 mg Q12HR ORAL 08/07/20 09:00 11/05/20 08:59 08/16/20 09:27 Ondansetron HCl (Zofran) 4 mg Q6H PRN IVP Nausea & Vomiting 08/08/20 10:15 09/07/20 10:14 08/09/20 20:31 Pantoprazole (Protonix) 40 mg EVERY 12 HOURS ORAL 08/08/20 21:00 09/07/20 20:59 08/16/20 09:25 Polyethylene Glycol (Miralax) 17 gm DAILY PRN ORAL Constipation 08/12/20 09:30 09/11/20 09:29 08/12/20 09:47 Sertraline HCl (Zoloft) 25 mg DAILY ORAL 08/07/20 09:00 09/06/20 08:59 08/16/20 09:27 Assessment/Plan Assessment/Plan ASSESSMENT COVID-19 infection CHF acute on chronic ( due to missed HD) Elevated troponin, likely troponin leak ESRD, on HD ( missed dialysis for 1 week ) Coronary artery disease with history of [place] and CABG DM OOC - [id number] HTN Elevated lipase Anemia of chronic diseas4 Fever -resolved Constipation PLAN OF CARE MS floor isolation Date of sx onset: 1 week prior to admission Positive test: 08/06 rapid COVID 19 + O2 -on RA HFA Dex-> off Dexamethasone since 08/08 ( s/p 2 days) since not hypoxic REM - -> not a candidate given ESRD DVT PPX: Lovenox D dimer -0.47 Trend CRP-> 2.9-> 7.8-> 9.7-184.6-> pending this am no abx as per ID recs ; BCX 08/09 NGTD, no further fevers CXR 07/30- no acute disease CXR 08/11 -slight interval worsening of mild to moderate diffuse right lung infiltrate with unchanged patchy mild left lung infiltrates. Monitor volumes and renal function, HD as per nephro Fup with consultants recs FC continue a/PLT therapy with Plavix and beta blockage elevated troponin x 3 with minimal elevation, same range, likely troponin leak, ECG non-ischemic, no c/o CP cardio recs appreciated BP management with BB and Hydralazine ( added by cardio) ECHO with pEF 65% BS management with Glipizide and SSI, HgA1c- 12.5 clearly not at goal may need more aggressive treatment of BS while on steroids anemia w/up c/w anemia of chronic disease , ferritin 1537 monitor HH with goal to keep Hgb >7 , remains at baseline consider EPO if drop in Hgb GI follows lipase trending down, amylase WNL a/emetic prn no c/o abd pain bowel regimen supportive care dc plan home , ID cleared for dc; need self isolation till 08/15 fup with OP HD ( last HD 08/13) - will discuss with nephro dc plan to SNF when place secured case discussed and evaluated by supervising physician Park Gunn NP Aug 16, 2020 10:39 Merrill Becerra MD Aug 16, 2020 17:31
[2020-08-16 12:00] VITALS: BP 120/52
--- NOTE | 2020-08-16 12:17 | Surgery Progress Note ---
Surgery Progress Note Subjective Symptoms: improved, tolerating diet, passing flatus, BM Additional Comments lip trending down Objective Last 24 Hour Vital Signs Date Time Temp Pulse Resp B/P (MAP) Pulse Ox O2 Delivery O2 Flow Rate FiO2 08/16/20 09:27 120/54 08/16/20 09:27 70 120/54 08/16/20 09:00 Room Air 08/16/20 08:00 97.8 70 19 120/54 (76) 98 08/15/20 21:00 Room Air 08/15/20 20:20 77 152/65 08/15/20 20:00 99.0 77 19 152/65 (94) 94 08/15/20 16:00 97.0 76 18 155/70 (98) 98 I&O Intake and Output 08/15/20 08/16/20 19:00 07:00 Intake Total 360 ml Output Total 2000 ml Balance -2000 ml 360 ml Other 360 ml Hemodialysis UF 2000 ml Cardiovascular: RSR Respiratory: clear, decreased breath sounds Abdomen: soft, non-tender, present bowel sounds, non-distended Extremities: no edema, no tenderness, no cyanosis Laboratory Tests Test 08/15/20 20:13 08/15/20 20:15 08/16/20 04:30 08/16/20 06:32 POC Whole Blood Glucose 324 MG/DL (74-106) H 339 MG/DL (74-106) H 165 MG/DL (74-106) H White Blood Count 9.9 K/UL (4.8-10.8) Red Blood Count 3.37 M/UL (4.70-6.10) L Hemoglobin 10.0 G/DL (14.2-18.0) L Hematocrit 30.9 % (42.0-52.0) L Mean Corpuscular Volume 92 FL (80-99) Mean Corpuscular Hemoglobin 29.7 PG (27.0-31.0) Mean Corpuscular Hemoglobin Concent 32.3 G/DL (32.0-36.0) Red Cell Distribution Width 16.4 % (11.6-14.8) H Platelet Count 201 K/UL (150-450) Mean Platelet Volume 6.8 FL (6.5-10.1) Neutrophils (%) (Auto) 79.7 % (45.0-75.0) H Lymphocytes (%) (Auto) 10.7 % (20.0-45.0) L Monocytes (%) (Auto) 8.4 % (1.0-10.0) Eosinophils (%) (Auto) 0.7 % (0.0-3.0) Basophils (%) (Auto) 0.5 % (0.0-2.0) Sodium Level 138 MMOL/L (136-145) Potassium Level 3.9 MMOL/L (3.5-5.1) Chloride Level 99 MMOL/L (98-107) Carbon Dioxide Level 36 MMOL/L (21-32) H Anion Gap 3 mmol/L (5-15) L Blood Urea Nitrogen 30 mg/dL (7-18) H Creatinine 5.0 MG/DL (0.55-1.30) H Estimat Glomerular Filtration Rate 11.6 mL/min (>60) Glucose Level 102 MG/DL (74-106) Calcium Level 7.9 MG/DL (8.5-10.1) L Phosphorus Level 3.9 MG/DL (2.5-4.9) Magnesium Level 2.1 MG/DL (1.8-2.4) Total Bilirubin 0.6 MG/DL (0.2-1.0) Aspartate Amino Transf (AST/SGOT) 21 U/L (15-37) Alanine Aminotransferase (ALT/SGPT) 31 U/L (12-78) Alkaline Phosphatase 109 U/L (46-116) C-Reactive Protein, Quantitative Pending Pro-B-Type Natriuretic Peptide 2942 pg/mL (0-125) H Total Protein 6.8 G/DL (6.4-8.2) Albumin 2.4 G/DL (3.4-5.0) L Globulin 4.4 g/dL Albumin/Globulin Ratio 0.5 (1.0-2.7) L Amylase Level 88 U/L (25-115) Lipase 567 U/L (73-393) H Plan Problems: (1) Pancreatitis Assessment & Plan: febrile covid + lft's wnl lip elevated esr / crp elevated abd exam benign US abd ordered ca pending no acute surgical intervention will follow with exam and recs thank you trending down lip fluctuating clinically without pain tolerating diet monitor (2) Fever (3) Elevated troponin (4) ESRD (end stage renal disease) on dialysis (5) Anemia in chronic kidney disease (CKD) (6) DMII (diabetes mellitus, type 2) (7) 2019 novel coronavirus disease (COVID-19) Assessment & Plan: ++ id input on abx pulm noted Lungs: Low lung volumes with bronchovascular crowding. No consolidation, pleural effusion, or pneumothorax. Pleural space: See above. Heart: Cardiomegaly. Mediastinum: Unremarkable. Bones/joints: Sternotomy with mediastinal operative findings. Other findings: Radiopaque linear structure superimposed over the left neck of uncertain significance, correlate with patient presentation and history. IMPRESSION: 1. Radiopaque linear structure superimposed over the left neck of uncertain significance, correlate with patient presentation and history. 2. Low lung volumes with bronchovascular crowding. 3. Cardiomegaly. 4. Otherwise no acute cardiopulmonary disease. 5. If there is continued concern, consider frontal and lateral chest radiographs or CT. P[place] Aug 16, 2020 12:17
--- NOTE | 2020-08-16 12:26 | Nephrology Progress Note ---
Assessment/Plan Problem List: (1) ESRD (end stage renal disease) on dialysis (2) Elevated troponin (3) Pancreatitis (4) 2019 novel coronavirus disease (COVID-19) (5) Anemia in chronic kidney disease (CKD) (6) DMII (diabetes mellitus, type 2) Assessment End-stage renal disease on hemodialysis COVID-19 pneumonia Coronary artery disease, [place] Diabetes mellitus Anemia Elevated lipase Plan August 16: Patient dialyzed yesterday. Labs reviewed. Due for dialysis tomorrow. Blood pressure stable. Medication list reviewed. August 15: Due for dialysis today. Labs reviewed. Blood pressure stable. Continue per consultants. August 14: Dialyzed yesterday. Due for dialysis tomorrow. Labs reviewed. Medication list reviewed. Full code. Continue per consultants. August 13: Due for dialysis today. Labs reviewed. Medication list reviewed. Continue per consultants. August 12: Dialyzed yesterday. Due for dialysis tomorrow. Medication list r eviewed. Labs are reviewed. Continue per consultants. August 11: Due for dialysis today. Continue per consultants. Check labs tomorrow. August 10: Last dialyzed yesterday. Labs reviewed. Due for dialysis tomorrow. Continue per consultants. August 09: Patient due for dialysis today. Labs reviewed. Medication list reviewed. Continue per consultants. August 08: Patient was dialyzed yesterday. Due for dialysis tomorrow. Blood pressure medication adjusted. Diet changed to renal medium carbs. Continue per consultants. 2D echo pending. Previously: Monitor renal parameters Hemodialysis as soon as the patient arrives to medical floor Monitor lipase, renal parameters, hemoglobin and hematocrit Per orders Subjective ROS Limited/Unobtainable: No Constitutional: Reports: malaise, weakness Objective Objective Last 24 Hour Vital Signs Date Time Temp Pulse Resp B/P (MAP) Pulse Ox O2 Delivery O2 Flow Rate FiO2 08/16/20 09:27 120/54 08/16/20 09:27 70 120/54 08/16/20 09:00 Room Air 08/16/20 08:00 97.8 70 19 120/54 (76) 98 08/15/20 21:00 Room Air 08/15/20 20:20 77 152/65 08/15/20 20:00 99.0 77 19 152/65 (94) 94 08/15/20 16:00 97.0 76 18 155/70 (98) 98 Intake and Output 08/15/20 08/16/20 19:00 07:00 Intake Total 360 ml Output Total 2000 ml Balance -2000 ml 360 ml Other 360 ml Hemodialysis UF 2000 ml Current Medications Medications (Trade) Dose Ordered Sig/Miri Route PRN Reason Start Time Stop Time Status Last Admin Dose Admin Acetaminophen (Tylenol) 650 mg Q4H PRN ORAL Mild Pain (Pain Scale 1-3) 08/11/20 22:30 09/10/20 22:29 08/15/20 22:07 Acetaminophen (Tylenol) 650 mg Q4H PRN ORAL Temp >100.5 08/09/20 19:00 09/08/20 18:59 08/09/20 20:30 Albuterol Sulfate (Proventil MDI) 2 puff Q4H PRN INH Shortness of Breath 08/06/20 22:45 11/04/20 22:44 Amiodarone HCl (Cordarone) 200 mg DAILY ORAL 08/07/20 09:00 11/05/20 08:59 08/16/20 09:27 Atorvastatin Calcium (Lipitor) 80 mg BEDTIME ORAL 08/08/20 21:00 11/06/20 20:59 08/15/20 20:21 Clopidogrel Bisulfate (Plavix) 75 mg DAILY ORAL 08/07/20 09:00 09/06/20 08:59 08/16/20 09:25 Dextrose (Dextrose 50%) 25 ml Q30M PRN IV Hypoglycemia 08/06/20 22:45 11/04/20 22:44 Dextrose (Dextrose 50%) 50 ml Q30M PRN IV Hypoglycemia 08/06/20 22:45 11/04/20 22:44 Docusate Sodium (Colace) 100 mg TID ORAL 08/12/20 13:00 09/09/20 12:59 08/16/20 09:26 Enoxaparin Sodium (Lovenox) 30 mg DAILY SUBQ 08/07/20 09:00 11/05/20 08:59 08/16/20 09:25 Glipizide (Glucotrol) 5 mg BIAC ORAL 08/07/20 06:30 09/06/20 06:29 08/16/20 06:36 Guaifenesin/ Dextromethorphan (Robitussin DM Syrup) 10 ml Q4H PRN ORAL For Cough 08/07/20 17:30 11/05/20 17:29 08/12/20 19:56 Hydralazine HCl (Apresoline) 25 mg Q6HR ORAL 08/16/20 12:00 11/14/20 11:59 Insulin Aspart (NovoLOG) BEFORE MEALS AND HS SUBQ 08/07/20 06:30 11/05/20 06:29 08/16/20 11:37 Ipratropium [place] (Atrovent Inh) 2 puffs Q4H PRN INH SOB wheezing 08/06/20 22:45 09/05/20 22:44 Isosorbide Mononitrate (Imdur) 30 mg DAILY ORAL 08/08/20 09:00 09/07/20 08:59 08/16/20 09:27 Lidocaine HCl (Xylocaine 1% 30ml) 30 ml ONCE INJ 08/15/20 14:15 08/17/20 23:59 Metoprolol Tartrate (Lopressor) 25 mg Q12HR ORAL 08/07/20 09:00 11/05/20 08:59 08/16/20 09:27 Ondansetron HCl (Zofran) 4 mg Q6H PRN IVP Nausea & Vomiting 08/08/20 10:15 09/07/20 10:14 08/09/20 20:31 Pantoprazole (Protonix) 40 mg EVERY 12 HOURS ORAL 08/08/20 21:00 09/07/20 20:59 08/16/20 09:25 Polyethylene Glycol (Miralax) 17 gm DAILY PRN ORAL Constipation 08/12/20 09:30 09/11/20 09:29 08/12/20 09:47 Sertraline HCl (Zoloft) 25 mg DAILY ORAL 08/07/20 09:00 09/06/20 08:59 08/16/20 09:27 Laboratory Tests 08/15/20 20:13: POC Whole Blood Glucose 324H 08/15/20 20:15: POC Whole Blood Glucose 339H 08/16/20 04:30: White Blood Count 9.9, Red Blood Count 3.37L, Hemoglobin 10.0L, Hematocrit 30.9L , Mean Corpuscular Volume 92, Mean Corpuscular Hemoglobin 29.7, Mean Corpuscular Hemoglobin Concent 32.3, Red Cell Distribution Width 16.4H, Platelet Count 201, Mean Platelet Volume 6.8, Neutrophils (%) (Auto) 79.7H, Lymphocytes (%) (Auto) 10.7L, Monocytes (%) (Auto) 8.4, Eosinophils (%) (Auto) 0.7, Basophils (%) (Auto) 0.5, Sodium Level 138, Potassium Level 3.9, Chloride Level 99, Carbon Dioxide Level 36H, Anion Gap 3L, Blood Urea Nitrogen 30H, Creatinine 5.0H, Estimat Glomerular Filtration Rate 11.6, Glucose Level 102, Calcium Level 7.9L, Phosphorus Level 3.9, Magnesium Level 2.1, Total Bilirubin 0.6, Aspartate Amino Transf (AST/SGOT) 21, Alanine Aminotransferase (ALT/SGPT) 31, Alkaline Phosphatase 109, C-Reactive Protein, Quantitative [Pending], Pro-B-Type Natriuretic Peptide 2942H, Total Protein 6.8, Albumin 2.4L, Globulin 4.4, Albumin/Globulin Ratio 0.5L, Amylase Level 88, Lipase 567H 08/16/20 06:32: POC Whole Blood Glucose 165H Height (Feet): 5 Height (Inches): 8.00 Weight (Pounds): 180 General Appearance: no apparent distress, lethargic Cardiovascular: normal rate Respiratory/Chest: decreased breath sounds Abdomen: soft Objective No change Jon Crews MD Aug 16, 2020 12:26
[2020-08-16] MEDS: HydrALAZINE 25mg tab ORAL SCH ×2 (13:03→17:30)
--- NOTE | 2020-08-16 14:04 | General Progress Note ---
Subjective ROS Limited/Unobtainable: No Allergies: Coded Allergies: No Known Allergies (Unverified , 08/06/20) Objective Last 24 Hour Vital Signs Date Time Temp Pulse Resp B/P (MAP) Pulse Ox O2 Delivery O2 Flow Rate FiO2 08/16/20 13:03 120/52 08/16/20 12:00 96.8 57 20 120/52 (74) 98 08/16/20 09:27 120/54 08/16/20 09:27 70 120/54 08/16/20 09:00 Room Air 08/16/20 08:00 97.8 70 19 120/54 (76) 98 08/15/20 21:00 Room Air 08/15/20 20:20 77 152/65 08/15/20 20:00 99.0 77 19 152/65 (94) 94 08/15/20 16:00 97.0 76 18 155/70 (98) 98 Intake and Output 08/15/20 08/16/20 19:00 07:00 Intake Total 360 ml Output Total 2000 ml Balance -2000 ml 360 ml Other 360 ml Hemodialysis UF 2000 ml Laboratory Tests 08/15/20 20:13: POC Whole Blood Glucose 324H 08/15/20 20:15: POC Whole Blood Glucose 339H 08/16/20 04:30: White Blood Count 9.9, Red Blood Count 3.37L, Hemoglobin 10.0L, Hematocrit 30.9L , Mean Corpuscular Volume 92, Mean Corpuscular Hemoglobin 29.7, Mean Corpuscular Hemoglobin Concent 32.3, Red Cell Distribution Width 16.4H, Platelet Count 201, Mean Platelet Volume 6.8, Neutrophils (%) (Auto) 79.7H, Lymphocytes (%) (Auto) 10.7L, Monocytes (%) (Auto) 8.4, Eosinophils (%) (Auto) 0.7, Basophils (%) (Auto) 0.5, Sodium Level 138, Potassium Level 3.9, Chloride Level 99, Carbon Dioxide Level 36H, Anion Gap 3L, Blood Urea Nitrogen 30H, Creatinine 5.0H, Estimat Glomerular Filtration Rate 11.6, Glucose Level 102, Calcium Level 7.9L, Phosphorus Level 3.9, Magnesium Level 2.1, Total Bilirubin 0.6, Aspartate Amino Transf (AST/SGOT) 21, Alanine Aminotransferase (ALT/SGPT) 31, Alkaline P hosphatase 109, C-Reactive Protein, Quantitative [Pending], Pro-B-Type Natriuretic Peptide 2942H, Total Protein 6.8, Albumin 2.4L, Globulin 4.4, Albumin/Globulin Ratio 0.5L, Amylase Level 88, Lipase 567H 08/16/20 06:32: POC Whole Blood Glucose 165H Height (Feet): 5 Height (Inches): 8.00 Weight (Pounds): 180 General Appearance: no apparent distress EENT: normal ENT inspection Neck: supple Cardiovascular: normal rate Respiratory/Chest: decreased breath sounds Abdomen: normal bowel sounds, non tender, soft Extremities: non-tender Assessment/Plan Status: stable Assessment/Plan: COVID anemia renal failure CAD/NC DM elevated lipase elevated trop check amylase and lipase>>improving on renal diet on HD fu ID, Renal and cardiology monitor for BM Rd Cruz MD Aug 16, 2020 14:04
[2020-08-16] MEDS: Lidocaine 1% Plain 30 ml INJ SCH (14:15)
[2020-08-16 16:00] VITALS: BP 118/66
[2020-08-16 20:00] VITALS: BP 109/43
[2020-08-16] MEDS: Atorvastatin 80mg tab ORAL SCH (21:00)
[2020-08-16 23:47] VITALS: BP 125/55
[2020-08-17 04:00] VITALS: BP 122/56
[2020-08-17] MEDS: HydrALAZINE 25mg tab ORAL SCH ×4 (06:00→17:17)
[2020-08-17] MEDS: NovoLOG Insulin Flexpen SUBQ SCH ×4 (06:11→21:00)
[2020-08-17] MEDS: GlipiZIDE 5mg tab ORAL SCH ×2 (06:11→17:17)
[2020-08-17 06:30] LABS: BASOPHILS % (AUTO) 0.6 % (0.0-2.0); EOSINOPHILS % (AUTO) 0.1 % (0.0-3.0); HEMOGLOBIN 10.3 G/DL (14.2-18.0); LYMPHOCYTES % (AUTO) 9.9 % (20.0-45.0); MEAN CORPUSCULAR VOLUME 90 FL (80-99); MONOCYTES % (AUTO) 7.2 % (1.0-10.0); NEUTROPHILS % (AUTO) 82.2 % (45.0-75.0); PLATELET COUNT 211 K/UL (150-450); RED BLOOD COUNT 3.32 M/UL (4.70-6.10); RED CELL DISTRIBUTION WIDTH 16.9 % (11.6-14.8)
[2020-08-17 06:53] LABS: ALBUMIN 2.4 G/DL (3.4-5.0); ALBUMIN/GLOBULIN RATIO 0.5 (1.0-2.7); BILIRUBIN,TOTAL 0.5 MG/DL (0.2-1.0); CALCIUM 7.5 MG/DL (8.5-10.1); CREATININE 5.7 MG/DL (0.55-1.30); POTASSIUM 3.7 MMOL/L (3.5-5.1)
[2020-08-17] MEDS: Amiodarone 200mg tab ORAL SCH (09:00)
[2020-08-17] MEDS: Imdur 30mg tab ORAL SCH (09:00)
--- NOTE | 2020-08-17 09:50 | Nephrology Progress Note ---
Assessment/Plan Problem List: (1) ESRD (end stage renal disease) on dialysis (2) Elevated troponin (3) Pancreatitis (4) 2019 novel coronavirus disease (COVID-19) (5) Anemia in chronic kidney disease (CKD) (6) DMII (diabetes mellitus, type 2) Assessment End-stage renal disease on hemodialysis COVID-19 pneumonia Coronary artery disease, [place] Diabetes mellitus Anemia Elevated lipase Plan August 17: Due for dialysis today. Labs reviewed. Medication list reviewed. Stable from renal standpoint of view. August 16: Patient dialyzed yesterday. Labs reviewed. Due for dialysis tomorrow. Blood pressure stable. Medication list reviewed. August 15: Due for dialysis today. Labs reviewed. Blood pressure stable. Continue per consultants. August 14: Dialyzed yesterday. Due for dialysis tomorrow. Labs reviewed. Me dication list reviewed. Full code. Continue per consultants. August 13: Due for dialysis today. Labs reviewed. Medication list reviewed. Continue per consultants. August 12: Dialyzed yesterday. Due for dialysis tomorrow. Medication list reviewed. Labs are reviewed. Continue per consultants. August 11: Due for dialysis today. Continue per consultants. Check labs tomorrow. August 10: Last dialyzed yesterday. Labs reviewed. Due for dialysis tomorrow. Continue per consultants. August 09: Patient due for dialysis today. Labs reviewed. Medication list reviewed. Continue per consultants. August 08: Patient was dialyzed yesterday. Due for dialysis tomorrow. Blood pressure medication adjusted. Diet changed to renal medium carbs. Continue per consultants. 2D echo pending. Previously: Monitor renal parameters Hemodialysis as soon as the patient arrives to medical floor Monitor lipase, renal parameters, hemoglobin and hematocrit Per orders Subjective ROS Limited/Unobtainable: No Constitutional: Reports: malaise, weakness Objective Objective Last 24 Hour Vital Signs Date Time Temp Pulse Resp B/P (MAP) Pulse Ox O2 Delivery O2 Flow Rate FiO2 08/17/20 04:00 98.0 70 16 122/56 (78) 96 08/17/20 00:00 125/55 08/16/20 23:47 97.9 70 16 125/55 (78) 97 08/16/20 21:00 64 109/43 08/16/20 21:00 Room Air 08/16/20 20:00 98.2 64 16 109/43 (65) 95 1/7/21 17:30 120/52 08/16/20 16:00 97.7 62 19 118/66 (83) 98 08/16/20 13:03 120/52 08/16/20 12:00 96.8 57 20 120/52 (74) 98 Intake and Output 08/16/20 08/17/20 19:00 07:00 Intake Total 600 ml 360 ml Balance 600 ml 360 ml Intake Oral 600 ml Other 360 ml Current Medications Medications (Trade) Dose Ordered Sig/Miri Route PRN Reason Start Time Stop Time Status Last Admin Dose Admin Acetaminophen (Tylenol) 650 mg Q4H PRN ORAL Mild Pain (Pain Scale 1-3) 08/11/20 22:30 09/10/20 22:29 08/16/20 21:25 Acetaminophen (Tylenol) 650 mg Q4H PRN ORAL Temp >100.5 08/09/20 19:00 09/08/20 18:59 08/09/20 20:30 Albuterol Sulfate (Proventil MDI) 2 puff Q4H PRN INH Shortness of Breath 08/06/20 22:45 11/04/20 22:44 Amiodarone HCl (Cordarone) 200 mg DAILY ORAL 08/07/20 09:00 11/05/20 08:59 08/16/20 09:27 Atorvastatin Calcium (Lipitor) 80 mg BEDTIME ORAL 08/08/20 21:00 11/06/20 20:59 08/15/20 20:21 Clopidogrel Bisulfate (Plavix) 75 mg DAILY ORAL 08/07/20 09:00 09/06/20 08:59 08/16/20 09:25 Dextrose (Dextrose 50%) 25 ml Q30M PRN IV Hypoglycemia 08/06/20 22:45 11/04/20 22:44 Dextrose (Dextrose 50%) 50 ml Q30M PRN IV Hypoglycemia 08/06/20 22:45 11/04/20 22:44 Docusate Sodium (Colace) 100 mg TID ORAL 08/12/20 13:00 09/09/20 12:59 08/16/20 17:30 Enoxaparin Sodium (Lovenox) 30 mg DAILY SUBQ 08/07/20 09:00 11/05/20 08:59 08/16/20 09:25 Glipizide (Glucotrol) 5 mg BIAC ORAL 08/07/20 06:30 09/06/20 06:29 08/16/20 17:30 Guaifenesin/ Dextromethorphan (Robitussin DM Syrup) 10 ml Q4H PRN ORAL For Cough 08/07/20 17:30 11/05/20 17:29 08/12/20 19:56 Hydralazine HCl (Apresoline) 25 mg Q6HR ORAL 08/16/20 12:00 11/14/20 11:59 08/16/20 17:30 Insulin Aspart (NovoLOG) BEFORE MEALS AND HS SUBQ 08/07/20 06:30 11/05/20 06:29 08/16/20 17:34 Ipratropium [place] (Atrovent Inh) 2 puffs Q4H PRN INH SOB wheezing 08/06/20 22:45 09/05/20 22:44 Isosorbide Mononitrate (Imdur) 30 mg DAILY ORAL 08/08/20 09:00 09/07/20 08:59 08/16/20 09:27 Lidocaine HCl (Xylocaine 1% 30ml) 30 ml ONCE INJ 08/15/20 14:15 08/17/20 23:59 Metoprolol Tartrate (Lopressor) 25 mg Q12HR ORAL 08/07/20 09:00 11/05/20 08:59 08/16/20 09:27 Ondansetron HCl (Zofran) 4 mg Q6H PRN IVP Nausea & Vomiting 08/08/20 10:15 09/07/20 10:14 08/09/20 20:31 Pantoprazole (Protonix) 40 mg EVERY 12 HOURS ORAL 08/08/20 21:00 09/07/20 20:59 08/16/20 09:25 Polyethylene Glycol (Miralax) 17 gm DAILY PRN ORAL Constipation 08/12/20 09:30 09/11/20 09:29 08/12/20 09:47 Sertraline HCl (Zoloft) 25 mg DAILY ORAL 08/07/20 09:00 09/06/20 08:59 08/16/20 09:27 Laboratory Tests 08/16/20 11:30: POC Whole Blood Glucose [Pending] 08/16/20 17:33: POC Whole Blood Glucose [Pending] 08/16/20 20:26: POC Whole Blood Glucose 94 08/17/20 05:45: White Blood Count 10.0, Red Blood Count 3.32L, Hemoglobin 10.3L, Hematocrit 30.0L, Mean Corpuscular Volume 90, Mean Corpuscular Hemoglobin 31.1H, Mean Corpuscular Hemoglobin Concent 34.3, Red Cell Distribution Width 16.9H, Platelet Count 211, Mean Platelet Volume 6.0L, Neutrophils (%) (Auto) 82.2H, Lymphocytes (%) (Auto) 9.9L, Monocytes (%) (Auto) 7.2, Eosinophils (%) (Auto) 0.1, Basophils (%) (Auto) 0.6, Sodium Level 133L, Potassium Level 3.7, Chloride Level 93L, Carbon Dioxide Level 33H, Anion Gap 7, Blood Urea Nitrogen 42H, Creatinine 5.7H, Estimat Glomerular Filtration Rate 10.0, Glucose Level 174H, Calcium Level 7.5L, Phosphorus Level 3.3, Total Bilirubin 0.5, Aspartate Amino Transf (AST/SGOT) 22, Alanine Aminotransferase (ALT/SGPT) 26, Alkaline Phosphatase 117H , C-Reactive Protein, Quantitative [Pending], Total Protein 6.9, Albumin 2.4L, Globulin 4.5, Albumin/Globulin Ratio 0.5L, Amylase Level 88, Lipase 473H, Vitamin D 25-Hydroxy [Pending], 25-Hydroxy Vitamin D2 [Pending], 25-Hydroxy Vitamin D3 [Pending] Height (Feet): 5 Height (Inches): 8.00 Weight (Pounds): 180 General Appearance: no apparent distress Cardiovascular: normal rate Respiratory/Chest: decreased breath sounds Abdomen: soft Objective No change Jon Crews MD Aug 17, 2020 09:50
[2020-08-17] MEDS: Miralax 17gm pkt ORAL PRN (10:28)
[2020-08-17] MEDS: Sertraline 50mg tab ORAL SCH (10:28)
[2020-08-17] MEDS: Docusate 100mg cap ORAL SCH ×3 (10:28→17:17)
[2020-08-17] MEDS: Enoxaparin 30mg Inj SUBQ SCH (10:30)
--- NOTE | 2020-08-17 11:32 | Infectious Diseases Prog Note ---
Assessment/Plan 69yo M with: COVID pneumonia Febrile to 101.3 Normal WBC Lymphopenia 08/06 BCx NTD COVID rapid test positive UA neg CXR: No acute process MRSA nares neg 08/09 BCx NTD CXR: Borderline cardiomegaly. No acute process 1/2 CXR: There is been slight interval worsening of mild to moderate diffuse right lung infiltrate with unchanged patchy mild left lung infiltrates. Elevated lipase, no abd pain PMH: ESRD on HD CAD s/p CABG 2018 HTN HLD DM2 LUE AVF Plan: Cont to monitor off abx OK to d/c home from ID standpoint given doing well on RA OK to d/c off COVID isolation given pt now >10 days out from date of diagnosis and doing well on RA 08/08 SP Dex #2, stopped given on RA Not candidate for RDV given ESRD on HD This institution does not have access to convalescent plasma, and as pt doing well on RA unlikely to benefit from it at this point Monitor CBC/CMP Monitor resp status Monitor temp curve, hemodynamics D/w RN Thank you for this consult. [facility] will continue to follow. Subjective Allergies: Coded Allergies: No Known Allergies (Unverified , 08/06/20) AF Doing well on RA WBC 10 Some abd discomfort, no N/V, no diarrhea, no fevers No resp complaints Objective Last 24 Hour Vital Signs Date Time Temp Pulse Resp B/P (MAP) Pulse Ox O2 Delivery O2 Flow Rate FiO2 08/17/20 04:00 98.0 70 16 122/56 (78) 96 08/17/20 00:00 125/55 08/16/20 23:47 97.9 70 16 125/55 (78) 97 08/16/20 21:00 64 109/43 08/16/20 21:00 Room Air 08/16/20 20:00 98.2 64 16 109/43 (65) 95 08/16/20 17:30 120/52 08/16/20 16:00 97.7 62 19 118/66 (83) 98 08/16/20 13:03 120/52 08/16/20 12:00 96.8 57 20 120/52 (74) 98 Height (Feet): 5 Height (Inches): 8.00 Weight (Pounds): 180 Gen: NAD HEENT: NCAT Pulm: BL chest rise Abd: Non-distended Ext: No c/c/e Skin: No visible rashes Neuro: Awake Laboratory Tests Test 08/16/20 11:30 08/16/20 17:33 08/16/20 20:26 08/17/20 05:45 POC Whole Blood Glucose Pending Pending 94 MG/DL (74-106) White Blood Count 10.0 K/UL (4.8-10.8) Red Blood Count 3.32 M/UL (4.70-6.10) L Hemoglobin 10.3 G/DL (14.2-18.0) L Hematocrit 30.0 % (42.0-52.0) L Mean Corpuscular Volume 90 FL (80-99) Mean Corpuscular Hemoglobin 31.1 PG (27.0-31.0) H Mean Corpuscular Hemoglobin Concent 34.3 G/DL (32.0-36.0) Red Cell Distribution Width 16.9 % (11.6-14.8) H Platelet Count 211 K/UL (150-450) Mean Platelet Volume 6.0 FL (6.5-10.1) L Neutrophils (%) (Auto) 82.2 % (45.0-75.0) H Lymphocytes (%) (Auto) 9.9 % (20.0-45.0) L Monocytes (%) (Auto) 7.2 % (1.0-10.0) Eosinophils (%) (Auto) 0.1 % (0.0-3.0) Basophils (%) (Auto) 0.6 % (0.0-2.0) Sodium Level 133 MMOL/L (136-145) L Potassium Level 3.7 MMOL/L (3.5-5.1) Chloride Level 93 MMOL/L (98-107) L Carbon Dioxide Level 33 MMOL/L (21-32) H Anion Gap 7 mmol/L (5-15) Blood Urea Nitrogen 42 mg/dL (7-18) H Creatinine 5.7 MG/DL (0.55-1.30) H Estimat Glomerular Filtration Rate 10.0 mL/min (>60) Glucose Level 174 MG/DL (74-106) H Calcium Level 7.5 MG/DL (8.5-10.1) L Phosphorus Level 3.3 MG/DL (2.5-4.9) Total Bilirubin 0.5 MG/DL (0.2-1.0) Aspartate Amino Transf (AST/SGOT) 22 U/L (15-37) Alanine Aminotransferase (ALT/SGPT) 26 U/L (12-78) Alkaline Phosphatase 117 U/L (46-116) H C-Reactive Protein, Quantitative Pending Total Protein 6.9 G/DL (6.4-8.2) Albumin 2.4 G/DL (3.4-5.0) L Globulin 4.5 g/dL Albumin/Globulin Ratio 0.5 (1.0-2.7) L Amylase Level 88 U/L (25-115) Lipase 473 U/L (73-393) H Vitamin D 25-Hydroxy Pending 25-Hydroxy Vitamin D2 Pending 25-Hydroxy Vitamin D3 Pending Current Medications Medications (Trade) Dose Ordered Sig/Miri Route PRN Reason Start Time Stop Time Status Last Admin Dose Admin Acetaminophen (Tylenol) 650 mg Q4H PRN ORAL Mild Pain (Pain Scale 1-3) 08/11/20 22:30 09/10/20 22:29 08/16/20 21:25 Acetaminophen (Tylenol) 650 mg Q4H PRN ORAL Temp >100.5 08/09/20 19:00 09/08/20 18:59 08/09/20 20:30 Albuterol Sulfate (Proventil MDI) 2 puff Q4H PRN INH Shortness of Breath 08/06/20 22:45 11/04/20 22:44 Amiodarone HCl (Cordarone) 200 mg DAILY ORAL 08/07/20 09:00 11/05/20 08:59 08/16/20 09:27 Atorvastatin Calcium (Lipitor) 80 mg BEDTIME ORAL 08/08/20 21:00 11/06/20 20:59 08/15/20 20:21 Clopidogrel Bisulfate (Plavix) 75 mg DAILY ORAL 08/07/20 09:00 09/06/20 08:59 08/17/20 10:28 Dextrose (Dextrose 50%) 25 ml Q30M PRN IV Hypoglycemia 08/06/20 22:45 11/04/20 22:44 Dextrose (Dextrose 50%) 50 ml Q30M PRN IV Hypoglycemia 08/06/20 22:45 11/04/20 22:44 Docusate Sodium (Colace) 100 mg TID ORAL 08/12/20 13:00 09/09/20 12:59 08/17/20 10:28 Enoxaparin Sodium (Lovenox) 30 mg DAILY SUBQ 08/07/20 09:00 11/05/20 08:59 08/17/20 10:30 Glipizide (Glucotrol) 5 mg BIAC ORAL 08/07/20 06:30 09/06/20 06:29 08/16/20 17:30 Guaifenesin/ Dextromethorphan (Robitussin DM Syrup) 10 ml Q4H PRN ORAL For Cough 08/07/20 17:30 11/05/20 17:29 08/12/20 19:56 Hydralazine HCl (Apresoline) 25 mg Q6HR ORAL 08/16/20 12:00 11/14/20 11:59 08/16/20 17:30 Insulin Aspart (NovoLOG) BEFORE MEALS AND HS SUBQ 08/07/20 06:30 11/05/20 06:29 08/16/20 17:34 Ipratropium [place] (Atrovent Inh) 2 puffs Q4H PRN INH SOB wheezing 08/06/20 22:45 09/05/20 22:44 Isosorbide Mononitrate (Imdur) 30 mg DAILY ORAL 08/08/20 09:00 09/07/20 08:59 08/16/20 09:27 Lidocaine HCl (Xylocaine 1% 30ml) 30 ml ONCE INJ 08/15/20 14:15 08/17/20 23:59 Metoprolol Tartrate (Lopressor) 25 mg Q12HR ORAL 08/07/20 09:00 11/05/20 08:59 08/16/20 09:27 Ondansetron HCl (Zofran) 4 mg Q6H PRN IVP Nausea & Vomiting 08/08/20 10:15 09/07/20 10:14 08/09/20 20:31 Pantoprazole (Protonix) 40 mg EVERY 12 HOURS ORAL 08/08/20 21:00 09/07/20 20:59 08/16/20 09:25 Polyethylene Glycol (Miralax) 17 gm DAILY PRN ORAL Constipation 08/12/20 09:30 09/11/20 09:29 08/17/20 10:28 Sertraline HCl (Zoloft) 25 mg DAILY ORAL 08/07/20 09:00 09/06/20 08:59 08/17/20 10:28 Luiza Barton M.D. Aug 17, 2020 11:32
--- NOTE | 2020-08-17 11:46 | Surgery Progress Note ---
Surgery Progress Note Subjective Additional Comments Patient seen and examined bedside. No acute events. Resting comfortably. Labs reviewed micro reviewed imaging reviewed. Afebrile hemodynamically stable at this time lip trending down Objective Last 24 Hour Vital Signs Date Time Temp Pulse Resp B/P (MAP) Pulse Ox O2 Delivery O2 Flow Rate FiO2 08/17/20 04:00 98.0 70 16 122/56 (78) 96 08/17/20 00:00 125/55 08/16/20 23:47 97.9 70 16 125/55 (78) 97 08/16/20 21:00 64 109/43 08/16/20 21:00 Room Air 08/16/20 20:00 98.2 64 16 109/43 (65) 95 08/16/20 17:30 120/52 08/16/20 16:00 97.7 62 19 118/66 (83) 98 08/16/20 13:03 120/52 08/16/20 12:00 96.8 57 20 120/52 (74) 98 I&O Intake and Output 08/16/20 08/17/20 19:00 07:00 Intake Total 600 ml 360 ml Balance 600 ml 360 ml Intake Oral 600 ml Other 360 ml Cardiovascular: RSR Respiratory: clear Abdomen: soft, non-tender, present bowel sounds, non-distended Extremities: no tenderness, no cyanosis Laboratory Tests Test 08/16/20 17:33 08/16/20 20:26 08/17/20 05:45 POC Whole Blood Glucose Pending 94 MG/DL (74-106) White Blood Count 10.0 K/UL (4.8-10.8) Red Blood Count 3.32 M/UL (4.70-6.10) L Hemoglobin 10.3 G/DL (14.2-18.0) L Hematocrit 30.0 % (42.0-52.0) L Mean Corpuscular Volume 90 FL (80-99) Mean Corpuscular Hemoglobin 31.1 PG (27.0-31.0) H Mean Corpuscular Hemoglobin Concent 34.3 G/DL (32.0-36.0) Red Cell Distribution Width 16.9 % (11.6-14.8) H Platelet Count 211 K/UL (150-450) Mean Platelet Volume 6.0 FL (6.5-10.1) L Neutrophils (%) (Auto) 82.2 % (45.0-75.0) H Lymphocytes (%) (Auto) 9.9 % (20.0-45.0) L Monocytes (%) (Auto) 7.2 % (1.0-10.0) Eosinophils (%) (Auto) 0.1 % (0.0-3.0) Basophils (%) (Auto) 0.6 % (0.0-2.0) Sodium Level 133 MMOL/L (136-145) L Potassium Level 3.7 MMOL/L (3.5-5.1) Chloride Level 93 MMOL/L (98-107) L Carbon Dioxide Level 33 MMOL/L (21-32) H Anion Gap 7 mmol/L (5-15) Blood Urea Nitrogen 42 mg/dL (7-18) H Creatinine 5.7 MG/DL (0.55-1.30) H Estimat Glomerular Filtration Rate 10.0 mL/min (>60) Glucose Level 174 MG/DL (74-106) H Calcium Level 7.5 MG/DL (8.5-10.1) L Phosphorus Level 3.3 MG/DL (2.5-4.9) Total Bilirubin 0.5 MG/DL (0.2-1.0) Aspartate Amino Transf (AST/SGOT) 22 U/L (15-37) Alanine Aminotransferase (ALT/SGPT) 26 U/L (12-78) Alkaline Phosphatase 117 U/L (46-116) H C-Reactive Protein, Quantitative Pending Total Protein 6.9 G/DL (6.4-8.2) Albumin 2.4 G/DL (3.4-5.0) L Globulin 4.5 g/dL Albumin/Globulin Ratio 0.5 (1.0-2.7) L Amylase Level 88 U/L (25-115) Lipase 473 U/L (73-393) H Vitamin D 25-Hydroxy Pending 25-Hydroxy Vitamin D2 Pending 25-Hydroxy Vitamin D3 Pending Plan Problems: (1) Pancreatitis Assessment & Plan: febrile covid + lft's wnl lip elevated esr / crp elevated abd exam benign US abd ordered ca pending no acute surgical intervention will follow with exam and recs thank you trending down lip fluctuating clinically without pain tolerating diet monitor (2) Fever (3) Elevated troponin (4) ESRD (end stage renal disease) on dialysis (5) Anemia in chronic kidney disease (CKD) (6) DMII (diabetes mellitus, type 2) (7) 2019 novel coronavirus disease (COVID-19) Assessment & Plan: ++ id input on abx pulm noted Lungs: Low lung volumes with bronchovascular crowding. No consolidation, pleural effusion, or pneumothorax. Pleural space: See above. Heart: Cardiomegaly. Mediastinum: Unremarkable. Bones/joints: Sternotomy with mediastinal operative findings. Other findings: Radiopaque linear structure superimposed over the left neck of uncertain significance, correlate with patient presentation and history. IMPRESSION: 1. Radiopaque linear structure superimposed over the left neck of uncertain significance, correlate with patient presentation and history. 2. Low lung volumes with bronchovascular crowding. 3. Cardiomegaly. 4. Otherwise no acute cardiopulmonary disease. 5. If there is continued concern, consider frontal and lateral chest radiographs or CT. Pacheco [place] Aug 17, 2020 11:46
--- NOTE | 2020-08-17 11:49 | Cardiology Progress Note ---
Assessment/Plan Assessment/Plan 1. COVID-19 viral PNA 2. CHF acute on chronic with elevated BNP, improved Echo EF 65% CXR positive for infiltates 3. CAD s/p CABG and [place] 4. Troponin leak 0.09 to 0.1 denies chest pain 5. ESRD on HD 6. HTN 7. HPLD 8. DMII Denies chest pain. Troponin leak 0.1, likely 2/2 CHF exacerbation and demand ischemia, will monitor. Echo shows well preserved LV function, CXR shows increased infiltrative disease. Pt refusing vital signs today. Subjective ROS Limited/Unobtainable: No Cardiovascular: Reports: no symptoms Respiratory: Reports: shortness of breath Gastrointestinal/Abdominal: Reports: poor appetite Genitourinary: Reports: no symptoms Subjective Denies chest pain, breathing easily on room air Objective Last 24 Hour Vital Signs Date Time Temp Pulse Resp B/P (MAP) Pulse Ox O2 Delivery O2 Flow Rate FiO2 08/17/20 09:00 Room Air 08/17/20 04:00 98.0 70 16 122/56 (78) 96 08/17/20 00:00 125/55 08/16/20 23:47 97.9 70 16 125/55 (78) 97 08/16/20 21:00 64 109/43 08/16/20 21:00 Room Air 08/16/20 20:00 98.2 64 16 109/43 (65) 95 08/16/20 17:30 120/52 08/16/20 16:00 97.7 62 19 118/66 (83) 98 08/16/20 13:03 120/52 08/16/20 12:00 96.8 57 20 120/52 (74) 98 Intake and Output 08/16/20 08/17/20 19:00 07:00 Intake Total 600 ml 360 ml Balance 600 ml 360 ml Intake Oral 600 ml Other 360 ml Laboratory Tests Test 08/16/20 17:33 08/16/20 20:26 08/17/20 05:45 POC Whole Blood Glucose Pending 94 MG/DL (74-106) White Blood Count 10.0 K/UL (4.8-10.8) Red Blood Count 3.32 M/UL (4.70-6.10) L Hemoglobin 10.3 G/DL (14.2-18.0) L Hematocrit 30.0 % (42.0-52.0) L Mean Corpuscular Volume 90 FL (80-99) Mean Corpuscular Hemoglobin 31.1 PG (27.0-31.0) H Mean Corpuscular Hemoglobin Concent 34.3 G/DL (32.0-36.0) Red Cell Distribution Width 16.9 % (11.6-14.8) H Platelet Count 211 K/UL (150-450) Mean Platelet Volume 6.0 FL (6.5-10.1) L Neutrophils (%) (Auto) 82.2 % (45.0-75.0) H Lymphocytes (%) (Auto) 9.9 % (20.0-45.0) L Monocytes (%) (Auto) 7.2 % (1.0-10.0) Eosinophils (%) (Auto) 0.1 % (0.0-3.0) Basophils (%) (Auto) 0.6 % (0.0-2.0) Sodium Level 133 MMOL/L (136-145) L Potassium Level 3.7 MMOL/L (3.5-5.1) Chloride Level 93 MMOL/L (98-107) L Carbon Dioxide Level 33 MMOL/L (21-32) H Anion Gap 7 mmol/L (5-15) Blood Urea Nitrogen 42 mg/dL (7-18) H Creatinine 5.7 MG/DL (0.55-1.30) H Estimat Glomerular Filtration Rate 10.0 mL/min (>60) Glucose Level 174 MG/DL (74-106) H Calcium Level 7.5 MG/DL (8.5-10.1) L Phosphorus Level 3.3 MG/DL (2.5-4.9) Total Bilirubin 0.5 MG/DL (0.2-1.0) Aspartate Amino Transf (AST/SGOT) 22 U/L (15-37) Alanine Aminotransferase (ALT/SGPT) 26 U/L (12-78) Alkaline Phosphatase 117 U/L (46-116) H C-Reactive Protein, Quantitative Pending Total Protein 6.9 G/DL (6.4-8.2) Albumin 2.4 G/DL (3.4-5.0) L Globulin 4.5 g/dL Albumin/Globulin Ratio 0.5 (1.0-2.7) L Amylase Level 88 U/L (25-115) Lipase 473 U/L (73-393) H Vitamin D 25-Hydroxy Pending 25-Hydroxy Vitamin D2 Pending 25-Hydroxy Vitamin D3 Pending Radha Collins PA-C Aug 17, 2020 11:49
--- NOTE | 2020-08-17 12:41 | General Progress Note ---
Subjective ROS Limited/Unobtainable: Yes Allergies: Coded Allergies: No Known Allergies (Unverified , 08/06/20) Objective Last 24 Hour Vital Signs Date Time Temp Pulse Resp B/P (MAP) Pulse Ox O2 Delivery O2 Flow Rate FiO2 08/17/20 09:00 Room Air 08/17/20 04:00 98.0 70 16 122/56 (78) 96 08/17/20 00:00 125/55 08/16/20 23:47 97.9 70 16 125/55 (78) 97 08/16/20 21:00 64 109/43 08/16/20 21:00 Room Air 08/16/20 20:00 98.2 64 16 109/43 (65) 95 08/16/20 17:30 120/52 08/16/20 16:00 97.7 62 19 118/66 (83) 98 08/16/20 13:03 120/52 Intake and Output 08/16/20 08/17/20 19:00 07:00 Intake Total 600 ml 360 ml Balance 600 ml 360 ml Intake Oral 600 ml Other 360 ml Laboratory Tests 08/16/20 17:33: POC Whole Blood Glucose [Pending] 08/16/20 20:26: POC Whole Blood Glucose 94 08/17/20 05:45: White Blood Count 10.0, Red Blood Count 3.32L, Hemoglobin 10.3L, Hematocrit 30.0L, Mean Corpuscular Volume 90, Mean Corpuscular Hemoglobin 31.1H, Mean Corpuscular Hemoglobin Concent 34.3, Red Cell Distribution Width 16.9H, Platelet Count 211, Mean Platelet Volume 6.0L, Neutrophils (%) (Auto) 82.2H, Lymphocytes (%) (Auto) 9.9L, Monocytes (%) (Auto) 7.2, Eosinophils (%) (Auto) 0.1, Basophils (%) (Auto) 0.6, Sodium Level 133L, Potassium Level 3.7, Chloride Level 93L, Carbon Dioxide Level 33H, Anion Gap 7, Blood Urea Nitrogen 42H, Creatinine 5.7H, Estimat Glomerular Filtration Rate 10.0, Glucose Level 174H, Calcium Level 7.5L, Phosphorus Level 3.3, Total Bilirubin 0.5, Aspartate Amino Transf (AST/SGOT) 22, Alanine Aminotransferase (ALT/SGPT) 26, Alkaline Phosphatase 117H , C-Reactive Protein, Quantitative [Pending], Total Protein 6.9, Albumin 2.4L, Globulin 4.5, Albumin/Globulin Ratio 0.5L, Amylase Level 88, Lipase 473H, Vitamin D 25-Hydroxy [Pending], 25-Hydroxy Vitamin D2 [Pending], 25-Hydroxy Vitamin D3 [Pending] Height (Feet): 5 Height (Inches): 8.00 Weight (Pounds): 180 General Appearance: no apparent distress EENT: normal ENT inspection Neck: supple Cardiovascular: normal rate Respiratory/Chest: decreased breath sounds Abdomen: normal bowel sounds, non tender, soft Extremities: non-tender Assessment/Plan Status: stable Assessment/Plan: COVID anemia renal failure CAD/NH DM elevated lipase elevated trop check amylase and lipase>>improving on renal diet on HD fu ID, Renal and cardiology monitor for BM Rd Cruz MD Aug 17, 2020 12:41
--- NOTE | 2020-08-17 12:43 | Diagnostic Imaging Report ---
Indication: Abdominal pain Technique: Portable supine views of the abdomen Comparison: None Findings: Nonspecific, not overtly obstructive bowel gas pattern. No evidence to suggest free intraperitoneal air however evaluation is limited in sensitivity given lack of understanding/erect view. No acute osseous abnormality. No radiopaque foreign body. Impression: Nonspecific bowel gas pattern. Consider more sensitive evaluation with CT of the abdomen with oral and IV contrast as clinically indicated.
--- NOTE | 2020-08-17 14:11 | Diagnostic Imaging Report ---
Indication: Shortness of breath Technique: XRAY Chest 1v Comparison: 08/11/2020 Findings: Improved aeration with persistent but decreased interstitial infiltrates in the right midlung. No new focal airspace opacity. No pleural effusion or pneumothorax. Heart size and mediastinal contours are stable. Again is evidence of prior cardiac surgery with median sternotomy and multiple surgical clips suggesting CABG. No acute osseous abnormality. IMPRESSION: Improved aeration with decreasing interstitial infiltrates. Findings may be related to improved pneumonia or improved interstitial edema.
[2020-08-17] MEDS: Lidocaine 1% Plain 30 ml INJ SCH (14:15)
[2020-08-17 16:00] VITALS: BP 139/63
[2020-08-17 20:00] VITALS: BP 145/69
[2020-08-17] MEDS: Atorvastatin 80mg tab ORAL SCH (21:00)
[2020-08-18] VITALS: BP 143/68
[2020-08-18 04:00] VITALS: BP 146/70
[2020-08-18] MEDS: GlipiZIDE 5mg tab ORAL SCH ×2 (06:33→17:35)
[2020-08-18] MEDS: HydrALAZINE 25mg tab ORAL SCH ×3 (06:33→12:37)
[2020-08-18] MEDS: NovoLOG Insulin Flexpen SUBQ SCH ×4 (06:35→21:25)
[2020-08-18 07:53] LABS: BASOPHILS % (AUTO) 0.6 % (0.0-2.0); CALCIUM 7.6 MG/DL (8.5-10.1); CREATININE 4.4 MG/DL (0.55-1.30); HEMATOCRIT 27.3 % (42.0-52.0); HEMOGLOBIN 9.3 G/DL (14.2-18.0); LYMPHOCYTES % (AUTO) 11.8 % (20.0-45.0); MEAN CORPUSCULAR VOLUME 90 FL (80-99); MONOCYTES % (AUTO) 9.3 % (1.0-10.0); NEUTROPHILS % (AUTO) 78.2 % (45.0-75.0); PLATELET COUNT 208 K/UL (150-450); POTASSIUM 3.5 MMOL/L (3.5-5.1); RED BLOOD COUNT 3.05 M/UL (4.70-6.10); RED CELL DISTRIBUTION WIDTH 16.7 % (11.6-14.8); WHITE BLOOD COUNT 9.8 K/UL (4.8-10.8)
--- NOTE | 2020-08-18 07:54 | General Progress Note ---
Subjective ROS Limited/Unobtainable: Yes Allergies: Coded Allergies: No Known Allergies (Unverified , 08/06/20) Objective Last 24 Hour Vital Signs Date Time Temp Pulse Resp B/P (MAP) Pulse Ox O2 Delivery O2 Flow Rate FiO2 08/18/20 06:33 143/68 08/18/20 04:00 97.6 68 20 146/70 (95) 96 08/18/20 00:00 97.3 67 20 143/68 (93) 95 08/18/20 00:00 143/68 08/17/20 21:00 63 145/69 08/17/20 21:00 Room Air 08/17/20 20:00 97.6 63 20 145/69 (94) 95 08/17/20 17:17 139/63 08/17/20 16:00 66 19 139/63 (88) 08/17/20 09:00 Room Air Intake and Output 08/17/20 08/18/20 19:00 07:00 Intake Total 600 ml 750 ml Output Total 2000 ml Balance -1400 ml 750 ml Intake Oral 750 ml Other 600 ml Hemodialysis UF 2000 ml # Voids 2 # Bowel Movements 1 Laboratory Tests 08/17/20 12:19: POC Whole Blood Glucose [Pending] 08/17/20 17:24: POC Whole Blood Glucose [Pending] 08/18/20 06:15: White Blood Count [Pending], Red Blood Count [Pending], Hemoglobin [Pending], Hematocrit [Pending], Mean Corpuscular Volume [Pending], Mean Corpuscular Hemoglobin [Pending], Mean Corpuscular Hemoglobin Concent [Pending], Red Cell Distribution Width [Pending], Platelet Count [Pending], Mean Platelet Volume [Pending], Neutrophils (%) (Auto) [Pending], Lymphocytes (%) (Auto) [Pending], Monocytes (%) (Auto) [Pending], Eosinophils (%) (Auto) [Pending], Basophils (%) (Auto) [Pending], Sodium Level [Pending], Potassium Level [Pending], Chloride Level [Pending], Carbon Dioxide Level [Pending], Blood Urea Nitrogen [Pending], Creatinine [Pending], Estimat Glomerular Filtration Rate [Pending], Glucose Level [Pending], Calcium Level [Pending], Total Bilirubin [Pending], Aspartate Amino Transf (AST/SGOT) [Pending], Alanine Aminotransferase (ALT/SGPT) [Pending], Alkaline Phosphatase [Pending], Total Protein [Pending], Albumin [Pending], Globulin [Pending], Amylase Level [Pending], Lipase [Pending] Height (Feet): 5 Height (Inches): 8.00 Weight (Pounds): 180 General Appearance: alert EENT: normal ENT inspection Neck: supple Cardiovascular: normal rate Respiratory/Chest: decreased breath sounds Abdomen: hypoactive bowel sounds Extremities: non-tender Assessment/Plan Status: stable Assessment/Plan: COVID anemia renal failure CAD/IN DM elevated lipase elevated trop fu amylase and lipase>>improving on renal diet on HD fu ID, Renal and cardiology monitor for BM KUB reviewed pending Rd [place] MD Aug 18, 2020 07:54
[2020-08-18 08:00] VITALS: BP 136/62
[2020-08-18 08:07] LABS: ALBUMIN 2.4 G/DL (3.4-5.0); ALBUMIN/GLOBULIN RATIO 0.7 (1.0-2.7); BILIRUBIN,TOTAL 0.4 MG/DL (0.2-1.0); CALCIUM 7.3 MG/DL (8.5-10.1); CREATININE 4.4 MG/DL (0.55-1.30); POTASSIUM 3.6 MMOL/L (3.5-5.1)
--- NOTE | 2020-08-18 08:07 | Pulmonology Progress Note ---
Subjective ROS Limited/Unobtainable: Yes Allergies: Coded Allergies: No Known Allergies (Unverified , 08/06/20) Subjective no resp distress pulse ox stable on RA no further fevers; no leukocytosis denies CP, SOB c/o abd pain no n/v/diarrhea, tolerates d iet KUB unremarkable CRP significantly elevated Objective Last 24 Hour Vital Signs Date Time Temp Pulse Resp B/P (MAP) Pulse Ox O2 Delivery O2 Flow Rate FiO2 08/18/20 06:33 143/68 08/18/20 04:00 97.6 68 20 146/70 (95) 96 08/18/20 00:00 97.3 67 20 143/68 (93) 95 08/18/20 00:00 143/68 08/17/20 21:00 63 145/69 08/17/20 21:00 Room Air 08/17/20 20:00 97.6 63 20 145/69 (94) 95 08/17/20 17:17 139/63 08/17/20 16:00 66 19 139/63 (88) 08/17/20 09:00 Room Air Intake and Output 08/17/20 08/18/20 19:00 07:00 Intake Total 600 ml 750 ml Output Total 2000 ml Balance -1400 ml 750 ml Intake Oral 750 ml Other 600 ml Hemodialysis UF 2000 ml # Voids 2 # Bowel Movements 1 Objective General Appearance: WD/WN, no apparent distress, alert Lines, tubes and drains: peripheral HEENT: normocephalic, atraumatic, anicteric, mucous membranes moist, PERRL Neck: non-tender, supple Respiratory/Chest: chest wall non-tender, lungs clear with moderate air exchange , no respiratory distress, no accessory muscle use Cardiovascular/Chest: normal peripheral pulses, normal rate, regular rhythm, + 1- edema BLE Abdomen: normal bowel sounds, non tender, soft Extremities: normal range of motion, non-tender, no calf tenderness, normal capillary refill, LUE AV shunt + bruit/thrill Skin Exam: warm/dry Neurologic: no motor/sensory deficits, alert, oriented x 3, responsive Musculoskeletal: normal muscle bulk Laboratory Tests 08/17/20 12:19: POC Whole Blood Glucose [Pending] 08/17/20 17:24: POC Whole Blood Glucose [Pending] 08/18/20 06:15: White Blood Count 9.8, Red Blood Count 3.05L, Hemoglobin 9.3L, Hematocrit 27.3L, Mean Corpuscular Volume 90, Mean Corpuscular Hemoglobin 30.7, Mean Corpuscular Hemoglobin Concent 34.2, Red Cell Distribution Width 16.7H, Platelet Count 208, Mean Platelet Volume 7.2, Neutrophils (%) (Auto) 78.2H, Lymphocytes (%) (Auto) 11.8L, Monocytes (%) (Auto) 9.3, Eosinophils (%) (Auto) 0.0, Basophils (%) (Auto) 0.6, Sodium Level [Pending], Potassium Level [Pending], Chloride Level [Pending], Carbon Dioxide Level [Pending], Anion Gap 6, Blood Urea Nitrogen [Pending], Creatinine [Pending], Estimat Glomerular Filtration Rate [Pending], Glucose Level [Pending], Calcium Level [Pending], Total Bilirubin [Pending], Aspartate Amino Transf (AST/SGOT) [Pending], Alanine Aminotransferase (ALT/SGPT) [Pending], Alkaline Phosphatase [Pending], Total Protein [Pending], Albumin [Pending], Globulin [Pending], Amylase Level [Pending], Lipase [Pending] Current Medications Medications (Trade) Dose Ordered Sig/Miri Route PRN Reason Start Time Stop Time Status Last Admin Dose Admin Acetaminophen (Tylenol) 650 mg Q4H PRN ORAL Mild Pain (Pain Scale 1-3) 08/11/20 22:30 09/10/20 22:29 08/16/20 21:25 Acetaminophen (Tylenol) 650 mg Q4H PRN ORAL Temp >100.5 08/09/20 19:00 09/08/20 18:59 08/09/20 20:30 Albuterol Sulfate (Proventil MDI) 2 puff Q4H PRN INH Shortness of Breath 08/06/20 22:45 11/04/20 22:44 Amiodarone HCl (Cordarone) 200 mg DAILY ORAL 08/07/20 09:00 11/05/20 08:59 08/16/20 09:27 Atorvastatin Calcium (Lipitor) 80 mg BEDTIME ORAL 08/08/20 21:00 11/06/20 20:59 08/15/20 20:21 Clopidogrel Bisulfate (Plavix) 75 mg DAILY ORAL 08/07/20 09:00 09/06/20 08:59 08/17/20 10:28 Dextrose (Dextrose 50%) 25 ml Q30M PRN IV Hypoglycemia 08/06/20 22:45 11/04/20 22:44 Dextrose (Dextrose 50%) 50 ml Q30M PRN IV Hypoglycemia 08/06/20 22:45 11/04/20 22:44 Docusate Sodium (Colace) 100 mg TID ORAL 08/12/20 13:00 09/09/20 12:59 08/17/20 17:17 Enoxaparin Sodium (Lovenox) 30 mg DAILY SUBQ 08/07/20 09:00 11/05/20 08:59 08/17/20 10:30 Glipizide (Glucotrol) 5 mg BIAC ORAL 08/07/20 06:30 09/06/20 06:29 08/18/20 06:33 Guaifenesin/ Dextromethorphan (Robitussin DM Syrup) 10 ml Q4H PRN ORAL For Cough 08/07/20 17:30 11/05/20 17:29 08/12/20 19:56 Hydralazine HCl (Apresoline) 25 mg Q6HR ORAL 08/16/20 12:00 11/14/20 11:59 08/18/20 06:33 Insulin Aspart (NovoLOG) BEFORE MEALS AND HS SUBQ 08/07/20 06:30 11/05/20 06:29 08/18/20 06:35 Ipratropium Xenia (Atrovent Inh) 2 puffs Q4H PRN INH SOB wheezing 08/06/20 22:45 09/05/20 22:44 Isosorbide Mononitrate (Imdur) 30 mg DAILY ORAL 08/08/20 09:00 09/07/20 08:59 08/16/20 09:27 Metoprolol Tartrate (Lopressor) 25 mg Q12HR ORAL 08/07/20 09:00 11/05/20 08:59 08/16/20 09:27 Ondansetron HCl (Zofran) 4 mg Q6H PRN IVP Nausea & Vomiting 08/08/20 10:15 09/07/20 10:14 08/09/20 20:31 Pantoprazole (Protonix) 40 mg EVERY 12 HOURS ORAL 08/08/20 21:00 09/07/20 20:59 08/16/20 09:25 Polyethylene Glycol (Miralax) 17 gm DAILY PRN ORAL Constipation 08/12/20 09:30 09/11/20 09:29 08/17/20 10:28 Sertraline HCl (Zoloft) 25 mg DAILY ORAL 08/07/20 09:00 09/06/20 08:59 08/17/20 10:28 Assessment/Plan Assessment/Plan ASSESSMENT COVID-19 infection CHF acute on chronic ( due to missed HD) Elevated troponin, likely troponin leak ESRD, on HD ( missed dialysis for 1 week ) Coronary artery disease with history of KS and CABG DM OOC - [id number] HTN Elevated lipase Anemia of chronic diseas4 Fever -resolved Constipation PLAN OF CARE MS floor isolation Date of sx onset: 1 week prior to admission Positive test: 08/06 rapid COVID 19 + O2 -on RA HFA Dex-> off Dexamethasone since 08/08 ( s/p 2 days) since not hypoxic REM - -> not a candidate given ESRD DVT PPX: Lovenox D dimer -0.47 Trend CRP-> 2.9-> 7.8-> 9.7-184.6-> 140.2 no abx as per ID recs ; BCX 08/09 NGTD, no further fevers CXR 08/17 -> Improved aeration with decreasing interstitial infiltrates. Monitor volumes and renal function, HD as per nephro Fup with consultants recs FC continue a/PLT therapy with Plavix and beta blockage elevated troponin x 3 with minimal elevation, same range, likely troponin leak, ECG non-ischemic, no c/o CP cardio recs appreciated BP management with BB and Hydralazine ( added by cardio) ECHO with pEF 65% BS management with Glipizide and SSI, HgA1c- 12.5 clearly not at goal may need more aggressive treatment of BS while on steroids anemia w/up c/w anemia of chronic disease , ferritin 1537 monitor HH with goal to keep Hgb >7 , remains at baseline consider EPO if drop in Hgb GI follows lipase trending down, amylase WNL a/emetic prn no n/v/d KUB 08/17 unremarkable abd us pending - as per GI recs bowel regimen supportive care dc plan home , ID cleared for dc; needed self isolation till 08/15 , off fup with OP HD ( last HD 08/13) - will discuss with nephro dc plan to SNF when place secured case discussed and evaluated by supervising physician Park Gunn NP Aug 18, 2020 08:07
--- NOTE | 2020-08-18 09:12 | Diagnostic Imaging Report ---
EXAM: US Abdomen Complete CLINICAL HISTORY: ABD PAIN TECHNIQUE: Real-time ultrasound of the abdomen with image documentation. COMPARISON: No relevant prior studies available. FINDINGS: Liver: The liver is within normal limits, measuring 14.0 cm. Gallbladder: There is no cholelithiasis. The common bile duct measures 6 mm. Pancreas: Poorly visualized, due to overlying bowel gas. Right Kidney: The right kidney measures 11.5 cm. No hydronephrosis or nephrolithiasis. Right midpole cyst measures 2.5 x 2.4 cm Left Kidney: The left kidney measures 10.6 cm. No hydronephrosis or nephrolithiasis. Left lower pole cyst measures 1.0 x 1.1 cm Spleen: The spleen measures 12.2 cm. Abdominal Aorta and IVC: Poorly visualized, due to overlying bowel gas. IMPRESSION: No cholelithiasis or ultrasound evidence of acute cholecystitis. Bilateral renal cysts, no follow-up indicated.
--- NOTE | 2020-08-18 10:42 | Nephrology Progress Note ---
Assessment/Plan Problem List: (1) ESRD (end stage renal disease) on dialysis (2) Elevated troponin (3) Pancreatitis (4) 2019 novel coronavirus disease (COVID-19) (5) Anemia in chronic kidney disease (CKD) (6) DMII (diabetes mellitus, type 2) Assessment End-stage renal disease on hemodialysis COVID-19 pneumonia Coronary artery disease, [place] Diabetes mellitus Anemia Elevated lipase Plan August 18: Patient was dialyzed yesterday. Due for dialysis on Thursday. Labs reviewed. Medication list reviewed. Stable from renal standpoint of view. August 17: Due for dialysis today. Labs reviewed. Medication list reviewed. Stable from renal standpoint of view. August 16: Patient dialyzed yesterday. Labs reviewed. Due for dialysis tomorrow. Blood pressure stable. Medication list reviewed. August 15: Due for dialysis today. Labs reviewed. Blood pressure stable. Continue per consultants. August 14: Dialyzed yesterday. Due for dialysis tomorrow. Labs reviewed. Medication list reviewed. Full code. Continue per consultants. August 13: Due for dialysis today. Labs reviewed. Medication list reviewed. Continue per consultants. August 12: Dialyzed yesterday. Due for dialysis tomorrow. Medication list reviewed. Labs are reviewed. Continue per consultants. August 11: Due for dialysis today. Continue per consultants. Check labs tomorrow. August 10: Last dialyzed yesterday. Labs reviewed. Due for dialysis tomorrow. Continue per consultants. August 09: Patient due for dialysis today. Labs reviewed. Medication list reviewed. Continue per consultants. August 08: Patient was dialyzed yesterday. Due for dialysis tomorrow. Blood pressure medication adjusted. Diet changed to renal medium carbs. Continue per consultants. 2D echo pending. Previously: Monitor renal parameters Hemodialysis as soon as the patient arrives to medical floor Monitor lipase, renal parameters, hemoglobin and hematocrit Per orders Subjective Constitutional: Reports: malaise Objective Objective Last 24 Hour Vital Signs Date Time Temp Pulse Resp B/P (MAP) Pulse Ox O2 Delivery O2 Flow Rate FiO2 08/18/20 08:00 98.2 70 20 136/62 (86) 98 08/18/20 06:33 143/68 08/18/20 04:00 97.6 68 20 146/70 (95) 96 08/18/20 00:00 97.3 67 20 143/68 (93) 95 08/18/20 00:00 143/68 08/17/20 21:00 63 145/69 08/17/20 21:00 Room Air 08/17/20 20:00 97.6 63 20 145/69 (94) 95 08/17/20 17:17 139/63 08/17/20 16:00 66 19 139/63 (88) Intake and Output 08/17/20 08/18/20 19:00 07:00 Intake Total 600 ml 750 ml Output Total 2000 ml Balance -1400 ml 750 ml Intake Oral 750 ml Other 600 ml Hemodialysis UF 2000 ml # Voids 2 # Bowel Movements 1 Current Medications Medications (Trade) Dose Ordered Sig/Miri Route PRN Reason Start Time Stop Time Status Last Admin Dose Admin Acetaminophen (Tylenol) 650 mg Q4H PRN ORAL Mild Pain (Pain Scale 1-3) 08/11/20 22:30 09/10/20 22:29 08/16/20 21:25 Acetaminophen (Tylenol) 650 mg Q4H PRN ORAL Temp >100.5 08/09/20 19:00 09/08/20 18:59 08/09/20 20:30 Albuterol Sulfate (Proventil MDI) 2 puff Q4H PRN INH Shortness of Breath 08/06/20 22:45 11/04/20 22:44 Amiodarone HCl (Cordarone) 200 mg DAILY ORAL 08/07/20 09:00 11/05/20 08:59 08/16/20 09:27 Atorvastatin Calcium (Lipitor) 80 mg BEDTIME ORAL 08/08/20 21:00 11/06/20 20:59 08/15/20 20:21 Clopidogrel Bisulfate (Plavix) 75 mg DAILY ORAL 08/07/20 09:00 09/06/20 08:59 08/17/20 10:28 Dextrose (Dextrose 50%) 25 ml Q30M PRN IV Hypoglycemia 08/06/20 22:45 11/04/20 22:44 Dextrose (Dextrose 50%) 50 ml Q30M PRN IV Hypoglycemia 08/06/20 22:45 11/04/20 22:44 Docusate Sodium (Colace) 100 mg TID ORAL 08/12/20 13:00 09/09/20 12:59 08/17/20 17:17 Enoxaparin Sodium (Lovenox) 30 mg DAILY SUBQ 08/07/20 09:00 11/05/20 08:59 08/17/20 10:30 Glipizide (Glucotrol) 5 mg BIAC ORAL 08/07/20 06:30 09/06/20 06:29 08/18/20 06:33 Guaifenesin/ Dextromethorphan (Robitussin DM Syrup) 10 ml Q4H PRN ORAL For Cough 08/07/20 17:30 11/05/20 17:29 08/12/20 19:56 Hydralazine HCl (Apresoline) 25 mg Q6HR ORAL 08/16/20 12:00 11/14/20 11:59 08/18/20 06:33 Insulin Aspart (NovoLOG) BEFORE MEALS AND HS SUBQ 08/07/20 06:30 11/05/20 06:29 08/18/20 06:35 Ipratropium Murphy (Atrovent Inh) 2 puffs Q4H PRN INH SOB wheezing 08/06/20 22:45 09/05/20 22:44 Isosorbide Mononitrate (Imdur) 30 mg DAILY ORAL 08/08/20 09:00 09/07/20 08:59 08/16/20 09:27 Metoprolol Tartrate (Lopressor) 25 mg Q12HR ORAL 08/07/20 09:00 11/05/20 08:59 08/16/20 09:27 Ondansetron HCl (Zofran) 4 mg Q6H PRN IVP Nausea & Vomiting 08/08/20 10:15 09/07/20 10:14 08/09/20 20:31 Pantoprazole (Protonix) 40 mg EVERY 12 HOURS ORAL 08/08/20 21:00 09/07/20 20:59 08/16/20 09:25 Polyethylene Glycol (Miralax) 17 gm DAILY PRN ORAL Constipation 08/12/20 09:30 09/11/20 09:29 08/17/20 10:28 Sertraline HCl (Zoloft) 25 mg DAILY ORAL 08/07/20 09:00 09/06/20 08:59 08/17/20 10:28 Laboratory Tests 08/17/20 12:19: POC Whole Blood Glucose [Pending] 08/17/20 17:24: POC Whole Blood Glucose [Pending] 08/18/20 06:15: White Blood Count 9.8, Red Blood Count 3.05L, Hemoglobin 9.3L, Hematocrit 27.3L, Mean Corpuscular Volume 90, Mean Corpuscular Hemoglobin 30.7, Mean Corpuscular Hemoglobin Concent 34.2, Red Cell Distribution Width 16.7H, Platelet Count 208, Mean Platelet Volume 7.2, Neutrophils (%) (Auto) 78.2H, Lymphocytes (%) (Auto) 11.8L, Monocytes (%) (Auto) 9.3, Eosinophils (%) (Auto) 0.0, Basophils (%) (Auto) 0.6, Sodium Level 138, Potassium Level 3.6, Chloride Level 97L, Carbon Dioxide Level 33H, Anion Gap 8, Blood Urea Nitrogen 25H, Creatinine 4.4H, Estimat Glomerular Filtration Rate 13.4, Glucose Level 293H, Calcium Level 7.3L, Total Bilirubin 0.4, Aspartate Amino Transf (AST/SGOT) 20, Alanine Aminotransferase (ALT/SGPT) 25, Alkaline Phosphatase 120H, Total Protein 6.0L, Albumin 2.4L, Globulin 3.6, Albumin/Globulin Ratio 0.7L, Amylase Level 69, Lipase 522H Height (Feet): 5 Height (Inches): 8.00 Weight (Pounds): 180 General Appearance: no apparent distress Cardiovascular: normal rate Respiratory/Chest: decreased breath sounds Abdomen: soft Objective No change Jon Crews MD Aug 18, 2020 10:42
--- NOTE | 2020-08-18 11:32 | Surgery Progress Note ---
Surgery Progress Note Subjective Symptoms: improved, pain absent, tolerating diet, passing flatus, BM Objective Last 24 Hour Vital Signs Date Time Temp Pulse Resp B/P (MAP) Pulse Ox O2 Delivery O2 Flow Rate FiO2 08/18/20 08:00 98.2 70 20 136/62 (86) 98 08/18/20 06:33 143/68 08/18/20 04:00 97.6 68 20 146/70 (95) 96 08/18/20 00:00 97.3 67 20 143/68 (93) 95 08/18/20 00:00 143/68 08/17/20 21:00 63 145/69 08/17/20 21:00 Room Air 08/17/20 20:00 97.6 63 20 145/69 (94) 95 08/17/20 17:17 139/63 08/17/20 16:00 66 19 139/63 (88) I&O Intake and Output 08/17/20 08/18/20 19:00 07:00 Intake Total 600 ml 750 ml Output Total 2000 ml Balance -1400 ml 750 ml Intake Oral 750 ml Other 600 ml Hemodialysis UF 2000 ml # Voids 2 # Bowel Movements 1 Cardiovascular: RSR Respiratory: clear Abdomen: soft, flat, non-tender, present bowel sounds, non-distended Extremities: no edema, no tenderness, no cyanosis Laboratory Tests Test 08/17/20 12:19 08/17/20 17:24 08/18/20 06:15 POC Whole Blood Glucose Pending Pending White Blood Count 9.8 K/UL (4.8-10.8) Red Blood Count 3.05 M/UL (4.70-6.10) L Hemoglobin 9.3 G/DL (14.2-18.0) L Hematocrit 27.3 % (42.0-52.0) L Mean Corpuscular Volume 90 FL (80-99) Mean Corpuscular Hemoglobin 30.7 PG (27.0-31.0) Mean Corpuscular Hemoglobin Concent 34.2 G/DL (32.0-36.0) Red Cell Distribution Width 16.7 % (11.6-14.8) H Platelet Count 208 K/UL (150-450) Mean Platelet Volume 7.2 FL (6.5-10.1) Neutrophils (%) (Auto) 78.2 % (45.0-75.0) H Lymphocytes (%) (Auto) 11.8 % (20.0-45.0) L Monocytes (%) (Auto) 9.3 % (1.0-10.0) Eosinophils (%) (Auto) 0.0 % (0.0-3.0) Basophils (%) (Auto) 0.6 % (0.0-2.0) Sodium Level 138 MMOL/L (136-145) Potassium Level 3.6 MMOL/L (3.5-5.1) Chloride Level 97 MMOL/L (98-107) L Carbon Dioxide Level 33 MMOL/L (21-32) H Anion Gap 8 mmol/L (5-15) Blood Urea Nitrogen 25 mg/dL (7-18) H Creatinine 4.4 MG/DL (0.55-1.30) H Estimat Glomerular Filtration Rate 13.4 mL/min (>60) Glucose Level 293 MG/DL (74-106) H Calcium Level 7.3 MG/DL (8.5-10.1) L Total Bilirubin 0.4 MG/DL (0.2-1.0) Aspartate Amino Transf (AST/SGOT) 20 U/L (15-37) Alanine Aminotransferase (ALT/SGPT) 25 U/L (12-78) Alkaline Phosphatase 120 U/L (46-116) H Total Protein 6.0 G/DL (6.4-8.2) L Albumin 2.4 G/DL (3.4-5.0) L Globulin 3.6 g/dL Albumin/Globulin Ratio 0.7 (1.0-2.7) L Amylase Level 69 U/L (25-115) Lipase 522 U/L (73-393) H Plan Problems: (1) Pancreatitis Assessment & Plan: febrile covid + lft's wnl lip elevated esr / crp elevated abd exam benign US abd ordered ca pending no acute surgical intervention will follow with exam and recs thank you trending down lip fluctuating clinically without pain tolerating diet monitor US noted improving Liver: The liver is within normal limits, measuring 14.0 cm. Gallbladder: There is no cholelithiasis. The common bile duct measures 6 mm. Pancreas: Poorly visualized, due to overlying bowel gas. Right Kidney: The right kidney measures 11.5 cm. No hydronephrosis or nephrolithiasis. Right midpole cyst measures 2.5 x 2.4 cm Left Kidney: The left kidney measures 10.6 cm. No hydronephrosis or nephrolithiasis. Left lower pole cyst measures 1.0 x 1.1 cm Spleen: The spleen measures 12.2 cm. Abdominal Aorta and IVC: Poorly visualized, due to overlying bowel gas. IMPRESSION: No cholelithiasis or ultrasound evidence of acute cholecystitis. Bilateral renal cysts, no follow-up indicated. (2) Fever (3) Elevated troponin (4) ESRD (end stage renal disease) on dialysis (5) Anemia in chronic kidney disease (CKD) (6) DMII (diabetes mellitus, type 2) (7) 2019 novel coronavirus disease (COVID-19) Assessment & Plan: ++ id input on abx pulm noted Lungs: Low lung volumes with bronchovascular crowding. No consolidation, pleural effusion, or pneumothorax. Pleural space: See above. Heart: Cardiomegaly. Mediastinum: Unremarkable. Bones/joints: Sternotomy with mediastinal operative findings. Other findings: Radiopaque linear structure superimposed over the left neck of uncertain significance, correlate with patient presentation and history. IMPRESSION: 1. Radiopaque linear structure superimposed over the left neck of uncertain significance, correlate with patient presentation and history. 2. Low lung volumes with bronchovascular crowding. 3. Cardiomegaly. 4. Otherwise no acute cardiopulmonary disease. 5. If there is continued concern, consider frontal and lateral chest radiographs or CT. Pacheco [place] Aug 18, 2020 11:32
[2020-08-18 12:00] VITALS: BP 169/70
[2020-08-18] MEDS: Docusate 100mg cap ORAL SCH ×3 (12:36→17:35)
[2020-08-18] MEDS: Imdur 30mg tab ORAL SCH (12:36)
[2020-08-18] MEDS: Sertraline 50mg tab ORAL SCH (12:37)
[2020-08-18] MEDS: Amiodarone 200mg tab ORAL SCH (12:37)
[2020-08-18] MEDS: Enoxaparin 30mg Inj SUBQ SCH (12:43)
--- NOTE | 2020-08-18 13:48 | Cardiology Progress Note ---
Assessment/Plan Assessment/Plan 1. COVID-19 viral PNA 2. CHF acute on chronic with elevated BNP 2942 Echo EF 65% CXR interval improvement 3. CAD s/p CABG and [place] 4. Troponin leak 0.09 to 0.1 denies chest pain 5. ESRD on HD 6. HTN 7. HPLD 8. DMII Denies chest pain. Troponin leak 0.1, likely 2/2 CHF exacerbation and demand ischemia, will monitor. Echo shows well preserved LV function. Subjective Cardiovascular: Reports: no symptoms Respiratory: Reports: shortness of breath Gastrointestinal/Abdominal: Reports: no symptoms, poor fluid intake Genitourinary: Reports: no symptoms Subjective Denies chest pain, breathing easily on room air Objective Last 24 Hour Vital Signs Date Time Temp Pulse Resp B/P (MAP) Pulse Ox O2 Delivery O2 Flow Rate FiO2 08/18/20 12:37 169/70 08/18/20 12:37 66 169/70 08/18/20 12:36 169/70 08/18/20 12:00 97.8 66 20 169/70 (103) 98 08/18/20 08:00 98.2 70 20 136/62 (86) 98 08/18/20 06:33 143/68 08/18/20 04:00 97.6 68 20 146/70 (95) 96 08/18/20 00:00 97.3 67 20 143/68 (93) 95 08/18/20 00:00 143/68 08/17/20 21:00 63 145/69 08/17/20 21:00 Room Air 08/17/20 20:00 97.6 63 20 145/69 (94) 95 08/17/20 17:17 139/63 08/17/20 16:00 66 19 139/63 (88) General Appearance: no apparent distress EENT: PERRL/EOMI Neck: no JVD Rhythm: NSR Respiratory/Chest: no respiratory distress Intake and Output 08/17/20 08/18/20 19:00 07:00 Intake Total 600 ml 750 ml Output Total 2000 ml Balance -1400 ml 750 ml Intake Oral 750 ml Other 600 ml Hemodialysis UF 2000 ml # Voids 2 # Bowel Movements 1 Laboratory Tests Test 08/17/20 17:24 08/18/20 06:15 08/18/20 12:35 POC Whole Blood Glucose Pending 153 MG/DL (74-106) H White Blood Count 9.8 K/UL (4.8-10.8) Red Blood Count 3.05 M/UL (4.70-6.10) L Hemoglobin 9.3 G/DL (14.2-18.0) L Hematocrit 27.3 % (42.0-52.0) L Mean Corpuscular Volume 90 FL (80-99) Mean Corpuscular Hemoglobin 30.7 PG (27.0-31.0) Mean Corpuscular Hemoglobin Concent 34.2 G/DL (32.0-36.0) Red Cell Distribution Width 16.7 % (11.6-14.8) H Platelet Count 208 K/UL (150-450) Mean Platelet Volume 7.2 FL (6.5-10.1) Neutrophils (%) (Auto) 78.2 % (45.0-75.0) H Lymphocytes (%) (Auto) 11.8 % (20.0-45.0) L Monocytes (%) (Auto) 9.3 % (1.0-10.0) Eosinophils (%) (Auto) 0.0 % (0.0-3.0) Basophils (%) (Auto) 0.6 % (0.0-2.0) Sodium Level 138 MMOL/L (136-145) Potassium Level 3.6 MMOL/L (3.5-5.1) Chloride Level 97 MMOL/L (98-107) L Carbon Dioxide Level 33 MMOL/L (21-32) H Anion Gap 8 mmol/L (5-15) Blood Urea Nitrogen 25 mg/dL (7-18) H Creatinine 4.4 MG/DL (0.55-1.30) H Estimat Glomerular Filtration Rate 13.4 mL/min (>60) Glucose Level 293 MG/DL (74-106) H Calcium Level 7.3 MG/DL (8.5-10.1) L Total Bilirubin 0.4 MG/DL (0.2-1.0) Aspartate Amino Transf (AST/SGOT) 20 U/L (15-37) Alanine Aminotransferase (ALT/SGPT) 25 U/L (12-78) Alkaline Phosphatase 120 U/L (46-116) H Total Protein 6.0 G/DL (6.4-8.2) L Albumin 2.4 G/DL (3.4-5.0) L Globulin 3.6 g/dL Albumin/Globulin Ratio 0.7 (1.0-2.7) L Amylase Level 69 U/L (25-115) Lipase 522 U/L (73-393) H Radha Collins PA-C Aug 18, 2020 13:48
[2020-08-18] MEDS: HydrALAZINE 50mg tab ORAL SCH ×2 (14:00→22:00)
[2020-08-18 16:00] VITALS: BP 147/64
[2020-08-18 20:00] VITALS: BP 127/54
[2020-08-18] MEDS: Atorvastatin 80mg tab ORAL SCH (21:16)
[2020-08-18] MEDS: Zolpidem 5mg tab ORAL PRN (21:26)
[2020-08-19] MEDS: NovoLOG Insulin Flexpen SUBQ SCH ×4 (06:30→20:20)
--- NOTE | 2020-08-19 06:53 | General Progress Note ---
Subjective ROS Limited/Unobtainable: No Allergies: Coded Allergies: No Known Allergies (Unverified , 08/06/20) Objective Last 24 Hour Vital Signs Date Time Temp Pulse Resp B/P (MAP) Pulse Ox O2 Delivery O2 Flow Rate FiO2 08/18/20 21:17 67 149/66 08/18/20 21:00 Room Air 08/18/20 20:00 98.1 62 16 127/54 (78) 96 08/18/20 16:00 97.8 63 20 147/64 (91) 97 08/18/20 14:00 169/70 08/18/20 12:37 169/70 08/18/20 12:37 66 169/70 08/18/20 12:36 169/70 08/18/20 12:00 97.8 66 20 169/70 (103) 98 08/18/20 09:00 Room Air 08/18/20 08:00 98.2 70 20 136/62 (86) 98 Intake and Output 08/18/20 08/19/20 19:00 07:00 Intake Total 1000 ml 360 ml Balance 1000 ml 360 ml Intake Oral 1000 ml Other 360 ml # Voids 22 2 Laboratory Tests 08/18/20 12:35: POC Whole Blood Glucose 153H 08/18/20 17:43: POC Whole Blood Glucose 147H Height (Feet): 5 Height (Inches): 8.00 Weight (Pounds): 180 General Appearance: no apparent distress EENT: normal ENT inspection Neck: supple Cardiovascular: normal rate Respiratory/Chest: decreased breath sounds Abdomen: normal bowel sounds, non tender, soft Extremities: non-tender Assessment/Plan Status: stable Assessment/Plan: COVID anemia renal failure CAD/TN DM elevated lipase elevated trop fu amylase and lipase>>improving on renal diet on HD fu ID, Renal and cardiology monitor for BM KUB reviewed abd us reviewed Rd Cruz MD Aug 19, 2020 06:53
[2020-08-19] MEDS: HydrALAZINE 50mg tab ORAL SCH ×3 (07:07→21:34)
[2020-08-19] MEDS: GlipiZIDE 5mg tab ORAL SCH ×2 (07:08→17:15)
--- NOTE | 2020-08-19 08:47 | Pulmonology Progress Note ---
Subjective ROS Limited/Unobtainable: No Allergies: Coded Allergies: No Known Allergies (Unverified , 08/06/20) Subjective no resp distress pulse ox stable on RA denies CP, SOB no abd pain tolerates diet Objective Last 24 Hour Vital Signs Date Time Temp Pulse Resp B/P (MAP) Pulse Ox O2 Delivery O2 Flow Rate FiO2 08/19/20 07:07 129/75 08/18/20 21:17 67 149/66 08/18/20 21:00 Room Air 08/18/20 20:00 98.1 62 16 127/54 (78) 96 08/18/20 16:00 97.8 63 20 147/64 (91) 97 08/18/20 14:00 169/70 08/18/20 12:37 169/70 08/18/20 12:37 66 169/70 08/18/20 12:36 169/70 08/18/20 12:00 97.8 66 20 169/70 (103) 98 08/18/20 09:00 Room Air Intake and Output 08/18/20 08/19/20 19:00 07:00 Intake Total 1000 ml 360 ml Balance 1000 ml 360 ml Intake Oral 1000 ml Other 360 ml # Voids 22 2 Objective General Appearance: WD/WN, no apparent distress, alert Lines, tubes and drains: peripheral HEENT: normocephalic, atraumatic, anicteric, mucous membranes moist, PERRL Neck: non-tender, supple Respiratory/Chest: chest wall non-tender, lungs clear with moderate air exchange , no respiratory distress, no accessory muscle use Cardiovascular/Chest: normal peripheral pulses, normal rate, regular rhythm, + 1- edema BLE Abdomen: normal bowel sounds, non tender, soft Extremities: normal range of motion, non-tender, no calf tenderness, normal capillary refill, LUE AV shunt + bruit/thrill Skin Exam: warm/dry Neurologic: no motor/sensory deficits, alert, oriented x 3, responsive Musculoskeletal: normal muscle bulk Laboratory Tests 08/18/20 12:35: POC Whole Blood Glucose 153H 08/18/20 17:43: POC Whole Blood Glucose 147H 08/19/20 07:01: POC Whole Blood Glucose [Pending] Current Medications Medications (Trade) Dose Ordered Sig/Miri Route PRN Reason Start Time Stop Time Status Last Admin Dose Admin Acetaminophen (Tylenol) 650 mg Q4H PRN ORAL Mild Pain (Pain Scale 1-3) 08/11/20 22:30 09/10/20 22:29 08/16/20 21:25 Acetaminophen (Tylenol) 650 mg Q4H PRN ORAL Temp >100.5 08/09/20 19:00 09/08/20 18:59 08/09/20 20:30 Albuterol Sulfate (Proventil MDI) 2 puff Q4H PRN INH Shortness of Breath 08/06/20 22:45 11/04/20 22:44 Amiodarone HCl (Cordarone) 200 mg DAILY ORAL 08/07/20 09:00 11/05/20 08:59 08/18/20 12:37 Atorvastatin Calcium (Lipitor) 80 mg BEDTIME ORAL 08/08/20 21:00 11/06/20 20:59 08/18/20 21:16 Clopidogrel Bisulfate (Plavix) 75 mg DAILY ORAL 08/07/20 09:00 09/06/20 08:59 08/18/20 12:36 Dextrose (Dextrose 50%) 25 ml Q30M PRN IV Hypoglycemia 08/06/20 22:45 11/04/20 22:44 Dextrose (Dextrose 50%) 50 ml Q30M PRN IV Hypoglycemia 08/06/20 22:45 11/04/20 22:44 Docusate Sodium (Colace) 100 mg TID ORAL 08/12/20 13:00 09/09/20 12:59 08/18/20 17:35 Enoxaparin Sodium (Lovenox) 30 mg DAILY SUBQ 08/07/20 09:00 11/05/20 08:59 08/18/20 12:43 Glipizide (Glucotrol) 5 mg BIAC ORAL 08/07/20 06:30 09/06/20 06:29 08/19/20 07:08 Guaifenesin/ Dextromethorphan (Robitussin DM Syrup) 10 ml Q4H PRN ORAL For Cough 08/07/20 17:30 11/05/20 17:29 08/12/20 19:56 Hydralazine HCl (Apresoline) 50 mg Q8HR ORAL 08/18/20 14:00 11/14/20 11:59 08/19/20 07:07 Insulin Aspart (NovoLOG) BEFORE MEALS AND HS SUBQ 08/07/20 06:30 11/05/20 06:29 08/18/20 21:25 Ipratropium Tabiona (Atrovent Inh) 2 puffs Q4H PRN INH SOB wheezing 08/06/20 22:45 09/05/20 22:44 Isosorbide Mononitrate (Imdur) 30 mg DAILY ORAL 08/08/20 09:00 09/07/20 08:59 08/18/20 12:36 Metoprolol Tartrate (Lopressor) 25 mg Q12HR ORAL 08/07/20 09:00 11/05/20 08:59 08/18/20 21:17 Ondansetron HCl (Zofran) 4 mg Q6H PRN IVP Nausea & Vomiting 08/08/20 10:15 09/07/20 10:14 08/09/20 20:31 Pantoprazole (Protonix) 40 mg EVERY 12 HOURS ORAL 08/08/20 21:00 09/07/20 20:59 08/18/20 21:16 Polyethylene Glycol (Miralax) 17 gm DAILY PRN ORAL Constipation 08/12/20 09:30 09/11/20 09:29 08/17/20 10:28 Sertraline HCl (Zoloft) 25 mg DAILY ORAL 08/07/20 09:00 09/06/20 08:59 08/18/20 12:37 Zolpidem Tartrate (Ambien) 5 mg HSPRN PRN ORAL Insomnia 08/18/20 21:00 08/25/20 20:59 08/18/20 21:26 Assessment/Plan Assessment/Plan ASSESSMENT COVID-19 infection CHF acute on chronic ( due to missed HD) Elevated troponin, likely troponin leak ESRD, on HD ( missed dialysis for 1 week ) 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 Monitor volumes and renal function, HD as per nephro Fup with consultants recs FC continue a/PLT therapy with Plavix and beta blockage elevated troponin x 3 with minimal elevation, same range, likely troponin leak, ECG non-ischemic, no c/o CP cardio recs appreciated BP management with BB and Hydralazine ( added by cardio) ECHO with pEF 65% BS management with Glipizide and SSI, HgA1c- 12.5 clearly not at goal may need more aggressive treatment of BS while on steroids anemia w/up c/w anemia of chronic disease , ferritin 1537 monitor HH with goal to keep Hgb >7 , remains at baseline consider EPO if drop in Hgb GI follows lipase trending down, amylase WNL a/emetic prn no n/v/d KUB 08/17 unremarkable abd US-> No cholelithiasis or ultrasound evidence of acute cholecystitis. bowel regimen supportive care ID cleared for dc; needed self isolation till 08/15 , off fup with OP HD ( last HD 08/13) - will discuss with nephro dc plan to SNF when place secured case discussed and evaluated by supervising physician Park Gunn NP Aug 19, 2020 08:47
[2020-08-19] MEDS: Enoxaparin 30mg Inj SUBQ SCH (09:00)
[2020-08-19] MEDS: Imdur 30mg tab ORAL SCH (09:00)
[2020-08-19] MEDS: Docusate 100mg cap ORAL SCH ×3 (09:00→17:15)
[2020-08-19] MEDS: Sertraline 50mg tab ORAL SCH (09:00)
[2020-08-19] MEDS: Amiodarone 200mg tab ORAL SCH (09:00)
--- NOTE | 2020-08-19 09:36 | Cardiology Progress Note ---
Assessment/Plan Assessment/Plan 1. COVID-19 viral PNA 2. CHF acute on chronic with elevated BNP 2942 Echo EF 65% CXR interval improvement 3. CAD s/p CABG and [place] 4. Troponin leak 0.09 to 0.1 denies chest pain 5. ESRD on HD 6. HTN 7. HPLD 8. DMII Denies chest pain. Troponin leak 0.1, likely 2/2 CHF exacerbation and demand ischemia, will monitor. Echo shows well preserved LV function. Subjective Subjective Denies chest pain, breathing easily on room air Objective Last 24 Hour Vital Signs Date Time Temp Pulse Resp B/P (MAP) Pulse Ox O2 Delivery O2 Flow Rate FiO2 08/19/20 07:07 129/75 08/18/20 21:17 67 149/66 08/18/20 21:00 Room Air 08/18/20 20:00 98.1 62 16 127/54 (78) 96 08/18/20 16:00 97.8 63 20 147/64 (91) 97 08/18/20 14:00 169/70 08/18/20 12:37 169/70 08/18/20 12:37 66 169/70 08/18/20 12:36 169/70 08/18/20 12:00 97.8 66 20 169/70 (103) 98 Intake and Output 08/18/20 08/19/20 19:00 07:00 Intake Total 1000 ml 360 ml Balance 1000 ml 360 ml Intake Oral 1000 ml Other 360 ml # Voids 22 2 Laboratory Tests Test 08/18/20 12:35 08/18/20 17:43 08/19/20 07:01 POC Whole Blood Glucose 153 MG/DL (74-106) H 147 MG/DL (74-106) H Pending Radha Collins PA-C Aug 19, 2020 09:36
[2020-08-19 09:52] LABS: HEMOGLOBIN 9.4 G/DL (14.2-18.0); MEAN CORPUSCULAR VOLUME 90 FL (80-99); PLATELET COUNT 167 K/UL (150-450); RED BLOOD COUNT 3.22 M/UL (4.70-6.10); RED CELL DISTRIBUTION WIDTH 17.9 % (11.6-14.8); WHITE BLOOD COUNT 11.5 K/UL (4.8-10.8)
[2020-08-19 10:11] LABS: ALBUMIN 2.2 G/DL (3.4-5.0); ALBUMIN/GLOBULIN RATIO 0.6 (1.0-2.7); BILIRUBIN,TOTAL 0.5 MG/DL (0.2-1.0); CALCIUM 7.7 MG/DL (8.5-10.1); CREATININE 5.4 MG/DL (0.55-1.30); POTASSIUM 4.2 MMOL/L (3.5-5.1)
[2020-08-19 10:17] LABS: PHOSPHORUS 3.9 MG/DL (2.5-4.9)
--- NOTE | 2020-08-19 10:57 | Infectious Diseases Prog Note ---
Assessment/Plan 69yo M with: COVID pneumonia Febrile to 101.3 Normal WBC Lymphopenia 08/06 BCx NTD COVID rapid test positive UA neg CXR: No acute process MRSA nares neg 08/09 BCx NTD CXR: Borderline cardiomegaly. No acute process 1/2 CXR: There is been slight interval worsening of mild to moderate diffuse right lung infiltrate with unchanged patchy mild left lung infiltrates. Elevated lipase, no abd pain PMH: ESRD on HD CAD s/p CABG 2018 HTN HLD DM2 LUE AVF Plan: Cont to monitor off abx OK to d/c home from ID standpoint given doing well on RA OK to d/c off COVID isolation given pt now >10 days out from date of diagnosis and doing well on RA 08/08 SP Dex #2, stopped given on RA Not candidate for RDV given ESRD on HD This institution does not have access to convalescent plasma, and as pt doing well on RA unlikely to benefit from it at this point Monitor CBC/CMP Monitor resp status Monitor temp curve, hemodynamics D/w RN Thank you for this consult. [facility] will continue to follow. Subjective Allergies: Coded Allergies: No Known Allergies (Unverified , 08/06/20) AF Doing well on RA WBC 11 Abd discomfort improved, eating lunch Says he's going to rehab tomorrow Objective Last 24 Hour Vital Signs Date Time Temp Pulse Resp B/P (MAP) Pulse Ox O2 Delivery O2 Flow Rate FiO2 08/19/20 07:07 129/75 08/18/20 21:17 67 149/66 08/18/20 21:00 Room Air 08/18/20 20:00 98.1 62 16 127/54 (78) 96 08/18/20 16:00 97.8 63 20 147/64 (91) 97 08/18/20 14:00 169/70 08/18/20 12:37 169/70 08/18/20 12:37 66 169/70 08/18/20 12:36 169/70 08/18/20 12:00 97.8 66 20 169/70 (103) 98 Height (Feet): 5 Height (Inches): 8.00 Weight (Pounds): 180 Gen: NAD HEENT: NCAT Pulm: BL chest rise Abd: Non-distended Ext: No c/c/e Skin: No visible rashes Neuro: Awake Laboratory Tests Test 08/18/20 12:35 08/18/20 17:43 08/19/20 07:01 08/19/20 09:25 POC Whole Blood Glucose 153 MG/DL (74-106) H 147 MG/DL (74-106) H Pending White Blood Count 11.5 K/UL (4.8-10.8) H Red Blood Count 3.22 M/UL (4.70-6.10) L Hemoglobin 9.4 G/DL (14.2-18.0) L Hematocrit 29.0 % (42.0-52.0) L Mean Corpuscular Volume 90 FL (80-99) Mean Corpuscular Hemoglobin 29.3 PG (27.0-31.0) Mean Corpuscular Hemoglobin Concent 32.5 G/DL (32.0-36.0) Red Cell Distribution Width 17.9 % (11.6-14.8) H Platelet Count 167 K/UL (150-450) Mean Platelet Volume 6.5 FL (6.5-10.1) Neutrophils (%) (Auto) % (45.0-75.0) Lymphocytes (%) (Auto) % (20.0-45.0) Monocytes (%) (Auto) % (1.0-10.0) Eosinophils (%) (Auto) % (0.0-3.0) Basophils (%) (Auto) % (0.0-2.0) Differential Total Cells Counted 100 Neutrophils % (Manual) 84 % (45-75) H Lymphocytes % (Manual) 9 % (20-45) L Monocytes % (Manual) 7 % (1-10) Eosinophils % (Manual) 0 % (0-3) Basophils % (Manual) 0 % (0-2) Band Neutrophils 0 % (0-8) Platelet Estimate Adequate Platelet Morphology Normal Anisocytosis 1+ Sodium Level 135 MMOL/L (136-145) L Potassium Level 4.2 MMOL/L (3.5-5.1) Chloride Level 96 MMOL/L (98-107) L Carbon Dioxide Level 30 MMOL/L (21-32) Anion Gap 9 mmol/L (5-15) Blood Urea Nitrogen 38 mg/dL (7-18) H Creatinine 5.4 MG/DL (0.55-1.30) H Estimat Glomerular Filtration Rate 10.6 mL/min (>60) Glucose Level 213 MG/DL (74-106) H Uric Acid 5.1 MG/DL (2.6-7.2) Calcium Level 7.7 MG/DL (8.5-10.1) L Phosphorus Level 3.9 MG/DL (2.5-4.9) Magnesium Level 2.1 MG/DL (1.8-2.4) Total Bilirubin 0.5 MG/DL (0.2-1.0) Aspartate Amino Transf (AST/SGOT) 26 U/L (15-37) Alanine Aminotransferase (ALT/SGPT) 24 U/L (12-78) Alkaline Phosphatase 114 U/L (46-116) C-Reactive Protein, Quantitative Pending Pro-B-Type Natriuretic Peptide 3225 pg/mL (0-125) H Total Protein 6.1 G/DL (6.4-8.2) L Albumin 2.2 G/DL (3.4-5.0) L Globulin 3.9 g/dL Albumin/Globulin Ratio 0.6 (1.0-2.7) L Lipase 302 U/L (73-393) Current Medications Medications (Trade) Dose Ordered Sig/Miri Route PRN Reason Start Time Stop Time Status Last Admin Dose Admin Acetaminophen (Tylenol) 650 mg Q4H PRN ORAL Mild Pain (Pain Scale 1-3) 08/11/20 22:30 09/10/20 22:29 08/16/20 21:25 Acetaminophen (Tylenol) 650 mg Q4H PRN ORAL Temp >100.5 08/09/20 19:00 09/08/20 18:59 08/09/20 20:30 Albuterol Sulfate (Proventil MDI) 2 puff Q4H PRN INH Shortness of Breath 08/06/20 22:45 11/04/20 22:44 Amiodarone HCl (Cordarone) 200 mg DAILY ORAL 08/07/20 09:00 11/05/20 08:59 08/18/20 12:37 Atorvastatin Calcium (Lipitor) 80 mg BEDTIME ORAL 08/08/20 21:00 11/06/20 20:59 08/18/20 21:16 Clopidogrel Bisulfate (Plavix) 75 mg DAILY ORAL 08/07/20 09:00 09/06/20 08:59 08/18/20 12:36 Dextrose (Dextrose 50%) 25 ml Q30M PRN IV Hypoglycemia 08/06/20 22:45 11/04/20 22:44 Dextrose (Dextrose 50%) 50 ml Q30M PRN IV Hypoglycemia 08/06/20 22:45 11/04/20 22:44 Docusate Sodium (Colace) 100 mg TID ORAL 08/12/20 13:00 09/09/20 12:59 08/18/20 17:35 Enoxaparin Sodium (Lovenox) 30 mg DAILY SUBQ 08/07/20 09:00 11/05/20 08:59 08/18/20 12:43 Glipizide (Glucotrol) 5 mg BIAC ORAL 08/07/20 06:30 09/06/20 06:29 08/19/20 07:08 Guaifenesin/ Dextromethorphan (Robitussin DM Syrup) 10 ml Q4H PRN ORAL For Cough 08/07/20 17:30 11/05/20 17:29 08/12/20 19:56 Hydralazine HCl (Apresoline) 50 mg Q8HR ORAL 08/18/20 14:00 11/14/20 11:59 08/19/20 07:07 Insulin Aspart (NovoLOG) BEFORE MEALS AND HS SUBQ 08/07/20 06:30 11/05/20 06:29 08/18/20 21:25 Ipratropium Drain (Atrovent Inh) 2 puffs Q4H PRN INH SOB wheezing 08/06/20 22:45 09/05/20 22:44 Isosorbide Mononitrate (Imdur) 30 mg DAILY ORAL 08/08/20 09:00 09/07/20 08:59 08/18/20 12:36 Metoprolol Tartrate (Lopressor) 25 mg Q12HR ORAL 08/07/20 09:00 11/05/20 08:59 08/18/20 21:17 Ondansetron HCl (Zofran) 4 mg Q6H PRN IVP Nausea & Vomiting 08/08/20 10:15 09/07/20 10:14 08/09/20 20:31 Pantoprazole (Protonix) 40 mg EVERY 12 HOURS ORAL 08/08/20 21:00 09/07/20 20:59 08/18/20 21:16 Polyethylene Glycol (Miralax) 17 gm DAILY PRN ORAL Constipation 08/12/20 09:30 09/11/20 09:29 08/17/20 10:28 Sertraline HCl (Zoloft) 25 mg DAILY ORAL 08/07/20 09:00 09/06/20 08:59 08/18/20 12:37 Zolpidem Tartrate (Ambien) 5 mg HSPRN PRN ORAL Insomnia 08/18/20 21:00 08/25/20 20:59 08/18/20 21:26 Luiza Barton M.D. Aug 19, 2020 10:57
[2020-08-19 12:00] VITALS: BP 140/62
--- NOTE | 2020-08-19 14:02 | Surgery Progress Note ---
Surgery Progress Note Subjective Symptoms: improved, pain absent, tolerating diet, voiding well, passing flatus, BM Objective Last 24 Hour Vital Signs Date Time Temp Pulse Resp B/P (MAP) Pulse Ox O2 Delivery O2 Flow Rate FiO2 08/19/20 12:00 96.9 62 18 140/62 (88) 95 08/19/20 07:07 129/75 08/18/20 21:17 67 149/66 08/18/20 21:00 Room Air 08/18/20 20:00 98.1 62 16 127/54 (78) 96 08/18/20 16:00 97.8 63 20 147/64 (91) 97 I&O Intake and Output 08/18/20 08/19/20 19:00 07:00 Intake Total 1000 ml 360 ml Balance 1000 ml 360 ml Intake Oral 1000 ml Other 360 ml # Voids 22 2 Cardiovascular: RSR Respiratory: clear Abdomen: soft, non-tender, present bowel sounds, non-distended Extremities: no edema, no tenderness, no cyanosis Laboratory Tests Test 08/18/20 17:43 08/19/20 07:01 08/19/20 09:25 08/19/20 11:41 POC Whole Blood Glucose 147 MG/DL (74-106) H Pending 362 MG/DL (74-106) H White Blood Count 11.5 K/UL (4.8-10.8) H Red Blood Count 3.22 M/UL (4.70-6.10) L Hemoglobin 9.4 G/DL (14.2-18.0) L Hematocrit 29.0 % (42.0-52.0) L Mean Corpuscular Volume 90 FL (80-99) Mean Corpuscular Hemoglobin 29.3 PG (27.0-31.0) Mean Corpuscular Hemoglobin Concent 32.5 G/DL (32.0-36.0) Red Cell Distribution Width 17.9 % (11.6-14.8) H Platelet Count 167 K/UL (150-450) Mean Platelet Volume 6.5 FL (6.5-10.1) Neutrophils (%) (Auto) % (45.0-75.0) Lymphocytes (%) (Auto) % (20.0-45.0) Monocytes (%) (Auto) % (1.0-10.0) Eosinophils (%) (Auto) % (0.0-3.0) Basophils (%) (Auto) % (0.0-2.0) Differential Total Cells Counted 100 Neutrophils % (Manual) 84 % (45-75) H Lymphocytes % (Manual) 9 % (20-45) L Monocytes % (Manual) 7 % (1-10) Eosinophils % (Manual) 0 % (0-3) Basophils % (Manual) 0 % (0-2) Band Neutrophils 0 % (0-8) Platelet Estimate Adequate Platelet Morphology Normal Anisocytosis 1+ Sodium Level 135 MMOL/L (136-145) L Potassium Level 4.2 MMOL/L (3.5-5.1) Chloride Level 96 MMOL/L (98-107) L Carbon Dioxide Level 30 MMOL/L (21-32) Anion Gap 9 mmol/L (5-15) Blood Urea Nitrogen 38 mg/dL (7-18) H Creatinine 5.4 MG/DL (0.55-1.30) H Estimat Glomerular Filtration Rate 10.6 mL/min (>60) Glucose Level 213 MG/DL (74-106) H Uric Acid 5.1 MG/DL (2.6-7.2) Calcium Level 7.7 MG/DL (8.5-10.1) L Phosphorus Level 3.9 MG/DL (2.5-4.9) Magnesium Level 2.1 MG/DL (1.8-2.4) Total Bilirubin 0.5 MG/DL (0.2-1.0) Aspartate Amino Transf (AST/SGOT) 26 U/L (15-37) Alanine Aminotransferase (ALT/SGPT) 24 U/L (12-78) Alkaline Phosphatase 114 U/L (46-116) C-Reactive Protein, Quantitative Pending Pro-B-Type Natriuretic Peptide 3225 pg/mL (0-125) H Total Protein 6.1 G/DL (6.4-8.2) L Albumin 2.2 G/DL (3.4-5.0) L Globulin 3.9 g/dL Albumin/Globulin Ratio 0.6 (1.0-2.7) L Lipase 302 U/L (73-393) Plan Problems: (1) Pancreatitis Assessment & Plan: febrile covid + lft's wnl lip elevated esr / crp elevated abd exam benign US abd ordered ca pending no acute surgical intervention will follow with exam and recs thank you trending down lip fluctuating clinically without pain tolerating diet monitor US noted improving Liver: The liver is within normal limits, measuring 14.0 cm. Gallbladder: There is no cholelithiasis. The common bile duct measures 6 mm. Pancreas: Poorly visualized, due to overlying bowel gas. Right Kidney: The right kidney measures 11.5 cm. No hydronephrosis or nephrolithiasis. Right midpole cyst measures 2.5 x 2.4 cm Left Kidney: The left kidney measures 10.6 cm. No hydronephrosis or nephrolithiasis. Left lower pole cyst measures 1.0 x 1.1 cm Spleen: The spleen measures 12.2 cm. Abdominal Aorta and IVC: Poorly visualized, due to overlying bowel gas. IMPRESSION: No cholelithiasis or ultrasound evidence of acute cholecystitis. Bilateral renal cysts, no follow-up indicated. (2) Fever (3) Elevated troponin (4) ESRD (end stage renal disease) on dialysis (5) Anemia in chronic kidney disease (CKD) (6) DMII (diabetes mellitus, type 2) (7) 2019 novel coronavirus disease (COVID-19) Assessment & Plan: ++ id input on abx pulm noted Lungs: Low lung volumes with bronchovascular crowding. No consolidation, pleural effusion, or pneumothorax. Pleural space: See above. Heart: Cardiomegaly. Mediastinum: Unremarkable. Bones/joints: Sternotomy with mediastinal operative findings. Other findings: Radiopaque linear structure superimposed over the left neck of uncertain significance, correlate with patient presentation and history. IMPRESSION: 1. Radiopaque linear structure superimposed over the left neck of uncertain significance, correlate with patient presentation and history. 2. Low lung volumes with bronchovascular crowding. 3. Cardiomegaly. 4. Otherwise no acute cardiopulmonary disease. 5. If there is continued concern, consider frontal and lateral chest radiographs or CT. P[place] Aug 19, 2020 14:02
[2020-08-19 16:00] VITALS: BP 134/64
--- NOTE | 2020-08-19 16:26 | Nephrology Progress Note ---
Assessment/Plan Problem List: (1) ESRD (end stage renal disease) on dialysis (2) Elevated troponin (3) Pancreatitis (4) 2019 novel coronavirus disease (COVID-19) (5) Anemia in chronic kidney disease (CKD) (6) DMII (diabetes mellitus, type 2) Assessment End-stage renal disease on hemodialysis COVID-19 pneumonia Coronary artery disease, MS Diabetes mellitus Anemia Elevated lipase Plan August 19: Due for dialysis tomorrow. Remains stable from renal standpoint of view. August 18: Patient was dialyzed yesterday. Due for dialysis on Thursday. Labs reviewed. Medication list reviewed. Stable from renal standpoint of view. August 17: Due for dialysis today. Labs reviewed. Medication list reviewed. Stable from renal standpoint of view. August 16: Patient dialyzed yesterday. Labs reviewed. Due for dialysis t omorrow. Blood pressure stable. Medication list reviewed. August 15: Due for dialysis today. Labs reviewed. Blood pressure stable. Continue per consultants. August 14: Dialyzed yesterday. Due for dialysis tomorrow. Labs reviewed. Medication list reviewed. Full code. Continue per consultants. August 13: Due for dialysis today. Labs reviewed. Medication list reviewed. Continue per consultants. August 12: Dialyzed yesterday. Due for dialysis tomorrow. Medication list reviewed. Labs are reviewed. Continue per consultants. August 11: Due for dialysis today. Continue per consultants. Check labs tomorrow. August 10: Last dialyzed yesterday. Labs reviewed. Due for dialysis tomorrow. Continue per consultants. August 09: Patient due for dialysis today. Labs reviewed. Medication list reviewed. Continue per consultants. August 08: Patient was dialyzed yesterday. Due for dialysis tomorrow. Blood pressure medication adjusted. Diet changed to renal medium carbs. Continue per consultants. 2D echo pending. Previously: Monitor renal parameters Hemodialysis as soon as the patient arrives to medical floor Monitor lipase, renal parameters, hemoglobin and hematocrit Per orders Subjective ROS Limited/Unobtainable: No Constitutional: Reports: malaise Objective Objective Last 24 Hour Vital Signs Date Time Temp Pulse Resp B/P (MAP) Pulse Ox O2 Delivery O2 Flow Rate FiO2 08/19/20 12:00 96.9 62 18 140/62 (88) 95 08/19/20 09:00 Room Air 08/19/20 07:07 129/75 08/18/20 21:17 67 149/66 08/18/20 21:00 Room Air 08/18/20 20:00 98.1 62 16 127/54 (78) 96 Intake and Output 08/18/20 08/19/20 19:00 07:00 Intake Total 1000 ml 360 ml Balance 1000 ml 360 ml Intake Oral 1000 ml Other 360 ml # Voids 22 2 Laboratory Tests 08/18/20 17:43: POC Whole Blood Glucose 147H 08/19/20 07:01: POC Whole Blood Glucose [Pending] 08/19/20 09:25: White Blood Count 11.5H, Red Blood Count 3.22L, Hemoglobin 9.4L, Hematocrit 29.0L, Mean Corpuscular Volume 90, Mean Corpuscular Hemoglobin 29.3, Mean Corpuscular Hemoglobin Concent 32.5, Red Cell Distribution Width 17.9H, Platelet Count 167, Mean Platelet Volume 6.5, Neutrophils (%) (Auto) , Lymphocytes (%) (Auto) , Monocytes (%) (Auto) , Eosinophils (%) (Auto) , Basophils (%) (Auto) , Differential Total Cells Counted 100, Neutrophils % (Manual) 84H, Lymphocytes % (Manual) 9L, Monocytes % (Manual) 7, Eosinophils % (Manual) 0, Basophils % (Manual) 0, Band Neutrophils 0, Platelet Estimate Adequate, Platelet Morphology Normal, Anisocytosis 1+, Sodium Level 135L, Potassium Level 4.2, Chloride Level 96L, Carbon Dioxide Level 30, Anion Gap 9, Blood Urea Nitrogen 38H, Creatinine 5.4H, Estimat Glomerular Filtration Rate 10.6, Glucose Level 213H, Uric Acid 5.1, Calcium Level 7.7L, Phosphorus Level 3.9, Magnesium Level 2.1, Total Bilirubin 0.5, Aspartate Amino Transf (AST/SGOT) 26, Alanine Aminotransferase (ALT/SGPT) 24, Alkaline Phosphatase 114, C-Reactive Protein, Quantitative [Pendi ng], Pro-B-Type Natriuretic Peptide 3225H, Total Protein 6.1L, Albumin 2.2L, Globulin 3.9, Albumin/Globulin Ratio 0.6L, Lipase 302 08/19/20 11:41: POC Whole Blood Glucose 362H Height (Feet): 5 Height (Inches): 8.00 Weight (Pounds): 180 General Appearance: no apparent distress Cardiovascular: normal rate Respiratory/Chest: decreased breath sounds Abdomen: distended Objective No change Jon Crews MD Aug 19, 2020 16:26
[2020-08-19 20:00] VITALS: BP 125/83
[2020-08-19] MEDS: Atorvastatin 80mg tab ORAL SCH (20:07)
[2020-08-19] MEDS: Zolpidem 5mg tab ORAL PRN (20:08)
[2020-08-20 04:00] VITALS: BP 144/61
[2020-08-20] MEDS: GlipiZIDE 5mg tab ORAL SCH ×2 (06:33→16:44)
[2020-08-20] MEDS: HydrALAZINE 50mg tab ORAL SCH ×3 (06:40→22:00)
[2020-08-20] MEDS: NovoLOG Insulin Flexpen SUBQ SCH ×4 (06:48→22:10)
[2020-08-20 08:00] VITALS: BP 135/60
[2020-08-20] MEDS: Enoxaparin 30mg Inj SUBQ SCH (09:00)
[2020-08-20] MEDS: Sertraline 50mg tab ORAL SCH (09:49)
[2020-08-20] MEDS: Docusate 100mg cap ORAL SCH ×3 (09:49→17:33)
[2020-08-20] MEDS: Amiodarone 200mg tab ORAL SCH (09:50)
[2020-08-20] MEDS: Imdur 30mg tab ORAL SCH (09:51)
--- NOTE | 2020-08-20 10:40 | Pulmonology Progress Note ---
Subjective ROS Limited/Unobtainable: No Allergies: Coded Allergies: No Known Allergies (Unverified , 08/06/20) Subjective no resp distress pulse ox stable on RA denies CP, SOB no abd pain tolerates diet awaiting for disposition Objective Last 24 Hour Vital Signs Date Time Temp Pulse Resp B/P (MAP) Pulse Ox O2 Delivery O2 Flow Rate FiO2 08/20/20 09:51 142/68 08/20/20 08:00 97.7 69 20 135/60 (85) 98 08/20/20 06:40 144/61 08/20/20 04:00 98.1 67 20 144/61 (88) 96 08/19/20 21:00 Room Air 08/19/20 20:00 97.9 62 18 125/83 (97) 95 08/19/20 16:00 97.0 59 18 134/64 (87) 96 08/19/20 12:00 96.9 62 18 140/62 (88) 95 Intake and Output 08/19/20 08/20/20 19:00 07:00 Intake Total 960 ml 360 ml Output Total 300 ml Balance 960 ml 60 ml Intake Oral 960 ml 360 ml Output Urine Total 300 ml # Voids 4 2 Objective General Appearance: WD/WN, no apparent distress, alert Lines, tubes and drains: peripheral HEENT: normocephalic, atraumatic, anicteric, mucous membranes moist, PERRL Neck: non-tender, supple Respiratory/Chest: chest wall non-tender, lungs clear with moderate air exchange , no respiratory distress, no accessory muscle use Cardiovascular/Chest: normal peripheral pulses, normal rate, regular rhythm, + 1- edema BLE Abdomen: normal bowel sounds, non tender, soft Extremities: normal range of motion, non-tender, no calf tenderness, normal capillary refill, LUE AV shunt + bruit/thrill Skin Exam: warm/dry Neurologic: no motor/sensory deficits, alert, oriented x 3, responsive Musculoskeletal: normal muscle bulk Laboratory Tests 08/19/20 11:41: POC Whole Blood Glucose 362H 08/19/20 17:07: POC Whole Blood Glucose 271H 08/19/20 20:12: POC Whole Blood Glucose [Pending] 08/20/20 06:43: POC Whole Blood Glucose [Pending] Current Medications Medications (Trade) Dose Ordered Sig/Miri Route PRN Reason Start Time Stop Time Status Last Admin Dose Admin Acetaminophen (Tylenol) 650 mg Q4H PRN ORAL Mild Pain (Pain Scale 1-3) 08/11/20 22:30 09/10/20 22:29 08/16/20 21:25 Acetaminophen (Tylenol) 650 mg Q4H PRN ORAL Temp >100.5 08/09/20 19:00 09/08/20 18:59 08/09/20 20:30 Albuterol Sulfate (Proventil MDI) 2 puff Q4H PRN INH Shortness of Breath 08/06/20 22:45 11/04/20 22:44 Amiodarone HCl (Cordarone) 200 mg DAILY ORAL 08/07/20 09:00 11/05/20 08:59 08/20/20 09:50 Atorvastatin Calcium (Lipitor) 80 mg BEDTIME ORAL 08/08/20 21:00 11/06/20 20:59 08/19/20 20:07 Clopidogrel Bisulfate (Plavix) 75 mg DAILY ORAL 08/07/20 09:00 09/06/20 08:59 08/18/20 12:36 Dextrose (Dextrose 50%) 25 ml Q30M PRN IV Hypoglycemia 08/06/20 22:45 11/04/20 22:44 Dextrose (Dextrose 50%) 50 ml Q30M PRN IV Hypoglycemia 08/06/20 22:45 11/04/20 22:44 Docusate Sodium (Colace) 100 mg TID ORAL 08/12/20 13:00 09/09/20 12:59 08/20/20 09:49 Enoxaparin Sodium (Lovenox) 30 mg DAILY SUBQ 08/07/20 09:00 11/05/20 08:59 08/18/20 12:43 Glipizide (Glucotrol) 5 mg BIAC ORAL 08/07/20 06:30 09/06/20 06:29 08/20/20 06:33 Guaifenesin/ Dextromethorphan (Robitussin DM Syrup) 10 ml Q4H PRN ORAL For Cough 08/07/20 17:30 11/05/20 17:29 08/12/20 19:56 Hydralazine HCl (Apresoline) 50 mg Q8HR ORAL 08/18/20 14:00 11/14/20 11:59 08/20/20 06:40 Insulin Aspart (NovoLOG) BEFORE MEALS AND HS SUBQ 08/07/20 06:30 11/05/20 06:29 08/20/20 06:48 Ipratropium [place] (Atrovent Inh) 2 puffs Q4H PRN INH SOB wheezing 08/06/20 22:45 09/05/20 22:44 Isosorbide Mononitrate (Imdur) 30 mg DAILY ORAL 08/08/20 09:00 09/07/20 08:59 08/20/20 09:51 Metoprolol Tartrate (Lopressor) 25 mg Q12HR ORAL 08/07/20 09:00 11/05/20 08:59 08/18/20 21:17 Ondansetron HCl (Zofran) 4 mg Q6H PRN IVP Nausea & Vomiting 08/08/20 10:15 09/07/20 10:14 08/09/20 20:31 Pantoprazole (Protonix) 40 mg EVERY 12 HOURS ORAL 08/08/20 21:00 09/07/20 20:59 08/20/20 09:49 Polyethylene Glycol (Miralax) 17 gm DAILY PRN ORAL Constipation 08/12/20 09:30 09/11/20 09:29 08/17/20 10:28 Sertraline HCl (Zoloft) 25 mg DAILY ORAL 08/07/20 09:00 09/06/20 08:59 08/20/20 09:49 Zolpidem Tartrate (Ambien) 5 mg HSPRN PRN ORAL Insomnia 08/18/20 21:00 08/25/20 20:59 08/19/20 20:08 Assessment/Plan Assessment/Plan ASSESSMENT COVID-19 infection CHF acute on chronic ( due to missed HD) Elevated troponin, likely troponin leak ESRD, on HD ( missed dialysis for 1 week ) Coronary artery disease with history of [place] and CABG DM OOC - [id number] HTN Elevated lipase Anemia of chronic diseas4 Fever -resolved Constipation PLAN OF CARE MS floor isolation Date of sx onset: 1 week prior to admission Positive test: 08/06 rapid COVID 19 + O2 -on RA HFA Dex-> off Dexamethasone since 08/08 ( s/p 2 days) since not hypoxic REM - -> not a candidate given ESRD DVT PPX: Lovenox D dimer -0.47 Trend CRP-> 2.9-> 7.8-> 9.7-184.6-> 140.2-> no abx as per ID recs ; BCX 08/09 NGTD, no further fevers CXR 08/17 -> Improved aeration with decreasing interstitial infiltrates. start Levemir 08/20 given persistent hyperglycemia and elevated HgA1c, also on Glipizide, may need to hold later and continue with Levemir and SSI Monitor volumes and renal function, HD as per nephro Fup with consultants recs FC continue a/PLT therapy with Plavix and beta blockage elevated troponin x 3 with minimal elevation, same range, likely troponin leak, ECG non-ischemic, no c/o CP cardio recs appreciated BP management with BB and Hydralazine ( added by cardio) ECHO with pEF 65% BS management with Glipizide and SSI, HgA1c- 12.5 clearly not at goal start Levemir 08/20 anemia w/up c/w anemia of chronic disease , ferritin 1537 monitor HH with goal to keep Hgb >7 , remains at baseline consider EPO if drop in Hgb GI follows lipase trending down, amylase WNL a/emetic prn no n/v/d KUB 08/17 unremarkable abd US-> No cholelithiasis or ultrasound evidence of acute cholecystitis. bowel regimen supportive care ID cleared for dc; needed self isolation till 08/15 , now no need for isolation fup with OP HD ( last HD 08/13) - will discuss with nephro dc plan to SNF when place secured case discussed and evaluated by supervising physician Park Gunn NP Aug 20, 2020 10:40
[2020-08-20 12:00] VITALS: BP 134/58
--- NOTE | 2020-08-20 12:24 | Nephrology Progress Note ---
Assessment/Plan Problem List: (1) ESRD (end stage renal disease) on dialysis (2) Elevated troponin (3) Pancreatitis (4) 2019 novel coronavirus disease (COVID-19) (5) Anemia in chronic kidney disease (CKD) (6) DMII (diabetes mellitus, type 2) Assessment End-stage renal disease on hemodialysis COVID-19 pneumonia Coronary artery disease, [place] Diabetes mellitus Anemia Elevated lipase Plan August 20: Patient due for dialysis today. Medication list reviewed. Stable from renal standpoint of view. August 19: Due for dialysis tomorrow. Remains stable from renal standpoint of view. August 18: Patient was dialyzed yesterday. Due for dialysis on Thursday. Labs reviewed. Medication list reviewed. Stable from renal standpoint of view. August 17: Due for dialysis today. Labs reviewed. Medication list reviewed. Stable from renal standpoint of view. August 16: Patient dialyzed yesterday. Labs reviewed. Due for dialysis tomorrow. Blood pressure stable. Medication list reviewed. August 15: Due for dialysis today. Labs reviewed. Blood pressure stable. Continue per consultants. August 14: Dialyzed yesterday. Due for dialysis tomorrow. Labs reviewed. Medication list reviewed. Full code. Continue per consultants. August 13: Due for dialysis today. Labs reviewed. Medication list reviewed. Continue per consultants. August 12: Dialyzed yesterday. Due for dialysis tomorrow. Medication list reviewed. Labs are reviewed. Continue per consultants. August 11: Due for dialysis today. Continue per consultants. Check labs tomorrow. August 10: Last dialyzed yesterday. Labs reviewed. Due for dialysis tomorrow. Continue per consultants. August 09: Patient due for dialysis today. Labs reviewed. Medication list reviewed. Continue per consultants. August 08: Patient was dialyzed yesterday. Due for dialysis tomorrow. Blood pressure medication adjusted. Diet changed to renal medium carbs. Continue per consultants. 2D echo pending. Previously: Monitor renal parameters Hemodialysis as soon as the patient arrives to medical floor Monitor lipase, renal parameters, hemoglobin and hematocrit Per orders Subjective ROS Limited/Unobtainable: No Constitutional: Reports: malaise Objective Objective Last 24 Hour Vital Signs Date Time Temp Pulse Resp B/P (MAP) Pulse Ox O2 Delivery O2 Flow Rate FiO2 08/20/20 09:51 142/68 08/20/20 09:00 Room Air 08/20/20 08:00 97.7 69 20 135/60 (85) 98 08/20/20 06:40 144/61 08/20/20 04:00 98.1 67 20 144/61 (88) 96 08/19/20 21:00 Room Air 08/19/20 20:00 97.9 62 18 125/83 (97) 95 08/19/20 16:00 97.0 59 18 134/64 (87) 96 Intake and Output 08/19/20 08/20/20 19:00 07:00 Intake Total 960 ml 360 ml Output Total 300 ml Balance 960 ml 60 ml Intake Oral 960 ml 360 ml Output Urine Total 300 ml # Voids 4 2 Laboratory Tests 08/19/20 17:07: POC Whole Blood Glucose 271H 08/19/20 20:12: POC Whole Blood Glucose [Pending] 08/20/20 06:43: POC Whole Blood Glucose [Pending] 08/20/20 11:39: POC Whole Blood Glucose 266H Height (Feet): 5 Height (Inches): 8.00 Weight (Pounds): 180 General Appearance: no apparent distress Cardiovascular: normal rate Respiratory/Chest: decreased breath sounds Abdomen: soft Objective No change Jon Crews MD Aug 20, 2020 12:24
--- NOTE | 2020-08-20 12:35 | Cardiology Progress Note ---
Assessment/Plan Status: stable Assessment/Plan 1. COVID-19 viral PNA 2. CHF acute on chronic with elevated BNP 2942 Echo EF 65% CXR interval improvement 3. CAD s/p CABG and PA 4. Troponin leak 0.09 denies chest pain 5. ESRD on HD 6. HTN 7. HPLD 8. DMII Asking to be discharged or go to rehab. Denies chest pain. Troponin leak 0.1, likely 2/2 CHF exacerbation and demand ischemia. Echo shows well preserved LV function. Subjective ROS Limited/Unobtainable: No Cardiovascular: Reports: no symptoms Gastrointestinal/Abdominal: Reports: abdominal pain, nausea, poor appetite Genitourinary: Reports: no symptoms Subjective C/o belly pain, asking to go to rehab. Denies chest pain, breathing easily on room air Objective Last 24 Hour Vital Signs Date Time Temp Pulse Resp B/P (MAP) Pulse Ox O2 Delivery O2 Flow Rate FiO2 08/20/20 09:51 142/68 08/20/20 09:00 Room Air 08/20/20 08:00 97.7 69 20 135/60 (85) 98 08/20/20 06:40 144/61 08/20/20 04:00 98.1 67 20 144/61 (88) 96 08/19/20 21:00 Room Air 08/19/20 20:00 97.9 62 18 125/83 (97) 95 08/19/20 16:00 97.0 59 18 134/64 (87) 96 General Appearance: no apparent distress EENT: PERRL/EOMI Neck: no JVD Cardiovascular: normal rate Respiratory/Chest: no respiratory distress, no accessory muscle use Abdomen: soft Extremities: trace edema Intake and Output 08/19/20 08/20/20 19:00 07:00 Intake Total 960 ml 360 ml Output Total 300 ml Balance 960 ml 60 ml Intake Oral 960 ml 360 ml Output Urine Total 300 ml # Voids 4 2 Laboratory Tests Test 08/19/20 17:07 08/19/20 20:12 08/20/20 06:43 08/20/20 11:39 POC Whole Blood Glucose 271 MG/DL (74-106) H Pending Pending 266 MG/DL (74-106) H Radha Collins PA-C Aug 20, 2020 12:35
--- NOTE | 2020-08-20 13:03 | General Progress Note ---
Subjective ROS Limited/Unobtainable: No Allergies: Coded Allergies: No Known Allergies (Unverified , 08/06/20) Objective Last 24 Hour Vital Signs Date Time Temp Pulse Resp B/P (MAP) Pulse Ox O2 Delivery O2 Flow Rate FiO2 08/20/20 09:51 142/68 08/20/20 09:00 Room Air 08/20/20 08:00 97.7 69 20 135/60 (85) 98 08/20/20 06:40 144/61 08/20/20 04:00 98.1 67 20 144/61 (88) 96 08/19/20 21:00 Room Air 08/19/20 20:00 97.9 62 18 125/83 (97) 95 08/19/20 16:00 97.0 59 18 134/64 (87) 96 Intake and Output 08/19/20 08/20/20 19:00 07:00 Intake Total 960 ml 360 ml Output Total 300 ml Balance 960 ml 60 ml Intake Oral 960 ml 360 ml Output Urine Total 300 ml # Voids 4 2 Laboratory Tests 08/19/20 17:07: POC Whole Blood Glucose 271H 08/19/20 20:12: POC Whole Blood Glucose [Pending] 08/20/20 06:43: POC Whole Blood Glucose [Pending] 08/20/20 11:39: POC Whole Blood Glucose 266H Height (Feet): 5 Height (Inches): 8.00 Weight (Pounds): 180 General Appearance: no apparent distress EENT: normal ENT inspection Neck: supple Cardiovascular: normal rate Respiratory/Chest: decreased breath sounds Abdomen: normal bowel sounds, non tender, soft Extremities: non-tender Assessment/Plan Status: stable Assessment/Plan: COVID anemia renal failure CAD/[place] DM elevated lipase elevated trop fu amylase and lipase>>improving on renal diet on HD fu ID, Renal and cardiology monitor for BM KUB reviewed abd us reviewed Rd Cruz MD Aug 20, 2020 13:03
[2020-08-20] MEDS: Levemir Flexpen SUBQ SCH (13:29)
[2020-08-20 16:00] VITALS: BP 132/61
--- NOTE | 2020-08-20 19:17 | Surgery Progress Note ---
Surgery Progress Note Subjective Symptoms: improved, pain absent, tolerating diet, passing flatus, BM Objective Last 24 Hour Vital Signs Date Time Temp Pulse Resp B/P (MAP) Pulse Ox O2 Delivery O2 Flow Rate FiO2 08/20/20 16:00 97.1 62 18 132/61 (84) 99 08/20/20 12:00 97.0 64 20 134/58 (83) 100 08/20/20 09:51 142/68 08/20/20 09:00 Room Air 08/20/20 08:00 97.7 69 20 135/60 (85) 98 08/20/20 06:40 144/61 08/20/20 04:00 98.1 67 20 144/61 (88) 96 08/19/20 21:00 Room Air 08/19/20 20:00 97.9 62 18 125/83 (97) 95 I&O Intake and Output 08/19/20 08/20/20 19:00 07:00 Intake Total 960 ml 360 ml Output Total 300 ml Balance 960 ml 60 ml Intake Oral 960 ml 360 ml Output Urine Total 300 ml # Voids 4 2 Dressing: saturated Cardiovascular: RSR Respiratory: clear Abdomen: soft, non-tender, present bowel sounds Extremities: no edema, no tenderness, no cyanosis Laboratory Tests Test 08/19/20 20:12 08/20/20 06:43 08/20/20 11:39 08/20/20 16:42 POC Whole Blood Glucose Pending Pending 266 MG/DL (74-106) H 136 MG/DL (74-106) H Plan Problems: (1) Pancreatitis Assessment & Plan: febrile covid + lft's wnl lip elevated esr / crp elevated abd exam benign US abd ordered ca pending no acute surgical intervention will follow with exam and recs thank you trending down lip fluctuating clinically without pain tolerating diet monitor US noted improving Liver: The liver is within normal limits, measuring 14.0 cm. Gallbladder: There is no cholelithiasis. The common bile duct measures 6 mm. Pancreas: Poorly visualized, due to overlying bowel gas. Right Kidney: The right kidney measures 11.5 cm. No hydronephrosis or nephrolithiasis. Right midpole cyst measures 2.5 x 2.4 cm Left Kidney: The left kidney measures 10.6 cm. No hydronephrosis or nephrolithiasis. Left lower pole cyst measures 1.0 x 1.1 cm Spleen: The spleen measures 12.2 cm. Abdominal Aorta and IVC: Poorly visualized, due to overlying bowel gas. IMPRESSION: No cholelithiasis or ultrasound evidence of acute cholecystitis. Bilateral renal cysts, no follow-up indicated. (2) Fever (3) Elevated troponin (4) ESRD (end stage renal disease) on dialysis (5) Anemia in chronic kidney disease (CKD) (6) DMII (diabetes mellitus, type 2) (7) 2019 novel coronavirus disease (COVID-19) Assessment & Plan: ++ id input on abx pulm noted Lungs: Low lung volumes with bronchovascular crowding. No consolidation, pleural effusion, or pneumothorax. Pleural space: See above. Heart: Cardiomegaly. Mediastinum: Unremarkable. Bones/joints: Sternotomy with mediastinal operative findings. Other findings: Radiopaque linear structure superimposed over the left neck of uncertain significance, correlate with patient presentation and history. IMPRESSION: 1. Radiopaque linear structure superimposed over the left neck of uncertain significance, correlate with patient presentation and history. 2. Low lung volumes with bronchovascular crowding. 3. Cardiomegaly. 4. Otherwise no acute cardiopulmonary disease. 5. If there is continued concern, consider frontal and lateral chest radiographs or CT. Pacheco [place] Aug 20, 2020 19:17
[2020-08-20 20:00] VITALS: BP 118/46
[2020-08-20] MEDS: Atorvastatin 80mg tab ORAL SCH (21:00)
[2020-08-20] MEDS: Zolpidem 5mg tab ORAL PRN (21:50)
[2020-08-21] MEDS: GlipiZIDE 5mg tab ORAL SCH (06:29)
[2020-08-21] MEDS: NovoLOG Insulin Flexpen SUBQ SCH ×2 (06:30→12:08)
[2020-08-21] MEDS: HydrALAZINE 50mg tab ORAL SCH ×2 (06:36→14:00)
[2020-08-21 07:24] LABS: BASOPHILS % (AUTO) 0.8 % (0.0-2.0); EOSINOPHILS % (AUTO) 0.1 % (0.0-3.0); HEMATOCRIT 28.9 % (42.0-52.0); HEMOGLOBIN 9.2 G/DL (14.2-18.0); LYMPHOCYTES % (AUTO) 11.8 % (20.0-45.0); MEAN CORPUSCULAR VOLUME 92 FL (80-99); MONOCYTES % (AUTO) 9.2 % (1.0-10.0); NEUTROPHILS % (AUTO) 78.1 % (45.0-75.0); PLATELET COUNT 171 K/UL (150-450); RED BLOOD COUNT 3.12 M/UL (4.70-6.10); RED CELL DISTRIBUTION WIDTH 15.9 % (11.6-14.8); WHITE BLOOD COUNT 9.3 K/UL (4.8-10.8)
[2020-08-21 08:01] LABS: ALBUMIN 2.4 G/DL (3.4-5.0); ALBUMIN/GLOBULIN RATIO 0.6 (1.0-2.7); BILIRUBIN,TOTAL 0.5 MG/DL (0.2-1.0); CALCIUM 7.3 MG/DL (8.5-10.1); CREATININE 4.6 MG/DL (0.55-1.30); POTASSIUM 4.4 MMOL/L (3.5-5.1)
[2020-08-21 08:04] LABS: PHOSPHORUS 2.9 MG/DL (2.5-4.9)
--- NOTE | 2020-08-21 08:24 | General Progress Note ---
Subjective ROS Limited/Unobtainable: Yes Allergies: Coded Allergies: No Known Allergies (Unverified , 08/06/20) Objective Last 24 Hour Vital Signs Date Time Temp Pulse Resp B/P (MAP) Pulse Ox O2 Delivery O2 Flow Rate FiO2 08/21/20 06:36 153/73 08/20/20 21:00 Room Air 08/20/20 20:00 97.5 67 18 118/46 (70) 98 08/20/20 16:00 97.1 62 18 132/61 (84) 99 08/20/20 12:00 97.0 64 20 134/58 (83) 100 08/20/20 09:51 142/68 08/20/20 09:00 Room Air Intake and Output 08/20/20 08/21/20 19:00 07:00 Intake Total 400 ml Output Total 2000 ml Balance -2000 ml 400 ml Intake Oral 400 ml Hemodialysis UF 2000 ml # Voids 1 Laboratory Tests 08/20/20 11:39: POC Whole Blood Glucose 266H 08/20/20 16:42: POC Whole Blood Glucose 136H 08/20/20 21:59: POC Whole Blood Glucose [Pending] 08/21/20 06:32: POC Whole Blood Glucose [Pending] 08/21/20 06:50: White Blood Count 9.3, Red Blood Count 3.12L, Hemoglobin 9.2L, Hematocrit 28.9L, Mean Corpuscular Volume 92, Mean Corpuscular Hemoglobin 29.4, Mean Corpuscular Hemoglobin Concent 31.8L, Red Cell Distribution Width 15.9H, Platelet Count 171, Mean Platelet Volume 6.3L, Neutrophils (%) (Auto) 78.1H, Lymphocytes (%) (Auto) 11.8L, Monocytes (%) (Auto) 9.2, Eosinophils (%) (Auto) 0.1, Basophils (%) (Auto) 0.8, Sodium Level 140, Potassium Level 4.4, Chloride Level 101, Carbon Dioxide Level 32, Anion Gap 7, Blood Urea Nitrogen 29H, Creatinine 4.6H, Estimat Glomerular Filtration Rate 12.8, Glucose Level 109H, Calcium Level 7.3L, Phosphorus Level 2.9, Magnesium Level 2.1, Total Bilirubin 0.5, Aspartate Amino Transf (AST/SGOT) 24, Alanine Aminotransferase (ALT/SGPT) 26, Alkaline Phosphatase 114, C-Reactive Protein, Quantitative 2.9H, Pro-B-Type Natriuretic Peptide 3438H, Total Protein 6.4, Albumin 2.4L, Globulin 4.0, Albumin/Globulin Ratio 0.6L Height (Feet): 5 Height (Inches): 8.00 Weight (Pounds): 180 General Appearance: no apparent distress EENT: normal ENT inspection Neck: supple Cardiovascular: normal rate Respiratory/Chest: decreased breath sounds Abdomen: normal bowel sounds, non tender, soft Extremities: non-tender Assessment/Plan Status: stable Assessment/Plan: COVID anemia renal failure CAD/[place] DM elevated lipase elevated trop fu amylase and lipase>>improving on renal diet on HD fu ID, Renal and cardiology monitor for BM KUB reviewed abd us reviewed Rd Cruz MD Aug 21, 2020 08:24
--- NOTE | 2020-08-21 09:16 | Cardiology Progress Note ---
Assessment/Plan Assessment/Plan 1. COVID-19 viral PNA 2. CHF acute on chronic with elevated BNP 2942 Echo EF 65% CXR interval improvement 3. CAD s/p CABG and [place] 4. Troponin leak 0.09 denies chest pain 5. ESRD on HD 6. HTN 7. HPLD 8. DMII BNP still elevated, recommend microfiltration during HD. Denies chest pain. Troponin leak 0.1, likely 2/2 CHF exacerbation and demand ischemia. Echo shows well preserved LV function. Subjective Subjective C/o belly pain, asking to go to rehab. Denies chest pain, breathing easily on room air Objective Last 24 Hour Vital Signs Date Time Temp Pulse Resp B/P (MAP) Pulse Ox O2 Delivery O2 Flow Rate FiO2 08/21/20 06:36 153/73 08/20/20 21:00 Room Air 08/20/20 20:00 97.5 67 18 118/46 (70) 98 08/20/20 16:00 97.1 62 18 132/61 (84) 99 08/20/20 12:00 97.0 64 20 134/58 (83) 100 08/20/20 09:51 142/68 Intake and Output 08/20/20 08/21/20 19:00 07:00 Intake Total 400 ml Output Total 2000 ml Balance -2000 ml 400 ml Intake Oral 400 ml Hemodialysis UF 2000 ml # Voids 1 Laboratory Tests Test 08/20/20 11:39 08/20/20 16:42 08/20/20 21:59 08/21/20 06:32 POC Whole Blood Glucose 266 MG/DL (74-106) H 136 MG/DL (74-106) H Pending Pending Test 08/21/20 06:50 White Blood Count 9.3 K/UL (4.8-10.8) Red Blood Count 3.12 M/UL (4.70-6.10) L Hemoglobin 9.2 G/DL (14.2-18.0) L Hematocrit 28.9 % (42.0-52.0) L Mean Corpuscular Volume 92 FL (80-99) Mean Corpuscular Hemoglobin 29.4 PG (27.0-31.0) Mean Corpuscular Hemoglobin Concent 31.8 G/DL (32.0-36.0) L Red Cell Distribution Width 15.9 % (11.6-14.8) H Platelet Count 171 K/UL (150-450) Mean Platelet Volume 6.3 FL (6.5-10.1) L Neutrophils (%) (Auto) 78.1 % (45.0-75.0) H Lymphocytes (%) (Auto) 11.8 % (20.0-45.0) L Monocytes (%) (Auto) 9.2 % (1.0-10.0) Eosinophils (%) (Auto) 0.1 % (0.0-3.0) Basophils (%) (Auto) 0.8 % (0.0-2.0) Sodium Level 140 MMOL/L (136-145) Potassium Level 4.4 MMOL/L (3.5-5.1) Chloride Level 101 MMOL/L (98-107) Carbon Dioxide Level 32 MMOL/L (21-32) Anion Gap 7 mmol/L (5-15) Blood Urea Nitrogen 29 mg/dL (7-18) H Creatinine 4.6 MG/DL (0.55-1.30) H Estimat Glomerular Filtration Rate 12.8 mL/min (>60) Glucose Level 109 MG/DL (74-106) H Calcium Level 7.3 MG/DL (8.5-10.1) L Phosphorus Level 2.9 MG/DL (2.5-4.9) Magnesium Level 2.1 MG/DL (1.8-2.4) Total Bilirubin 0.5 MG/DL (0.2-1.0) Aspartate Amino Transf (AST/SGOT) 24 U/L (15-37) Alanine Aminotransferase (ALT/SGPT) 26 U/L (12-78) Alkaline Phosphatase 114 U/L (46-116) C-Reactive Protein, Quantitative 2.9 mg/dL (0.00-0.90) H Pro-B-Type Natriuretic Peptide 3438 pg/mL (0-125) H Total Protein 6.4 G/DL (6.4-8.2) Albumin 2.4 G/DL (3.4-5.0) L Globulin 4.0 g/dL Albumin/Globulin Ratio 0.6 (1.0-2.7) L Radha Collins PA-C Aug 21, 2020 09:16
[2020-08-21] MEDS ORDERED: GLIPIZIDE5 MG ORAL (09:18)
[2020-08-21] MEDS ORDERED: COLACE100 MG ORAL (09:18)
[2020-08-21] MEDS ORDERED: ZOLOFT50 MG ORAL (09:18)
[2020-08-21] MEDS ORDERED: ISOSORBIDE MONO30 M1 ORAL (09:18)
[2020-08-21] MEDS ORDERED: APRESOLINE50 MG ORAL (09:18)
[2020-08-21] MEDS ORDERED: PACERONE200 MG ORAL (09:18)
[2020-08-21] MEDS ORDERED: MIRALAX119 GM ORAL (09:18)
[2020-08-21] MEDS ORDERED: PLAVIX75 MG ORAL (09:18)
[2020-08-21] MEDS ORDERED: LOVENOX10 MG SUBQ (09:18)
[2020-08-21] MEDS ORDERED: AMBIEN5 MG ORAL (09:18)
[2020-08-21] MEDS ORDERED: NOVOLOG100 UNITS1 SUBQ (09:18)
[2020-08-21] MEDS ORDERED: LOPRESSOR25 M1 ORAL (09:18)
[2020-08-21] MEDS ORDERED: ATROVENT HFA12.9 GM INH (09:18)
[2020-08-21] MEDS ORDERED: LIPITOR80 MG ORAL (09:18)
[2020-08-21] MEDS ORDERED: ACETAMINOPHEN325 M1 ORAL (09:18)
[2020-08-21] MEDS ORDERED: D50w IV (09:18)
[2020-08-21] MEDS ORDERED: PANTOPRAZOLE SO40 MG ORAL (09:18)
[2020-08-21] MEDS: Enoxaparin 30mg Inj SUBQ SCH ×2 (09:41→10:00)
[2020-08-21] MEDS: Sertraline 50mg tab ORAL SCH (09:41)
[2020-08-21] MEDS: Docusate 100mg cap ORAL SCH ×2 (09:42→14:03)
[2020-08-21] MEDS: Amiodarone 200mg tab ORAL SCH (09:42)
[2020-08-21 09:45] VITALS: BP 134/61
[2020-08-21] MEDS: Imdur 30mg tab ORAL SCH (09:53)
[2020-08-21] MEDS: Levemir Flexpen SUBQ SCH (09:55)
--- NOTE | 2020-08-21 10:27 | Pulmonology Progress Note ---
Subjective ROS Limited/Unobtainable: Yes Allergies: Coded Allergies: No Known Allergies (Unverified , 08/06/20) Subjective no resp distress pulse ox stable on RA denies CP, SOB no abd pain tolerates diet awaiting for disposition had HD 08/20 Objective Last 24 Hour Vital Signs Date Time Temp Pulse Resp B/P (MAP) Pulse Ox O2 Delivery O2 Flow Rate FiO2 08/21/20 09:53 134/61 08/21/20 09:53 68 134/61 08/21/20 09:45 97.7 68 18 134/61 (85) 99 08/21/20 06:36 153/73 08/20/20 21:00 Room Air 08/20/20 20:00 97.5 67 18 118/46 (70) 98 08/20/20 16:00 97.1 62 18 132/61 (84) 99 08/20/20 12:00 97.0 64 20 134/58 (83) 100 Intake and Output 08/20/20 08/21/20 19:00 07:00 Intake Total 400 ml Output Total 2000 ml Balance -2000 ml 400 ml Intake Oral 400 ml Hemodialysis UF 2000 ml # Voids 1 Objective General Appearance: WD/WN, no apparent distress, alert Lines, tubes and drains: peripheral HEENT: normocephalic, atraumatic, anicteric, mucous membranes moist, PERRL Neck: non-tender, supple Respiratory/Chest: chest wall non-tender, lungs clear with moderate air exchange , no respiratory distress, no accessory muscle use Cardiovascular/Chest: normal peripheral pulses, normal rate, regular rhythm, + 1- edema BLE Abdomen: normal bowel sounds, non tender, soft Extremities: normal range of motion, non-tender, no calf tenderness, normal capillary refill, LUE AV shunt + bruit/thrill Skin Exam: warm/dry Neurologic: no motor/sensory deficits, alert, oriented x 3, responsive Musculoskeletal: normal muscle bulk Laboratory Tests 08/20/20 11:39: POC Whole Blood Glucose 266H 08/20/20 16:42: POC Whole Blood Glucose 136H 08/20/20 21:59: POC Whole Blood Glucose [Pending] 08/21/20 06:32: POC Whole Blood Glucose [Pending] 08/21/20 06:50: White Blood Count 9.3, Red Blood Count 3.12L, Hemoglobin 9.2L, Hematocrit 28.9L, Mean Corpuscular Volume 92, Mean Corpuscular Hemoglobin 29.4, Mean Corpuscular Hemoglobin Concent 31.8L, Red Cell Distribution Width 15.9H, Platelet Count 171, Mean Platelet Volume 6.3L, Neutrophils (%) (Auto) 78.1H, Lymphocytes (%) (Auto) 11.8L, Monocytes (%) (Auto) 9.2, Eosinophils (%) (Auto) 0.1, Basophils (%) (Auto) 0.8, Sodium Level 140, Potassium Level 4.4, Chloride Level 101, Carbon Dioxide Level 32, Anion Gap 7, Blood Urea Nitrogen 29H, Creatinine 4.6H, Estimat Glomerular Filtration Rate 12.8, Glucose Level 109H, Calcium Level 7.3L, Phosphorus Level 2.9, Magnesium Level 2.1, Total Bilirubin 0.5, Aspartate Amino Transf (AST/SGOT) 24, Alanine Aminotransferase (ALT/SGPT) 26, Alkaline Phosphatase 114, C-Reactive Protein, Quantitative 2.9H, Pro-B-Type Natriuretic Peptide 3438H, Total Protein 6.4, Albumin 2.4L, Globulin 4.0, Albumin/Globulin Ratio 0.6L Current Medications Medications (Trade) Dose Ordered Sig/Miri Route PRN Reason Start Time Stop Time Status Last Admin Dose Admin Acetaminophen (Tylenol) 650 mg Q4H PRN ORAL Mild Pain (Pain Scale 1-3) 08/11/20 22:30 09/10/20 22:29 08/16/20 21:25 Acetaminophen (Tylenol) 650 mg Q4H PRN ORAL Temp >100.5 08/09/20 19:00 09/08/20 18:59 08/09/20 20:30 Albuterol Sulfate (Proventil MDI) 2 puff Q4H PRN INH Shortness of Breath 08/06/20 22:45 11/04/20 22:44 Amiodarone HCl (Cordarone) 200 mg DAILY ORAL 08/07/20 09:00 11/05/20 08:59 08/21/20 09:42 Atorvastatin Calcium (Lipitor) 80 mg BEDTIME ORAL 08/08/20 21:00 11/06/20 20:59 08/19/20 20:07 Clopidogrel Bisulfate (Plavix) 75 mg DAILY ORAL 08/07/20 09:00 09/06/20 08:59 08/21/20 09:42 Dextrose (Dextrose 50%) 25 ml Q30M PRN IV Hypoglycemia 08/06/20 22:45 11/04/20 22:44 Dextrose (Dextrose 50%) 50 ml Q30M PRN IV Hypoglycemia 08/06/20 22:45 11/04/20 22:44 Docusate Sodium (Colace) 100 mg TID ORAL 08/12/20 13:00 09/09/20 12:59 08/21/20 09:42 Enoxaparin Sodium (Lovenox) 30 mg DAILY SUBQ 08/07/20 09:00 11/05/20 08:59 08/18/20 12:43 Glipizide (Glucotrol) 5 mg BIAC ORAL 08/07/20 06:30 09/06/20 06:29 08/21/20 06:29 Guaifenesin/ Dextromethorphan (Robitussin DM Syrup) 10 ml Q4H PRN ORAL For Cough 08/07/20 17:30 11/05/20 17:29 08/12/20 19:56 Hydralazine HCl (Apresoline) 50 mg Q8HR ORAL 08/18/20 14:00 11/14/20 11:59 08/21/20 06:36 Insulin Aspart (NovoLOG) BEFORE MEALS AND HS SUBQ 08/07/20 06:30 11/05/20 06:29 08/20/20 22:10 Insulin Detemir (Levemir) 8 units DAILY SUBQ 08/20/20 12:00 11/18/20 11:59 08/21/20 09:55 Ipratropium Holliday (Atrovent Inh) 2 puffs Q4H PRN INH SOB wheezing 08/06/20 22:45 09/05/20 22:44 Isosorbide Mononitrate (Imdur) 30 mg DAILY ORAL 08/08/20 09:00 09/07/20 08:59 08/21/20 09:53 Metoprolol Tartrate (Lopressor) 25 mg Q12HR ORAL 08/07/20 09:00 11/05/20 08:59 08/21/20 09:53 Ondansetron HCl (Zofran) 4 mg Q6H PRN IVP Nausea & Vomiting 08/08/20 10:15 09/07/20 10:14 08/09/20 20:31 Pantoprazole (Protonix) 40 mg EVERY 12 HOURS ORAL 08/08/20 21:00 09/07/20 20:59 08/21/20 09:41 Polyethylene Glycol (Miralax) 17 gm DAILY PRN ORAL Constipation 08/12/20 09:30 09/11/20 09:29 08/17/20 10:28 Sertraline HCl (Zoloft) 25 mg DAILY ORAL 08/07/20 09:00 09/06/20 08:59 08/21/20 09:41 Zolpidem Tartrate (Ambien) 5 mg HSPRN PRN ORAL Insomnia 08/18/20 21:00 08/25/20 20:59 08/20/20 21:50 Assessment/Plan Assessment/Plan ASSESSMENT COVID-19 infection CHF acute on chronic ( due to missed HD) Elevated troponin, likely troponin leak ESRD, on HD ( missed dialysis for 1 week ) Coronary artery disease with history of ND and CABG DM OOC - [id number] HTN Elevated lipase Anemia of chronic diseas4 Fever -resolved Constipation PLAN OF CARE MS floor isolation Date of sx onset: 1 week prior to admission Positive test: 08/06 rapid COVID 19 + O2 -on RA HFA Dex-> off Dexamethasone since 08/08 ( s/p 2 days) since not hypoxic REM - -> not a candidate given ESRD DVT PPX: Lovenox D dimer -0.47 Trend CRP-> 2.9-> 7.8-> 9.7-184.6-> 140.2-> no abx as per ID recs ; BCX 08/09 NGTD, no further fevers CXR 08/17 -> Improved aeration with decreasing interstitial infiltrates. BS management Monitor volumes and renal function, HD as per nephro Fup with consultants recs FC continue a/PLT therapy with Plavix and beta blockage elevated troponin x 3 with minimal elevation, same range, likely troponin leak, ECG non-ischemic, no c/o CP cardio recs appreciated BP management with BB and Hydralazine ( added by cardio) ECHO with pEF 65% BS management with Glipizide and SSI, HgA1c- 12.5 clearly not at goal start Levemir 08/20, need furtehr optimization of BS as OP anemia w/up c/w anemia of chronic disease , ferritin 1537 monitor HH with goal to keep Hgb >7 , remains at baseline consider EPO if drop in Hgb GI follows lipase trending down, amylase WNL a/emetic prn no n/v/d KUB 08/17 unremarkable abd US-> No cholelithiasis or ultrasound evidence of acute cholecystitis. bowel regimen supportive care ID cleared for dc; needed self isolation till 08/15 , now no need for isolation fup with OP HD ( last HD 08/13) - will discuss with nephro dc to day to [facility] after bed availability CM to arrange OP HD case discussed and evaluated by supervising physician Park Gunn NP Aug 21, 2020 10:27
--- NOTE | 2020-08-21 10:49 | Infectious Diseases Prog Note ---
Assessment/Plan 69yo M with: COVID pneumonia Febrile to 101.3 Normal WBC Lymphopenia 08/06 BCx NTD COVID rapid test positive UA neg CXR: No acute process MRSA nares neg 08/09 BCx NTD CXR: Borderline cardiomegaly. No acute process 1/2 CXR: There is been slight interval worsening of mild to moderate diffuse right lung infiltrate with unchanged patchy mild left lung infiltrates. Elevated lipase, no abd pain PMH: ESRD on HD CAD s/p CABG 2019 HTN HLD DM2 LUE AVF Plan: Cont to monitor off abx OK to d/c from ID standpoint given doing well on RA OK to d/c off COVID isolation given pt now >10 days out from date of diagnosis and doing well on RA 08/08 SP Dex #2, stopped given on RA Not candidate for RDV given ESRD on HD This institution does not have access to convalescent plasma, and as pt doing well on RA unlikely to benefit from it at this point Monitor CBC/CMP Monitor resp status Monitor temp curve, hemodynamics D/w RN Thank you for this consult. [facility] will continue to follow. Subjective Allergies: Coded Allergies: No Known Allergies (Unverified , 08/06/20) AF Doing well on RA WBC 9.3 Going to SNF later today Objective Last 24 Hour Vital Signs Date Time Temp Pulse Resp B/P (MAP) Pulse Ox O2 Delivery O2 Flow Rate FiO2 08/21/20 09:53 134/61 08/21/20 09:53 68 134/61 08/21/20 09:45 97.7 68 18 134/61 (85) 99 08/21/20 09:00 Room Air 08/21/20 06:36 153/73 08/20/20 21:00 Room Air 08/20/20 20:00 97.5 67 18 118/46 (70) 98 08/20/20 16:00 97.1 62 18 132/61 (84) 99 08/20/20 12:00 97.0 64 20 134/58 (83) 100 Height (Feet): 5 Height (Inches): 8.00 Weight (Pounds): 180 Gen: NAD HEENT: NCAT Pulm: BL chest rise Abd: Non-distended Ext: No c/c/e Skin: No visible rashes Neuro: Awake Laboratory Tests Test 08/20/20 11:39 08/20/20 16:42 08/20/20 21:59 08/21/20 06:32 POC Whole Blood Glucose 266 MG/DL (74-106) H 136 MG/DL (74-106) H Pending Pending Test 08/21/20 06:50 White Blood Count 9.3 K/UL (4.8-10.8) Red Blood Count 3.12 M/UL (4.70-6.10) L Hemoglobin 9.2 G/DL (14.2-18.0) L Hematocrit 28.9 % (42.0-52.0) L Mean Corpuscular Volume 92 FL (80-99) Mean Corpuscular Hemoglobin 29.4 PG (27.0-31.0) Mean Corpuscular Hemoglobin Concent 31.8 G/DL (32.0-36.0) L Red Cell Distribution Width 15.9 % (11.6-14.8) H Platelet Count 171 K/UL (150-450) Mean Platelet Volume 6.3 FL (6.5-10.1) L Neutrophils (%) (Auto) 78.1 % (45.0-75.0) H Lymphocytes (%) (Auto) 11.8 % (20.0-45.0) L Monocytes (%) (Auto) 9.2 % (1.0-10.0) Eosinophils (%) (Auto) 0.1 % (0.0-3.0) Basophils (%) (Auto) 0.8 % (0.0-2.0) Sodium Level 140 MMOL/L (136-145) Potassium Level 4.4 MMOL/L (3.5-5.1) Chloride Level 101 MMOL/L (98-107) Carbon Dioxide Level 32 MMOL/L (21-32) Anion Gap 7 mmol/L (5-15) Blood Urea Nitrogen 29 mg/dL (7-18) H Creatinine 4.6 MG/DL (0.55-1.30) H Estimat Glomerular Filtration Rate 12.8 mL/min (>60) Glucose Level 109 MG/DL (74-106) H Calcium Level 7.3 MG/DL (8.5-10.1) L Phosphorus Level 2.9 MG/DL (2.5-4.9) Magnesium Level 2.1 MG/DL (1.8-2.4) Total Bilirubin 0.5 MG/DL (0.2-1.0) Aspartate Amino Transf (AST/SGOT) 24 U/L (15-37) Alanine Aminotransferase (ALT/SGPT) 26 U/L (12-78) Alkaline Phosphatase 114 U/L (46-116) C-Reactive Protein, Quantitative 2.9 mg/dL (0.00-0.90) H Pro-B-Type Natriuretic Peptide 3438 pg/mL (0-125) H Total Protein 6.4 G/DL (6.4-8.2) Albumin 2.4 G/DL (3.4-5.0) L Globulin 4.0 g/dL Albumin/Globulin Ratio 0.6 (1.0-2.7) L Current Medications Medications (Trade) Dose Ordered Sig/Miri Route PRN Reason Start Time Stop Time Status Last Admin Dose Admin Acetaminophen (Tylenol) 650 mg Q4H PRN ORAL Mild Pain (Pain Scale 1-3) 08/11/20 22:30 09/10/20 22:29 08/16/20 21:25 Acetaminophen (Tylenol) 650 mg Q4H PRN ORAL Temp >100.5 08/09/20 19:00 09/08/20 18:59 08/09/20 20:30 Albuterol Sulfate (Proventil MDI) 2 puff Q4H PRN INH Shortness of Breath 08/06/20 22:45 11/04/20 22:44 Amiodarone HCl (Cordarone) 200 mg DAILY ORAL 08/07/20 09:00 11/05/20 08:59 08/21/20 09:42 Atorvastatin Calcium (Lipitor) 80 mg BEDTIME ORAL 08/08/20 21:00 11/06/20 20:59 08/19/20 20:07 Clopidogrel Bisulfate (Plavix) 75 mg DAILY ORAL 08/07/20 09:00 09/06/20 08:59 08/21/20 09:42 Dextrose (Dextrose 50%) 25 ml Q30M PRN IV Hypoglycemia 08/06/20 22:45 11/04/20 22:44 Dextrose (Dextrose 50%) 50 ml Q30M PRN IV Hypoglycemia 08/06/20 22:45 11/04/20 22:44 Docusate Sodium (Colace) 100 mg TID ORAL 08/12/20 13:00 09/09/20 12:59 08/21/20 09:42 Enoxaparin Sodium (Lovenox) 30 mg DAILY SUBQ 08/07/20 09:00 11/05/20 08:59 08/18/20 12:43 Glipizide (Glucotrol) 5 mg BIAC ORAL 08/07/20 06:30 09/06/20 06:29 08/21/20 06:29 Guaifenesin/ Dextromethorphan (Robitussin DM Syrup) 10 ml Q4H PRN ORAL For Cough 08/07/20 17:30 11/05/20 17:29 08/12/20 19:56 Hydralazine HCl (Apresoline) 50 mg Q8HR ORAL 08/18/20 14:00 11/14/20 11:59 08/21/20 06:36 Insulin Aspart (NovoLOG) BEFORE MEALS AND HS SUBQ 08/07/20 06:30 11/05/20 06:29 08/20/20 22:10 Insulin Detemir (Levemir) 8 units DAILY SUBQ 08/20/20 12:00 11/18/20 11:59 08/21/20 09:55 Ipratropium [place] (Atrovent Inh) 2 puffs Q4H PRN INH SOB wheezing 08/06/20 22:45 09/05/20 22:44 Isosorbide Mononitrate (Imdur) 30 mg DAILY ORAL 08/08/20 09:00 09/07/20 08:59 08/21/20 09:53 Metoprolol Tartrate (Lopressor) 25 mg Q12HR ORAL 08/07/20 09:00 11/05/20 08:59 08/21/20 09:53 Ondansetron HCl (Zofran) 4 mg Q6H PRN IVP Nausea & Vomiting 08/08/20 10:15 09/07/20 10:14 08/09/20 20:31 Pantoprazole (Protonix) 40 mg EVERY 12 HOURS ORAL 08/08/20 21:00 09/07/20 20:59 08/21/20 09:41 Polyethylene Glycol (Miralax) 17 gm DAILY PRN ORAL Constipation 08/12/20 09:30 09/11/20 09:29 08/17/20 10:28 Sertraline HCl (Zoloft) 25 mg DAILY ORAL 08/07/20 09:00 09/06/20 08:59 08/21/20 09:41 Zolpidem Tartrate (Ambien) 5 mg HSPRN PRN ORAL Insomnia 08/18/20 21:00 08/25/20 20:59 08/20/20 21:50 Luiza Barton M.D. Aug 21, 2020 10:49
--- NOTE | 2020-08-21 10:51 | Nephrology Progress Note ---
Assessment/Plan Problem List: (1) ESRD (end stage renal disease) on dialysis (2) Elevated troponin (3) Pancreatitis (4) 2019 novel coronavirus disease (COVID-19) (5) Anemia in chronic kidney disease (CKD) (6) DMII (diabetes mellitus, type 2) Assessment End-stage renal disease on hemodialysis COVID-19 pneumonia Coronary artery disease, [place] Diabetes mellitus Anemia Elevated lipase Plan August 21: Patient dialyzed yesterday. Medication list reviewed. Vitamin D level low at 14. Vitamin D supplement ordered. Dialysis tomorrow. August 20: Patient due for dialysis today. Medication list reviewed. Stable from renal standpoint of view. August 19: Due for dialysis tomorrow. Remains stable from renal standpoint of view. August 18: Patient was dialyzed yesterday. Due for dialysis on Thursday. Labs reviewed. Medication list reviewed. Stable from renal standpoint of view. August 17: Due for dialysis today. Labs reviewed. Medication list reviewed. Stable from renal standpoint of view. August 16: Patient dialyzed yesterday. Labs reviewed. Due for dialysis t omorrow. Blood pressure stable. Medication list reviewed. August 15: Due for dialysis today. Labs reviewed. Blood pressure stable. Continue per consultants. August 14: Dialyzed yesterday. Due for dialysis tomorrow. Labs reviewed. Medication list reviewed. Full code. Continue per consultants. August 13: Due for dialysis today. Labs reviewed. Medication list reviewed. Continue per consultants. August 12: Dialyzed yesterday. Due for dialysis tomorrow. Medication list reviewed. Labs are reviewed. Continue per consultants. August 11: Due for dialysis today. Continue per consultants. Check labs tomorrow. August 10: Last dialyzed yesterday. Labs reviewed. Due for dialysis tomorrow. Continue per consultants. August 09: Patient due for dialysis today. Labs reviewed. Medication list reviewed. Continue per consultants. August 08: Patient was dialyzed yesterday. Due for dialysis tomorrow. Blood pressure medication adjusted. Diet changed to renal medium carbs. Continue per consultants. 2D echo pending. Previously: Monitor renal parameters Hemodialysis as soon as the patient arrives to medical floor Monitor lipase, renal parameters, hemoglobin and hematocrit Per orders Subjective ROS Limited/Unobtainable: No Constitutional: Reports: malaise Objective Objective Last 24 Hour Vital Signs Date Time Temp Pulse Resp B/P (MAP) Pulse Ox O2 Delivery O2 Flow Rate FiO2 08/21/20 09:53 134/61 08/21/20 09:53 68 134/61 08/21/20 09:45 97.7 68 18 134/61 (85) 99 08/21/20 09:00 Room Air 08/21/20 06:36 153/73 08/20/20 21:00 Room Air 08/20/20 20:00 97.5 67 18 118/46 (70) 98 08/20/20 16:00 97.1 62 18 132/61 (84) 99 08/20/20 12:00 97.0 64 20 134/58 (83) 100 Intake and Output 08/20/20 08/21/20 19:00 07:00 Intake Total 400 ml Output Total 2000 ml Balance -2000 ml 400 ml Intake Oral 400 ml Hemodialysis UF 2000 ml # Voids 1 Laboratory Tests 08/20/20 11:39: POC Whole Blood Glucose 266H 08/20/20 16:42: POC Whole Blood Glucose 136H 08/20/20 21:59: POC Whole Blood Glucose [Pending] 08/21/20 06:32: POC Whole Blood Glucose [Pending] 08/21/20 06:50: White Blood Count 9.3, Red Blood Count 3.12L, Hemoglobin 9.2L, Hematocrit 28.9L, Mean Corpuscular Volume 92, Mean Corpuscular Hemoglobin 29.4, Mean Corpuscular Hemoglobin Concent 31.8L, Red Cell Distribution Width 15.9H, Platelet Count 171, Mean Platelet Volume 6.3L, Neutrophils (%) (Auto) 78.1H, Lymphocytes (%) (Auto) 11.8L, Monocytes (%) (Auto) 9.2, Eosinophils (%) (Auto) 0.1, Basophils (%) (A uto) 0.8, Sodium Level 140, Potassium Level 4.4, Chloride Level 101, Carbon Dioxide Level 32, Anion Gap 7, Blood Urea Nitrogen 29H, Creatinine 4.6H, Estimat Glomerular Filtration Rate 12.8, Glucose Level 109H, Calcium Level 7.3L, Phosphorus Level 2.9, Magnesium Level 2.1, Total Bilirubin 0.5, Aspartate Amino Transf (AST/SGOT) 24, Alanine Aminotransferase (ALT/SGPT) 26, Alkaline Phosphatase 114, C-Reactive Protein, Quantitative 2.9H, Pro-B-Type Natriuretic Peptide 3438H, Total Protein 6.4, Albumin 2.4L, Globulin 4.0, Albumin/Globulin Ratio 0.6L Height (Feet): 5 Height (Inches): 8.00 Weight (Pounds): 180 General Appearance: no apparent distress Cardiovascular: normal rate Respiratory/Chest: decreased breath sounds Abdomen: soft Objective No change Jon Crews MD Aug 21, 2020 10:51
[2020-08-21 11:45] VITALS: BP 123/58
[2020-08-21 11:49] VITALS: BP 123/58
[2020-08-21] MEDS ORDERED: Vitamin D 50,000 units cap ORAL SCH (12:00)
[2020-08-21 14:00] VITALS: BP 127/67
--- NOTE | 2020-08-21 21:18 | Surgery Progress Note ---
Surgery Progress Note Subjective Additional Comments late entry patient planned for d/c today improved over all no n/v labs improved okay for d/c Objective Last 24 Hour Vital Signs Date Time Temp Pulse Resp B/P (MAP) Pulse Ox O2 Delivery O2 Flow Rate FiO2 08/21/20 14:00 127/67 08/21/20 11:49 98.2 59 21 123/58 (79) 95 08/21/20 11:45 98.2 59 21 123/58 (79) 95 08/21/20 09:53 134/61 08/21/20 09:53 68 134/61 08/21/20 09:45 97.7 68 18 134/61 (85) 99 08/21/20 09:00 Room Air 08/21/20 06:36 153/73 I&O Intake and Output 08/20/20 08/21/20 19:00 07:00 Intake Total 400 ml Output Total 2000 ml Balance -2000 ml 400 ml Intake Oral 400 ml Hemodialysis UF 2000 ml # Voids 1 Cardiovascular: RSR Respiratory: clear, decreased breath sounds Abdomen: soft, non-tender, present bowel sounds Extremities: no edema, no tenderness, no cyanosis Laboratory Tests Test 08/20/20 21:59 08/21/20 06:32 08/21/20 06:50 08/21/20 12:07 POC Whole Blood Glucose Pending Pending 165 MG/DL (74-106) H White Blood Count 9.3 K/UL (4.8-10.8) Red Blood Count 3.12 M/UL (4.70-6.10) L Hemoglobin 9.2 G/DL (14.2-18.0) L Hematocrit 28.9 % (42.0-52.0) L Mean Corpuscular Volume 92 FL (80-99) Mean Corpuscular Hemoglobin 29.4 PG (27.0-31.0) Mean Corpuscular Hemoglobin Concent 31.8 G/DL (32.0-36.0) L Red Cell Distribution Width 15.9 % (11.6-14.8) H Platelet Count 171 K/UL (150-450) Mean Platelet Volume 6.3 FL (6.5-10.1) L Neutrophils (%) (Auto) 78.1 % (45.0-75.0) H Lymphocytes (%) (Auto) 11.8 % (20.0-45.0) L Monocytes (%) (Auto) 9.2 % (1.0-10.0) Eosinophils (%) (Auto) 0.1 % (0.0-3.0) Basophils (%) (Auto) 0.8 % (0.0-2.0) Sodium Level 140 MMOL/L (136-145) Potassium Level 4.4 MMOL/L (3.5-5.1) Chloride Level 101 MMOL/L (98-107) Carbon Dioxide Level 32 MMOL/L (21-32) Anion Gap 7 mmol/L (5-15) Blood Urea Nitrogen 29 mg/dL (7-18) H Creatinine 4.6 MG/DL (0.55-1.30) H Estimat Glomerular Filtration Rate 12.8 mL/min (>60) Glucose Level 109 MG/DL (74-106) H Calcium Level 7.3 MG/DL (8.5-10.1) L Phosphorus Level 2.9 MG/DL (2.5-4.9) Magnesium Level 2.1 MG/DL (1.8-2.4) Total Bilirubin 0.5 MG/DL (0.2-1.0) Aspartate Amino Transf (AST/SGOT) 24 U/L (15-37) Alanine Aminotransferase (ALT/SGPT) 26 U/L (12-78) Alkaline Phosphatase 114 U/L (46-116) C-Reactive Protein, Quantitative 2.9 mg/dL (0.00-0.90) H Pro-B-Type Natriuretic Peptide 3438 pg/mL (0-125) H Total Protein 6.4 G/DL (6.4-8.2) Albumin 2.4 G/DL (3.4-5.0) L Globulin 4.0 g/dL Albumin/Globulin Ratio 0.6 (1.0-2.7) L Plan Problems: (1) Pancreatitis Assessment & Plan: febrile covid + lft's wnl lip elevated esr / crp elevated abd exam benign US abd ordered ca pending no acute surgical intervention will follow with exam and recs thank you trending down lip fluctuating clinically without pain tolerating diet monitor US noted improving Liver: The liver is within normal limits, measuring 14.0 cm. Gallbladder: There is no cholelithiasis. The common bile duct measures 6 mm. Pancreas: Poorly visualized, due to overlying bowel gas. Right Kidney: The right kidney measures 11.5 cm. No hydronephrosis or nephrolithiasis. Right midpole cyst measures 2.5 x 2.4 cm Left Kidney: The left kidney measures 10.6 cm. No hydronephrosis or nephrolithiasis. Left lower pole cyst measures 1.0 x 1.1 cm Spleen: The spleen measures 12.2 cm. Abdominal Aorta and IVC: Poorly visualized, due to overlying bowel gas. IMPRESSION: No cholelithiasis or ultrasound evidence of acute cholecystitis. Bilateral renal cysts, no follow-up indicated. (2) Fever (3) Elevated troponin (4) ESRD (end stage renal disease) on dialysis (5) Anemia in chronic kidney disease (CKD) (6) DMII (diabetes mellitus, type 2) (7) 2019 novel coronavirus disease (COVID-19) Assessment & Plan: ++ id input on abx pulm noted Lungs: Low lung volumes with bronchovascular crowding. No consolidation, pleural effusion, or pneumothorax. Pleural space: See above. Heart: Cardiomegaly. Mediastinum: Unremarkable. Bones/joints: Sternotomy with mediastinal operative findings. Other findings: Radiopaque linear structure superimposed over the left neck of uncertain significance, correlate with patient presentation and history. IMPRESSION: 1. Radiopaque linear structure superimposed over the left neck of uncertain significance, correlate with patient presentation and history. 2. Low lung volumes with bronchovascular crowding. 3. Cardiomegaly. 4. Otherwise no acute cardiopulmonary disease. 5. If there is continued concern, consider frontal and lateral chest radiographs or CT. Pacheco [place] Aug 21, 2020 21:18
[2020-08-22] MEDS ORDERED: Vitamin D 1000 units Tab ORAL SCH (12:00)
--- NOTE | 2020-08-22 14:48 | Discharge Summary ---
Discharge Summary Discharge Summary _ DATE OF ADMISSION: 08/06/2020 DATE OF DISCHARGE: 08/21/2020 DISCHARGED BY: Dr. Doll REASON FOR ADMISSION: 69 years old male with past medical history of diabetes mellitus, end-stage renal disease, on hemodialysis, hypertension, hyperlipidemia, coronary artery disease, status post CABG, presented due to fever and cough Symptoms were presented for 1 week. Patient also reports myalgia. He reported missing hemodialysis for 1 week , since he did not feel good. He denied recent COVID testing. In emergency department patient was febrile, pulse oximetry was stable on room air. Rapid COVID-19 was positive. Chest x-ray revealed cardiomegaly, bronchovascular crowding ,otherwise no acute cardiopulmonary disease. Troponin 0.09, EKG revealed sinus rhythm , no acute ischemic changes, pro BNP 45573. Ferritin 1143, CRP 2.9, LDH 230 and D-dimer 0.47 Patient subsequently admitted for further management. CONSULTANTS: orthopaedic general Dr. Puga GI specialist Dr Cruz ID specialist Dr. Barton director of vocational guidance Dr. Crews surgery Dr. Keene HOSPITAL COURSE: Patient admitted to medical surgical floor to isolation room. Patient started on dexamethasone. No remdesivir given end-stage renal disease. Anticoagulation with Lovenox provided supplement. Supplemental oxygen provided and titrated to keep pulse oximetry above 92% . HFA provided as needed. Patient was followed-up with the inflammatory markers and imaging. After 2 days , dexamethasone was discontinued since patient was not hypoxic. No antibiotic as per ID recommendation. Blood cultures were negative . No further fevers. Follow-up chest x-ray revealed improved aeration with decreased interstitial infiltrates . Volumes and renal function were closely monitored. Hemodialysis provided as per director of vocational guidance recommendation. Antiplatelet therapy with Plavix and beta-blockade continued. Elevated troponin x3 with minimal elevation in the same range , was likely due to troponin leak. EKG was nonischemic. No complaints of chest pain. Blood pressure was managed with beta-gianluca and hydralazine. Echocardiogram revealed preserved ejection fraction 65%. Blood sugar was managed with glipizide and sliding scale of insulin. Hemoglobin A1c 12.5 , not at goal. Diabetic diet and diabetic teaching provided. Patient started on long acting Levemir. Patient will need further optimization of anti-glycemic regimen as outpatient. Anemia work-up was consistent with anemia of chronic disease. Ferritin 1537. Hemoglobin and hematocrit were closely monitored with goal to keep hemoglobin above 7 , remained at baseline. Consider Epogen if drop in hemoglobin occurs. GI specialist followed as patient complained of abdominal pain. Lipase initially elevated, trended down , and amylase within normal limits. Pain management was addressed as needed. Antiemetic provided as needed. KUB was unremarkable. No nausea , vomiting or diarrhea . Abdominal ultrasound revealed no cholelithiasis, no evidence of acute cholecystitis. Bowel regimen instituted. Patient had bowel movementa. Abdominal pain resolved. ID specialist cleared patient from isolation after 08/15. No need for further isolation. Patient was stable for discharge to senior living facility for continuation of care, as he was unable to care of himself at home. Outpatient hemodialysis was arranged. FINAL DIAGNOSES: COVID-19 pneumonia CHF , acute on chronic , due to missed hemodialysis Elevated troponin , likely troponin leak End-stage renal disease , on hemodialysis ( missed dialysis for 1 week) Diabetes mellitus [id number] (hemoglobin A1c 12.5) Hypertension Elevated lipase Anemia of chronic disease Constipation -resolved Fevers -resolved DISCHARGE MEDICATIONS: See Medication Reconciliation list. DISCHARGE INSTRUCTIONS: Patient was discharged to the senior living facility. Follow up with medical doctor at the facility. Park Gunn NP Aug 22, 2020 14:48
== END 2020-08-21 16:00 | DRG 177 ==
LOC: EDBD 19:21 → EMR 19:30 → 2E 22:15 → EDBEDREQ 08-07 17:56 → 4E 08-11 14:14
PROC: 5A1D70Z Performance of Urinary Filtration, Intermittent, Less than 6 Hours Per Day (ICD-10-PCS; principal; 2020-08-07)
DX: U07.1 COVID-19 (principal); N18.6 End stage renal disease; K85.90 Acute pancreatitis without necrosis or infection, unspecified; J12.82 Pneumonia due to coronavirus disease 2019; I50.33 Acute on chronic diastolic (congestive) heart failure; I13.2 Hypertensive heart and chronic kidney disease with heart failure and with stage 5 chronic kidney disease, or end stage renal disease; E11.65 Type 2 diabetes mellitus with hyperglycemia; E11.22 Type 2 diabetes mellitus with diabetic chronic kidney disease; Z99.2 Dependence on renal dialysis; Z91.15 Patient's noncompliance with renal dialysis; I25.10 Atherosclerotic heart disease of native coronary artery without angina pectoris; Z95.1 Presence of aortocoronary bypass graft; D63.1 Anemia in chronic kidney disease; E78.5 Hyperlipidemia, unspecified; D72.810 Lymphocytopenia; I25.2 Old myocardial infarction; K59.00 Constipation, unspecified
CPT/HCPCS: 36415; 71045; 74018; 76700; 80048; 80053; 80061; 80076; 81003; 82150; 82306; 82550; 82553; 82607; 82728; 82746; 82803; 82962; 82977; 83036; 83520; 83540; 83550; 83605; 83615; 83690; 83735; 83880; 84100; 84443; 84484; 84550; 85007; 85025; 85379; 85610; 85651; 85730; 86140; 86706; 87040; 87081; 93005; 93306; 99285; J1815; J2405; S5561; U0002